=== PATIENT | female | born 1970 | race Two or more races ===

== ENCOUNTER 2020-06-15 07:13 | Emergency (ER) | payer OTHER, SELFPAY ==
[2020-06-15 07:51] VITALS: BP 151/100; PULSE 118; RESP 20; TEMP 37.1; O2SAT 99; BMI 22.4
--- NOTE | 2020-06-15 08:14 | ED.NAVMDI ---
HPI - Nausea/Vomiting/Diarrhea General Chief complaint: Nausea/Vomiting/Diarrhea Stated complaint: VOMITING Time Seen by Provider: 06/15/20 08:09 Source: patient Mode of arrival: ambulatory Limitations: no limitations History of Present Illness HPI Narrative: patient comes to emergency room complaining of abdominal pain and vomiting. Patient states is her usual gastroparesis. Patient has been seen multiple times in the emergency room for the same reason. Patient is being seen by scrum product owner. Patient states this time, the pain has been present for 3-4 days. Patient denies diarrhea, no fever MD elicited complaint: nausea, vomiting and abdominal pain Related Data Previous Rx's Medication Instructions Recorded metoclopramide HCl [Reglan] 10 mg PO DAILY #30 tab 06/15/20 Allergies Allergy/AdvReac Type Severity Reaction Status Date / Time No Known Allergies Allergy Unverified 05/10/20 16:04 [No Known Allergies*] Review of Systems Review of Systems: Constitutional : No Weight loss, No Fever, No Chills, No Night Sweats, No Fatigue, No Malaise ENT/Mouth : No Hearing loss, No Ear Pain, No Nasal Congestion, No Sinus Pain, No Hoarseness, No sore throat, No Rhinorrhea, No Swallowing Difficulty Eyes: No Eye Pain, No Swelling, No Redness, No Foreign Body, No Discharge, No Vision Changes Cardiovascular : No Chest Pain, No SOB, No Dyspnea on Exertion, No Orthopnea, No Edema, No Palpitations Respiratory : No Cough, No Sputum, No Wheezing, No Smoke Exposure, No Dyspnea Gastrointestinal : complaining of nausea vomiting, No Diarrhea, No Constipation, mild to mother diffuse abdominal Pain, No Hematochezia, No Melena Genitourinary : no irregular bleeding, No Dysuria, No Urinary Frequency, No Hematuria, No Urinary Incontinence, No Urgency, No Flank Pain, No Urinary Flow Changes, No Hesitancy Musculoskeletal : No joint pain, No Myalgias, No Joint Swelling Skin : No Skin Lesions, No rash Neuro : No Weakness, No Numbness, No Paresthesias, No Loss of Consciousness, No Dizziness, No Headache Psych : No Anxiety/Panic, No Depression, No SI/HI/AH/VH, No Social Issues, Heme/Lymph: No Bruising, No Bleeding,No Lymphadenopathy Endocrine : No Polyuria, No Polydipsia, No Temperature Intolerance [facility] Past Medical History Medical History (Updated 06/15/20 @ 10:45 by Kaylee Grossman MD) Gastroparesis Social History Social History Smoking Status: Current every day smoker Use of substances other than those prescribed or required for medical reasons: No Advance Directives: No Advance Directives Information Provided: No Physical Exam Vital Signs: Vital Signs: Vital Signs Temp Pulse Resp BP Pulse Ox 06/15/20 07:51 98.7 F 118 H 20 151/100 H 99 Body Mass Index 22.4 Appearance: Alert. Oriented X3. mild distress, crying Eyes: Pupils equal, round and reactive to light. ENT: Pharynx normal. Neck: Normal inspection. Neck supple. No lymph nodes noted. No crepitus CVS: Normal heart rate and rhythm. Pulses normal. Normal S1 and S2 Respiratory: No respiratory distress. Breath sounds normal. No Wheezing. No rales Abdomen: Soft, mild to moderate tenderness. No rigidity. No distention. good BS x4 Skin: Skin warm and dry. Normal skin color. Normal skin turgor. Extremities: No lower extremity edema. No lower extremity edema. No Lacerations. No Rash Neuro: Oriented X 3. No motor deficit. No sensory deficit. Moving all extermities. No slurred speech. Course Course Course Narrative: Patient feeling better, no longer having abdominal pain, still having slight nausea but not vomiting. Patient states she does not have any Reglan at home anymore. MDM - Nausea/Vomiting/Diarrhea MDM Narrative Medical decision making narrative: Patient's symptoms likely secondary to gastroparesis. Patient states she has an appointment in early June with her scrum product owner. Lab Data Result diagrams: 06/15/20 08:49 06/15/20 09:54 Labs: Lab Results 06/15/20 06/15/20 06/15/20 Range/Units 08:49 08:50 09:54 WBC 9.6 (4.8-10.8) X10*3/uL RBC 4.62 (4.20-5.50) X10*6/uL Hgb 13.3 (12.0-16.0) g/dl Hct 40.1 (37-47) % MCV 86.8 (80-98) fL MCH 28.8 (27.0-33.0) pg MCHC 33.2 (31.0-35.0) g/dl RDW 13.2 (11.0-16.0) % Plt Count 271 (160-400) X10*3/uL MPV 9.2 L (9.4-12.3) fL Immature Gran % (Auto) 0.2 (0.0-0.4) % Neut % (Auto) 93.3 H (45-73) % Lymph % (Auto) 4.4 L (20-40) % [place] % (Auto) 1.9 L (2-11) % Eos % (Auto) 0.0 (0-4) % Baso % (Auto) 0.2 (0-2) % Lymph # (Auto) 0.4 L (1.2-4.9) X10*3/uL [place] # (Auto) 0.2 (0.1-1.2) X10*3/uL Eos # (Auto) 0.0 (0.0-0.4) X10*3/uL Baso # (Auto) 0.0 (0.0-0.2) X10*3/uL Abs Immat Gran (auto) 0.02 (0.00-0.03) X10*3/uL Absolute Neuts (auto) 8.9 H (2.0-8.3) X10*3/uL Absolute Nucleated RBC 0.000 (0.0-0.012) X10*3/uL Nucleated RBC % (auto) 0.0 (0.0-0.2) /100WBC Smear Tech's Comments VERIFIED Sodium Cancelled 139 Potassium Cancelled 4.4 Chloride Cancelled 104 Carbon Dioxide Cancelled 24 Anion Gap Cancelled 15 BUN Cancelled 16 Creatinine Cancelled 0.85 Estim Creat Clear Calc Cancelled 59.7 Estimated GFR Cancelled > 60 Random Glucose Cancelled 311 H Calcium Cancelled 8.6 Total Bilirubin Cancelled 0.5 Direct Bilirubin Cancelled 0.2 AST Cancelled 19 ALT Cancelled 19 Alkaline Phosphatase Cancelled 58 Total Protein Cancelled 7.0 Albumin Cancelled 4.3 Lipase Cancelled 37 Discharge Plan Discharge Clinical Impression: Gastroparesis Patient Disposition: Home, Self-Care Instructions: Gastroparesis (ED) Additional Instructions: please follow-up with your scrum product owner. Please follow-up with your primary care physician tomorrow. If you have any worsening or new symptoms, please return to the emergency room or call 911 Prescriptions: New metoclopramide HCl [Reglan] 5 mg tablet 10 mg PO DAILY Qty: 30 RF: 0
[2020-06-15] MEDS: 0.9 % Sodium Chloride 1,000 ML 999 ML IVCONT (08:50)
[2020-06-15] MEDS: Metoclopramide HCl 10 MG/2 ML VIAL IVPUSH (08:51)
[2020-06-15 09:03] LABS: Basophils Percent Auto 0.2 % (0-2); MANUAL DIFF FLAG SCAN; Mean Platelet Volume 9.2 fL (9.4-12.3); Neutrophils Percent Auto 93.3 % (45-73); PLT CLUMP 1; Red Cell Distribution Width 13.2 % (11.0-16.0); SCAN SMEAR FLAG 1
[2020-06-15 09:04] LABS: Hematocrit 40.1 % (37-47); Hemoglobin 13.3 g/dl (12.0-16.0); Imm Gran Abs Auto 0.02 X10*3/uL (0.00-0.03); Imm Gran Pct Auto 0.2 % (0.0-0.4); Lymphocytes Absolute Auto 0.4 X10*3/uL (1.2-4.9); Lymphocytes Percent Auto 4.4 % (20-40); Mean Corpuscular HGB Conc 33.2 g/dl (31.0-35.0); Mean Corpuscular Hemoglobin 28.8 pg (27.0-33.0); Mean Corpuscular Volume 86.8 fL (80-98); Monocytes Absolute Auto 0.2 X10*3/uL (0.1-1.2); Monocytes Percent Auto 1.9 % (2-11); Neutrophils Absolute Auto 8.9 X10*3/uL (2.0-8.3); Platelet Count 271 X10*3/uL (160-400); Red Blood Count 4.62 X10*6/uL (4.20-5.50); White Blood Count 9.6 X10*3/uL (4.8-10.8)
[2020-06-15 09:27] LABS: SLIDE REVIEW VERIFIED
[2020-06-15 10:26] LABS: Alanine Aminotransferase 19 U/L (0-31); Albumin Level 4.3 g/dL (3.5-5.0); Alkaline Phosphatase 58 U/L (39-117); Anion Gap 15 (12-20); Aspartate Amino Transferase 19 U/L (5-31); Bilirubin Direct 0.2 mg/dL (0.0-0.5); Bilirubin Total 0.5 mg/dL (0.0-1.0); Blood Urea Nitrogen 16 mg/dL (9-16); Calcium 8.6 mg/dL (8.4-10.2); Carbon Dioxide 24 mmol/L (22-29); Chloride 104 mmol/L (96-108); Creatinine Clr Calc Pharmacy 59.7; Estimated Glomerular Filt Rate > 60; Glucose Random 311 mg/dL (60-115); Lipase 37 U/L (8-78); Potassium 4.4 mmol/l (3.3-5.1); Sodium 139 mmol/L (135-145)
== END 2020-06-15 11:04 | disposition home or self-care (01) ==
PROVIDERS: Emergency Provider Emergency Medicine
DX: K31.84 Gastroparesis (principal); F17.200 Nicotine dependence, unspecified, uncomplicated
CPT/HCPCS: 36415; 80048; 80076; 83690; 85025; 96361; 96374; 99284; J2765

== ENCOUNTER 2020-10-02 11:13 | Emergency (ER) | payer OTHER, SELFPAY ==
[2020-10-02 11:26] VITALS: BP 118/80; PULSE 99; RESP 18; TEMP 36.6; O2SAT 98; BMI 42.9
--- NOTE | 2020-10-02 12:35 | ED.ABDPAIN ---
HPI - Abdominal Pain General Chief Complaint: Abdominal Pain Stated Complaint: abd pain Time Seen by Provider: 10/02/20 12:24 Source: patient Mode of arrival: ambulatory History of Present Illness HPI narrative: 50-year-old female with past medical history of diabetes, gastroparesis, cholecystectomy, presenting to the ED complaining of upper abdominal pain, nausea, and vomiting since this morning. Admit symptoms are similar to prior gastroparesis, unchanged. States did not checked fingersticks this morning or take insulin. Denies fever, chills, diarrhea/constipation, dysuria/hematuria MD elicited complaint: abdominal pain Related Data Previous Rx's Medication Instructions Recorded metoclopramide HCl [Reglan] 10 mg PO DAILY #30 tab 06/15/20 ondansetron HCl [Zofran] 4 mg PO Q8H PRN #10 tab 10/02/20 Allergies Allergy/AdvReac Type Severity Reaction Status Date / Time No Known Allergies Allergy Verified 10/02/20 11:30 [No Known Allergies*] Review of Systems Review of Systems Constitutional: No Weight loss, No Fever, No Chills Cardiovascular: No Chest Pain, No SOB Respiratory: No Cough, No Sputum Gastrointestinal: + Nausea, + Vomiting, No Diarrhea, No Constipation, + Abdominal pain Genitourinary: No Dysuria, No Urinary Frequency, No Hematuria, No Flank Pain, No Hesitancy Musculoskeletal: No joint pain, No Myalgias, No Joint Swelling Skin: No Skin Lesions, No rash Yes all other systems are reviewed and are negative Physical Exam Vital Signs: Vital Signs: Last Vital Signs Temp 98.3 F 10/02/20 12:58 Pulse 87 10/02/20 14:00 Resp 18 10/02/20 14:00 BP 134/74 10/02/20 14:00 Pulse Ox 100 10/02/20 14:00 Body Mass Index 42.9 Const: General: cooperative and healthy appearing Orientation/consciousness: patient oriented x3 Limitations: no limitations HENMT: Head: Yes normal to inspection Ears: hearing grossly normal bilaterally General nose exam: Normal external nose present Face and sinus: Yes normal facial exam Eyes: General: appearance normal, both eyes and all related structures EOM: EOMs intact bilaterally Neck: Neck: Yes normal visual inspection and Yes no meningeal signs Resp: Effort & Inspection: normal respiratory effort Cardio: Rate: regular rate GI: Inspection: Yes normal to inspection Palpation (GI): Soft to palpation, Tenderness to palpation present (GI) in the epigastrum, no guarding and not rigid : General: Yes no CVA tenderness Back/Spine/Pelvis: Back: no CVA tenderness Skin: Rashes: no rashes Wounds: no wounds Neuro: General: patient oriented x3 and no meningeal signs Gait exam (Neuro): Normal gait present Extrem: General: Yes normal to inspection Course Course Course Narrative: -no leukocytosis, glucose 251, no AG, UA neg > on re-evaluation reports continued abdominal pain. IV Reglan & Ativan ordered -1452--on re-evaluation patient reports symptomatic improvement. Feels safe for discharge. MDM - Abdominal Pain MDM Narrative Medical decision making narrative: 50-year-old female with past medical history of diabetes, gastroparesis, cholecystectomy, presenting to the ED complaining of upper abdominal pain, nausea, and vomiting since this morning. On exam VSS, NAD/well appearing, abdomen soft with epigastric tenderness to palpation, no rebound or guarding. Concern for gastroparesis vs pancreatitis. Lower concern for appendicitis /diverticulitis or renal stone without lower abdominal tenderness. Plan: labs, UA, sx tx, Reassess Differential Diagnosis Differential diagnosis: Likely abdominal pain, gastritis and pancreatitis; Unlikely aortic dissection, acute appendicitis, bowel perforation, calculus of kidney, constipation, diverticulitis, endometriosis, ovarian cyst, renal colic and small bowel obstruction Medical Records Attestation: I reviewed the patient's medical records. Lab Data Attestation: I reviewed the patient's lab results. Result diagrams: 10/02/20 13:05 10/02/20 13:05 Labs: Lab Results 10/02/20 10/02/20 10/02/20 Range/Units 13:04 13:05 13:05 WBC 8.1 (4.8-10.8) X10*3/uL RBC 4.38 (4.20-5.50) X10*6/uL Hgb 13.2 (12.0-16.0) g/dl Hct 39.3 (37-47) % MCV 89.7 (80-98) fL MCH 30.1 (27.0-33.0) pg MCHC 33.6 (31.0-35.0) g/dl RDW 13.2 (11.0-16.0) % Plt Count 303 (160-400) X10*3/uL MPV 8.9 L (9.4-12.3) fL Immature Gran % (Auto) 0.4 (0.0-0.4) % Neut % (Auto) 79.9 H (45-73) % Lymph % (Auto) 14.7 L (20-40) % [place] % (Auto) 4.2 (2-11) % Eos % (Auto) 0.4 (0-4) % Baso % (Auto) 0.4 (0-2) % Lymph # (Auto) 1.2 (1.2-4.9) X10*3/uL [place] # (Auto) 0.3 (0.1-1.2) X10*3/uL Eos # (Auto) 0.0 (0.0-0.4) X10*3/uL Baso # (Auto) 0.0 (0.0-0.2) X10*3/uL Abs Immat Gran (auto) 0.03 (0.00-0.03) X10*3/uL Absolute Neuts (auto) 6.5 (2.0-8.3) X10*3/uL Absolute Nucleated RBC 0.000 (0.0-0.012) X10*3/uL Nucleated RBC % (auto) 0.0 (0.0-0.2) /100WBC Hold Blue Top SEE NOTE Sodium (135-145) mmol/L Potassium (3.3-5.1) mmol/L Chloride (96-108) mmol/L Carbon Dioxide (22-29) mmol/L Anion Gap (12-20) BUN (9-16) mg/dL Creatinine (0.5-1.4) mg/dL Estim Creat Clear Calc Estimated GFR POC Glucose 214 H (60-115) mg/dL Random Glucose (60-115) mg/dL Calcium (8.4-10.2) mg/dL Magnesium (1.6-2.6) mg/dL Total Bilirubin (0.0-1.0) mg/dL Direct Bilirubin (0.0-0.5) mg/dL AST (5-31) U/L ALT (0-31) U/L Alkaline Phosphatase (39-117) U/L Total Protein (6.5-8.0) g/dL Albumin (3.5-5.0) g/dL Lipase (8-78) U/L Urine Color Urine Appearance Urine pH (5.0-8.0) Ur Specific [place] (1.005-1.025) Urine Protein (NEG-TRACE) MG/DL Urine Glucose (UA) (NEG) MG/DL Urine Ketones (NEG) MG/DL Urine Blood (NEG) Urine Nitrite (NEG) Ur Leukocyte Esterase (NEG) 10/02/20 10/02/20 Range/Units 13:05 13:05 WBC (4.8-10.8) X10*3/uL RBC (4.20-5.50) X10*6/uL Hgb (12.0-16.0) g/dl Hct (37-47) % MCV (80-98) fL MCH (27.0-33.0) pg MCHC (31.0-35.0) g/dl RDW (11.0-16.0) % Plt Count (160-400) X10*3/uL MPV (9.4-12.3) fL Immature Gran % (Auto) (0.0-0.4) % Neut % (Auto) (45-73) % Lymph % (Auto) (20-40) % [place] % (Auto) (2-11) % Eos % (Auto) (0-4) % Baso % (Auto) (0-2) % Lymph # (Auto) (1.2-4.9) X10*3/uL [place] # (Auto) (0.1-1.2) X10*3/uL Eos # (Auto) (0.0-0.4) X10*3/uL Baso # (Auto) (0.0-0.2) X10*3/uL Abs Immat Gran (auto) (0.00-0.03) X10*3/uL Absolute Neuts (auto) (2.0-8.3) X10*3/uL Absolute Nucleated RBC (0.0-0.012) X10*3/uL Nucleated RBC % (auto) (0.0-0.2) /100WBC Hold Blue Top Sodium 137 (135-145) mmol/L Potassium 4.4 (3.3-5.1) mmol/L Chloride 100 (96-108) mmol/L Carbon Dioxide 28 (22-29) mmol/L Anion Gap 13 (12-20) BUN 14 (9-16) mg/dL Creatinine 0.82 (0.5-1.4) mg/dL Estim Creat Clear Calc 90.5 Estimated GFR > 60 POC Glucose (60-115) mg/dL Random Glucose 251 H (60-115) mg/dL Calcium 8.9 (8.4-10.2) mg/dL Magnesium 1.8 (1.6-2.6) mg/dL Total Bilirubin 0.4 (0.0-1.0) mg/dL Direct Bilirubin 0.2 (0.0-0.5) mg/dL AST 18 (5-31) U/L ALT 16 (0-31) U/L Alkaline Phosphatase 62 (39-117) U/L Total Protein 7.6 (6.5-8.0) g/dL Albumin 4.6 (3.5-5.0) g/dL Lipase 32 (8-78) U/L Urine Color YELLOW Urine Appearance CLEAR Urine pH 6.0 (5.0-8.0) Ur Specific [place] 1.025 (1.005-1.025) Urine Protein NEG (NEG-TRACE) MG/DL Urine Glucose (UA) 100 H (NEG) MG/DL Urine Ketones NEG (NEG) MG/DL Urine Blood NEG (NEG) Urine Nitrite NEG (NEG) Ur Leukocyte Esterase NEG (NEG) Discharge Plan Discharge Clinical Impression: Gastroparesis Patient Disposition: Home, Self-Care Instructions: Diabetic Gastroparesis (DC) Additional Instructions: Your blood work and urine were reassuring today in the ED. Make sure your staying hydrated at home. Follow-up with your primary care doctor as well as her GI doctor. Zofran and antinausea medication, take as needed. If her symptoms persist or worsen, become unbearable, you are unable to eat or drink return to the ED Prescriptions: New ondansetron HCl [Zofran] 4 mg tablet 4 mg PO Q8H PRN (Reason: nausea and vomiting) Qty: 10 RF: 0 No Action metoclopramide HCl [Reglan] 5 mg tablet 10 mg PO DAILY Qty: 30 RF: 0 Referrals: Tali Rausch NP [Primary Care Provider] - 2 days Madeleine Epperson MD [Physician] - 1 week [facility] [place] Past Medical History Attestation statement: The following information was validated with the patient. Medical History (Updated 10/02/20 @ 13:42 by DHAVAL Sinclair) Gastroparesis Social History Social History Alcohol intake: never Smoking Status: Never smoker Use of substances other than those prescribed or required for medical reasons: No Advance Directives: Yes Advance Directives Information Provided: Yes Advance Directives on File: No
[2020-10-02 12:58] VITALS: BP 112/89; PULSE 92; RESP 18; TEMP 36.8; O2SAT 99
--- NOTE | 2020-10-02 12:58 | PC.NURSE ---
CRYING WITH TEARS, HAS UPPER ABD PAIN/EPIGASTRIC AREA. 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 WAS STEADY ON FEET TO BATHROOM. MOIST MM. HAS GI AT [facility] BUT MISSED APPOINTMENT
[2020-10-02 13:07] LABS: Glucose, Whole Blood 214 mg/dL (60-115)
[2020-10-02 13:09] LABS: MANUAL DIFF FLAG NO
[2020-10-02 13:12] LABS: Basophils Percent Auto 0.4 % (0-2); Eosinophils Percent Auto 0.4 % (0-4); Hematocrit 39.3 % (37-47); Hemoglobin 13.2 g/dl (12.0-16.0); Imm Gran Abs Auto 0.03 X10*3/uL (0.00-0.03); Imm Gran Pct Auto 0.4 % (0.0-0.4); Lymphocytes Absolute Auto 1.2 X10*3/uL (1.2-4.9); Lymphocytes Percent Auto 14.7 % (20-40); Mean Corpuscular HGB Conc 33.6 g/dl (31.0-35.0); Mean Corpuscular Hemoglobin 30.1 pg (27.0-33.0); Mean Corpuscular Volume 89.7 fL (80-98); Mean Platelet Volume 8.9 fL (9.4-12.3); Monocytes Absolute Auto 0.3 X10*3/uL (0.1-1.2); Monocytes Percent Auto 4.2 % (2-11); Neutrophils Absolute Auto 6.5 X10*3/uL (2.0-8.3); Neutrophils Percent Auto 79.9 % (45-73); Platelet Count 303 X10*3/uL (160-400); Red Blood Count 4.38 X10*6/uL (4.20-5.50); Red Cell Distribution Width 13.2 % (11.0-16.0); White Blood Count 8.1 X10*3/uL (4.8-10.8)
[2020-10-02] MEDS: Magnesium Hydrox/Alum Hydrox 30 ML ORAL.SUSP PO (13:12)
[2020-10-02] MEDS: Lidocaine HCl Viscous 2 % 15 ML SOLUTION MUCOUS MEM (13:12)
[2020-10-02] MEDS: Famotidine/PF 20 MG/2 ML VIAL IVPUSH (13:13)
[2020-10-02] MEDS: ondansetron HCL 4 MG/2 ML VIAL IVPUSH (13:13)
[2020-10-02] MEDS: Ketorolac Tromethamine 15 MG/ML VIAL IVPUSH (13:13)
[2020-10-02] MEDS: 0.9 % Sodium Chloride 1,000 ML 999 ML IVCONT (13:15)
[2020-10-02 13:18] LABS: Glucose Urine UA 100 MG/DL (NEG); Leukocyte Esterase Urine NEG (NEG); Nitrite Urine NEG (NEG); Specific Gravity - Urine 1.025 (1.005-1.025); Urine Blood NEG (NEG); Urine Ketones NEG (NEG); Urine Protein NEG (NEG-TRACE)
[2020-10-02 13:21] LABS: Appearance Urine CLEAR; Color Urine YELLOW
[2020-10-02 13:34] LABS: Alanine Aminotransferase 16 U/L (0-31); Albumin Level 4.6 g/dL (3.5-5.0); Alkaline Phosphatase 62 U/L (39-117); Anion Gap 13 (12-20); Aspartate Amino Transferase 18 U/L (5-31); Bilirubin Direct 0.2 mg/dL (0.0-0.5); Bilirubin Total 0.4 mg/dL (0.0-1.0); Blood Urea Nitrogen 14 mg/dL (9-16); Calcium 8.9 mg/dL (8.4-10.2); Carbon Dioxide 28 mmol/L (22-29); Chloride 100 mmol/L (96-108); Creatinine Clr Calc Pharmacy 90.5; Estimated Glomerular Filt Rate > 60; Glucose Random 251 mg/dL (60-115); Lipase 32 U/L (8-78); Magnesium 1.8 mg/dL (1.6-2.6); Potassium 4.4 mmol/L (3.3-5.1); Sodium 137 mmol/L (135-145); Total Protein 7.6 g/dL (6.5-8.0)
[2020-10-02 14:00] VITALS: BP 134/74; PULSE 87; RESP 18; O2SAT 100
[2020-10-02] MEDS: Metoclopramide HCl 10 MG/2 ML VIAL IVPUSH (14:06)
[2020-10-02] MEDS: LORazepam 2 MG/ML VIAL 1 MG IVPUSH (14:06)
--- NOTE | 2020-10-02 14:07 | PC.NURSE ---
feeling better. no longer crying. additional meds given.
== END 2020-10-02 15:12 | disposition home or self-care (01) ==
PROVIDERS: Physician Assistant; Emergency Provider Emergency Medicine Emergency Medical Services; PCP Nurse Practitioner Family
DX: K31.84 Gastroparesis (principal); R10.10 Upper abdominal pain, unspecified; Z79.899 Other long term (current) drug therapy
CPT/HCPCS: 36415; 80048; 80076; 81003; 82947; 83690; 83735; 85025; 96361; 96374; 96375; 99284; J1885; J2060; J2405; J2765

== ENCOUNTER 2020-12-04 18:33 | Emergency (ER) | payer OTHER, SELFPAY ==
--- NOTE | ~2020-12-04 | XR_ITS ---
EXAMINATION: XR CHEST CLINICAL INFORMATION: Question of free intraperitoneal air COMPARISON: None TECHNIQUE: Frontal view of the chest was obtained. FINDINGS: No significant abnormality is noted involving the heart, lungs, mediastinum, bony thorax or soft tissues. No free air is seen beneath the hemidiaphragm. XR/XR chest 1V IMPRESSION: Unremarkable examination.
[2020-12-04 19:16] VITALS: PULSE 127; RESP 18; TEMP 37; O2SAT 98; BMI 21.2
[2020-12-04 20:50] LABS: MANUAL DIFF FLAG NO
[2020-12-04 20:51] LABS: Basophils Percent Auto 0.1 % (0-2); Eosinophils Percent Auto 0.1 % (0-4); Hematocrit 45.3 % (37-47); Hemoglobin 14.8 g/dl (12.0-16.0); Imm Gran Abs Auto 0.04 X10*3/uL (0.00-0.03); Imm Gran Pct Auto 0.3 % (0.0-0.4); Lymphocytes Absolute Auto 0.9 X10*3/uL (1.2-4.9); Lymphocytes Percent Auto 7.5 % (20-40); Mean Corpuscular HGB Conc 32.7 g/dl (31.0-35.0); Mean Corpuscular Volume 91.7 fL (80-98); Mean Platelet Volume 9.1 fL (9.4-12.3); Monocytes Absolute Auto 0.7 X10*3/uL (0.1-1.2); Monocytes Percent Auto 5.3 % (2-11); Neutrophils Absolute Auto 10.9 X10*3/uL (2.0-8.3); Neutrophils Percent Auto 86.7 % (45-73); Platelet Count 371 X10*3/uL (160-400); Red Blood Count 4.94 X10*6/uL (4.20-5.50); Red Cell Distribution Width 13.2 % (11.0-16.0); White Blood Count 12.5 X10*3/uL (4.8-10.8)
[2020-12-04 21:38] LABS: Alanine Aminotransferase 32 U/L (0-31); Albumin Level 5.1 g/dL (3.5-5.0); Alkaline Phosphatase 65 U/L (39-117); Anion Gap 23 (12-20); Aspartate Amino Transferase 23 U/L (5-31); Bilirubin Direct 0.2 mg/dL (0.0-0.5); Bilirubin Total 0.7 mg/dL (0.0-1.0); Blood Urea Nitrogen 14 mg/dL (9-16); Calcium 9.9 mg/dL (8.4-10.2); Carbon Dioxide 21 mmol/L (22-29); Chloride 99 mmol/L (96-108); Creatinine Clr Calc Pharmacy 40.6; Estimated Glomerular Filt Rate 41; Glucose Random 499 mg/dL (60-115); Lipase 18 U/L (8-78); Potassium 4.3 mmol/L (3.3-5.1); Sodium 139 mmol/L (135-145); Total Protein 8.7 g/dL (6.5-8.0)
--- NOTE | 2020-12-04 22:35 | PC.NURSE ---
PATIENT HAVING NO DIFFICULTY AMBULATING IN WAITING ROOM, CONFIRMING PATIENTS NAME AND WITH PATIENT. PATIENT THEN ONCE GETTING CLOSER TO NURSE ATTEMPTED TO COLLAPSE INTO THIS RN, ASKING PATIENT TO STAND UP STRAIGHT WHICH PATIENT WAS ABLE TO DO AND AMBULATE FURTHER. PATIENT THEN AGAIN ATTEMPTING TO LEAN INTO THIS NURSE TO HAVE THEM FALL OVER. PATIENT ASKED AGAIN TO STAND UP STRAIGHT. PATIENT IS ALERT AND ORIENTED, RESPONDING MY SUGAR IS HIGH I CAN'T GO ANY FURTHER, I HAVE BEEN HERE FOR 8 HOURS, CONFIRMING WITH PATIENT THAT SHE CHECKED IN 4 HOURS AGO TO THIS ER. PATIENT GIVEN A WHEELCHAIR BY ANOTHER STAFF MEMBER, HAD NO ISSUES TRANSFERRING AND WALKING TO THE BED. NO ISSUES CHANGING INTO HOSPITAL ATTIRE AND WRAPPING HERSELF IN A BLANKET.
--- NOTE | 2020-12-04 22:48 | ED_ITS ---
HPI - Abdominal Pain General Chief Complaint: Abdominal Pain Stated Complaint: ABD PAIN Time Seen by Provider: 12/04/20 22:34 Source: patient Mode of arrival: ambulatory Limitations: no limitations History of Present Illness HPI narrative: Patient comes emergency room complaining of diffuse abdominal pain. Patient states she has been vomiting for 3 days. Patient went yesterday to [facility], states that she was not giving any medication, patient upset and crying. Patient states that after she was discharged from the hospital, she continued having the same symptoms. Patient states a few months ago she was daniel d that she has a gastric ulcer that was diagnosed by an upper endoscopy. patient denies diarrhea, no fever. Patient is known to have significant gastroparesis. Related Data Previous Rx's Medication Instructions Recorded metoclopramide HCl [Reglan] 10 mg PO DAILY #30 tab 06/15/20 ondansetron HCl [Zofran] 4 mg PO Q8H PRN #10 tab 10/02/20 hydrochlorothiazide 25 mg PO DAILY #20 tab 12/05/20 metoclopramide HCl [Reglan] 10 mg PO Q6H PRN #20 tab 12/05/20 Allergies Allergy/AdvReac Type Severity Reaction Status Date / Time No Known Allergies Allergy Verified 12/04/20 19:03 [No Known Allergies*] Review of Systems Review of Systems Constitutional : No Weight loss, No Fever, No Chills, No Night Sweats, No Fatigue, No Malaise ENT/Mouth : No Hearing loss, No Ear Pain, No Nasal Congestion, No Sinus Pain, No Hoarseness, No sore throat, No Rhinorrhea, No Swallowing Difficulty Eyes: No Eye Pain, No Swelling, No Redness, No Foreign Body, No Discharge, No Vision Changes Cardiovascular : No Chest Pain, No SOB, No Dyspnea on Exertion, No Orthopnea, No Edema, No Palpitations Respiratory : No Cough, No Sputum, No Wheezing, No Smoke Exposure, No Dyspnea Gastrointestinal : Complaining of nausea and vomiting, No Diarrhea, No Constipation, diffuse abdominal cramping, No Hematochezia, No Melena Genitourinary : no irregular bleeding, No Dysuria, No Urinary Frequency, No Hematuria, No Urinary Incontinence, No Urgency, No Flank Pain, No Urinary Flow Changes, No Hesitancy Musculoskeletal : No joint pain, No Myalgias, No Joint Swelling Skin : No Skin Lesions, No rash Neuro : No Weakness, No Numbness, No Paresthesias, No Loss of Consciousness, No Dizziness, No Headache Psych : No Anxiety/Panic, No Depression, No SI/HI/AH/VH, No Social Issues, Heme/Lymph: No Bruising, No Bleeding,No Lymphadenopathy Endocrine : No Polyuria, No Polydipsia, No Temperature Intolerance Physical Exam Vital Signs: Vital Signs: Last Vital Signs Temp 98.6 F 12/04/20 19:16 Pulse 109 H 12/05/20 02:38 Resp 20 12/05/20 02:38 BP 119/66 12/05/20 02:38 Pulse Ox 99 12/05/20 02:38 Body Mass Index 21.2 Appearance: Alert. Oriented X3. No acute distress. Eyes: Pupils equal, round and reactive to light. ENT: Pharynx normal. Neck: Normal inspection. Neck supple. No lymph nodes noted. No crepitus CVS: Normal heart rate and rhythm. Pulses normal. Normal S1 and S2 Respiratory: No respiratory distress. Breath sounds normal. No Wheezing. No rales Abdomen: Soft , mild diffuse tenderness, No rigidity. No distention Skin: Skin warm and dry. Normal skin color. Normal skin turgor. Extremities: No lower extremity edema. No lower extremity edema. No Lacerations. No Rash Neuro: Oriented X 3. No motor deficit. No sensory deficit. Moving all extermities. No slurred speech. Course Course Course Narrative: Patient was given pain medication, states that she feels better, abdominal pain 5/10. It was noted the patient's blood pressure is to await systolic. Patient states that she has no history hypertension. Blood pressure was checked after patient had significant pain relief. Patient received 1 dose of 100 mg p.o. labetalol. Patient's blood pressure is 126 2:26 am: BP is 126 systolic on EKG, patient has prolonged QT, pt has history of chronic prolonged QT/QTc On initial chemistry, patient's anion gap is 23, repeat BMP is pending. Sign- out given to Dr. Sanabria [facility] - Abdominal Pain Lab Data Result diagrams: 12/04/20 20:45 12/04/20 20:45 Labs: Lab Results 12/04/20 12/04/20 12/04/20 Range/Units 20:45 20:45 23:44 WBC 12.5 H (4.8-10.8) X10*3/uL RBC 4.94 (4.20-5.50) X10*6/uL Hgb 14.8 (12.0-16.0) g/dl Hct 45.3 (37-47) % MCV 91.7 (80-98) fL MCH 30.0 (27.0-33.0) pg MCHC 32.7 (31.0-35.0) g/dl RDW 13.2 (11.0-16.0) % Plt Count 371 (160-400) X10*3/uL MPV 9.1 L (9.4-12.3) fL Immature Gran % (Auto) 0.3 (0.0-0.4) % Neut % (Auto) 86.7 H (45-73) % Lymph % (Auto) 7.5 L (20-40) % [place] % (Auto) 5.3 (2-11) % Eos % (Auto) 0.1 (0-4) % Baso % (Auto) 0.1 (0-2) % Lymph # (Auto) 0.9 L (1.2-4.9) X10*3/uL [place] # (Auto) 0.7 (0.1-1.2) X10*3/uL Eos # (Auto) 0.0 (0.0-0.4) X10*3/uL Baso # (Auto) 0.0 (0.0-0.2) X10*3/uL Abs Immat Gran (auto) 0.04 H (0.00-0.03) X10*3/uL Absolute Neuts (auto) 10.9 H (2.0-8.3) X10*3/uL Absolute Nucleated RBC 0.000 (0.0-0.012) X10*3/uL Nucleated RBC % (auto) 0.0 (0.0-0.2) /100WBC VBG pH (7.32-7.43) VBG pCO2 mmHg VBG pO2 mmHg VBG HCO3 (22-26) mmol/L VBG O2 Saturation % VBG Base Excess mmol/L Sodium 139 (135-145) mmol/L Potassium 4.3 (3.3-5.1) mmol/L Chloride 99 (96-108) mmol/L Carbon Dioxide 21 L (22-29) mmol/L Anion Gap 23 H (12-20) BUN 14 (9-16) mg/dL Creatinine 1.37 (0.5-1.4) mg/dL Estim Creat Clear Calc 40.6 Estimated GFR 41 POC Glucose (60-115) mg/dL Random Glucose 499 H* (60-115) mg/dL Calcium 9.9 D (8.4-10.2) mg/dL Total Bilirubin 0.7 (0.0-1.0) mg/dL Direct Bilirubin 0.2 (0.0-0.5) mg/dL AST 23 (5-31) U/L ALT 32 H (0-31) U/L Alkaline Phosphatase 65 (39-117) U/L Total Protein 8.7 H (6.5-8.0) g/dL Albumin 5.1 H (3.5-5.0) g/dL Lipase 18 (8-78) U/L Urine Color Urine Appearance Urine pH (5.0-8.0) Ur Specific [place] (1.005-1.025) Urine Protein (NEG-TRACE) MG/DL Urine Glucose (UA) (NEG) MG/DL Urine Ketones (NEG) MG/DL Urine Blood (NEG) Urine Nitrite (NEG) Ur Leukocyte Esterase (NEG) Urine RBC (0) /HPF Urine WBC (0-4) /HPF Ur Squamous Epith Cells /LPF Urine Bacteria /LPF Acetone, Qual Negative (Negative) 12/04/20 12/05/20 12/05/20 Range/Units 23:49 00:00 01:09 WBC (4.8-10.8) X10*3/uL RBC (4.20-5.50) X10*6/uL Hgb (12.0-16.0) g/dl Hct (37-47) % MCV (80-98) fL MCH (27.0-33.0) pg MCHC (31.0-35.0) g/dl RDW (11.0-16.0) % Plt Count (160-400) X10*3/uL MPV (9.4-12.3) fL Immature Gran % (Auto) (0.0-0.4) % Neut % (Auto) (45-73) % Lymph % (Auto) (20-40) % [place] % (Auto) (2-11) % Eos % (Auto) (0-4) % Baso % (Auto) (0-2) % Lymph # (Auto) (1.2-4.9) X10*3/uL [place] # (Auto) (0.1-1.2) X10*3/uL Eos # (Auto) (0.0-0.4) X10*3/uL Baso # (Auto) (0.0-0.2) X10*3/uL Abs Immat Gran (auto) (0.00-0.03) X10*3/uL Absolute Neuts (auto) (2.0-8.3) X10*3/uL Absolute Nucleated RBC (0.0-0.012) X10*3/uL Nucleated RBC % (auto) (0.0-0.2) /100WBC VBG pH 7.53 H (7.32-7.43) VBG pCO2 25 mmHg VBG pO2 164 mmHg VBG HCO3 20 L (22-26) mmol/L VBG O2 Saturation 99.0 % VBG Base Excess 0.1 mmol/L Sodium (135-145) mmol/L Potassium (3.3-5.1) mmol/L Chloride (96-108) mmol/L Carbon Dioxide (22-29) mmol/L Anion Gap (12-20) BUN (9-16) mg/dL Creatinine (0.5-1.4) mg/dL Estim Creat Clear Calc Estimated GFR POC Glucose 395 H* 327 H (60-115) mg/dL Random Glucose (60-115) mg/dL Calcium (8.4-10.2) mg/dL Total Bilirubin (0.0-1.0) mg/dL Direct Bilirubin (0.0-0.5) mg/dL AST (5-31) U/L ALT (0-31) U/L Alkaline Phosphatase (39-117) U/L Total Protein (6.5-8.0) g/dL Albumin (3.5-5.0) g/dL Lipase (8-78) U/L Urine Color Urine Appearance Urine pH (5.0-8.0) Ur Specific [place] (1.005-1.025) Urine Protein (NEG-TRACE) MG/DL Urine Glucose (UA) (NEG) MG/DL Urine Ketones (NEG) MG/DL Urine Blood (NEG) Urine Nitrite (NEG) Ur Leukocyte Esterase (NEG) Urine RBC (0) /HPF Urine WBC (0-4) /HPF Ur Squamous Epith Cells /LPF Urine Bacteria /LPF Acetone, Qual (Negative) 12/05/20 Range/Units 02:30 WBC (4.8-10.8) X10*3/uL RBC (4.20-5.50) X10*6/uL Hgb (12.0-16.0) g/dl Hct (37-47) % MCV (80-98) fL MCH (27.0-33.0) pg MCHC (31.0-35.0) g/dl RDW (11.0-16.0) % Plt Count (160-400) X10*3/uL MPV (9.4-12.3) fL Immature Gran % (Auto) (0.0-0.4) % Neut % (Auto) (45-73) % Lymph % (Auto) (20-40) % [place] % (Auto) (2-11) % Eos % (Auto) (0-4) % Baso % (Auto) (0-2) % Lymph # (Auto) (1.2-4.9) X10*3/uL [place] # (Auto) (0.1-1.2) X10*3/uL Eos # (Auto) (0.0-0.4) X10*3/uL Baso # (Auto) (0.0-0.2) X10*3/uL Abs Immat Gran (auto) (0.00-0.03) X10*3/uL Absolute Neuts (auto) (2.0-8.3) X10*3/uL Absolute Nucleated RBC (0.0-0.012) X10*3/uL Nucleated RBC % (auto) (0.0-0.2) /100WBC VBG pH (7.32-7.43) VBG pCO2 mmHg VBG pO2 mmHg VBG HCO3 (22-26) mmol/L VBG O2 Saturation % VBG Base Excess mmol/L Sodium (135-145) mmol/L Potassium (3.3-5.1) mmol/L Chloride (96-108) mmol/L Carbon Dioxide (22-29) mmol/L Anion Gap (12-20) BUN (9-16) mg/dL Creatinine (0.5-1.4) mg/dL Estim Creat Clear Calc Estimated GFR POC Glucose (60-115) mg/dL Random Glucose (60-115) mg/dL Calcium (8.4-10.2) mg/dL Total Bilirubin (0.0-1.0) mg/dL Direct Bilirubin (0.0-0.5) mg/dL AST (5-31) U/L ALT (0-31) U/L Alkaline Phosphatase (39-117) U/L Total Protein (6.5-8.0) g/dL Albumin (3.5-5.0) g/dL Lipase (8-78) U/L Urine Color YELLOW Urine Appearance CLEAR Urine pH 7.0 (5.0-8.0) Ur Specific [place] 1.015 (1.005-1.025) Urine Protein NEG (NEG-TRACE) MG/DL Urine Glucose (UA) >=1000 H (NEG) MG/DL Urine Ketones 15 (NEG) MG/DL Urine Blood NEG (NEG) Urine Nitrite NEG (NEG) Ur Leukocyte Esterase NEG (NEG) Urine RBC 0-2 (0) /HPF Urine WBC 0-2 (0-4) /HPF Ur Squamous Epith Cells 1+ /LPF Urine Bacteria 1+ /LPF Acetone, Qual (Negative) Imaging Data Chest x-ray: Radiologist's impression: No significant abnormality is noted involving the heart, lungs, mediastinum, bony thorax or soft tissues. No free air is seen beneath the hemidiaphragm. XR/XR chest 1V IMPRESSION: Unremarkable examination. ECG Data Attestation: I personally reviewed and interpreted this ECG as follows: (Sinus rhythm, heart rate 98, QTC 543, no ST depression or elevation) Critical Care Time Critical Care Time Total Critical Care Time: 50 Discharge Plan Discharge Clinical Impression: Abdominal pain, Gastroparesis, Hypertension, Hyperglycemia Patient Disposition: Home, Self-Care Instructions: Diabetic Gastroparesis (DC), Hypertension (ED) Additional Instructions: Please follow-up with your primary care physician tomorrow. If you have any wo rsening or new symptoms, please return to the emergency room or call 911 Prescriptions: New metoclopramide HCl [Reglan] 10 mg tablet 10 mg PO Q6H PRN (Reason: nausea and vomiting) Qty: 20 RF: 0 hydrochlorothiazide 25 mg tablet 25 mg PO DAILY Qty: 20 RF: 0 No Action metoclopramide HCl [Reglan] 5 mg tablet 10 mg PO DAILY Qty: 30 RF: 0 ondansetron HCl [Zofran] 4 mg tablet 4 mg PO Q8H PRN (Reason: nausea and vomiting) Qty: 10 RF: 0 PMFSH Past Medical History Medical History Gastroparesis Social History Social History Alcohol intake: never Smoking Status: Never smoker Advance Directives: No Advance Directives Information Provided: Yes
[2020-12-04] MEDS: Metoclopramide HCl 10 MG/2 ML VIAL IVPUSH (23:51)
[2020-12-04] MEDS: 0.9 % Sodium Chloride 1,000 ML 999 ML IVCONT (23:51)
[2020-12-04] MEDS: Morphine Sulfate 2 MG/ML CARTRIDGE IVPUSH (23:51)
[2020-12-04] MEDS: Insulin Regular, Human 100 UNIT/ML 3 ML VIAL 10 UNIT IVPUSH (23:52)
[2020-12-04 23:53] LABS: Venous Blood Gas Refer to POC result
[2020-12-04 23:56] LABS: VBG Base Excess 0.1 mmol/L; VBG HCO3 20 mmol/L (22-26); VBG pCO2 25 mmHg; VBG pH 7.53 (7.32-7.43); VBG pO2 164 mmHg
[2020-12-05 00:10] VITALS: BP 197/123; PULSE 130; RESP 25; O2SAT 98
[2020-12-05 00:18] LABS: Acetone, serum QL Negative (Negative)
--- NOTE | 2020-12-05 00:35 | PC.NURSE ---
Dr Grossman is aware of the HR and BP
[2020-12-05 00:49] LABS: Glucose, Whole Blood 395 mg/dL (60-115)
[2020-12-05 01:15] LABS: Glucose, Whole Blood 327 mg/dL (60-115)
[2020-12-05] MEDS: 0.9 % Sodium Chloride 1,000 ML 999 ML IVCONT (01:25)
[2020-12-05 02:02] VITALS: BP 181/122; PULSE 129
[2020-12-05] MEDS: Metoprolol Tartrate 100 MG TABLET PO (02:02)
[2020-12-05] MEDS: Morphine Sulfate 2 MG/ML CARTRIDGE IVPUSH (02:02)
[2020-12-05 02:03] VITALS: BP 181/122; PULSE 122; RESP 23; O2SAT 99
--- NOTE | 2020-12-05 02:26 | ECG_ITS ---
Test Reason : HTN Blood Pressure : / mmHG Vent. Rate : 098 BPM Atrial Rate : 098 BPM P-R Int : 140 ms QRS Dur : 072 ms QT Int : 426 ms P-R-T Axes : 068 060 050 degrees QTc Int : 543 ms Normal sinus rhythm Prolonged QT Abnormal ECG When compared with ECG of 31-MAR-2020 22:18, T wave amplitude has decreased in Inferior leads Referred By: Kaylee Grossman Electronically Signed By:NIKIA HOFFMANN
[2020-12-05 02:38] VITALS: BP 119/66; PULSE 109; RESP 20; O2SAT 99
[2020-12-05 02:50] LABS: Glucose Urine UA >=1000 MG/DL (NEG); Leukocyte Esterase Urine NEG (NEG); Nitrite Urine NEG (NEG); Specific Gravity - Urine 1.015 (1.005-1.025); Urine Blood NEG (NEG); Urine Ketones 15 MG/DL (NEG); Urine Protein NEG (NEG-TRACE)
[2020-12-05 02:52] LABS: Appearance Urine CLEAR; Color Urine YELLOW
[2020-12-05 02:55] LABS: Bacteria Urine 1+ /LPF; RBC Urine 0-2 /HPF (0); Squamous Epithelial Cell Urine 1+ /LPF; WBC Urine 0-2 /HPF (0-4)
[2020-12-05] MEDS: Insulin Regular, Human 100 UNIT/ML 3 ML VIAL IVPUSH (03:01)
[2020-12-05 03:17] LABS: Glucose, Whole Blood 318 mg/dL (60-115)
[2020-12-05 03:25] LABS: Anion Gap 11 (12-20); Blood Urea Nitrogen 11 mg/dL (9-16); Calcium 7.3 mg/dL (8.4-10.2); Carbon Dioxide 18 mmol/L (22-29); Chloride 112 mmol/L (96-108); Creatinine Clr Calc Pharmacy 73.2; Estimated Glomerular Filt Rate > 60; Glucose Random 325 mg/dL (60-115); Potassium 3.4 mmol/L (3.3-5.1); Sodium 138 mmol/L (135-145)
[2020-12-05 03:34] LABS: Amphetamine Screen Urine Not Detected (Not Detect); Barbiturates, Urine Not Detected (Not Detect); Benzodiazepines Screen Urine Not Detected (Not Detect); Cannabinoid Screen Urine POSITIVE (Not Detect); Cocaine Screen Urine Not Detected (Not Detect); Opiate Screen Urine POSITIVE (Not Detect); Phencyclidine Screen Urine Not Detected (Not Detect)
[2020-12-05 04:09] LABS: Glucose, Whole Blood 168 mg/dL (60-115)
[2020-12-05 05:50] LABS: Anion Gap 10 (12-20); Blood Urea Nitrogen 12 mg/dL (9-16); Calcium 8.2 mg/dL (8.4-10.2); Carbon Dioxide 22 mmol/L (22-29); Chloride 111 mmol/L (96-108); Creatinine Clr Calc Pharmacy 73.2; Estimated Glomerular Filt Rate > 60; Glucose Random 194 mg/dL (60-115); Potassium 3.8 mmol/L (3.3-5.1); Sodium 139 mmol/L (135-145)
[2020-12-05 07:13] VITALS: BP 120/75; PULSE 80; RESP 15; O2SAT 99
== END 2020-12-05 07:16 | disposition home or self-care (01) ==
PROVIDERS: Emergency Medicine; Student in an Organized Health Care Education/Training Program; Emergency Provider Emergency Medicine; PCP Nurse Practitioner Family
DX: E11.43 Type 2 diabetes mellitus with diabetic autonomic (poly)neuropathy (principal); K31.84 Gastroparesis; E11.65 Type 2 diabetes mellitus with hyperglycemia; I10 Essential (primary) hypertension; F11.90 Opioid use, unspecified, uncomplicated; F12.90 Cannabis use, unspecified, uncomplicated
CPT/HCPCS: 36415; 71045; 80048; 80076; 80307; 81001; 82009; 82947; 83690; 85025; 93005; 96361; 96374; 96375; 96376; 99284; 99291; J2270; J2765

== ENCOUNTER 2021-06-05 09:11 | Outpatient (REF) | payer OTHER, SELFPAY ==
[2021-06-05 09:43] LABS: COVID-19 Test Negative (Negative)
== END 2021-06-05 09:12 | disposition home or self-care (01) ==
LOC: HO.LAB 09:11
PROVIDERS: PCP Nurse Practitioner Family; Visit Provider Internal Medicine
DX: Z20.822 Contact with and (suspected) exposure to COVID-19 (principal)
CPT/HCPCS: 36415; 87635; C9803

== ENCOUNTER 2021-06-21 10:25 | Emergency (ER) | payer OTHER, SELFPAY ==
[2021-06-21 11:01] VITALS: BP 132/100; PULSE 115; RESP 18; TEMP 36.6; O2SAT 100; BMI 24.5
--- NOTE | 2021-06-21 11:05 | ED.ABDPAIN ---
HPI - Abdominal Pain General Chief Complaint: Abdominal Pain Stated Complaint: abd pain, hbs Time Seen by Provider: 06/21/21 11:05 Source: patient Mode of arrival: ambulatory Limitations: no limitations History of Present Illness HPI narrative: known history of gastroparesis, sugar 400, vomiting and diarrhea MD elicited complaint: abdominal pain Onset (ago): day(s) Pain Consistency: constant Location: diffuse Severity: moderate Quality: cramping Exacerbating factors: eating Relieving factors: nothing Associated symptoms: nausea, vomiting and diarrhea Related Data Previous Rx's Medication Instructions Recorded metoclopramide HCl 5 mg tablet 10 mg PO DAILY #30 tab 06/15/20 (Reglan) ondansetron HCl 4 mg tablet 4 mg PO Q8H PRN #10 tab 10/02/20 (Zofran) hydrochlorothiazide 25 mg tablet 25 mg PO DAILY #20 tab 12/05/20 metoclopramide HCl 10 mg tablet 10 mg PO Q6H PRN #20 tab 12/05/20 (Reglan) ondansetron HCl 4 mg tablet 4 mg PO Q8H PRN #10 tab 06/21/21 (Zofran) Allergies Allergy/AdvReac Type Severity Reaction Status Date / Time No Known Allergies Allergy Verified 06/21/21 10:51 [No Known Allergies*] Review of Systems Constitutional: Reports no additional constitutional complaints Eyes: Reports no additional eye complaints Denies dizziness Cardiovascular: Reports no additional cardiovascular complaints Respiratory: Reports as per HPI Gastrointestinal: Reports no additional gastrointestinal complaints Genitourinary: Reports no additional female genitourinary complaints Musculoskeletal: Reports no additional musculoskeletal complaints Skin/Breast: Denies rash Reports system reviewed and no additional complaints, except as documented, Denies dizziness and Denies Sensory deficit (Neuro) Psychiatric: Denies anxiety Physical Exam Vital Signs: Vital Signs: Last Vital Signs Temp 97.9 F 06/21/21 11:01 Pulse 115 H 06/21/21 11:01 Resp 18 06/21/21 11:01 BP 132/100 H 06/21/21 11:01 Pulse Ox 100 06/21/21 11:01 Body Mass Index 24.5 Const: Other: tearful crying Nutritional Appearance: average body habitus Orientation/consciousness: oriented to person and patient oriented x3 Limitations: no limitations HENMT: Head: Yes normal to inspection Ears: external ears normal General nose exam: Normal external nose present Mouth: Normal oral and palatal mucosa present and oropharynx normal Throat: Yes posterior oropharynx normal Eyes: General: appearance normal, both eyes and all related structures Neck: Other: supple Neck: Yes normal visual inspection Chest: Chest palpation & inspection: normal inspection of the chest Resp: Auscultation: clear to auscultation bilaterally Cardio: Jugular venous distension: no JVD Rate: regular rate Rhythm: regular rhythm Heart sounds: S1 normal heart sound present and S2 normal heart sound present GI: Other: diffusely tender, no guarding or rebound Inspection: Yes normal to inspection Palpation (GI): Soft to palpation Auscultation: normal bowel sounds : General: Yes no CVA tenderness Back/Spine/Pelvis: Back: no CVA tenderness Skin: General skin exam: no rashes or lesions noted Neuro: General: oriented to person and patient oriented x3 Cranial nerves: Yes CN's II-XII intact bilaterally Motor exam (neuro): 5/5 motor strength present throughout Sensory Exam: No Sensory deficit (Neuro) Extrem: General: Yes normal to inspection Psych: Appearance: grossly normal Course Reevaluation(s) Reevaluation #1: Patient is sleeping, abdomen non tender no vomiting, glucose down to 250 will dc home Time: 13:51 MDM - Abdominal Pain Lab Data Result diagrams: 06/21/21 11:33 06/21/21 11:33 Labs: Lab Results 06/21/21 06/21/21 06/21/21 Range/Units 11:07 11:33 11:33 WBC 9.0 (4.8-10.8) X10*3/uL RBC 4.81 (4.20-5.50) X10*6/uL Hgb 14.9 (12.0-16.0) g/dl Hct 43.1 (37-47) % MCV 89.6 (80-98) fL MCH 31.0 (27.0-33.0) pg MCHC 34.6 (31.0-35.0) g/dl RDW 11.9 (11.0-16.0) % Plt Count 290 (160-400) X10*3/uL MPV 9.3 L (9.4-12.3) fL Immature Gran % (Auto) 0.6 H (0.0-0.4) % Neut % (Auto) 77.9 H (45-73) % Lymph % (Auto) 14.3 L (20-40) % [place] % (Auto) 5.7 (2-11) % Eos % (Auto) 1.1 (0-4) % Baso % (Auto) 0.4 (0-2) % Lymph # (Auto) 1.3 (1.2-4.9) X10*3/uL [place] # (Auto) 0.5 (0.1-1.2) X10*3/uL Eos # (Auto) 0.1 (0.0-0.4) X10*3/uL Baso # (Auto) 0.0 (0.0-0.2) X10*3/uL Abs Immat Gran (auto) 0.05 H (0.00-0.03) X10*3/uL Absolute Neuts (auto) 7.0 (2.0-8.3) X10*3/uL Absolute Nucleated RBC 0.000 (0.0-0.012) X10*3/uL Nucleated RBC % (auto) 0.0 (0.0-0.2) /100WBC Sodium 134 L (135-145) mmol/L Potassium 5.2 H D (3.3-5.1) mmol/L Chloride 99 (96-108) mmol/L Carbon Dioxide 21 L (22-29) mmol/L Anion Gap 19 (12-20) BUN 12 (9-16) mg/dL Creatinine 1.08 (0.5-1.4) mg/dL Estim Creat Clear Calc 50.8 Estimated GFR 53 POC Glucose 504 H* (60-115) mg/dL Random Glucose 513 H* D (60-115) mg/dL Calcium 9.6 D (8.4-10.2) mg/dL Total Bilirubin 0.4 (0.0-1.0) mg/dL Direct Bilirubin < 0.2 (0.0-0.5) mg/dL AST 49 H D (5-31) U/L ALT 36 H (0-31) U/L Alkaline Phosphatase 74 (39-117) U/L Total Protein 7.9 (6.5-8.0) g/dL Albumin 4.5 (3.5-5.0) g/dL Lipase 21 (8-78) U/L 10/29/21 Range/Units 13:33 WBC (4.8-10.8) X10*3/uL RBC (4.20-5.50) X10*6/uL Hgb (12.0-16.0) g/dl Hct (37-47) % MCV (80-98) fL MCH (27.0-33.0) pg MCHC (31.0-35.0) g/dl RDW (11.0-16.0) % Plt Count (160-400) X10*3/uL MPV (9.4-12.3) fL Immature Gran % (Auto) (0.0-0.4) % Neut % (Auto) (45-73) % Lymph % (Auto) (20-40) % [place] % (Auto) (2-11) % Eos % (Auto) (0-4) % Baso % (Auto) (0-2) % Lymph # (Auto) (1.2-4.9) X10*3/uL [place] # (Auto) (0.1-1.2) X10*3/uL Eos # (Auto) (0.0-0.4) X10*3/uL Baso # (Auto) (0.0-0.2) X10*3/uL Abs Immat Gran (auto) (0.00-0.03) X10*3/uL Absolute Neuts (auto) (2.0-8.3) X10*3/uL Absolute Nucleated RBC (0.0-0.012) X10*3/uL Nucleated RBC % (auto) (0.0-0.2) /100WBC Sodium (135-145) mmol/L Potassium (3.3-5.1) mmol/L Chloride (96-108) mmol/L Carbon Dioxide (22-29) mmol/L Anion Gap (12-20) BUN (9-16) mg/dL Creatinine (0.5-1.4) mg/dL Estim Creat Clear Calc Estimated GFR POC Glucose 250 H (60-115) mg/dL Random Glucose (60-115) mg/dL Calcium (8.4-10.2) mg/dL Total Bilirubin (0.0-1.0) mg/dL Direct Bilirubin (0.0-0.5) mg/dL AST (5-31) U/L ALT (0-31) U/L Alkaline Phosphatase (39-117) U/L Total Protein (6.5-8.0) g/dL Albumin (3.5-5.0) g/dL Lipase (8-78) U/L Discharge Plan Discharge Clinical Impression: Gastroparesis, Acute hyperglycemia Patient Disposition: Home, Self-Care Instructions: Diabetic Gastroparesis (DC), Diabetic Hyperglycemia (ED) Prescriptions: New ondansetron HCl [Zofran] 4 mg tablet 4 mg PO Q8H PRN (Reason: nausea and vomiting) Qty: 10 RF: 0 No Action metoclopramide HCl [Reglan] 5 mg tablet 10 mg PO DAILY Qty: 30 RF: 0 ondansetron HCl [Zofran] 4 mg tablet 4 mg PO Q8H PRN (Reason: nausea and vomiting) Qty: 10 RF: 0 metoclopramide HCl [Reglan] 10 mg tablet 10 mg PO Q6H PRN (Reason: nausea and vomiting) Qty: 20 RF: 0 hydrochlorothiazide 25 mg tablet 25 mg PO DAILY Qty: 20 RF: 0 Referrals: Tali Rausch [employer] [Primary Care Provider] - 5 days [facility] Past Medical History Medical History (Updated 06/21/21 @ 13:52 by Werner Arenas MD) Diabetes Gastroparesis Social History Social History (System 01/31/21 @ 16:44 by Nayla Jones) Alcohol intake: never Patient Tobacco Use Status: Current everyday Tobacco user Use of substances other than those prescribed or required for medical reasons: No Advance Directives: No
[2021-06-21 11:12] LABS: Glucose, Whole Blood 504 mg/dL (60-115)
[2021-06-21 11:38] LABS: MANUAL DIFF FLAG NO
[2021-06-21 11:39] LABS: Basophils Percent Auto 0.4 % (0-2); Eosinophils Absolute Auto 0.1 X10*3/uL (0.0-0.4); Eosinophils Percent Auto 1.1 % (0-4); Hematocrit 43.1 % (37-47); Hemoglobin 14.9 g/dl (12.0-16.0); Imm Gran Abs Auto 0.05 X10*3/uL (0.00-0.03); Imm Gran Pct Auto 0.6 % (0.0-0.4); Lymphocytes Absolute Auto 1.3 X10*3/uL (1.2-4.9); Lymphocytes Percent Auto 14.3 % (20-40); Mean Corpuscular HGB Conc 34.6 g/dl (31.0-35.0); Mean Corpuscular Volume 89.6 fL (80-98); Mean Platelet Volume 9.3 fL (9.4-12.3); Monocytes Absolute Auto 0.5 X10*3/uL (0.1-1.2); Monocytes Percent Auto 5.7 % (2-11); Neutrophils Percent Auto 77.9 % (45-73); Platelet Count 290 X10*3/uL (160-400); Red Blood Count 4.81 X10*6/uL (4.20-5.50); Red Cell Distribution Width 11.9 % (11.0-16.0)
[2021-06-21] MEDS: Insulin Lispro 100 UNIT/ML 3 ML VIAL 10 UNIT SUBCUT (11:43)
[2021-06-21] MEDS: Pantoprazole Sodium 40 MG/10 ML VIAL IVPUSH (11:43)
[2021-06-21] MEDS: diphenhydrAMINE HCL 50 MG/ML VIAL 25 MG IVPUSH (11:43)
[2021-06-21] MEDS: 0.9 % Sodium Chloride 1,769.01 ML 1769.01 ML IV (11:44)
--- NOTE | 2021-06-21 11:50 | PC.NURSE ---
pt a&ox3, c/o 06/02 pain, iv inserted, labs drawn, pt medicated per order, pt aware we need urine, vss, will continue to monitor
[2021-06-21 12:12] LABS: Alanine Aminotransferase 36 U/L (0-31); Albumin Level 4.5 g/dL (3.5-5.0); Alkaline Phosphatase 74 U/L (39-117); Anion Gap 19 (12-20); Aspartate Amino Transferase 49 U/L (5-31); Bilirubin Direct < 0.2 mg/dL (0.0-0.5); Bilirubin Total 0.4 mg/dL (0.0-1.0); Blood Urea Nitrogen 12 mg/dL (9-16); Calcium 9.6 mg/dL (8.4-10.2); Carbon Dioxide 21 mmol/L (22-29); Chloride 99 mmol/L (96-108); Creatinine Clr Calc Pharmacy 50.8; Estimated Glomerular Filt Rate 53; Glucose Random 513 mg/dL (60-115); Lipase 21 U/L (8-78); Potassium 5.2 mmol/L (3.3-5.1); Sodium 134 mmol/L (135-145); Total Protein 7.9 g/dL (6.5-8.0)
[2021-06-21 13:37] LABS: Glucose, Whole Blood 250 mg/dL (60-115)
[2021-06-21 14:00] VITALS: BP 112/62; PULSE 89; RESP 20; TEMP 37.6; O2SAT 95
--- NOTE | 2021-06-21 14:06 | PC.NURSE ---
patient a&ox3, dog sitter nsr 80s, vss, ivf continue to run per order-running slowly, pt to discharge after fluids per provider, will continue to monitor.
[2021-06-21 14:38] LABS: Appearance Urine CLEAR; Color Urine YELLOW; Glucose Urine UA >=1000 MG/DL (NEG); Leukocyte Esterase Urine NEG (NEG); Nitrite Urine NEG (NEG); Specific Gravity - Urine 1.015 (1.005-1.025); Urine Blood NEG (NEG); Urine Ketones 5 MG/DL (NEG); Urine Protein NEG (NEG-TRACE)
[2021-06-21 14:54] LABS: RBC Urine 0 /HPF (0); Squamous Epithelial Cell Urine 1+ /LPF; WBC Urine 0 /HPF (0-4)
== END 2021-06-21 15:24 | disposition home or self-care (01) ==
PROVIDERS: Emergency Provider Emergency Medicine; PCP Nurse Practitioner Family
DX: E11.43 Type 2 diabetes mellitus with diabetic autonomic (poly)neuropathy (principal); K31.84 Gastroparesis; E11.65 Type 2 diabetes mellitus with hyperglycemia
CPT/HCPCS: 36415; 80048; 80076; 81001; 82947; 83690; 85025; 96361; 96374; 96375; 99284; J1200; J2550

== ENCOUNTER 2021-08-09 13:33 | Emergency (ER) | payer OTHER, SELFPAY ==
[2021-08-09 13:46] VITALS: BP 114/82; PULSE 116; RESP 18; TEMP 36.7; O2SAT 98; BMI 24.5
[2021-08-09 13:57] LABS: Glucose, Whole Blood 383 mg/dL (60-115)
--- NOTE | 2021-08-09 14:21 | ECG_ITS ---
Test Reason : ABDOMINAL PAIN Blood Pressure : / mmHG Vent. Rate : 109 BPM Atrial Rate : 109 BPM P-R Int : 152 ms QRS Dur : 066 ms QT Int : 328 ms P-R-T Axes : 046 019 017 degrees QTc Int : 441 ms Sinus tachycardia Otherwise normal ECG When compared with ECG of 05-DEC-2020 02:46, QT has shortened Referred By: Leanne Bellamy Electronically Signed By:ANALI DONIS MD
--- NOTE | 2021-08-09 14:24 | ED_ITS ---
HPI - Abdominal Pain General Chief Complaint: Abdominal Pain <Leanne Bellamy NP - Last Filed: 08/09/21 18:02> Stated Complaint: Abd pain <Leanne Bellamy NP - Last Filed: 08/09/21 18:02> Time Seen by Provider: 08/09/21 14:06 <Leanne Bellamy NP - Last Filed: 08/09/21 18:02> Source: patient <Leanne Bellamy NP - Last Filed: 08/09/21 18:02> Mode of arrival: ambulatory <Leanne Bellamy NP - Last Filed: 08/09/21 18:02> Limitations: no limitations <Leanne Bellamy NP - Last Filed: 08/09/21 18:02> History of Present Illness HPI narrative: 51-year-old female with a history of insulin-dependent diabetes, gastric paresis here with reports of epigastric pain with vomiting and diarrhea since last evening. Patient denies any fevers, chills, urinary symptoms. Her emesis is nonbloody and nonbilious. She was able to take her insulin this morning. <Leanne Bellamy NP - Last Filed: 08/09/21 18:02> Related Data Home Medications: Previous Rx's Medication Instructions Recorded metoclopramide HCl 5 mg tablet 10 mg PO DAILY #30 tab 06/15/20 (Reglan) ondansetron HCl 4 mg tablet 4 mg PO Q8H PRN #10 tab 10/02/20 (Zofran) hydrochlorothiazide 25 mg tablet 25 mg PO DAILY #20 tab 12/05/20 metoclopramide HCl 10 mg tablet 10 mg PO Q6H PRN #20 tab 12/05/20 (Reglan) ondansetron HCl 4 mg tablet 4 mg PO Q8H PRN #10 tab 06/21/21 (Zofran) <KIM Naranjo Last Filed: 08/09/21 18:02> Allergies/Adverse Reactions: Allergies Allergy/AdvReac Type Severity Reaction Status Date / Time No Known Allergies Allergy Verified 08/09/21 13:45 [No Known Allergies*] <KIM Naranjo Last Filed: 08/09/21 18:02> Review of Systems Review of Systems Yes all other systems are reviewed and are negative <Leanne Bellamy NP - Last Filed: 08/09/21 18:02> Constitutional: Reports no additional constitutional complaints, Denies body ache(s), Denies chills, Denies fever(s), Denies headache(s) and Denies weakness <Leanne Bellamy NP - Last Filed: 08/09/21 18:02> Eyes: Reports no additional eye complaints and Denies change in vision <Leanne Bellamy NP - Last Filed: 08/09/21 18:02> Reports system reviewed and no additional complaints, except as documented, Denies dizziness, Denies headache(s), Denies nasal congestion, De nies nasal discharge and Denies neck pain <Leanne Bellamy NP - Last Filed: 08/09/21 18:02> Cardiovascular: Reports no additional cardiovascular complaints, Denies chest pain, Denies leg edema and Denies dyspnea <Leanne Bellamy NP - Last Filed: 08/09/21 18:02> Respiratory: Reports no additional respiratory complaints, Denies cough and Denies dyspnea <Leanne Bellamy NP - Last Filed: 08/09/21 18:02> Gastrointestinal: Reports no additional gastrointestinal complaints, Reports abdominal pain, Reports diarrhea, Reports nausea and Reports vomiting <Leanne Bellamy NP - Last Filed: 08/09/21 18:02> Genitourinary: Reports no additional female genitourinary complaints and Denies urinary incontinence <Leanne Bellamy NP - Last Filed: 08/09/21 18:02> Musculoskeletal: Reports no additional musculoskeletal complaints, Denies back pain, Denies arthralgias, Denies joint swelling, Denies neck pain, Denies numbness and Denies tingling <Leanne Bellamy NP - Last Filed: 08/09/21 18:02> Skin/Breast: Reports system reviewed and no additional complaints, except as docu and Denies rash <Leanne Bellamy NP - Last Filed: 08/09/21 18:02> Reports system reviewed and no additional complaints, except as documented, Denies Abnormal speech present, Denies dizziness, Denies headache(s), Denies numbness, Denies tingling and Denies weakness <Leanne Bellamy NP - Last Filed: 08/09/21 18:02> Physical Exam Vital Signs: Vital Signs: Last Vital Signs Temp 98.0 F 08/09/21 13:46 Pulse 116 H 08/09/21 13:46 Resp 16 08/09/21 15:47 BP 114/82 08/09/21 13:46 Pulse Ox 98 08/09/21 13:46 BMI result Body Mass Index 24.5 <Leanne Bellamy NP - Last Filed: 08/09/21 18:02> Vital Signs: Last Vital Signs Temp 98.0 F 08/09/21 13:46 Pulse 116 H 08/09/21 13:46 Resp 16 08/09/21 15:47 BP 114/82 08/09/21 13:46 Pulse Ox 98 08/09/21 13:46 BMI result Body Mass Index 24.5 <DHAVAL Berkowitz - Last Filed: 08/09/21 18:27> Const: General: cooperative, healthy appearing, comfortable and no acute distress <Leanne Bellamy NP - Last Filed: 08/09/21 18:02> Orientation/consciousness: patient oriented x3 <Leanne Bellamy NP - Last Filed: 08/09/21 18:02> Limitations: no limitations <Leanne Bellamy NP - Last Filed: 08/09/21 18:02> HENMT: Head: Yes normal to inspection <Leanne Bellamy NP - Last Filed: 08/09/21 18:02> Ears: hearing grossly normal bilaterally <Leanne Bellamy NP - Last Filed: 08/09/21 18:02> General nose exam: Normal external nose present <Leanne Bellamy NP - Last Filed: 08/09/21 18:02> Face and sinus: Yes normal facial exam <Leanne Bellamy NP - Last Filed: 08/09/21 18:02> Mouth: Normal oral and palatal mucosa present <Leanne Bellamy NP - Last Filed: 08/09/21 18:02> Throat: Yes posterior oropharynx normal <Leanne Bellamy STATE PILOT - Last Filed: 08/09/21 18:02> Eyes: General: appearance normal, both eyes and all related structures <Leanne Bellamy NP - Last Filed: 08/09/21 18:02> Pupils: Equal, round and reactive pupils present <Leanne Bellamy NP - Last Filed: 08/09/21 18:02> Neck: Neck: Yes normal visual inspection <Leanne Bellamy STATE PILOT - Last Filed: 08/09/21 18:02> Chest: Chest palpation & inspection: normal inspection of the chest <Leanne Bellamy NP - Last Filed: 08/09/21 18:02> Resp: Effort & Inspection: normal respiratory effort <Leanne Bellamy NP - Last Filed: 08/09/21 18:02> Auscultation: clear to auscultation bilaterally <Leanne Bellamy STATE PILOT - Last Filed: 08/09/21 18:02> Cardio: Rate: regular rate <Leanne Bellamy NP - Last Filed: 08/09/21 18:02> Rhythm: regular rhythm <Leanne Bellamy NP - Last Filed: 08/09/21 18:02> Peripheral pulses: Peripheral pulses 2+ throughout <Leanne Bellamy NP - Last Filed: 08/09/21 18:02> GI: Inspection: Yes normal to inspection <Leanne Bellamy NP - Last Filed: 08/09/21 18:02> Palpation (GI): Soft to palpation and Tenderness to palpation present (GI) (Diffusely tender) <Leanne Bellamy STATE PILOT - Last Filed: 08/09/21 18:02> Auscultation: normal bowel sounds <Leanne Bellamy NP - Last Filed: 08/09/21 18:02> Back/Spine/Pelvis: Thoracic/Lumbar Spine: thoracic and lumbar spine normal to inspection <Leanne Bellamy NP - Last Filed: 08/09/21 18:02> Skin: General skin exam: no rashes or lesions noted <Leanne Bellamy NP - Last Filed: 08/09/21 18:02> Neuro: General: patient oriented x3, no focal motor deficits and normal sensation to monofilament <Leanne Bellamy NP - Last Filed: 08/09/21 18:02> Cranial nerves: Yes Equal, round and reactive pupils present <Leanne Bellamy NP - Last Filed: 08/09/21 18:02> Cognition (Neuro): normal cognition <Leanne Bellamy NP - Last Filed: 08/09/21 18:02> Speech: No Abnormal speech present <Leanne Bellamy NP - Last Filed: 08/09/21 18:02> Gait exam (Neuro): Normal gait present <Leanne Bellamy NP - Last Filed: 08/09/21 18:02> Motor exam (neuro): 5/5 motor strength present throughout <Leanne Bellamy NP - Last Filed: 08/09/21 18:02> Extrem: General: Yes normal to inspection <Leanne Bellamy NP - Last Filed: 08/09/21 18:02> Course Course Course Narrative: 51-year-old female here with reports of generalized abdominal pain with vomiting and diarrhea since last evening with history of gastroporesis. On exam has diffuse tenderness with no rebound or guarding. Will need labs, EK G, UA. Will give IV fluids, antiemetic and analgesia. 1700-reviewed labs which show mild hyperglycemia with no evidence of DKA. EKG and troponin are unremarkable. Patient is feeling improved. She is tolerating merly isis. She is receiving insulin and the rest for fluids and the plan is to recheck her blood sugar and if improved she can be discharged home 1800-patient has fluids at term infusing. Plan for repeat point of care and of this is improving patient can be discharged home. She is feeling much better. No abdominal pain. She is tolerating p.o.. Sign-out to Sarah PUENTES pending above <Leanne Bellamy NP - Last Filed: 08/09/21 18:02> Reevaluation(s) Reevaluation #1: Repeat blood sugar is 227. Patient was initially seen for hyperglycemia, was found to not be in DKA, got insulin and fluids, abdominal pain is gone, patient can tolerate p.o.. Patient will be discharged and follow up with her primary care provider <DHAVAL Berkowitz - Last Filed: 08/09/21 18:27> MDM - Abdominal Pain Medical Records Attestation: I reviewed the patient's medical records. <Leanne Bellamy NP - Last Filed: 08/09/21 18:02> Lab Data Attestation: I reviewed the patient's lab results. <Leanne Bellamy NP - Last Filed: 08/09/21 18:02> Result diagrams: : 08/09/21 15:44 08/09/21 15:44 <Leanne Bellamy NP - Last Filed: 08/09/21 18:02> Labs: Lab Results 08/09/21 08/09/21 08/09/21 Range/Units 13:53 15:44 15:44 WBC 3.8 L (4.8-10.8) X10*3/uL RBC 5.14 (4.20-5.50) X10*6/uL Hgb 15.5 (12.0-16.0) g/dl Hct 46.2 (37.0-47.0) % MCV 89.9 (80.0-98.0) fL MCH 30.2 (27.0-33.0) pg MCHC 33.5 (31.0-35.0) g/dl RDW 11.8 (11.0-16.0) % Plt Count 229 (160-400) X10*3/uL MPV 9.6 (9.4-12.3) fL Immature Gran % (Auto) 0.8 H (0.0-0.4) % Neut % (Auto) 61.8 (45-73) % Lymph % (Auto) 22.9 (20-40) % [place] % (Auto) 13.5 H (2-11) % Eos % (Auto) 0.5 (0-4) % Baso % (Auto) 0.5 (0-2) % Lymph # (Auto) 0.9 L (1.2-4.9) X10*3/uL [place] # (Auto) 0.5 (0.1-1.2) X10*3/uL Eos # (Auto) 0.0 (0.0-0.4) X10*3/uL Baso # (Auto) 0.0 (0.0-0.2) X10*3/uL Abs Immat Gran (auto) 0.03 (0.00-0.03) X10*3/uL Absolute Neuts (auto) 2.4 (2.0-8.3) x10*3/uL Absolute Nucleated RBC 0.000 (0.0-0.012) X10*3/uL Nucleated RBC % (auto) 0.0 (0.0-0.2) /100WBC VBG pH (7.32-7.43) VBG pCO2 mmHg VBG pO2 mmHg VBG HCO3 (22-26) mmol/L VBG O2 Saturation % VBG Base Excess mmol/L Sodium 138 (135-145) mmol/L Potassium 4.5 (3.3-5.1) mmol/L Chloride 99 (96-108) mmol/L Carbon Dioxide 26 (22-29) mmol/L Anion Gap 18 (12-20) BUN 11 (9-16) mg/dL Creatinine 1.22 (0.5-1.4) mg/dL Estim Creat Clear Calc 45.0 Estimated GFR 46 POC Glucose 383 H* (60-115) mg/dL Random Glucose 411 H* (60-115) mg/dL Lactic Acid (0.5-2.0) mmol/L Calcium 10.1 (8.4-10.2) mg/dL Magnesium 2.0 (1.6-2.6) mg/dL Total Bilirubin 0.4 (0.0-1.0) mg/dL Direct Bilirubin 0.2 (0.0-0.5) mg/dL AST 24 D (5-31) U/L ALT 25 (0-31) U/L Alkaline Phosphatase 80 (39-117) U/L Troponin I High Sens (<3.5-17.0) ng/L Total Protein 7.8 (6.5-8.0) g/dL Albumin 4.6 (3.5-5.0) g/dL Urine Color Urine Appearance Urine pH (5.0-8.0) Ur Specific [place] (1.005-1.025) Urine Protein (NEG-TRACE) MG/DL Urine Glucose (UA) (NEG) MG/DL Urine Ketones (NEG) MG/DL Urine Blood (NEG) Urine Nitrite (NEG) Ur Leukocyte Esterase (NEG) Urine RBC (0) /HPF Urine WBC (0-4) /HPF Ur Squamous Epith Cells /LPF Urine Bacteria /LPF Urine Yeast /HPF Acetone, Qual Negative (Negative) 08/09/21 08/09/21 08/09/21 Range/Units 15:44 15:44 15:46 WBC (4.8-10.8) X10*3/uL RBC (4.20-5.50) X10*6/uL Hgb (12.0-16.0) g/dl Hct (37.0-47.0) % MCV (80.0-98.0) fL MCH (27.0-33.0) pg MCHC (31.0-35.0) g/dl RDW (11.0-16.0) % Plt Count (160-400) X10*3/uL MPV (9.4-12.3) fL Immature Gran % (Auto) (0.0-0.4) % Neut % (Auto) (45-73) % Lymph % (Auto) (20-40) % [place] % (Auto) (2-11) % Eos % (Auto) (0-4) % Baso % (Auto) (0-2) % Lymph # (Auto) (1.2-4.9) X10*3/uL [place] # (Auto) (0.1-1.2) X10*3/uL Eos # (Auto) (0.0-0.4) X10*3/uL Baso # (Auto) (0.0-0.2) X10*3/uL Abs Immat Gran (auto) (0.00-0.03) X10*3/uL Absolute Neuts (auto) (2.0-8.3) x10*3/uL Absolute Nucleated RBC (0.0-0.012) X10*3/uL Nucleated RBC % (auto) (0.0-0.2) /100WBC VBG pH 7.34 (7.32-7.43) VBG pCO2 55 mmHg VBG pO2 34 mmHg VBG HCO3 30 H (22-26) mmol/L VBG O2 Saturation 52.0 % VBG Base Excess 2.8 mmol/L Sodium (135-145) mmol/L Potassium (3.3-5.1) mmol/L Chloride (96-108) mmol/L Carbon Dioxide (22-29) mmol/L Anion Gap (12-20) BUN (9-16) mg/dL Creatinine (0.5-1.4) mg/dL Estim Creat Clear Calc Estimated GFR POC Glucose (60-115) mg/dL Random Glucose (60-115) mg/dL Lactic Acid 1.2 (0.5-2.0) mmol/L Calcium (8.4-10.2) mg/dL Magnesium (1.6-2.6) mg/dL Total Bilirubin (0.0-1.0) mg/dL Direct Bilirubin (0.0-0.5) mg/dL AST (5-31) U/L ALT (0-31) U/L Alkaline Phosphatase (39-117) U/L Troponin I High Sens < 3.5 (<3.5-17.0) ng/L Total Protein (6.5-8.0) g/dL Albumin (3.5-5.0) g/dL Urine Color Urine Appearance Urine pH (5.0-8.0) Ur Specific [place] (1.005-1.025) Urine Protein (NEG-TRACE) MG/DL Urine Glucose (UA) (NEG) MG/DL Urine Ketones (NEG) MG/DL Urine Blood (NEG) Urine Nitrite (NEG) Ur Leukocyte Esterase (NEG) Urine RBC (0) /HPF Urine WBC (0-4) /HPF Ur Squamous Epith Cells /LPF Urine Bacteria /LPF Urine Yeast /HPF Acetone, Qual (Negative) 08/09/21 08/09/21 Range/Units 15:47 18:06 WBC (4.8-10.8) X10*3/uL RBC (4.20-5.50) X10*6/uL Hgb (12.0-16.0) g/dl Hct (37.0-47.0) % MCV (80.0-98.0) fL MCH (27.0-33.0) pg MCHC (31.0-35.0) g/dl RDW (11.0-16.0) % Plt Count (160-400) X10*3/uL MPV (9.4-12.3) fL Immature Gran % (Auto) (0.0-0.4) % Neut % (Auto) (45-73) % Lymph % (Auto) (20-40) % [place] % (Auto) (2-11) % Eos % (Auto) (0-4) % Baso % (Auto) (0-2) % Lymph # (Auto) (1.2-4.9) X10*3/uL [place] # (Auto) (0.1-1.2) X10*3/uL Eos # (Auto) (0.0-0.4) X10*3/uL Baso # (Auto) (0.0-0.2) X10*3/uL Abs Immat Gran (auto) (0.00-0.03) X10*3/uL Absolute Neuts (auto) (2.0-8.3) x10*3/uL Absolute Nucleated RBC (0.0-0.012) X10*3/uL Nucleated RBC % (auto) (0.0-0.2) /100WBC VBG pH (7.32-7.43) VBG pCO2 mmHg VBG pO2 mmHg VBG HCO3 (22-26) mmol/L VBG O2 Saturation % VBG Base Excess mmol/L Sodium (135-145) mmol/L Potassium (3.3-5.1) mmol/L Chloride (96-108) mmol/L Carbon Dioxide (22-29) mmol/L Anion Gap (12-20) BUN (9-16) mg/dL Creatinine (0.5-1.4) mg/dL Estim Creat Clear Calc Estimated GFR POC Glucose 227 H (60-115) mg/dL Random Glucose (60-115) mg/dL Lactic Acid (0.5-2.0) mmol/L Calcium (8.4-10.2) mg/dL Magnesium (1.6-2.6) mg/dL Total Bilirubin (0.0-1.0) mg/dL Direct Bilirubin (0.0-0.5) mg/dL AST (5-31) U/L ALT (0-31) U/L Alkaline Phosphatase (39-117) U/L Troponin I High Sens (<3.5-17.0) ng/L Total Protein (6.5-8.0) g/dL Albumin (3.5-5.0) g/dL Urine Color YELLOW Urine Appearance CLEAR Urine pH 6.0 (5.0-8.0) Ur Specific [place] 1.020 (1.005-1.025) Urine Protein NEG (NEG-TRACE) MG/DL Urine Glucose (UA) >=1000 H (NEG) MG/DL Urine Ketones 15 (NEG) MG/DL Urine Blood NEG (NEG) Urine Nitrite NEG (NEG) Ur Leukocyte Esterase NEG (NEG) Urine RBC 0 (0) /HPF Urine WBC 0 (0-4) /HPF Ur Squamous Epith Cells 1+ /LPF Urine Bacteria TRACE /LPF Urine Yeast 1+ /HPF Acetone, Qual (Negative) <Leanne Bellamy NP - Last Filed: 08/09/21 18:02> Lab Results 08/09/21 08/09/21 08/09/21 Range/Units 13:53 15:44 15:44 WBC 3.8 L (4.8-10.8) X10*3/uL RBC 5.14 (4.20-5.50) X10*6/uL Hgb 15.5 (12.0-16.0) g/dl Hct 46.2 (37.0-47.0) % MCV 89.9 (80.0-98.0) fL MCH 30.2 (27.0-33.0) pg MCHC 33.5 (31.0-35.0) g/dl RDW 11.8 (11.0-16.0) % Plt Count 229 (160-400) X10*3/uL MPV 9.6 (9.4-12.3) fL Immature Gran % (Auto) 0.8 H (0.0-0.4) % Neut % (Auto) 61.8 (45-73) % Lymph % (Auto) 22.9 (20-40) % [place] % (Auto) 13.5 H (2-11) % Eos % (Auto) 0.5 (0-4) % Baso % (Auto) 0.5 (0-2) % Lymph # (Auto) 0.9 L (1.2-4.9) X10*3/uL [place] # (Auto) 0.5 (0.1-1.2) X10*3/uL Eos # (Auto) 0.0 (0.0-0.4) X10*3/uL Baso # (Auto) 0.0 (0.0-0.2) X10*3/uL Abs Immat Gran (auto) 0.03 (0.00-0.03) X10*3/uL Absolute Neuts (auto) 2.4 (2.0-8.3) x10*3/uL Absolute Nucleated RBC 0.000 (0.0-0.012) X10*3/uL Nucleated RBC % (auto) 0.0 (0.0-0.2) /100WBC VBG pH (7.32-7.43) VBG pCO2 mmHg VBG pO2 mmHg VBG HCO3 (22-26) mmol/L VBG O2 Saturation % VBG Base Excess mmol/L Sodium 138 (135-145) mmol/L Potassium 4.5 (3.3-5.1) mmol/L Chloride 99 (96-108) mmol/L Carbon Dioxide 26 (22-29) mmol/L Anion Gap 18 (12-20) BUN 11 (9-16) mg/dL Creatinine 1.22 (0.5-1.4) mg/dL Estim Creat Clear Calc 45.0 Estimated GFR 46 POC Glucose 383 H* (60-115) mg/dL Random Glucose 411 H* (60-115) mg/dL Lactic Acid (0.5-2.0) mmol/L Calcium 10.1 (8.4-10.2) mg/dL Magnesium 2.0 (1.6-2.6) mg/dL Total Bilirubin 0.4 (0.0-1.0) mg/dL Direct Bilirubin 0.2 (0.0-0.5) mg/dL AST 24 D (5-31) U/L ALT 25 (0-31) U/L Alkaline Phosphatase 80 (39-117) U/L Troponin I High Sens (<3.5-17.0) ng/L Total Protein 7.8 (6.5-8.0) g/dL Albumin 4.6 (3.5-5.0) g/dL Urine Color Urine Appearance Urine pH (5.0-8.0) Ur Specific [place] (1.005-1.025) Urine Protein (NEG-TRACE) MG/DL Urine Glucose (UA) (NEG) MG/DL Urine Ketones (NEG) MG/DL Urine Blood (NEG) Urine Nitrite (NEG) Ur Leukocyte Esterase (NEG) Urine RBC (0) /HPF Urine WBC (0-4) /HPF Ur Squamous Epith Cells /LPF Urine Bacteria /LPF Urine Yeast /HPF Acetone, Qual Negative (Negative) 08/09/21 08/09/21 08/09/21 Range/Units 15:44 15:44 15:46 WBC (4.8-10.8) X10*3/uL RBC (4.20-5.50) X10*6/uL Hgb (12.0-16.0) g/dl Hct (37.0-47.0) % MCV (80.0-98.0) fL MCH (27.0-33.0) pg MCHC (31.0-35.0) g/dl RDW (11.0-16.0) % Plt Count (160-400) X10*3/uL MPV (9.4-12.3) fL Immature Gran % (Auto) (0.0-0.4) % Neut % (Auto) (45-73) % Lymph % (Auto) (20-40) % [place] % (Auto) (2-11) % Eos % (Auto) (0-4) % Baso % (Auto) (0-2) % Lymph # (Auto) (1.2-4.9) X10*3/uL [place] # (Auto) (0.1-1.2) X10*3/uL Eos # (Auto) (0.0-0.4) X10*3/uL Baso # (Auto) (0.0-0.2) X10*3/uL Abs Immat Gran (auto) (0.00-0.03) X10*3/uL Absolute Neuts (auto) (2.0-8.3) x10*3/uL Absolute Nucleated RBC (0.0-0.012) X10*3/uL Nucleated RBC % (auto) (0.0-0.2) /100WBC VBG pH 7.34 (7.32-7.43) VBG pCO2 55 mmHg VBG pO2 34 mmHg VBG HCO3 30 H (22-26) mmol/L VBG O2 Saturation 52.0 % VBG Base Excess 2.8 mmol/L Sodium (135-145) mmol/L Potassium (3.3-5.1) mmol/L Chloride (96-108) mmol/L Carbon Dioxide (22-29) mmol/L Anion Gap (12-20) BUN (9-16) mg/dL Creatinine (0.5-1.4) mg/dL Estim Creat Clear Calc Estimated GFR POC Glucose (60-115) mg/dL Random Glucose (60-115) mg/dL Lactic Acid 1.2 (0.5-2.0) mmol/L Calcium (8.4-10.2) mg/dL Magnesium (1.6-2.6) mg/dL Total Bilirubin (0.0-1.0) mg/dL Direct Bilirubin (0.0-0.5) mg/dL AST (5-31) U/L ALT (0-31) U/L Alkaline Phosphatase (39-117) U/L Troponin I High Sens < 3.5 (<3.5-17.0) ng/L Total Protein (6.5-8.0) g/dL Albumin (3.5-5.0) g/dL Urine Color Urine Appearance Urine pH (5.0-8.0) Ur Specific [place] (1.005-1.025) Urine Protein (NEG-TRACE) MG/DL Urine Glucose (UA) (NEG) MG/DL Urine Ketones (NEG) MG/DL Urine Blood (NEG) Urine Nitrite (NEG) Ur Leukocyte Esterase (NEG) Urine RBC (0) /HPF Urine WBC (0-4) /HPF Ur Squamous Epith Cells /LPF Urine Bacteria /LPF Urine Yeast /HPF Acetone, Qual (Negative) 08/09/21 08/09/21 Range/Units 15:47 18:06 WBC (4.8-10.8) X10*3/uL RBC (4.20-5.50) X10*6/uL Hgb (12.0-16.0) g/dl Hct (37.0-47.0) % MCV (80.0-98.0) fL MCH (27.0-33.0) pg MCHC (31.0-35.0) g/dl RDW (11.0-16.0) % Plt Count (160-400) X10*3/uL MPV (9.4-12.3) fL Immature Gran % (Auto) (0.0-0.4) % Neut % (Auto) (45-73) % Lymph % (Auto) (20-40) % [place] % (Auto) (2-11) % Eos % (Auto) (0-4) % Baso % (Auto) (0-2) % Lymph # (Auto) (1.2-4.9) X10*3/uL [place] # (Auto) (0.1-1.2) X10*3/uL Eos # (Auto) (0.0-0.4) X10*3/uL Baso # (Auto) (0.0-0.2) X10*3/uL Abs Immat Gran (auto) (0.00-0.03) X10*3/uL Absolute Neuts (auto) (2.0-8.3) x10*3/uL Absolute Nucleated RBC (0.0-0.012) X10*3/uL Nucleated RBC % (auto) (0.0-0.2) /100WBC VBG pH (7.32-7.43) VBG pCO2 mmHg VBG pO2 mmHg VBG HCO3 (22-26) mmol/L VBG O2 Saturation % VBG Base Excess mmol/L Sodium (135-145) mmol/L Potassium (3.3-5.1) mmol/L Chloride (96-108) mmol/L Carbon Dioxide (22-29) mmol/L Anion Gap (12-20) BUN (9-16) mg/dL Creatinine (0.5-1.4) mg/dL Estim Creat Clear Calc Estimated GFR POC Glucose 227 H (60-115) mg/dL Random Glucose (60-115) mg/dL Lactic Acid (0.5-2.0) mmol/L Calcium (8.4-10.2) mg/dL Magnesium (1.6-2.6) mg/dL Total Bilirubin (0.0-1.0) mg/dL Direct Bilirubin (0.0-0.5) mg/dL AST (5-31) U/L ALT (0-31) U/L Alkaline Phosphatase (39-117) U/L Troponin I High Sens (<3.5-17.0) ng/L Total Protein (6.5-8.0) g/dL Albumin (3.5-5.0) g/dL Urine Color YELLOW Urine Appearance CLEAR Urine pH 6.0 (5.0-8.0) Ur Specific [place] 1.020 (1.005-1.025) Urine Protein NEG (NEG-TRACE) MG/DL Urine Glucose (UA) >=1000 H (NEG) MG/DL Urine Ketones 15 (NEG) MG/DL Urine Blood NEG (NEG) Urine Nitrite NEG (NEG) Ur Leukocyte Esterase NEG (NEG) Urine RBC 0 (0) /HPF Urine WBC 0 (0-4) /HPF Ur Squamous Epith Cells 1+ /LPF Urine Bacteria TRACE /LPF Urine Yeast 1+ /HPF Acetone, Qual (Negative) <DHAVAL Berkowitz - Last Filed: 08/09/21 18:27> ECG Data Attestation: I personally reviewed and interpreted this ECG as follows: <Leanne Bellamy NP - Last Filed: 08/09/21 18:02> ECG interpretation date: 08/09/21 <Leanne Bellamy NP - Last Filed: 08/09/21 18:02> ECG interpretation time: 14:49 <Leanne Bellamy NP - Last Filed: 08/09/21 18:02> Interpretation: Sinus tachycardia with a rate of 109, normal [place], normal QRS normal QT <Leanne Bellamy NP - Last Filed: 08/09/21 18:02> Discharge Plan Discharge Clinical Impression: Gastroparesis <Leanne Bellamy NP - Last Filed: 08/09/21 18:02> Patient Disposition: Home, Self-Care <Leanne Bellamy NP - Last Filed: 08/09/21 18:02> Instructions: Diabetic Gastroparesis (DC) <Leanne Bellamy NP - Last Filed: 08/09/21 18:02> Additional Instructions: follow up with your PCP <Leanne Bellamy NP - Last Filed: 08/09/21 18:02> Prescriptions: No Action metoclopramide HCl [Reglan] 5 mg tablet 10 mg PO DAILY Qty: 30 RF: 0 ondansetron HCl [Zofran] 4 mg tablet 4 mg PO Q8H PRN (Reason: nausea and vomiting) Qty: 10 RF: 0 metoclopramide HCl [Reglan] 10 mg tablet 10 mg PO Q6H PRN (Reason: nausea and vomiting) Qty: 20 RF: 0 hydrochlorothiazide 25 mg tablet 25 mg PO DAILY Qty: 20 RF: 0 ondansetron HCl [Zofran] 4 mg tablet 4 mg PO Q8H PRN (Reason: nausea and vomiting) Qty: 10 RF: 0 <Leanne Bellamy NP - Last Filed: 08/09/21 18:02> Referrals: Tali Rausch, [facility] [Primary Care Provider] - 2 days <Leanne Bellamy NP - Last Filed: 08/09/21 18:02> Print Language: Algerian <Leanne Bellamy NP - Last Filed: 08/09/21 18:02> [facility] Past Medical History Attestation statement: The following information was validated with the patient. <Leanne Bellamy NP - Last Filed: 08/09/21 18:02> Source: old records reviewed and nursing notes reviewed <Leanne Bellamy NP - Last Filed: 08/09/21 18:02> Medical History: Medical History Diabetes Gastroparesis <Leanne Bellamy NP - Last Filed: 08/09/21 18:02> Social History Social History: Social History Alcohol intake: never Patient Tobacco Use Status: Current everyday Tobacco user Advance Directives: No Advance Directives Information Provided: Yes <Leanne Bellamy NP - Last Filed: 08/09/21 18:02>
[2021-08-09 15:47] VITALS: RESP 16
[2021-08-09] MEDS: Morphine Sulfate 4 MG/ML CARTRIDGE IVPUSH (15:47)
[2021-08-09] MEDS: diphenhydrAMINE HCL 50 MG/ML VIAL 25 MG IVPUSH (15:47)
[2021-08-09] MEDS: Metoclopramide HCl 10 MG/2 ML VIAL IVPUSH (15:48)
[2021-08-09] MEDS: 0.9 % Sodium Chloride 1,000 ML 999 ML IV (15:53)
[2021-08-09 15:54] LABS: VBG Base Excess 2.8 mmol/L; VBG HCO3 30 mmol/L (22-26); VBG pCO2 55 mmHg; VBG pH 7.34 (7.32-7.43); VBG pO2 34 mmHg
[2021-08-09 15:57] LABS: Venous Blood Gas Refer to POC result
[2021-08-09 15:59] LABS: MANUAL DIFF FLAG NO
[2021-08-09 16:01] LABS: Appearance Urine CLEAR; Color Urine YELLOW; Glucose Urine UA >=1000 MG/DL (NEG); Leukocyte Esterase Urine NEG (NEG); Nitrite Urine NEG (NEG); Urine Blood NEG (NEG); Urine Ketones 15 MG/DL (NEG); Urine Protein NEG (NEG-TRACE)
[2021-08-09 16:01] LABS: Basophils Percent Auto 0.5 % (0-2); Eosinophils Percent Auto 0.5 % (0-4); Hematocrit 46.2 % (37.0-47.0); Hemoglobin 15.5 g/dl (12.0-16.0); Imm Gran Abs Auto 0.03 X10*3/uL (0.00-0.03); Imm Gran Pct Auto 0.8 % (0.0-0.4); Lymphocytes Absolute Auto 0.9 X10*3/uL (1.2-4.9); Lymphocytes Percent Auto 22.9 % (20-40); Mean Corpuscular HGB Conc 33.5 g/dl (31.0-35.0); Mean Corpuscular Hemoglobin 30.2 pg (27.0-33.0); Mean Corpuscular Volume 89.9 fL (80.0-98.0); Mean Platelet Volume 9.6 fL (9.4-12.3); Monocytes Absolute Auto 0.5 X10*3/uL (0.1-1.2); Monocytes Percent Auto 13.5 % (2-11); Neutrophils Absolute Auto 2.4 x10*3/uL (2.0-8.3); Neutrophils Percent Auto 61.8 % (45-73); Platelet Count 229 X10*3/uL (160-400); Red Blood Count 5.14 X10*6/uL (4.20-5.50); Red Cell Distribution Width 11.8 % (11.0-16.0); White Blood Count 3.8 X10*3/uL (4.8-10.8)
--- NOTE | 2021-08-09 16:03 | PC.NURSE ---
Pt comes in with complaints of diffuse abd pain and diarrhea x 3 days. Pt states her sister is COVID positive at this time, but no other known sick contact. Pt is A&Ox3, LCA, abd soft TTP in all 4 quadrants, BS + x 4. IV established, medicated as per MAR orders. Fluids running, urine and labs sent, awaiting results at this time. Call mejia within reach, will continue to monitor.
[2021-08-09 16:14] LABS: Lactic Acid 1.2 mmol/L (0.5-2.0)
[2021-08-09 16:16] LABS: Bacteria Urine TRACE /LPF; RBC Urine 0 /HPF (0); Squamous Epithelial Cell Urine 1+ /LPF; WBC Urine 0 /HPF (0-4)
[2021-08-09 16:22] LABS: Troponin-I High Sensitivity < 3.5 ng/L (<3.5-17.0)
[2021-08-09 16:25] LABS: Alanine Aminotransferase 25 U/L (0-31); Albumin Level 4.6 g/dL (3.5-5.0); Alkaline Phosphatase 80 U/L (39-117); Anion Gap 18 (12-20); Aspartate Amino Transferase 24 U/L (5-31); Bilirubin Direct 0.2 mg/dL (0.0-0.5); Bilirubin Total 0.4 mg/dL (0.0-1.0); Blood Urea Nitrogen 11 mg/dL (9-16); Calcium 10.1 mg/dL (8.4-10.2); Carbon Dioxide 26 mmol/L (22-29); Chloride 99 mmol/L (96-108); Estimated Glomerular Filt Rate 46; Glucose Random 411 mg/dL (60-115); Potassium 4.5 mmol/L (3.3-5.1); Sodium 138 mmol/L (135-145); Total Protein 7.8 g/dL (6.5-8.0)
[2021-08-09 16:50] LABS: Acetone, serum QL Negative (Negative)
[2021-08-09] MEDS: Insulin Regular, Human 100 UNIT/ML 3 ML VIAL 6 UNIT IVPUSH (16:57)
--- NOTE | 2021-08-09 17:06 | PC.NURSE ---
Pt pain now 10/03, states she feels significantly better at this time. 6 units insulin IV given, plan for repeat BG once fluids are finished and if improved pt to be DC. Pt aware and agreeable to this POC. Call mejia within reach, will continue to monitor.
[2021-08-09 18:19] LABS: Glucose, Whole Blood 227 mg/dL (60-115)
--- NOTE | 2021-08-09 18:37 | PC.NURSE ---
Pt A&Ox3, DC paperwork reviewed, ambulatroy to the [facility] independantly.
== END 2021-08-09 18:36 | disposition home or self-care (01) ==
PROVIDERS: Nurse Practitioner Family; Emergency Provider Emergency Medicine; PCP Nurse Practitioner Family
DX: K31.84 Gastroparesis (principal); Z79.899 Other long term (current) drug therapy
CPT/HCPCS: 36415; 80048; 80076; 81001; 81003; 82009; 82803; 82947; 83605; 83735; 84484; 85025; 93005; 96361; 96374; 96375; 99284; J1200; J2270; J2765

== ENCOUNTER 2021-08-11 06:47 | Emergency (ER) | payer OTHER, SELFPAY ==
--- NOTE | 2021-08-11 | ECG_ITS ---
Test Reason : CP Blood Pressure : / mmHG Vent. Rate : 121 BPM Atrial Rate : 121 BPM P-R Int : 144 ms QRS Dur : 072 ms QT Int : 330 ms P-R-T Axes : 067 042 039 degrees QTc Int : 468 ms Sinus tachycardia Nonspecific ST abnormality Abnormal ECG When compared with ECG of 09-AUG-2021 14:49, No significant change was found Referred By: Generic ED Physician Electronically Signed By:ANALI DONIS MD
[2021-08-11 07:24] VITALS: BP 118/83; PULSE 122; RESP 20; TEMP 36.7; O2SAT 97; BMI 24.5
[2021-08-11 10:13] LABS: Glucose, Whole Blood 385 mg/dL (60-115)
== END 2021-08-11 13:03 | disposition left against medical advice (07) ==
PROVIDERS: Emergency Provider Emergency Medicine; PCP Nurse Practitioner Family
DX: R10.9 Unspecified abdominal pain (principal); E11.65 Type 2 diabetes mellitus with hyperglycemia
CPT/HCPCS: 82947; 93005; 99283

== ENCOUNTER 2021-08-11 18:55 | Emergency (ER) | payer OTHER, SELFPAY ==
[2021-08-11 22:36] VITALS: BP 135/84; PULSE 133; RESP 20; TEMP 36.2; O2SAT 97; BMI 24.5
--- NOTE | 2021-08-11 22:40 | ECG_ITS ---
Test Reason : HYPERGLYCEMIA Blood Pressure : / mmHG Vent. Rate : 129 BPM Atrial Rate : 129 BPM P-R Int : 136 ms QRS Dur : 070 ms QT Int : 312 ms P-R-T Axes : 074 060 045 degrees QTc Int : 457 ms Sinus tachycardia Nonspecific ST abnormality Abnormal ECG When compared with ECG of 11-AUG-2021 07:30, No significant change was found Referred By: Generic ED Physician Electronically Signed By:NIKIA HOFFMANN
[2021-08-11 23:21] LABS: MANUAL DIFF FLAG NO
[2021-08-11 23:30] LABS: Basophils Percent Auto 0.3 % (0-2); Eosinophils Percent Auto 0.3 % (0-4); Hemoglobin 15.2 g/dl (12.0-16.0); Imm Gran Abs Auto 0.01 X10*3/uL (0.00-0.03); Imm Gran Pct Auto 0.3 % (0.0-0.4); Lymphocytes Absolute Auto 0.6 X10*3/uL (1.2-4.9); Lymphocytes Percent Auto 18.1 % (20-40); Mean Corpuscular HGB Conc 33.8 g/dl (31.0-35.0); Mean Corpuscular Hemoglobin 30.3 pg (27.0-33.0); Mean Corpuscular Volume 89.8 fL (80.0-98.0); Mean Platelet Volume 9.8 fL (9.4-12.3); Monocytes Absolute Auto 0.3 X10*3/uL (0.1-1.2); Monocytes Percent Auto 9.8 % (2-11); Neutrophils Absolute Auto 2.5 x10*3/uL (2.0-8.3); Neutrophils Percent Auto 71.2 % (45-73); Platelet Count 234 X10*3/uL (160-400); Red Blood Count 5.01 X10*6/uL (4.20-5.50); Red Cell Distribution Width 11.9 % (11.0-16.0); White Blood Count 3.5 X10*3/uL (4.8-10.8)
[2021-08-11 23:50] LABS: Alanine Aminotransferase 28 U/L (0-31); Albumin Level 4.6 g/dL (3.5-5.0); Alkaline Phosphatase 73 U/L (39-117); Anion Gap 22 (12-20); Aspartate Amino Transferase 20 U/L (5-31); Bilirubin Total 0.5 mg/dL (0.0-1.0); Blood Urea Nitrogen 14 mg/dL (9-16); Calcium 9.9 mg/dL (8.4-10.2); Carbon Dioxide 23 mmol/L (22-29); Chloride 98 mmol/L (96-108); Creatinine Clr Calc Pharmacy 46.5; Estimated Glomerular Filt Rate 48; Glucose Random 466 mg/dL (60-115); Potassium 4.7 mmol/L (3.3-5.1); Sodium 138 mmol/L (135-145); Total Protein 7.8 g/dL (6.5-8.0)
[2021-08-11 23:53] LABS: Troponin-I High Sensitivity < 3.5 ng/L (<3.5-17.0)
--- NOTE | 2021-08-12 00:39 | ED_ITS ---
HPI - General Adult General Chief complaint: General Medical Stated complaint: High BS Time Seen by Provider: 08/12/21 00:27 Source: patient Mode of arrival: ambulatory Limitations: no limitations History of Present Illness HPI narrative: patient comes emergency room complaining of nausea and vomiting for the last 24 hours. Patient is known to have severe gastroparesis. Patient states that she has been compliant using her insulin. Patient complaining of epigastric burning sensation. Patient states that she also feels very weak. Patient's whole family recently tested positive for COVID-19. Related Data Previous Rx's Medication Instructions Recorded metoclopramide HCl 5 mg tablet 10 mg PO DAILY #30 tab 06/15/20 (Reglan) ondansetron HCl 4 mg tablet 4 mg PO Q8H PRN #10 tab 10/02/20 (Zofran) hydrochlorothiazide 25 mg tablet 25 mg PO DAILY #20 tab 12/05/20 metoclopramide HCl 10 mg tablet 10 mg PO Q6H PRN #20 tab 12/05/20 (Reglan) ondansetron HCl 4 mg tablet 4 mg PO Q8H PRN #10 tab 06/21/21 (Zofran) Allergies Allergy/AdvReac Type Severity Reaction Status Date / Time No Known Allergies Allergy Verified 08/09/21 13:45 [No Known Allergies*] [facility] Past Medical History Medical History Diabetes Gastroparesis Social History Social History Alcohol intake: never Patient Tobacco Use Status: Current everyday Tobacco user Physical Exam Vital Signs: Vital Signs: Last Vital Signs Temp 97.1 F 08/11/21 22:36 Pulse 119 H 08/12/21 01:40 Resp 14 08/12/21 01:40 BP 121/77 08/12/21 01:40 Pulse Ox 97 08/11/21 22:36 BMI result Body Mass Index 24.5 Const: Other: Appearance: Alert. Oriented X3. Seems uncomfortable Eyes: Pupils equal, round and reactive to light. ENT: Pharynx normal. Neck: Normal inspection. Neck supple. No lymph nodes noted. No crepitus CVS: tachycardic, Pulses normal. Normal S1 and S2 Respiratory: No respiratory distress. Breath sounds normal. No Wheezing. No rales Abdomen: Soft and nontender. No rigidity. No distention. Skin: Skin warm and dry. Normal skin color. Normal skin turgor. Extremities: No lower extremity edema. No Lacerations. No Rash Neuro: Oriented X 3. No motor deficit. No sensory deficit. Moving all extermities. No slurred speech. Course Course Course Narrative: Patient has received 2 L of fluid, 10 units of insulin. Blood glucose is 335. Patient is receiving an additional fluid and 2 more units of insulin. Blood gases pending, urinalysis pending. COVID test pending. Acetone level is negative. Anticipating to discharge the patient home. Patient states that she takes 12 units of Lantus at bedtime, I discussed with the patient to increase it to 15, patient is to have close follow-up with her primary care physician . Sign-out given to Dr. Rome. Medical Decision Making Lab Data Result diagrams: 08/11/21 23:04 08/11/21 23:04 Labs: Lab Results 08/11/21 08/11/21 08/11/21 Range/Units 23:04 23:04 23:04 WBC 3.5 L (4.8-10.8) X10*3/uL RBC 5.01 (4.20-5.50) X10*6/uL Hgb 15.2 (12.0-16.0) g/dl Hct 45.0 (37.0-47.0) % MCV 89.8 (80.0-98.0) fL MCH 30.3 (27.0-33.0) pg MCHC 33.8 (31.0-35.0) g/dl RDW 11.9 (11.0-16.0) % Plt Count 234 (160-400) X10*3/uL MPV 9.8 (9.4-12.3) fL Immature Gran % (Auto) 0.3 (0.0-0.4) % Neut % (Auto) 71.2 (45-73) % Lymph % (Auto) 18.1 L (20-40) % Logan % (Auto) 9.8 (2-11) % Eos % (Auto) 0.3 (0-4) % Baso % (Auto) 0.3 (0-2) % Lymph # (Auto) 0.6 L (1.2-4.9) X10*3/uL Logan # (Auto) 0.3 (0.1-1.2) X10*3/uL Eos # (Auto) 0.0 (0.0-0.4) X10*3/uL Baso # (Auto) 0.0 (0.0-0.2) X10*3/uL Abs Immat Gran (auto) 0.01 (0.00-0.03) X10*3/uL Absolute Neuts (auto) 2.5 (2.0-8.3) x10*3/uL Absolute Nucleated RBC 0.000 (0.0-0.012) X10*3/uL Nucleated RBC % (auto) 0.0 (0.0-0.2) /100WBC Sodium 138 (135-145) mmol/L Potassium 4.7 (3.3-5.1) mmol/L Chloride 98 (96-108) mmol/L Carbon Dioxide 23 (22-29) mmol/L Anion Gap 22 H (12-20) BUN 14 (9-16) mg/dL Creatinine 1.18 (0.5-1.4) mg/dL Estim Creat Clear Calc 46.5 Estimated GFR 48 Random Glucose 466 H* (60-115) mg/dL Calcium 9.9 (8.4-10.2) mg/dL Total Bilirubin 0.5 (0.0-1.0) mg/dL AST 20 (5-31) U/L ALT 28 (0-31) U/L Alkaline Phosphatase 73 (39-117) U/L Troponin I High Sens < 3.5 (<3.5-17.0) ng/L Total Protein 7.8 (6.5-8.0) g/dL Albumin 4.6 (3.5-5.0) g/dL Acetone, Qual Negative (Negative) Discharge Plan Discharge Clinical Impression: Acute hyperglycemia Patient Disposition: Home, Self-Care Instructions: Diabetic Hyperglycemia (ED) Additional Instructions: please increase your Lantus dose at bedtime to 15 units. Please follow-up with your primary care physician tomorrow. If you have any worsening or new symptoms, please return to the emergency room or call 911 Prescriptions: No Action metoclopramide HCl [Reglan] 5 mg tablet 10 mg PO DAILY Qty: 30 RF: 0 ondansetron HCl [Zofran] 4 mg tablet 4 mg PO Q8H PRN (Reason: nausea and vomiting) Qty: 10 RF: 0 metoclopramide HCl [Reglan] 10 mg tablet 10 mg PO Q6H PRN (Reason: nausea and vomiting) Qty: 20 RF: 0 hydrochlorothiazide 25 mg tablet 25 mg PO DAILY Qty: 20 RF: 0 ondansetron HCl [Zofran] 4 mg tablet 4 mg PO Q8H PRN (Reason: nausea and vomiting) Qty: 10 RF: 0
[2021-08-12 00:53] LABS: Acetone, serum QL Negative (Negative)
[2021-08-12] MEDS: 0.9 % Sodium Chloride 1,000 ML 999 ML IVCONT ×3 (00:59→03:04)
[2021-08-12] MEDS: Insulin Regular, Human 100 UNIT/ML 3 ML VIAL 10 UNIT IVPUSH ×2 (01:00→01:52)
[2021-08-12] MEDS: Famotidine/PF 20 MG/2 ML VIAL IVPUSH (01:00)
[2021-08-12 01:40] VITALS: BP 121/77; PULSE 119; RESP 14
[2021-08-12] MEDS: diphenhydrAMINE HCl 12.5 MG/5 ML LIQUID 25 MG PO (01:52)
[2021-08-12 01:57] LABS: Venous Blood Gas Refer to POC result
[2021-08-12 02:02] LABS: IDNOW Serial# 9DD0AD1C
[2021-08-12 02:04] LABS: COVID-19 Test Positive (Negative)
[2021-08-12 02:05] LABS: VBG Base Excess -4.8 mmol/L; VBG HCO3 19 mmol/L (22-26); VBG pCO2 32 mmHg; VBG pH 7.37 (7.32-7.43); VBG pO2 74 mmHg
[2021-08-12 04:47] LABS: Appearance Urine CLEAR; Color Urine YELLOW; Glucose Urine UA >=1000 MG/DL (NEG); Leukocyte Esterase Urine NEG (NEG); Nitrite Urine NEG (NEG); Specific Gravity - Urine 1.025 (1.005-1.025); Urine Blood NEG (NEG); Urine Ketones >=80 MG/DL (NEG); Urine Protein TRACE MG/DL (NEG-TRACE)
[2021-08-12 04:53] LABS: Bacteria Urine 1+ /LPF; Squamous Epithelial Cell Urine 1+ /LPF
[2021-08-12 05:01] LABS: Amphetamine Screen Urine Not Detected (Not Detect); Barbiturates, Urine Not Detected (Not Detect); Benzodiazepines Screen Urine Not Detected (Not Detect); Cannabinoid Screen Urine POSITIVE (Not Detect); Cocaine Screen Urine Not Detected (Not Detect); Fentanyl, urine Not Detected (Not Detect); Opiate Screen Urine Not Detected (Not Detect); Phencyclidine Screen Urine Not Detected (Not Detect)
== END 2021-08-12 05:10 | disposition home or self-care (01) ==
PROVIDERS: Emergency Provider Emergency Medicine; PCP Nurse Practitioner Family
DX: U07.1 COVID-19 (principal); E11.65 Type 2 diabetes mellitus with hyperglycemia; R11.2 Nausea with vomiting, unspecified; Z79.4 Long term (current) use of insulin
CPT/HCPCS: 36415; 80053; 80307; 81001; 82009; 82803; 82947; 84484; 85025; 87635; 93005; 96361; 96374; 96375; 96376; 99284

== ENCOUNTER 2022-03-01 11:59 | Emergency (ER) | payer OTHER, MEDICAID, SELFPAY ==
--- NOTE | ~2022-03-01 | CT_ITS ---
EXAMINATION: CT ABDOMEN AND PELVIS WITHOUT CONTRAST CLINICAL INFORMATION: Severe upper abdominal pain COMPARISON: CT abdomen pelvis 10/24/2019 TECHNIQUE: Multidetector volumetric imaging was performed from the superior aspect of the liver through the pubic symphysis. Sagittal and coronal reformatted images were obtained on the technologist's workstation. This CT examination was performed using dose optimization techniques as appropriate, variously including the following: *Automated exposure control *Adjustment of mA and/or kV according to patient size (this includes techniques or standardized protocols for targeted exams where dose is matched to indication/reason for exam; i.e. extremities or head) *Use of iterative reconstruction technique DLP: 569 mGy-cm FINDINGS: LUNG BASES: Unremarkable. ABDOMINAL AND PELVIC WALL: Small fat-containing umbilical hernia. LIVER AND BILIARY TREE: Hypoattenuating hepatic parenchyma suggesting hepatic steatosis. GALLBLADDER: Status post cholecystectomy. PANCREAS: Unremarkable. SPLEEN: Unremarkable. ADRENAL GLANDS: 1.4 cm intrinsically low attenuation, 5 Hounsfield units, left adrenal nodule present since 2019 compatible with an adrenal adenoma. No follow-up imaging recommended. KIDNEYS AND URETERS: Unremarkable. GASTROINTESTINAL TRACT: Colonic diverticulosis without evidence of diverticulitis. Normal appendix. VASCULAR: Unremarkable. LYMPH NODES/PERITONEUM: No lymphadenopathy. FREE FLUID: None. BLADDER: Urinary bladder is significantly distended. PELVIC VISCERA: Unremarkable. OSSEOUS STRUCTURES: Unremarkable. CT/CT abdomen pelvis wo IV con IMPRESSION: Urinary bladder is significantly distended. Consider correlation with any symptoms of urinary retention. Otherwise no acute finding to explain symptoms of abdominal pain. Hepatic steatosis
[2022-03-01 12:05] VITALS: BP 134/78; PULSE 123; RESP 18; TEMP 36.9; O2SAT 98; BMI 24.9
[2022-03-01 15:13] LABS: Hematocrit 41.9 % (37.0-47.0); Hemoglobin 14.1 g/dl (12.0-16.0); Mean Corpuscular HGB Conc 33.7 g/dl (31.0-35.0); Mean Corpuscular Hemoglobin 30.2 pg (27.0-33.0); Mean Corpuscular Volume 89.7 fL (80.0-98.0); Mean Platelet Volume 9.7 fL (9.4-12.3); Platelet Count 297 X10*3/uL (160-400); Red Blood Count 4.67 X10*6/uL (4.20-5.50); Red Cell Distribution Width 11.9 % (11.0-16.0); White Blood Count 6.9 X10*3/uL (4.8-10.8)
[2022-03-01 15:55] LABS: Anion Gap 17 (12-20); Blood Urea Nitrogen 15 mg/dL (9-16); Calcium 9.8 mg/dL (8.4-10.2); Carbon Dioxide 21 mmol/L (22-29); Chloride 96 mmol/L (96-108); Estimated Glomerular Filt Rate 35; Lipase 26 U/L (8-78); Potassium 4.7 mmol/L (3.3-5.1); Sodium 129 mmol/L (135-145)
[2022-03-01 16:15] LABS: Glucose Random 813 mg/dL (60-115)
[2022-03-01 16:17] VITALS: BP 137/83; PULSE 108; RESP 17; TEMP 36.6; O2SAT 97
[2022-03-01 16:43] LABS: Venous Blood Gas Refer to POC result
[2022-03-01 16:44] LABS: VBG Base Excess -6.9 mmol/L; VBG HCO3 14 mmol/L (22-26); VBG pCO2 20 mmHg; VBG pH 7.44 (7.32-7.43); VBG pO2 92 mmHg
[2022-03-01 16:48] LABS: COVID-19 Test Negative (Negative); IDNOW Serial# 55D5AD1C
[2022-03-01 16:58] VITALS: RESP 16
[2022-03-01 16:58] LABS: Appearance Urine CLEAR; Color Urine YELLOW; Glucose Urine UA >=1000 MG/DL (NEG); Leukocyte Esterase Urine NEG (NEG); Nitrite Urine NEG (NEG); PH 5.5 (5.0-8.0); Urine Blood NEG (NEG); Urine Ketones NEG (NEG); Urine Protein NEG (NEG-TRACE)
[2022-03-01] MEDS: ondansetron HCL 4 MG/2 ML VIAL IVPUSH (16:58)
[2022-03-01] MEDS: Morphine Sulfate 4 MG/ML CARTRIDGE IVPUSH ×2 (16:58→19:13)
[2022-03-01] MEDS: 0.9 % Sodium Chloride 1,000 ML 999 ML IV ×2 (16:59→19:13)
[2022-03-01 17:00] LABS: Lipase 29 U/L (8-78)
[2022-03-01] MEDS: Insulin Regular, Human 100 UNIT/ML 3 ML VIAL 10 UNIT IVPUSH (17:07)
[2022-03-01 17:08] VITALS: BP 147/84; PULSE 107; RESP 16; TEMP 36.6; O2SAT 97
--- NOTE | 2022-03-01 17:08 | ED_ITS ---
HPI - Abdominal Pain General Chief Complaint: Abdominal Pain Stated Complaint: stomach pains Time Seen by Provider: 03/01/22 15:49 Source: patient Mode of arrival: EMS Limitations: no limitations History of Present Illness HPI narrative: 52-year-old insulin-dependent diabetic who has no PCP presents for severe upper abdominal pain that started this morning. Patient is very thirsty, and has had polyuria. Patient has not had fevers, no nausea or vomiting, has had normal bowel movements with no dark, tarry, or bloody stool. Patient has a past medical history of gastroparesis, states this feels like gastroparesis. No chest pain, no shortness of breath, no dysuria, no hematuria, no blurry vision, no headache, no dizziness, no lightheadedness, no focal weakness Related Data Allergies Allergy/AdvReac Type Severity Reaction Status Date / Time No Known Allergies Allergy Verified 03/01/22 15:54 Review of Systems Constitutional: Denies body ache(s), Denies chills, Reports fatigue, Denies fever(s), Denies headache(s), Reports malaise and Denies weakness Eyes: Denies blurry vision, Denies change in vision and Denies diplopia Denies vertigo, Denies dizziness, Denies otalgia, Denies headache(s), Denies mouth pain, Denies post nasal drip and Denies sore throat Cardiovascular: Denies chest pain, Denies syncope, Denies leg edema, Denies lightheadedness, Denies Loss of Consciousness, Denies palpitations and Denies dyspnea Respiratory: Denies chest congestion, Denies cough and Denies dyspnea Gastrointestinal: Reports abdominal pain, Denies melena, Denies hematochezia, Denies coffee ground emesis, Denies constipation, Denies diarrhea, Denies vomiting and Denies hematemesis Genitourinary: Denies dysuria, Denies pelvic pain, Denies flank pain, Denies vaginal discharge, Denies vaginal odor and Denies vaginal pruritus Musculoskeletal: Reports no additional musculoskeletal complaints Skin/Breast: Denies rash Denies confusion, Denies vertigo, Denies dizziness, Denies syncope, Denies headache(s) and Denies weakness Psychiatric: Denies anxiety, Denies confusion and Denies depression Endocrine: Reports fatigue, Reports polydipsia, Reports polyuria and Denies palp itations [facility] Past Medical History [facility] Narrative: IDDM Social History Social History Advance Directives: No Advance Directives Information Provided: No Patient : No Physical Exam ED Vital Signs: Vital Signs - 24 hr 03/01/22 12:05 03/01/22 16:17 03/01/22 16:58 Temperature 98.4 F 97.9 F Pulse Rate 123 H 108 H Respiratory Rate 18 17 16 Blood Pressure 134/78 137/83 Pulse Oximetry 98 97 Oxygen Delivery Method Room Air Room Air 03/01/22 17:08 Temperature 97.9 F Pulse Rate 107 H Respiratory Rate 16 Blood Pressure 147/84 H Pulse Oximetry 97 Oxygen Delivery Method Room Air BMI result Body Mass Index 24.9 Const General: alert, awake and acute distress (d/t pain) moderate; No confusion Nutritional Appearance: obese Orientation/consciousness: No confusion Limitations: no limitations HENMT Head: Yes normal to inspection and Yes No palpable skull fracture present Ears: hearing grossly normal bilaterally General nose exam: Normal external nose present Face and sinus: Yes normal facial exam Mouth: mucous membranes dry Throat: Yes posterior oropharynx normal Eyes Conjunctivae: conjunctivae normal Pupils: Equal, round and reactive pupils present EOM: EOMs intact bilaterally Neck Neck: Yes full ROM, Yes no lymphadenopathy and Yes supple Resp Effort & Inspection: normal respiratory effort and able to speak in complete sentences Auscultation: clear to auscultation bilaterally, no crackles, no rales, no rhonchi and no wheezes Cardio Rate: regular rate Rhythm: regular rhythm Heart sounds: S1 normal heart sound present and S2 normal heart sound present GI Inspection: Yes normal to inspection Palpation (GI): Soft to palpation, Tenderness to palpation present (GI) in the epigastrum, in the LLQ, in the RLQ, in the LUQ and in the RUQ, Guarding due to palpation present (GI) in the LUQ and in the RUQ and not rigid Percussion: Yes normal to percussion Auscultation: Hypoactive bowel sounds present Skin General skin exam: no rashes or lesions noted Neuro General: No confusion Cranial nerves: Yes Equal, round and reactive pupils present Extrem General: Yes normal to inspection and Yes full ROM Psych Appearance: grossly normal Attitude: cooperative Thought process: Normal thought process present Course Course Course Narrative: 52-year-old female past medical history of insulin-dependent diabetes and gastroparesis presents for severe abdominal pain that started this morning. Patient has been thirsty, with polyuria On exam, patient is in distress due to pain, is crying and writhing on the stretcher. Patient is tender in all quadr ants of her abdomen, and is tender and guarding in her right upper, left upper, and epigastrium. Patient's heart rate was initially 123, now it is in the 100s. Patient has no leukocytosis, sodium is 129, potassium 4.7, patient's blood glucose is elevated at 813. Anion gap is normal at 17, creatinine 1.56, bicarb 21. Urine shows no ketones, but does show glucosuria. Acetone is negative, patient is COVID negative. Lipase within normal limits VBG shows pH of 7.44 with a bicarb of 14 A[address] U preg to CT scan patient's belly. Patient is hyperglycemic but is not in DKA. After morphine, patient is more comfortable. Patient given 2 L of fluid, 10 units of insulin. Although patient tells me she has insulin at home, she also says she has no primary care provider. I did place referral to the [facility] in her discharge paperwork Signed patient out to Thao Hutchinson NP, pending CT scan. MDM - Abdominal Pain Lab Data Result diagrams: 03/01/22 14:52 03/01/22 14:51 Labs: Lab Results 03/01/22 03/01/22 03/01/22 Range/Units 14:51 14:52 16:24 WBC 6.9 (4.8-10.8) X10*3/uL RBC 4.67 (4.20-5.50) X10*6/uL Hgb 14.1 (12.0-16.0) g/dl Hct 41.9 (37.0-47.0) % MCV 89.7 (80.0-98.0) fL MCH 30.2 (27.0-33.0) pg MCHC 33.7 (31.0-35.0) g/dl RDW 11.9 (11.0-16.0) % Plt Count 297 (160-400) X10*3/uL MPV 9.7 (9.4-12.3) fL Absolute Nucleated RBC 0.000 (0.0-0.012) X10*3/uL Nucleated RBC % (auto) 0.0 (0.0-0.2) /100WBC VBG pH (7.32-7.43) VBG pCO2 mmHg VBG pO2 mmHg VBG HCO3 (22-26) mmol/L VBG O2 Saturation % VBG Base Excess mmol/L Sodium 129 L (135-145) mmol/L Potassium 4.7 (3.3-5.1) mmol/L Chloride 96 (96-108) mmol/L Carbon Dioxide 21 L (22-29) mmol/L Anion Gap 17 (12-20) BUN 15 (9-16) mg/dL Creatinine 1.56 H (0.5-1.4) mg/dL Estim Creat Clear Calc 35.0 Estimated GFR 35 Random Glucose 813 H* (60-115) mg/dL Calcium 9.8 (8.4-10.2) mg/dL Lipase 26 (8-78) U/L Urine Color Urine Appearance Urine pH (5.0-8.0) Ur Specific [place] (1.005-1.025) Urine Protein (NEG-TRACE) MG/DL Urine Glucose (UA) (NEG) MG/DL Urine Ketones (NEG) MG/DL Urine Blood (NEG) Urine Nitrite (NEG) Ur Leukocyte Esterase (NEG) Urine RBC (0) /HPF Urine WBC (0-4) /HPF Ur Squamous Epith Cells /LPF Urine Bacteria /LPF Urine Test (NEGATIVE) Acetone, Qual (Negative) COVID-19 (LITZY) Negative (Negative) COVID-19 Clin Com See Note 03/01/22 03/01/22 03/01/22 Range/Units 16:34 16:39 16:44 WBC (4.8-10.8) X10*3/uL RBC (4.20-5.50) X10*6/uL Hgb (12.0-16.0) g/dl Hct (37.0-47.0) % MCV (80.0-98.0) fL MCH (27.0-33.0) pg MCHC (31.0-35.0) g/dl RDW (11.0-16.0) % Plt Count (160-400) X10*3/uL MPV (9.4-12.3) fL Absolute Nucleated RBC (0.0-0.012) X10*3/uL Nucleated RBC % (auto) (0.0-0.2) /100WBC VBG pH 7.44 H (7.32-7.43) VBG pCO2 20 mmHg VBG pO2 92 mmHg VBG HCO3 14 L (22-26) mmol/L VBG O2 Saturation 98.0 % VBG Base Excess -6.9 mmol/L Sodium (135-145) mmol/L Potassium (3.3-5.1) mmol/L Chloride (96-108) mmol/L Carbon Dioxide (22-29) mmol/L Anion Gap (12-20) BUN (9-16) mg/dL Creatinine (0.5-1.4) mg/dL Estim Creat Clear Calc Estimated GFR Random Glucose (60-115) mg/dL Calcium (8.4-10.2) mg/dL Lipase 29 (8-78) U/L Urine Color YELLOW Urine Appearance CLEAR Urine pH 5.5 (5.0-8.0) Ur Specific [place] 1.010 (1.005-1.025) Urine Protein NEG (NEG-TRACE) MG/DL Urine Glucose (UA) >=1000 H (NEG) MG/DL Urine Ketones NEG (NEG) MG/DL Urine Blood NEG (NEG) Urine Nitrite NEG (NEG) Ur Leukocyte Esterase NEG (NEG) Urine RBC 0-2 (0) /HPF Urine WBC 0 (0-4) /HPF Ur Squamous Epith Cells TRACE /LPF Urine Bacteria NONE /LPF Urine Test (NEGATIVE) Acetone, Qual Negative (Negative) COVID-19 (LITZY) (Negative) COVID-19 Clin Com 03/01/22 Range/Units 16:44 WBC (4.8-10.8) X10*3/uL RBC (4.20-5.50) X10*6/uL Hgb (12.0-16.0) g/dl Hct (37.0-47.0) % MCV (80.0-98.0) fL MCH (27.0-33.0) pg MCHC (31.0-35.0) g/dl RDW (11.0-16.0) % Plt Count (160-400) X10*3/uL MPV (9.4-12.3) fL Absolute Nucleated RBC (0.0-0.012) X10*3/uL Nucleated RBC % (auto) (0.0-0.2) /100WBC VBG pH (7.32-7.43) VBG pCO2 mmHg VBG pO2 mmHg VBG HCO3 (22-26) mmol/L VBG O2 Saturation % VBG Base Excess mmol/L Sodium (135-145) mmol/L Potassium (3.3-5.1) mmol/L Chloride (96-108) mmol/L Carbon Dioxide (22-29) mmol/L Anion Gap (12-20) BUN (9-16) mg/dL Creatinine (0.5-1.4) mg/dL Estim Creat Clear Calc Estimated GFR Random Glucose (60-115) mg/dL Calcium (8.4-10.2) mg/dL Lipase (8-78) U/L Urine Color Urine Appearance Urine pH (5.0-8.0) Ur Specific [place] (1.005-1.025) Urine Protein (NEG-TRACE) MG/DL Urine Glucose (UA) (NEG) MG/DL Urine Ketones (NEG) MG/DL Urine Blood (NEG) Urine Nitrite (NEG) Ur Leukocyte Esterase (NEG) Urine RBC (0) /HPF Urine WBC (0-4) /HPF Ur Squamous Epith Cells /LPF Urine Bacteria /LPF Urine Test NEGATIVE (NEGATIVE) Acetone, Qual (Negative) COVID-19 (LITZY) (Negative) COVID-19 Clin Com Discharge Plan Discharge Clinical Impression: Acute hyperglycemia, Abdominal pain Patient Disposition: Still a Patient Instructions: Abdominal Pain (ED), Diabetic Hyperglycemia (ED) Additional Instructions: I have referred you to [facility] so you can get established with a primary care provider who can prescribe you insulin Referrals: [facility] [Physician] -
[2022-03-01 17:09] LABS: Acetone, serum QL Negative (Negative)
--- NOTE | 2022-03-01 17:15 | PC.NURSE ---
PATIENT A/O X4 / PEARRLA . LUNGS CLEAR . LIPS / MOUTH DRY . SKIN PINK WARM AND DRY . LUNGS CLEAR . ABDOMEN SOFT , DISTENDED . TENDER TO PALPITATIONS . POSITIVE BOWEL SOUNDS IN ALL FOUR QUADRANTS . IV PLACED IN RIGHT FOREARM . IV FLUIDS RUNNING ORDERED . PATIENT REPORTS PAIN 10/10 , MEDICATED ORDERED WILL REASSESS . PATIENT AWARE OF PLAN OF CARE .
[2022-03-01 17:19] LABS: UPreg QC Valid YES; Urine Pregnancy NEGATIVE (NEGATIVE)
[2022-03-01 17:23] LABS: RBC Urine 0-2 /HPF (0); Squamous Epithelial Cell Urine TRACE /LPF; WBC Urine 0 /HPF (0-4)
[2022-03-01 18:30] LABS: Glucose, Whole Blood 157 mg/dL (60-115)
[2022-03-01 18:58] LABS: Anion Gap 14 (12-20); Blood Urea Nitrogen 14 mg/dL (9-16); Calcium 9.6 mg/dL (8.4-10.2); Carbon Dioxide 24 mmol/L (22-29); Chloride 108 mmol/L (96-108); Creatinine Clr Calc Pharmacy 57.5; Estimated Glomerular Filt Rate > 60; Glucose Random 171 mg/dL (60-115); Potassium 3.9 mmol/L (3.3-5.1); Sodium 142 mmol/L (135-145)
== END 2022-03-01 20:15 | disposition home or self-care (01) ==
PROVIDERS: Emergency Medicine; Physician Assistant; Emergency Provider Emergency Medicine
DX: E11.65 Type 2 diabetes mellitus with hyperglycemia (principal); R10.9 Unspecified abdominal pain; Z79.4 Long term (current) use of insulin; Z20.822 Contact with and (suspected) exposure to COVID-19
CPT/HCPCS: 36415; 74176; 80048; 81001; 81025; 82009; 82803; 82947; 83690; 85027; 87635; 96361; 96374; 96375; 96376; 99284; J2270; J2405

== ENCOUNTER 2022-04-06 07:07 | Emergency (ER) | payer OTHER, SELFPAY ==
--- NOTE | ~2022-04-06 | CT_ITS ---
EXAMINATION: CT ABDOMEN AND PELVIS WITH CONTRAST CLINICAL INFORMATION: Abdominal pain COMPARISON: CT abdomen pelvis 10/24/2019 TECHNIQUE: Multidetector volumetric images were obtained from the superior aspect of the liver through the pubic symphysis following administration 85 mL of Omnipaque 350 intravenous contrast. Sagittal and coronal reformatted images were obtained on the technologist's workstation. Oral contrast: No This CT examination was performed using dose optimization techniques as appropriate, variously including the following: *Automated exposure control *Adjustment of mA and/or kV according to patient size (this includes techniques or standardized protocols for targeted exams where dose is matched to indication/reason for exam; i.e. extremities or head) *Use of iterative reconstruction technique DLP: 607 mGy-cm FINDINGS: LUNG BASES: Unremarkable. ABDOMINAL AND PELVIC WALL: Unremarkable. LIVER AND BILIARY TREE: Hypoattenuating hepatic parenchyma suggesting hepatic steatosis with focal fat along the falciform ligament. GALLBLADDER: Status post cholecystectomy. PANCREAS: Unremarkable. SPLEEN: Unremarkable. ADRENAL GLANDS: 1.2 cm left adrenal nodule stable from 2019 therefore likely benign in etiology such as an adenoma. KIDNEYS AND URETERS: Unremarkable. GASTROINTESTINAL TRACT: Diverticulosis without evidence of diverticulitis. Small hiatal hernia. Normal appendix. VASCULAR: Unremarkable. LYMPH NODES/PERITONEUM: No lymphadenopathy. FREE FLUID: None. BLADDER: Urinary bladder is significantly distended. PELVIC VISCERA: Unremarkable. OSSEOUS STRUCTURES: Unremarkable. CT/CT abdomen pelvis w con IMPRESSION: Hepatic steatosis. Urinary bladder is significantly distended, consider correlation with symptoms of urinary retention. A 1.2 cm left adrenal nodule stable from 2019 therefore likely benign in etiology such as an adenoma. No routine follow up imaging recommended.
[2022-04-06 07:10] VITALS: BP 120/79; PULSE 130; RESP 16; TEMP 35.6; O2SAT 100; BMI 24.9
--- NOTE | 2022-04-06 07:12 | ECG_ITS ---
Test Reason : TACHY, HEART PALP Blood Pressure : / mmHG Vent. Rate : 126 BPM Atrial Rate : 126 BPM P-R Int : 112 ms QRS Dur : 064 ms QT Int : 402 ms P-R-T Axes : 000 072 071 degrees QTc Int : 582 ms Sinus tachycardia Otherwise normal ECG When compared with ECG of 11-AUG-2021 22:49, No significant change was found Referred By: Generic ED Physician Electronically Signed By:NIKIA HOFFMANN
[2022-04-06 09:11] LABS: MANUAL DIFF FLAG NO
[2022-04-06 09:12] LABS: Basophils Absolute Auto 0.1 X10*3/uL (0.0-0.2); Basophils Percent Auto 0.7 % (0-2); Eosinophils Percent Auto 0.5 % (0-4); Hematocrit 45.8 % (37.0-47.0); Hemoglobin 15.4 g/dl (12.0-16.0); Imm Gran Abs Auto 0.04 X10*3/uL (0.00-0.03); Imm Gran Pct Auto 0.5 % (0.0-0.4); Lymphocytes Absolute Auto 1.2 X10*3/uL (1.2-4.9); Lymphocytes Percent Auto 16.8 % (20-40); Mean Corpuscular HGB Conc 33.6 g/dl (31.0-35.0); Mean Corpuscular Hemoglobin 30.1 pg (27.0-33.0); Mean Corpuscular Volume 89.6 fL (80.0-98.0); Mean Platelet Volume 9.3 fL (9.4-12.3); Monocytes Absolute Auto 0.3 X10*3/uL (0.1-1.2); Monocytes Percent Auto 4.6 % (2-11); Neutrophils Absolute Auto 5.6 x10*3/uL (2.0-8.3); Neutrophils Percent Auto 76.9 % (45-73); Platelet Count 268 X10*3/uL (160-400); Red Blood Count 5.11 X10*6/uL (4.20-5.50); Red Cell Distribution Width 11.9 % (11.0-16.0); White Blood Count 7.3 X10*3/uL (4.8-10.8)
--- NOTE | 2022-04-06 09:12 | ED_ITS ---
HPI - Abdominal Pain General Chief Complaint: Abdominal Pain Stated Complaint: Chest pain/abd pain Time Seen by Provider: 04/06/22 07:47 Source: patient Mode of arrival: ambulatory History of Present Illness HPI narrative: 52-year-old female who is a diabetic and everyday smoker who presents with complaints of epigastric pain and multiple episodes of nausea and vomiting since Thursday. She denies any fever or chills and feels generalized weakness but denies any diarrhea or urinary pain or burning. She does describe polyuria consistent with her suspected elevated glucose levels. Related Data Previous Rx's Medication Instructions Recorded metoclopramide HCl 5 mg tablet 10 mg PO DAILY #30 tabs 06/15/20 (Reglan) ondansetron HCl 4 mg tablet 4 mg PO Q8H PRN nausea and 10/02/20 (Zofran) vomiting #10 tabs hydrochlorothiazide 25 mg tablet 25 mg PO DAILY #20 tabs 12/05/20 metoclopramide HCl 10 mg tablet 10 mg PO Q6H PRN nausea and 12/05/20 (Reglan) vomiting #20 tabs ondansetron HCl 4 mg tablet 4 mg PO Q8H PRN nausea and 06/21/21 (Zofran) vomiting #10 tabs metoclopramide HCl 10 mg tablet 10 mg PO TIDAC 2 days #6 tabs 04/06/22 (Reglan) sucralfate 100 mg/mL oral 10 ml PO BID #414 mL 04/06/22 suspension (Carafate) Allergies Allergy/AdvReac Type Severity Reaction Status Date / Time No Known Allergies Allergy Verified 08/09/21 13:45 [No Known Allergies*] Review of Systems Review of Systems Pertinent positives and negatives as stated in HPI 10 point review of systems otherwise negative. [facility] Past Medical History Source: nursing notes reviewed Medical History Diabetes Gastroparesis Social History Social History Alcohol intake: never Patient Tobacco Use Status: Current everyday Tobacco user Smoked in Last 30 Days: No Use of substances other than those prescribed or required for medical reasons: No Advance Directives: No Advance Directives Information Provided: Yes Physical Exam ED Vital Signs: Vital Signs - 24 hr 04/06/22 07:10 04/06/22 10:02 04/06/22 13:24 Temperature 96.0 F L 98.1 F 98.3 F Pulse Rate 130 H 112 H 109 H Respiratory Rate 16 16 20 Blood Pressure 120/79 104/71 107/74 Pulse Oximetry 100 99 Oxygen Delivery Method Room Air Room Air Oxygen Flow Rate 96 BMI result Body Mass Index 24.9 VITAL SIGNS: Reviewed. GENERAL: Well developed, well nourished, in no acute distress. HEAD: Normocephalic/atraumatic EYES: PERRLA, EOMI EARS: Ext canals without abnormality OROPHARYNX: no oral lesions noted, posterior pharynx clear , dry mucosa NECK: Supple, no adenopathy LUNGS: Normal breath sounds. No adventitious sounds or accessory muscle use. SpO2<100> CARDIOVASCULAR: Regular rate and rhythm without noted murmurs ABDOMEN: Soft, non-tender, non-distended with bowel sounds. MUSCULOSKELETAL: No tenderness, deformities, or effusions noted on gross inspection. EXTREMITIES: No cyanosis, clubbing or edema. SKIN: Inspection of the skin reveals no rashes NEUROLOGIC: Alert and oriented x 4. Strength and sensation to light touch were grossly intact x 4. Course Course Course Narrative: 52-year-old female with history and clinical presentation with suspected gastro paresis as well as hyperglycemia. Review of all investigations significant for hyperglycemia with small amount of acetone and on repeat labs no evidence of gap, patient received 3 L of IV fluids as well as 5 units of subcu lispro, infectious workup is otherwise absent for acute findings and suspect that this was an incident of gastroparesis with subsequent gastritis and dehydration. Awaiting urinalysis to ensure no infection. patient has been provided with Carafate solution for the gastritis and will receive a prescription for that as well as Reglan and instructions follow-up with primary care provider. MDM - Abdominal Pain Lab Data Result diagrams: 04/06/22 09:07 04/06/22 14:50 Labs: Lab Results 04/06/22 04/06/22 04/06/22 Range/Units 09:07 09:07 09:20 WBC 7.3 (4.8-10.8) X10*3/uL RBC 5.11 (4.20-5.50) X10*6/uL Hgb 15.4 (12.0-16.0) g/dl Hct 45.8 (37.0-47.0) % MCV 89.6 (80.0-98.0) fL MCH 30.1 (27.0-33.0) pg MCHC 33.6 (31.0-35.0) g/dl RDW 11.9 (11.0-16.0) % Plt Count 268 (160-400) X10*3/uL MPV 9.3 L (9.4-12.3) fL Immature Gran % (Auto) 0.5 H (0.0-0.4) % Neut % (Auto) 76.9 H (45-73) % Lymph % (Auto) 16.8 L (20-40) % [place] % (Auto) 4.6 (2-11) % Eos % (Auto) 0.5 (0-4) % Baso % (Auto) 0.7 (0-2) % Lymph # (Auto) 1.2 (1.2-4.9) X10*3/uL [place] # (Auto) 0.3 (0.1-1.2) X10*3/uL Eos # (Auto) 0.0 (0.0-0.4) X10*3/uL Baso # (Auto) 0.1 (0.0-0.2) X10*3/uL Abs Immat Gran (auto) 0.04 H (0.00-0.03) X10*3/uL Absolute Neuts (auto) 5.6 (2.0-8.3) x10*3/uL Absolute Nucleated RBC 0.000 (0.0-0.012) X10*3/uL Nucleated RBC % (auto) 0.0 (0.0-0.2) /100WBC Sodium 134 L (135-145) mmol/L Potassium 4.7 (3.3-5.1) mmol/L Chloride 98 (96-108) mmol/L Carbon Dioxide 21 L (22-29) mmol/L Anion Gap 20 (12-20) BUN 17 H (9-16) mg/dL Creatinine 1.14 (0.5-1.4) mg/dL Estim Creat Clear Calc 47.9 Estimated GFR 50 POC Glucose (60-115) mg/dL Random Glucose 498 H* (60-115) mg/dL Calcium 9.0 D (8.4-10.2) mg/dL Total Bilirubin 0.7 (0.0-1.0) mg/dL AST 22 (5-31) U/L ALT 19 (0-31) U/L Alkaline Phosphatase 73 (39-117) U/L Total Protein 7.1 (6.5-8.0) g/dL Albumin 4.3 (3.5-5.0) g/dL Lipase 11 (8-78) U/L Acetone, Qual Small H (Negative) COVID-19 (LITZY) Negative (Negative) COVID-19 Clin Com See Note 04/06/22 04/06/22 04/06/22 Range/Units 10:07 13:34 13:55 WBC (4.8-10.8) X10*3/uL RBC (4.20-5.50) X10*6/uL Hgb (12.0-16.0) g/dl Hct (37.0-47.0) % MCV (80.0-98.0) fL MCH (27.0-33.0) pg MCHC (31.0-35.0) g/dl RDW (11.0-16.0) % Plt Count (160-400) X10*3/uL MPV (9.4-12.3) fL Immature Gran % (Auto) (0.0-0.4) % Neut % (Auto) (45-73) % Lymph % (Auto) (20-40) % [place] % (Auto) (2-11) % Eos % (Auto) (0-4) % Baso % (Auto) (0-2) % Lymph # (Auto) (1.2-4.9) X10*3/uL [place] # (Auto) (0.1-1.2) X10*3/uL Eos # (Auto) (0.0-0.4) X10*3/uL Baso # (Auto) (0.0-0.2) X10*3/uL Abs Immat Gran (auto) (0.00-0.03) X10*3/uL Absolute Neuts (auto) (2.0-8.3) x10*3/uL Absolute Nucleated RBC (0.0-0.012) X10*3/uL Nucleated RBC % (auto) (0.0-0.2) /100WBC Sodium TNP (135-145) mmol/L Potassium TNP (3.3-5.1) mmol/L Chloride TNP (96-108) mmol/L Carbon Dioxide TNP (22-29) mmol/L Anion Gap TNP (12-20) BUN TNP (9-16) mg/dL Creatinine TNP (0.5-1.4) mg/dL Estim Creat Clear Calc TNP Estimated GFR TNP POC Glucose 406 H* 274 H (60-115) mg/dL Random Glucose TNP (60-115) mg/dL Calcium TNP (8.4-10.2) mg/dL Total Bilirubin (0.0-1.0) mg/dL AST (5-31) U/L ALT (0-31) U/L Alkaline Phosphatase (39-117) U/L Total Protein (6.5-8.0) g/dL Albumin (3.5-5.0) g/dL Lipase (8-78) U/L Acetone, Qual TNP (Negative) COVID-19 (LITZY) (Negative) COVID-19 Clin Com 04/06/22 04/06/22 Range/Units 14:50 17:56 WBC (4.8-10.8) X10*3/uL RBC (4.20-5.50) X10*6/uL Hgb (12.0-16.0) g/dl Hct (37.0-47.0) % MCV (80.0-98.0) fL MCH (27.0-33.0) pg MCHC (31.0-35.0) g/dl RDW (11.0-16.0) % Plt Count (160-400) X10*3/uL MPV (9.4-12.3) fL Immature Gran % (Auto) (0.0-0.4) % Neut % (Auto) (45-73) % Lymph % (Auto) (20-40) % [place] % (Auto) (2-11) % Eos % (Auto) (0-4) % Baso % (Auto) (0-2) % Lymph # (Auto) (1.2-4.9) X10*3/uL [place] # (Auto) (0.1-1.2) X10*3/uL Eos # (Auto) (0.0-0.4) X10*3/uL Baso # (Auto) (0.0-0.2) X10*3/uL Abs Immat Gran (auto) (0.00-0.03) X10*3/uL Absolute Neuts (auto) (2.0-8.3) x10*3/uL Absolute Nucleated RBC (0.0-0.012) X10*3/uL Nucleated RBC % (auto) (0.0-0.2) /100WBC Sodium 139 (135-145) mmol/L Potassium 4.4 (3.3-5.1) mmol/L Chloride 107 (96-108) mmol/L Carbon Dioxide 19 L (22-29) mmol/L Anion Gap 17 (12-20) BUN 13 (9-16) mg/dL Creatinine 0.83 (0.5-1.4) mg/dL Estim Creat Clear Calc 65.9 Estimated GFR > 60 POC Glucose 233 H (60-115) mg/dL Random Glucose 307 H (60-115) mg/dL Calcium 7.7 L D (8.4-10.2) mg/dL Total Bilirubin (0.0-1.0) mg/dL AST (5-31) U/L ALT (0-31) U/L Alkaline Phosphatase (39-117) U/L Total Protein (6.5-8.0) g/dL Albumin (3.5-5.0) g/dL Lipase (8-78) U/L Acetone, Qual Small H (Negative) COVID-19 (LITZY) (Negative) COVID-19 Clin Com Discharge Plan Discharge Clinical Impression: Gastroparesis, Diabetes, Hyperglycemia Patient Disposition: Still a Patient Instructions: Diabetic Hyperglycemia (ED), Gastroparesis (ED), Diabetes and Nutrition (ED) Additional Instructions: 1. Resume all home medications. 2. [place] diet for the next 1-2 days. 3. Call the office of your primary care provider Thursday morning to set up an appointment for re-evaluation. Return to the ER for worsening symptoms. Prescriptions: New metoclopramide HCl [Reglan] 10 mg tablet 10 mg PO TIDAC 2 Days Qty: 6 0RF Rx Instructions: Take 1 tablet 30 minutes prior to each meal of the day (3). sucralfate [Carafate] 100 mg/mL suspension 10 ml PO BID Qty: 414 0RF No Action metoclopramide HCl [Reglan] 5 mg tablet 10 mg PO DAILY Qty: 30 0RF ondansetron HCl [Zofran] 4 mg tablet 4 mg PO Q8H PRN (Reason: nausea and vomiting) Qty: 10 0RF metoclopramide HCl [Reglan] 10 mg tablet 10 mg PO Q6H PRN (Reason: nausea and vomiting) Qty: 20 0RF hydrochlorothiazide 25 mg tablet 25 mg PO DAILY Qty: 20 0RF ondansetron HCl [Zofran] 4 mg tablet 4 mg PO Q8H PRN (Reason: nausea and vomiting) Qty: 10 0RF Referrals: [facility] [Primary Care Provider] -
[2022-04-06 09:46] LABS: Alanine Aminotransferase 19 U/L (0-31); Albumin Level 4.3 g/dL (3.5-5.0); Alkaline Phosphatase 73 U/L (39-117); Anion Gap 20 (12-20); Aspartate Amino Transferase 22 U/L (5-31); Bilirubin Total 0.7 mg/dL (0.0-1.0); Blood Urea Nitrogen 17 mg/dL (9-16); Carbon Dioxide 21 mmol/L (22-29); Chloride 98 mmol/L (96-108); Creatinine Clr Calc Pharmacy 47.9; Estimated Glomerular Filt Rate 50; Glucose Random 498 mg/dL (60-115); Lipase 11 U/L (8-78); Potassium 4.7 mmol/L (3.3-5.1); Sodium 134 mmol/L (135-145); Total Protein 7.1 g/dL (6.5-8.0)
[2022-04-06 09:48] LABS: COVID-19 Test Negative (Negative); IDNOW Serial# 55D5AD1C
[2022-04-06 10:02] VITALS: BP 104/71; PULSE 112; RESP 16; TEMP 36.7; O2SAT 99
[2022-04-06] MEDS: 0.9 % Sodium Chloride 2,000 ML 999 ML IV (10:12)
[2022-04-06 10:13] LABS: Glucose, Whole Blood 406 mg/dL (60-115)
[2022-04-06] MEDS: diphenhydrAMINE HCL 50 MG/ML VIAL 25 MG IVPUSH (10:13)
[2022-04-06] MEDS: 0.9 % Sodium Chloride 1,000 ML 999 ML IVCONT (10:13)
[2022-04-06] MEDS: Metoclopramide HCl 10 MG/2 ML VIAL IVPUSH (10:13)
[2022-04-06 10:21] LABS: Acetone, serum QL Small (Negative)
[2022-04-06 13:24] VITALS: BP 107/74; PULSE 109; RESP 20; TEMP 36.8
[2022-04-06] MEDS: Lidocaine HCl Viscous 2 % 15 ML SOLUTION 10 ML MUCOUS MEM (13:31)
[2022-04-06] MEDS: Magnesium Hydrox/Alum Hydrox 30 ML ORAL.SUSP PO (13:33)
[2022-04-06 13:38] LABS: Glucose, Whole Blood 274 mg/dL (60-115)
[2022-04-06] MEDS: Prochlorperazine Edisylate 10 MG/2 ML VIAL IVPUSH (14:30)
[2022-04-06] MEDS: Insulin Lispro 100 UNIT/ML 3 ML VIAL SUBCUT (14:30)
[2022-04-06 15:11] LABS: Acetone, serum QL Small (Negative)
[2022-04-06 15:17] LABS: Anion Gap 17 (12-20); Blood Urea Nitrogen 13 mg/dL (9-16); Calcium 7.7 mg/dL (8.4-10.2); Carbon Dioxide 19 mmol/L (22-29); Chloride 107 mmol/L (96-108); Creatinine Clr Calc Pharmacy 65.9; Estimated Glomerular Filt Rate > 60; Glucose Random 307 mg/dL (60-115); Potassium 4.4 mmol/L (3.3-5.1); Sodium 139 mmol/L (135-145)
[2022-04-06] MEDS: iohexoL 350 MG/ML 100 ML INFUS..BTL IV (17:03)
[2022-04-06 18:00] LABS: Glucose, Whole Blood 233 mg/dL (60-115)
[2022-04-06] MEDS: Sucralfate Oral Suspension 1 GM/10 ML ORAL.SUSP PO (19:06)
--- NOTE | 2022-04-06 19:09 | PC.NURSE ---
patient refused straight cath. dr meredith made aware.
[2022-04-06 19:28] LABS: Appearance Urine CLEAR; Color Urine YELLOW; Glucose Urine UA >=1000 MG/DL (NEG); Leukocyte Esterase Urine NEG (NEG); Nitrite Urine NEG (NEG); UACC Culture Trigger NO; Urine Blood 3+ (NEG); Urine Ketones 40 MG/DL (NEG); Urine Protein TRACE MG/DL (NEG-TRACE)
[2022-04-06 19:46] LABS: RBC Urine 50-75 /HPF (0); Squamous Epithelial Cell Urine 1+ /LPF; WBC Urine 0-2 /HPF (0-4)
[2022-04-06 20:49] VITALS: BP 155/100; PULSE 74; RESP 16; TEMP 36.8; O2SAT 99
[2022-04-06 22:00] VITALS: BP 156/74; PULSE 88; RESP 16; TEMP 36.6; O2SAT 97
[2022-04-06] MEDS: Morphine Sulfate 4 MG/ML CARTRIDGE IVPUSH (23:02)
[2022-04-06] MEDS: ondansetron HCL 4 MG/2 ML VIAL IVPUSH (23:02)
== END 2022-04-07 01:12 | disposition home or self-care (01) ==
PROVIDERS: Student in an Organized Health Care Education/Training Program; Emergency Provider Emergency Medicine Emergency Medical Services
DX: K31.84 Gastroparesis (principal); E11.65 Type 2 diabetes mellitus with hyperglycemia; Z20.822 Contact with and (suspected) exposure to COVID-19; R10.13 Epigastric pain; R53.1 Weakness; F17.200 Nicotine dependence, unspecified, uncomplicated
CPT/HCPCS: 36415; 51701; 74177; 80048; 80053; 81001; 82009; 82947; 83690; 85025; 87635; 93005; 96361; 96374; 96375; 99284; 99285; J1200; J2270; J2405; J2765; Q9967

== ENCOUNTER 2022-08-18 07:22 | Emergency (ER) | payer OTHER, SELFPAY ==
[2022-08-18 07:25] VITALS: BP 152/91; PULSE 124; RESP 20; TEMP 36.7; O2SAT 97; BMI 24.9
--- NOTE | 2022-08-18 07:47 | ECG_ITS ---
Test Reason : CP Blood Pressure : / mmHG Vent. Rate : 114 BPM Atrial Rate : 114 BPM P-R Int : 146 ms QRS Dur : 068 ms QT Int : 328 ms P-R-T Axes : 070 039 049 degrees QTc Int : 452 ms Sinus tachycardia Low voltage QRS Borderline ECG When compared with ECG of 06-APR-2022 07:05, No significant change was found Referred By: Rahul Maria Electronically Signed By:Abdoulaye Medrano
--- NOTE | 2022-08-18 07:49 | ED.ABDPAIN ---
HPI - Abdominal Pain General Chief Complaint: Abdominal Pain Stated Complaint: Abd pain Time Seen by Provider: 08/18/22 07:42 Source: patient Mode of arrival: ambulatory Limitations: no limitations History of Present Illness HPI narrative: 52-year-old female came in for evaluation of abdominal pain started at 02:00 a.m. Patient with a history of diabetic gastroparesis has not had episode of gastroparesis and abdominal pain for few years woke up this morning at 02:00 with severe abdominal pain, declined any nausea, or vomiting. Last bowel movement was 3 days ago was normal with no blood. Not sure if she is passing flatus rectally. Past abdominal surgical history is cholecystectomy. Related Data Previous Rx's Medication Instructions Recorded metoclopramide HCl 5 mg tablet 10 mg PO DAILY #30 tabs 06/15/20 (Reglan) ondansetron HCl 4 mg tablet 4 mg PO Q8H PRN nausea and 10/02/20 (Zofran) vomiting #10 tabs hydrochlorothiazide 25 mg tablet 25 mg PO DAILY #20 tabs 12/05/20 metoclopramide HCl 10 mg tablet 10 mg PO Q6H PRN nausea and 12/05/20 (Reglan) vomiting #20 tabs ondansetron HCl 4 mg tablet 4 mg PO Q8H PRN nausea and 06/21/21 (Zofran) vomiting #10 tabs metoclopramide HCl 10 mg tablet 10 mg PO TIDAC 2 days #6 tabs 04/06/22 (Reglan) sucralfate 100 mg/mL oral 10 ml PO BID #414 mL 04/06/22 suspension (Carafate) Allergies Allergy/AdvReac Type Severity Reaction Status Date / Time No Known Allergies Allergy Verified 08/09/21 13:45 [No Known Allergies*] Review of Systems Review of Systems All other systems are reviewed and are negative Constitutional: Reports as per HPI and Reports no additional constitutional complaints Eyes: Reports as per HPI and Reports no additional eye complaints Reports system reviewed and no additional complaints, except as documented Cardiovascular: Reports as per HPI and Reports no additional cardiovascular complaints Respiratory: Reports as per HPI and Reports no additional respiratory complaints Gastrointestinal: Reports as per HPI and Reports no additional gastrointestinal complaints Genitourinary: Reports no additional female genitourinary complaints Musculoskeletal: Reports no additional musculoskeletal complaints Skin/Breast: Reports system reviewed and no additional complaints, except as docu Psychiatric: Reports no additional psychiatric complaints Endocrine: Reports no additional endocrine complaints Hematologic/Lymphatic: Reports no additional hematologic/lymphatic complaints Allergic/Immunologic: Reports no additional allergic/immunologic complaints Reports system reviewed and no additional complaints, except as documented and Reports Abnormal speech present [facility] Past Medical History Medical History Diabetes Gastroparesis Social History Social History Alcohol intake: never Patient Tobacco Use Status: Current everyday Tobacco user Smoked in Last 30 Days: No Use of substances other than those prescribed or required for medical reasons: No Advance Directives: No Advance Directives Information Provided: Yes Physical Exam ED Vital Signs: Vital Signs - 24 hr 08/18/22 07:25 08/18/22 09:48 08/18/22 10:40 Temperature 98.1 F 99.1 F 98.8 F Pulse Rate 124 H 115 H 109 H Respiratory Rate 20 18 16 Blood Pressure 152/91 H 151/98 H 134/78 Pulse Oximetry 97 95 97 Oxygen Delivery Method Room Air Room Air Room Air BMI result Body Mass Index 24.9 Vital signs have been reviewed as appeared to be correct. Blood pressure elevated. Tachycardia. Respiration rate normal. Temperature normal. Oxygen saturation normal. Appearance: Alert. Oriented X3. No acute distress. Head: Normal external exam. Normocephalic. Atraumatic. No Velasquez signs noted. No raccoon eyes noted Eyes: PERRLA. EOMI. Conjunctiva and sclera normal. Eyelids normal. ENT: TM's Normal. Pharynx normal. Uvula midline. Moist mucous membranes. No trismus noted. No drooling noted. No muffled voice noted. Neck: Normal inspection. Neck supple. FROM. No adenopathy. Thyroid Normal. No meningeal signs. No neck mass noted. CVS: Normal heart rate and rhythm. Heart sound normal. No murmurs noted. Pulses normal throughout. Respiratory: No respiratory distress. Painless inspiration. Breath sounds normal. No wheezes/rales/rhonchi noted. Chest nontender. No accessory muscle usage noted or decreased air movement noted. Abdomen: Soft and nontender. Bowel sounds normal in all 4 quadrants. No distention noted. No organomegaly noted. No visible injury noted. Back: No CVA tenderness. Full range of motion noted. Skin: Skin warm and dry. Normal skin color. Normal skin turgor. No rashes/lesions/lacerations noted. Extremities: No lower extremity edema. Extremities exhibit normal range of motion. Extremities nontender. Neuro: Oriented X 3. Cranial nerve exam: II-XII are grossly intact No motor deficit. No sensory deficit. Reflexes normal. Course Course Course Narrative: 52-year-old female longstanding history of uncontrolled diabetes with known history of diabetic gastroparesis, patient has unremarkable labs except for hyperglycemia that was controlled with IV hydration and insulin IV, CT abdomen pelvis is showing no acute pathology, patient felt better after IV hydration and able to tolerate p.o. intake with no vomiting or abdominal pain. Medical Decision Making Differential Diagnosis Differential Diagnoses: The differential diagnosis associated with the presentation includes (SBO, diabetic gastroparesis, colitis, appendicitis, pancreatitis, hyperglycemia, DKA.) Lab Data MDM Lab Attestation statement: I reviewed the patient's lab results. Result Diagrams: 08/18/22 08:19 08/18/22 08:19 Labs: Lab Results 08/18/22 08/18/22 08/18/22 Range/Units 07:29 08:19 08:19 WBC 3.3 L (4.8-10.8) X10*3/uL RBC 4.55 (4.20-5.50) X10*6/uL Hgb 13.9 (12.0-16.0) g/dl Hct 41.6 (37.0-47.0) % MCV 91.4 (80.0-98.0) fL MCH 30.5 (27.0-33.0) pg MCHC 33.4 (31.0-35.0) g/dl RDW 12.0 (11.0-16.0) % Plt Count 180 D (160-400) X10*3/uL MPV 10.0 (9.4-12.3) fL Immature Gran % (Auto) 0.3 (0.0-0.4) % Neut % (Auto) 72.8 (45-73) % Lymph % (Auto) 12.7 L (20-40) % Sch[place] % (Auto) 13.0 H (2-11) % Eos % (Auto) 0.9 (0-4) % Baso % (Auto) 0.3 (0-2) % Lymph # (Auto) 0.4 L (1.2-4.9) X10*3/uL [place] # (Auto) 0.4 (0.1-1.2) X10*3/uL Eos # (Auto) 0.0 (0.0-0.4) X10*3/uL Baso # (Auto) 0.0 (0.0-0.2) X10*3/uL Abs Immat Gran (auto) 0.01 (0.00-0.03) X10*3/uL Absolute Neuts (auto) 2.4 (2.0-8.3) x10*3/uL Absolute Nucleated RBC 0.000 (0.0-0.012) X10*3/uL Nucleated RBC % (auto) 0.0 (0.0-0.2) /100WBC Smear Tech's Comments VERIFIED Sodium 134 L (135-145) mmol/L Potassium 4.5 (3.3-5.1) mmol/L Chloride 99 (96-108) mmol/L Carbon Dioxide 28 (22-29) mmol/L Anion Gap 12 (12-20) BUN 13 (9-16) mg/dL Creatinine 1.02 (0.5-1.4) mg/dL Estim Creat Clear Calc 53.6 Estimated GFR 57 POC Glucose 393 H* (60-115) mg/dL Random Glucose 392 H* (60-115) mg/dL Calcium 9.0 D (8.4-10.2) mg/dL Total Bilirubin 0.3 (0.0-1.0) mg/dL Direct Bilirubin < 0.2 (0.0-0.5) mg/dL AST 23 (5-31) U/L ALT 22 (0-31) U/L Alkaline Phosphatase 95 (39-117) U/L Troponin I High Sens (<3.5-17.0) ng/L Total Protein 6.8 (6.5-8.0) g/dL Albumin 4.1 (3.5-5.0) g/dL Lipase 15 (8-78) U/L Urine Color Urine Appearance Urine pH (5.0-9.0) Ur Specific [place] (1.005-1.025) Urine Protein (Neg-Trace) mg/dL Urine Glucose (UA) (Negative) mg/dL Urine Ketones (Negative) mg/dL Urine Blood (Negative) Urine Nitrite (Negative) Ur Leukocyte Esterase (Negative) Urine RBC (0-2) /HPF Urine WBC (0-5) /HPF Ur Squamous Epith Cells (0-2) /HPF Urine Bacteria (None Seen) Hyaline Casts (0-2) /LPF 08/18/22 08/18/22 08/18/22 Range/Units 08:19 11:00 11:08 WBC (4.8-10.8) X10*3/uL RBC (4.20-5.50) X10*6/uL Hgb (12.0-16.0) g/dl Hct (37.0-47.0) % MCV (80.0-98.0) fL MCH (27.0-33.0) pg MCHC (31.0-35.0) g/dl RDW (11.0-16.0) % Plt Count (160-400) X10*3/uL MPV (9.4-12.3) fL Immature Gran % (Auto) (0.0-0.4) % Neut % (Auto) (45-73) % Lymph % (Auto) (20-40) % [place] % (Auto) (2-11) % Eos % (Auto) (0-4) % Baso % (Auto) (0-2) % Lymph # (Auto) (1.2-4.9) X10*3/uL [place] # (Auto) (0.1-1.2) X10*3/uL Eos # (Auto) (0.0-0.4) X10*3/uL Baso # (Auto) (0.0-0.2) X10*3/uL Abs Immat Gran (auto) (0.00-0.03) X10*3/uL Absolute Neuts (auto) (2.0-8.3) x10*3/uL Absolute Nucleated RBC (0.0-0.012) X10*3/uL Nucleated RBC % (auto) (0.0-0.2) /100WBC Smear Tech's Comments Sodium (135-145) mmol/L Potassium (3.3-5.1) mmol/L Chloride (96-108) mmol/L Carbon Dioxide (22-29) mmol/L Anion Gap (12-20) BUN (9-16) mg/dL Creatinine (0.5-1.4) mg/dL Estim Creat Clear Calc Estimated GFR POC Glucose 258 H (60-115) mg/dL Random Glucose (60-115) mg/dL Calcium (8.4-10.2) mg/dL Total Bilirubin (0.0-1.0) mg/dL Direct Bilirubin (0.0-0.5) mg/dL AST (5-31) U/L ALT (0-31) U/L Alkaline Phosphatase (39-117) U/L Troponin I High Sens < 3.5 (<3.5-17.0) ng/L Total Protein (6.5-8.0) g/dL Albumin (3.5-5.0) g/dL Lipase (8-78) U/L Urine Color Yellow Urine Appearance Clear Urine pH 7.0 (5.0-9.0) Ur Specific [place] >= 1.030 H (1.005-1.025) Urine Protein Negative (Neg-Trace) mg/dL Urine Glucose (UA) >=1000 H (Negative) mg/dL Urine Ketones Trace (Negative) mg/dL Urine Blood Negative (Negative) Urine Nitrite Negative (Negative) Ur Leukocyte Esterase Negative (Negative) Urine RBC 0-2 (0-2) /HPF Urine WBC 0-5 (0-5) /HPF Ur Squamous Epith Cells 0-2 (0-2) /HPF Urine Bacteria None Seen (None Seen) Hyaline Casts 0-2 (0-2) /LPF Independent Interpretation I performed an independent interpretation of an: CT Scan (Abdomen and pelvis: No acute findings.) Radiology Impression Discussion of test interpretation with radiology: I have reviewed the radiologist's reading. Medications Administered Discontinued Medications Generic Name Dose Route Start Last Admin Trade Name Freq PRN Reason Stop Dose Admin Sodium Chloride 1,000 mls @ 999 mls/hr 08/18/22 07:46 08/18/22 09:49 Ns IV 08/18/22 08:46 999 mls/hr .Q1H1M ONE Administration Insulin Human Regular 5 unit 08/18/22 10:02 08/18/22 10:38 Insulin Regular, Human 100 Unit/Ml 3 Ml Vial IVPUSH 08/18/22 10:03 5 unit ONCE ONE Administration Ketorolac Tromethamine 30 mg 08/18/22 07:46 08/18/22 09:50 Ketorolac Tromethamine 30 Mg/Ml Vial IVPUSH 08/18/22 07:47 30 mg ONCE ONE Administration Morphine Sulfate 1 mg 08/18/22 07:46 08/18/22 09:50 Morphine Sulfate 2 Mg/Ml Cartridge IVPUSH 08/18/22 07:47 1 mg ONCE ONE Administration Protocol Discharge Plan Discharge Clinical Impression: Gastroparesis, Hyperglycemia Patient Disposition: Home, Self-Care Instructions: Gastroparesis (ED) Additional Instructions: Discussed with your doctor to see an 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 Prescriptions: No Action metoclopramide HCl [Reglan] 5 mg tablet 10 mg PO DAILY Qty: 30 0RF ondansetron HCl [Zofran] 4 mg tablet 4 mg PO Q8H PRN (Reason: nausea and vomiting) Qty: 10 0RF metoclopramide HCl [Reglan] 10 mg tablet 10 mg PO Q6H PRN (Reason: nausea and vomiting) Qty: 20 0RF hydrochlorothiazide 25 mg tablet 25 mg PO DAILY Qty: 20 0RF ondansetron HCl [Zofran] 4 mg tablet 4 mg PO Q8H PRN (Reason: nausea and vomiting) Qty: 10 0RF metoclopramide HCl [Reglan] 10 mg tablet 10 mg PO TIDAC 2 Days Qty: 6 0RF Rx Instructions: Take 1 tablet 30 minutes prior to each meal of the day (3). sucralfate [Carafate] 100 mg/mL suspension 10 ml PO BID Qty: 414 0RF Referrals: Physician,None [Primary Care Provider] -
--- OUTSIDE RECORDS SUMMARY | 2022-08-18 07:55 | XMS_ITS | Continuity of Care Document ---
:1970 Demographics Address [address] [place] [address]
[2022-08-18 08:33] LABS: Basophils Percent Auto 0.3 % (0-2); Eosinophils Percent Auto 0.9 % (0-4); Hematocrit 41.6 % (37.0-47.0); Hemoglobin 13.9 g/dl (12.0-16.0); Imm Gran Abs Auto 0.01 X10*3/uL (0.00-0.03); Imm Gran Pct Auto 0.3 % (0.0-0.4); Lymphocytes Absolute Auto 0.4 X10*3/uL (1.2-4.9); Lymphocytes Percent Auto 12.7 % (20-40); MANUAL DIFF FLAG SCAN; Mean Corpuscular HGB Conc 33.4 g/dl (31.0-35.0); Mean Corpuscular Hemoglobin 30.5 pg (27.0-33.0); Mean Corpuscular Volume 91.4 fL (80.0-98.0); Monocytes Absolute Auto 0.4 X10*3/uL (0.1-1.2); Neutrophils Absolute Auto 2.4 x10*3/uL (2.0-8.3); Neutrophils Percent Auto 72.8 % (45-73); PLT CLUMP 1; Red Blood Count 4.55 X10*6/uL (4.20-5.50); SCAN SMEAR FLAG 1; White Blood Count 3.3 X10*3/uL (4.8-10.8)
[2022-08-18 08:34] LABS: Platelet Count 180 X10*3/uL (160-400)
[2022-08-18 08:50] LABS: SLIDE REVIEW VERIFIED
[2022-08-18 09:02] LABS: Troponin-I High Sensitivity < 3.5 ng/L (<3.5-17.0)
[2022-08-18 09:04] LABS: Alanine Aminotransferase 22 U/L (0-31); Albumin Level 4.1 g/dL (3.5-5.0); Alkaline Phosphatase 95 U/L (39-117); Anion Gap 12 (12-20); Aspartate Amino Transferase 23 U/L (5-31); Bilirubin Direct < 0.2 mg/dL (0.0-0.5); Bilirubin Total 0.3 mg/dL (0.0-1.0); Blood Urea Nitrogen 13 mg/dL (9-16); Carbon Dioxide 28 mmol/L (22-29); Chloride 99 mmol/L (96-108); Creatinine Clr Calc Pharmacy 53.6; Estimated Glomerular Filt Rate 57; Glucose Random 392 mg/dL (60-115); Lipase 15 U/L (8-78); Potassium 4.5 mmol/L (3.3-5.1); Sodium 134 mmol/L (135-145); Total Protein 6.8 g/dL (6.5-8.0)
[2022-08-18 09:48] VITALS: BP 151/98; PULSE 115; RESP 18; TEMP 37.3; O2SAT 95
[2022-08-18] MEDS: Morphine Sulfate 2 MG/ML CARTRIDGE 1 MG IVPUSH (09:50)
[2022-08-18] MEDS: Ketorolac Tromethamine 30 MG/ML VIAL IVPUSH (09:50)
[2022-08-18 10:40] VITALS: BP 134/78; PULSE 109; RESP 16; TEMP 37.1; O2SAT 97
[2022-08-18 11:15] LABS: Appearance Urine Clear; Color Urine Yellow; Glucose Urine UA >=1000 mg/dL (Negative); Leukocyte Esterase Urine Negative (Negative); Nitrite Urine Negative (Negative); Specific Gravity - Urine >= 1.030 (1.005-1.025); UMIC TRIGGER UACC YES; Urine Blood Negative (Negative); Urine Ketones Trace mg/dL (Negative); Urine Protein Negative (Neg-Trace)
[2022-08-18 11:20] LABS: Bacteria Urine None Seen (None Seen); Hyaline Casts Urine 0-2 /LPF (0-2); RBC Urine 0-2 /HPF (0-2); Squamous Epithelial Cell Urine 0-2 /HPF (0-2); WBC Urine 0-5 /HPF (0-5)
== END 2022-08-18 12:00 | disposition home or self-care (01) ==
PROVIDERS: Emergency Provider Emergency Medicine
DX: E11.65 Type 2 diabetes mellitus with hyperglycemia (principal); E11.43 Type 2 diabetes mellitus with diabetic autonomic (poly)neuropathy; K31.84 Gastroparesis; F17.200 Nicotine dependence, unspecified, uncomplicated
CPT/HCPCS: 36415; 74176; 80048; 80076; 81001; 82947; 83690; 84484; 85025; 93005; 96361; 96374; 96375; 99284; 99285; J1885; J2270

== ENCOUNTER 2022-09-05 16:24 | Emergency (ER) | payer OTHER, SELFPAY ==
--- NOTE | ~2022-09-05 | CT_ITS ---
EXAMINATION: CT ABDOMEN AND PELVIS WITHOUT CONTRAST CLINICAL INFORMATION: Left-sided flank pain. COMPARISON: CT scan abdomen pelvis 08/18/2022. TECHNIQUE: Multidetector volumetric imaging was performed from the superior aspect of the liver through the pubic symphysis. Sagittal and coronal reformatted images were obtained on the technologist's workstation. This CT examination was performed using dose optimization techniques as appropriate, variously including the following: *Automated exposure control *Adjustment of mA and/or kV according to patient size (this includes techniques or standardized protocols for targeted exams where dose is matched to indication/reason for exam; i.e. extremities or head) *Use of iterative reconstruction technique DLP: 506 mGy-cm FINDINGS: LUNG BASES: The visualized lung bases are unremarkable. LIVER, GALLBLADDER, AND BILIARY TREE: The liver is normal in size, shape, and attenuation. No focal hepatic lesion or biliary ductal dilatation is present. Status post cholecystectomy. PANCREAS: Unremarkable. SPLEEN: Unremarkable. ADRENAL GLANDS: Stable 1 cm hypodense nodule in the left adrenal gland. Density measurement 5 Hounsfield units consistent with adrenal adenoma. No further follow-up imaging recommended. Right adrenal gland is normal. KIDNEYS AND URETERS: The kidneys are normal in size, shape, and attenuation. No hydronephrosis, hydroureter, or calculi seen. No perinephric stranding. BLADDER: Unremarkable. GASTROINTESTINAL TRACT: The small and large bowel are unremarkable. The appendix is unremarkable. ABDOMINAL WALL: No significant hernia is appreciated. LYMPH NODES: Normal. VASCULAR: Unremarkable. PELVIC VISCERA: Unremarkable. OSSEOUS STRUCTURES: Unremarkable. CT/CT abdomen pelvis wo IV con IMPRESSION: No acute abnormality CT scan abdomen pelvis. Fleischner guidelines were followed.
[2022-09-05 17:18] VITALS: BP 116/75; PULSE 112; RESP 18; TEMP 36.4; O2SAT 98; BMI 23.0
--- NOTE | 2022-09-05 17:22 | ED_ITS ---
HPI - Back Pain/Injury General Chief Complaint: General Medical <Leanne Bellamy NP - Last Filed: 09/05/22 17:23> Stated Complaint: kidney stones? 2days <Leanne Bellamy NP - Last Filed: 09/05/22 17:23> Time Seen by Provider: 09/05/22 17:35 <Leanne Bellamy NP - Last Filed: 09/05/22 17:23> Related Data Home Medications: Previous Rx's Medication Instructions Recorded metoclopramide HCl 5 mg tablet 10 mg PO DAILY #30 tabs 06/15/20 (Reglan) ondansetron HCl 4 mg tablet 4 mg PO Q8H PRN nausea and 10/02/20 (Zofran) vomiting #10 tabs hydrochlorothiazide 25 mg tablet 25 mg PO DAILY #20 tabs 12/05/20 metoclopramide HCl 10 mg tablet 10 mg PO Q6H PRN nausea and 12/05/20 (Reglan) vomiting #20 tabs ondansetron HCl 4 mg tablet 4 mg PO Q8H PRN nausea and 06/21/21 (Zofran) vomiting #10 tabs insulin glargine 100 unit/mL 12 unit (0.12 mL) subcut QPM #10 mL 03/01/22 subcutaneous solution (Lantus U-100 Insulin) insulin lispro 100 unit/mL 1 sliding scale dose subcut 03/01/22 subcutaneous solution (Humalog USEASDIRECTD #10 mL U-100 Insulin) metoclopramide HCl 10 mg tablet 10 mg PO TIDAC 2 days #6 tabs 04/06/22 (Reglan) sucralfate 100 mg/mL oral 10 ml PO BID #414 mL 04/06/22 suspension (Carafate) ketorolac 10 mg tablet 10 mg PO BID PRN pain 5 days #7 09/05/22 tabs <Leanne Bellamy NP - Last Filed: 09/05/22 17:23> Allergies/Adverse Reactions: Allergies Allergy/AdvReac Type Severity Reaction Status Date / Time No Known Allergies Allergy Verified 08/19/22 07:20 [No Known Allergies*] <Leanne Bellamy NP - Last Filed: 09/05/22 17:23> PMFSH Past Medical History Medical History: Medical History Diabetes Gastroparesis <Leanne Bellamy NP - Last Filed: 09/05/22 17:23> Social History Social History: Social History (System 08/19/22 @ 07:20 by Maegan Gonzales) Alcohol intake: never Patient Tobacco Use Status: Current everyday Tobacco user Advance Directives: No Advance Directives Information Provided: Yes <Leanne Bellamy NP - Last Filed: 09/05/22 17:23> Physical Exam Vital Signs: Vital Signs: Last Vital Signs Temp 97.9 F 09/05/22 22:23 Pulse 108 H 09/05/22 22:23 Resp 16 09/05/22 22:23 BP 144/88 H 09/05/22 22:23 Pulse Ox 98 09/05/22 22:23 O2 Del Method 09/05/22 22:23 BMI result Body Mass Index 23.0 <Leanne Bellamy NP - Last Filed: 09/05/22 17:23> Vital Signs: Last Vital Signs Temp 97.9 F 09/05/22 22:23 Pulse 108 H 09/05/22 22:23 Resp 16 09/05/22 22:23 BP 144/88 H 09/05/22 22:23 Pulse Ox 98 09/05/22 22:23 O2 Del Method 09/05/22 22:23 BMI result Body Mass Index 23.0 <Kaylee Grossman MD - Last Filed: 09/05/22 22:48> Course Course Course Narrative: This is a rapid medical exam. Defer additional HPI, ROS, PE to primary provider. 52-year-old female with history of diabetes here with 2 days of lower back pain with radiation to both of her legs. No numbness, tingling, incontine nce of urine or stool. No fevers or chills. No injury or trauma. Patient is having pain and burning with urination as well as urgency. Will check UA. VSS <Leanne Bellamy NP - Last Filed: 09/05/22 17:23> This is a rapid medical exam. Defer additional HPI, ROS, PE to primary provider. 52-year-old female with history of diabetes here with 2 days of lower back pain with radiation to both of her legs. No numbness, tingling, i ncontinence of urine or stool. No fevers or chills. No injury or trauma. Patient is having pain and burning with urination as well as urgency. Will check UA. VSS Blood glucose on discharge 135 <Kaylee Grossman MD - Last Filed: 09/05/22 22:48> Medications Administered Discontinued Medications Generic Name Dose Route Start Last Admin Trade Name Freq PRN Reason Stop Dose Admin Sodium Chloride 1,000 mls @ 999 mls/hr 09/05/22 19:31 09/05/22 22:20 Ns IVCONT 09/05/22 20:31 Infused .Q1H1M ONE Infusion Insulin Human Regular 10 unit 09/05/22 19:31 09/05/22 20:27 Insulin Regular, Human 100 Unit/Ml 3 Ml Vial IVPUSH 09/05/22 19:32 10 unit ONCE ONE Administration Ketorolac Tromethamine 30 mg 09/05/22 18:35 09/05/22 19:00 Ketorolac Tromethamine 30 Mg/Ml Vial IVPUSH 09/05/22 18:36 30 mg ONCE ONE Administration Morphine Sulfate 2 mg 09/05/22 21:47 09/05/22 22:16 Morphine Sulfate 2 Mg/Ml Cartridge IM 09/05/22 21:48 2 mg ONCE ONE Administration Protocol Ondansetron HCl 4 mg 09/05/22 18:35 09/05/22 19:00 Ondansetron Hcl 4 Mg/2 Ml Vial IVPUSH 09/05/22 18:36 4 mg ONCE ONE Administration <Leanne Bellamy NP - Last Filed: 09/05/22 17:23> Medications Administered Discontinued Medications Generic Name Dose Route Start Last Admin Trade Name Freq PRN Reason Stop Dose Admin Sodium Chloride 1,000 mls @ 999 mls/hr 09/05/22 19:31 09/05/22 22:20 Ns IVCONT 09/05/22 20:31 Infused .Q1H1M ONE Infusion Insulin Human Regular 10 unit 09/05/22 19:31 09/05/22 20:27 Insulin Regular, Human 100 Unit/Ml 3 Ml Vial IVPUSH 09/05/22 19:32 10 unit ONCE ONE Administration Ketorolac Tromethamine 30 mg 09/05/22 18:35 09/05/22 19:00 Ketorolac Tromethamine 30 Mg/Ml Vial IVPUSH 09/05/22 18:36 30 mg ONCE ONE Administration Morphine Sulfate 2 mg 09/05/22 21:47 09/05/22 22:16 Morphine Sulfate 2 Mg/Ml Cartridge IM 09/05/22 21:48 2 mg ONCE ONE Administration Protocol Ondansetron HCl 4 mg 09/05/22 18:35 09/05/22 19:00 Ondansetron Hcl 4 Mg/2 Ml Vial IVPUSH 09/05/22 18:36 4 mg ONCE ONE Administration <Kaylee Grossman MD - Last Filed: 09/05/22 22:48> Medical Decision Making Medical Decision Making [facility] Narrative: After IV treatment, patient feels better. I was informed by the patient's nurse that the patient took her own IV out and states that she is ready to go CT scan negative for kidney stones <Kaylee Grossman MD - Last Filed: 09/05/22 22:48> Differential Diagnosis Differential Diagnoses: The differential diagnosis associated with the presentation includes (Kidney stones, renal colic, gastroparesis) <Kaylee Grossman MD - Last Filed: 09/05/22 22:48> Lab Data [facility] Lab Attestation statement: I reviewed the patient's lab results. <Kaylee Grossman MD - Last Filed: 09/05/22 22:48> Result Diagrams: 09/05/22 18:58 09/05/22 18:58 <Leanne Bellamy NP - Last Filed: 09/05/22 17:23> Labs: Lab Results 09/05/22 09/05/22 09/05/22 Range/Units 18:58 18:58 18:58 WBC 5.4 (4.8-10.8) X10*3/uL RBC 4.30 (4.20-5.50) X10*6/uL Hgb 13.0 (12.0-16.0) g/dl Hct 37.9 (37.0-47.0) % MCV 88.1 (80.0-98.0) fL MCH 30.2 (27.0-33.0) pg MCHC 34.3 (31.0-35.0) g/dl RDW 11.9 (11.0-16.0) % Plt Count 284 D (160-400) X10*3/uL MPV 9.6 (9.4-12.3) fL Immature Gran % (Auto) 0.4 (0.0-0.4) % Neut % (Auto) 64.2 (45-73) % Lymph % (Auto) 26.7 (20-40) % [place] % (Auto) 6.9 (2-11) % Eos % (Auto) 1.1 (0-4) % Baso % (Auto) 0.7 (0-2) % Lymph # (Auto) 1.4 (1.2-4.9) X10*3/uL [place] # (Auto) 0.4 (0.1-1.2) X10*3/uL Eos # (Auto) 0.1 (0.0-0.4) X10*3/uL Baso # (Auto) 0.0 (0.0-0.2) X10*3/uL Abs Immat Gran (auto) 0.02 (0.00-0.03) X10*3/uL Absolute Neuts (auto) 3.4 (2.0-8.3) x10*3/uL Absolute Nucleated RBC 0.000 (0.0-0.012) X10*3/uL Nucleated RBC % (auto) 0.0 (0.0-0.2) /100WBC Sodium 137 (135-145) mmol/L Potassium 4.7 (3.3-5.1) mmol/L Chloride 98 (96-108) mmol/L Carbon Dioxide 25 (22-29) mmol/L Anion Gap 19 (12-20) BUN 18 H (9-16) mg/dL Creatinine 1.19 (0.5-1.4) mg/dL Estim Creat Clear Calc 41.7 Estimated GFR 48 POC Glucose (60-115) mg/dL Random Glucose 555 H* (60-115) mg/dL Calcium 9.7 D (8.4-10.2) mg/dL Total Bilirubin 0.3 (0.0-1.0) mg/dL Direct Bilirubin < 0.2 (0.0-0.5) mg/dL AST 16 (5-31) U/L ALT 11 (0-31) U/L Alkaline Phosphatase 100 (39-117) U/L Total Protein 7.1 (6.5-8.0) g/dL Albumin 4.0 (3.5-5.0) g/dL Urine Color Yellow Urine Appearance Clear Urine pH 5.5 (5.0-9.0) Ur Specific [place] >= 1.030 H (1.005-1.025) Urine Protein Negative (Neg-Trace) mg/dL Urine Glucose (UA) >=1000 H (Negative) mg/dL Urine Ketones Negative (Negative) mg/dL Urine Blood Negative (Negative) Urine Nitrite Negative (Negative) Ur Leukocyte Esterase Negative (Negative) Urine RBC 0-2 (0-2) /HPF Urine WBC 0-5 (0-5) /HPF Ur Squamous Epith Cells 0-2 (0-2) /HPF Urine Bacteria None Seen (None Seen) Hyaline Casts 0-2 (0-2) /LPF 09/05/22 Range/Units 22:26 WBC (4.8-10.8) X10*3/uL RBC (4.20-5.50) X10*6/uL Hgb (12.0-16.0) g/dl Hct (37.0-47.0) % MCV (80.0-98.0) fL MCH (27.0-33.0) pg MCHC (31.0-35.0) g/dl RDW (11.0-16.0) % Plt Count (160-400) X10*3/uL MPV (9.4-12.3) fL Immature Gran % (Auto) (0.0-0.4) % Neut % (Auto) (45-73) % Lymph % (Auto) (20-40) % [place] % (Auto) (2-11) % Eos % (Auto) (0-4) % Baso % (Auto) (0-2) % Lymph # (Auto) (1.2-4.9) X10*3/uL [place] # (Auto) (0.1-1.2) X10*3/uL Eos # (Auto) (0.0-0.4) X10*3/uL Baso # (Auto) (0.0-0.2) X10*3/uL Abs Immat Gran (auto) (0.00-0.03) X10*3/uL Absolute Neuts (auto) (2.0-8.3) x10*3/uL Absolute Nucleated RBC (0.0-0.012) X10*3/uL Nucleated RBC % (auto) (0.0-0.2) /100WBC Sodium (135-145) mmol/L Potassium (3.3-5.1) mmol/L Chloride (96-108) mmol/L Carbon Dioxide (22-29) mmol/L Anion Gap (12-20) BUN (9-16) mg/dL Creatinine (0.5-1.4) mg/dL Estim Creat Clear Calc Estimated GFR POC Glucose 135 H (60-115) mg/dL Random Glucose (60-115) mg/dL Calcium (8.4-10.2) mg/dL Total Bilirubin (0.0-1.0) mg/dL Direct Bilirubin (0.0-0.5) mg/dL AST (5-31) U/L ALT (0-31) U/L Alkaline Phosphatase (39-117) U/L Total Protein (6.5-8.0) g/dL Albumin (3.5-5.0) g/dL Urine Color Urine Appearance Urine pH (5.0-9.0) Ur Specific [place] (1.005-1.025) Urine Protein (Neg-Trace) mg/dL Urine Glucose (UA) (Negative) mg/dL Urine Ketones (Negative) mg/dL Urine Blood (Negative) Urine Nitrite (Negative) Ur Leukocyte Esterase (Negative) Urine RBC (0-2) /HPF Urine WBC (0-5) /HPF Ur Squamous Epith Cells (0-2) /HPF Urine Bacteria (None Seen) Hyaline Casts (0-2) /LPF <Leanne Bellamy, [employer]TENANCE SUPERVISOR - Last Filed: 09/05/22 17:23> Lab Results 09/05/22 09/05/22 09/05/22 Range/Units 18:58 18:58 18:58 WBC 5.4 (4.8-10.8) X10*3/uL RBC 4.30 (4.20-5.50) X10*6/uL Hgb 13.0 (12.0-16.0) g/dl Hct 37.9 (37.0-47.0) % MCV 88.1 (80.0-98.0) fL MCH 30.2 (27.0-33.0) pg MCHC 34.3 (31.0-35.0) g/dl RDW 11.9 (11.0-16.0) % Plt Count 284 D (160-400) X10*3/uL MPV 9.6 (9.4-12.3) fL Immature Gran % (Auto) 0.4 (0.0-0.4) % Neut % (Auto) 64.2 (45-73) % Lymph % (Auto) 26.7 (20-40) % [place] % (Auto) 6.9 (2-11) % Eos % (Auto) 1.1 (0-4) % Baso % (Auto) 0.7 (0-2) % Lymph # (Auto) 1.4 (1.2-4.9) X10*3/uL [place] # (Auto) 0.4 (0.1-1.2) X10*3/uL Eos # (Auto) 0.1 (0.0-0.4) X10*3/uL Baso # (Auto) 0.0 (0.0-0.2) X10*3/uL Abs Immat Gran (auto) 0.02 (0.00-0.03) X10*3/uL Absolute Neuts (auto) 3.4 (2.0-8.3) x10*3/uL Absolute Nucleated RBC 0.000 (0.0-0.012) X10*3/uL Nucleated RBC % (auto) 0.0 (0.0-0.2) /100WBC Sodium 137 (135-145) mmol/L Potassium 4.7 (3.3-5.1) mmol/L Chloride 98 (96-108) mmol/L Carbon Dioxide 25 (22-29) mmol/L Anion Gap 19 (12-20) BUN 18 H (9-16) mg/dL Creatinine 1.19 (0.5-1.4) mg/dL Estim Creat Clear Calc 41.7 Estimated GFR 48 POC Glucose (60-115) mg/dL Random Glucose 555 H* (60-115) mg/dL Calcium 9.7 D (8.4-10.2) mg/dL Total Bilirubin 0.3 (0.0-1.0) mg/dL Direct Bilirubin < 0.2 (0.0-0.5) mg/dL AST 16 (5-31) U/L ALT 11 (0-31) U/L Alkaline Phosphatase 100 (39-117) U/L Total Protein 7.1 (6.5-8.0) g/dL Albumin 4.0 (3.5-5.0) g/dL Urine Color Yellow Urine Appearance Clear Urine pH 5.5 (5.0-9.0) Ur Specific [place] >= 1.030 H (1.005-1.025) Urine Protein Negative (Neg-Trace) mg/dL Urine Glucose (UA) >=1000 H (Negative) mg/dL Urine Ketones Negative (Negative) mg/dL Urine Blood Negative (Negative) Urine Nitrite Negative (Negative) Ur Leukocyte Esterase Negative (Negative) Urine RBC 0-2 (0-2) /HPF Urine WBC 0-5 (0-5) /HPF Ur Squamous Epith Cells 0-2 (0-2) /HPF Urine Bacteria None Seen (None Seen) Hyaline Casts 0-2 (0-2) /LPF 09/05/22 Range/Units 22:26 WBC (4.8-10.8) X10*3/uL RBC (4.20-5.50) X10*6/uL Hgb (12.0-16.0) g/dl Hct (37.0-47.0) % MCV (80.0-98.0) fL MCH (27.0-33.0) pg MCHC (31.0-35.0) g/dl RDW (11.0-16.0) % Plt Count (160-400) X10*3/uL MPV (9.4-12.3) fL Immature Gran % (Auto) (0.0-0.4) % Neut % (Auto) (45-73) % Lymph % (Auto) (20-40) % [place] % (Auto) (2-11) % Eos % (Auto) (0-4) % Baso % (Auto) (0-2) % Lymph # (Auto) (1.2-4.9) X10*3/uL [place] # (Auto) (0.1-1.2) X10*3/uL Eos # (Auto) (0.0-0.4) X10*3/uL Baso # (Auto) (0.0-0.2) X10*3/uL Abs Immat Gran (auto) (0.00-0.03) X10*3/uL Absolute Neuts (auto) (2.0-8.3) x10*3/uL Absolute Nucleated RBC (0.0-0.012) X10*3/uL Nucleated RBC % (auto) (0.0-0.2) /100WBC Sodium (135-145) mmol/L Potassium (3.3-5.1) mmol/L Chloride (96-108) mmol/L Carbon Dioxide (22-29) mmol/L Anion Gap (12-20) BUN (9-16) mg/dL Creatinine (0.5-1.4) mg/dL Estim Creat Clear Calc Estimated GFR POC Glucose 135 H (60-115) mg/dL Random Glucose (60-115) mg/dL Calcium (8.4-10.2) mg/dL Total Bilirubin (0.0-1.0) mg/dL Direct Bilirubin (0.0-0.5) mg/dL AST (5-31) U/L ALT (0-31) U/L Alkaline Phosphatase (39-117) U/L Total Protein (6.5-8.0) g/dL Albumin (3.5-5.0) g/dL Urine Color Urine Appearance Urine pH (5.0-9.0) Ur Specific [place] (1.005-1.025) Urine Protein (Neg-Trace) mg/dL Urine Glucose (UA) (Negative) mg/dL Urine Ketones (Negative) mg/dL Urine Blood (Negative) Urine Nitrite (Negative) Ur Leukocyte Esterase (Negative) Urine RBC (0-2) /HPF Urine WBC (0-5) /HPF Ur Squamous Epith Cells (0-2) /HPF Urine Bacteria (None Seen) Hyaline Casts (0-2) /LPF <Kaylee Grossman MD - Last Filed: 09/05/22 22:48> Independent Interpretation I performed an independent interpretation of an: CT Scan (Large amount of gastric content, likely gastroparesis, no other acute findings) <Kaylee Grossman MD - Last Filed: 09/05/22 22:48> Radiology Impression Discussion of test interpretation with radiology: I have reviewed the radiologist's reading. <Kaylee Grossman MD - Last Filed: 09/05/22 22:48> Radiologist Impression: FINDINGS: No intra or extra-axial fluid collection, hemorrhage, or mass. No ventriculomegaly. No midline shift or herniation. Basal cisterns are patent. Esquivel-white matter differentiation is maintained. No territorial encephalomalacia. No significant volume loss. There is no abnormal attenuation within the brain parenchyma. No calvarial fracture or soft tissue abnormality. A few tiny mucous retention cysts in the maxillary antra and right sphenoid sinus noted incidentally. Mastoid air cells normally aerated. CT/CT head/brain wo IV con IMPRESSION: No acute intracranial pathology. <Kaylee Grossman MD - Last Filed: 09/05/22 22:48> Discharge Plan Discharge Clinical Impression: Gastroparesis, Acute hyperglycemia, Acute flank pain <Leanne Bellamy NP - Last Filed: 09/05/22 17:23> Patient Disposition: Home, Self-Care <Leanne Bellamy NP - Last Filed: 09/05/22 17:23> Instructions: Flank Pain (ED), Diabetic Hyperglycemia (ED) <Leanne Bellamy NP - Last Filed: 09/05/22 17:23> Additional Instructions: Please follow-up with your primary care physician tomorrow. If you have any worsening or new symptoms, please return to the emergency room or call 911 <Leanne Bellamy NP - Last Filed: 09/05/22 17:23> Prescriptions: New ketorolac 10 mg tablet 10 mg PO BID PRN (Reason: pain) 5 Days Qty: 7 0RF Rx Instructions: Do not take NSAIDs with this medication, only Tylenol if needed No Action metoclopramide HCl [Reglan] 5 mg tablet 10 mg PO DAILY Qty: 30 0RF ondansetron HCl [Zofran] 4 mg tablet 4 mg PO Q8H PRN (Reason: nausea and vomiting) Qty: 10 0RF metoclopramide HCl [Reglan] 10 mg tablet 10 mg PO Q6H PRN (Reason: nausea and vomiting) Qty: 20 0RF hydrochlorothiazide 25 mg tablet 25 mg PO DAILY Qty: 20 0RF ondansetron HCl [Zofran] 4 mg tablet 4 mg PO Q8H PRN (Reason: nausea and vomiting) Qty: 10 0RF insulin lispro [Humalog U-100 Insulin] 100 unit/mL solution 1 sliding scale dose subcut USEASDIRECTD Qty: 10 0RF insulin glargine [Lantus U-100 Insulin] 100 unit/mL solution 12 unit subcut QPM Qty: 10 0RF metoclopramide HCl [Reglan] 10 mg tablet 10 mg PO TIDAC 2 Days Qty: 6 0RF Rx Instructions: Take 1 tablet 30 minutes prior to each meal of the day (3). sucralfate [Carafate] 100 mg/mL suspension 10 ml PO BID Qty: 414 0RF <Leanne Bellamy [employer]INTENANCE SUPERVISOR - Last Filed: 09/05/22 17:23>
--- NOTE | 2022-09-05 18:23 | ED.GENADULT ---
HPI - General Adult General Chief complaint: General Medical Stated complaint: kidney stones? 2days Time Seen by Provider: 09/05/22 17:35 Related Data Previous Rx's Medication Instructions Recorded metoclopramide HCl 5 mg tablet 10 mg PO DAILY #30 tabs 06/15/20 (Reglan) ondansetron HCl 4 mg tablet 4 mg PO Q8H PRN nausea and 10/02/20 (Zofran) vomiting #10 tabs hydrochlorothiazide 25 mg tablet 25 mg PO DAILY #20 tabs 12/05/20 metoclopramide HCl 10 mg tablet 10 mg PO Q6H PRN nausea and 12/05/20 (Reglan) vomiting #20 tabs ondansetron HCl 4 mg tablet 4 mg PO Q8H PRN nausea and 06/21/21 (Zofran) vomiting #10 tabs insulin glargine 100 unit/mL 12 unit (0.12 mL) subcut QPM #10 mL 03/01/22 subcutaneous solution (Lantus U-100 Insulin) insulin lispro 100 unit/mL 1 sliding scale dose subcut 03/01/22 subcutaneous solution (Humalog USEASDIRECTD #10 mL U-100 Insulin) metoclopramide HCl 10 mg tablet 10 mg PO TIDAC 2 days #6 tabs 04/06/22 (Reglan) sucralfate 100 mg/mL oral 10 ml PO BID #414 mL 04/06/22 suspension (Carafate) Allergies Allergy/AdvReac Type Severity Reaction Status Date / Time No Known Allergies Allergy Verified 08/19/22 07:20 [No Known Allergies*] [facility] Past Medical History Medical History Diabetes Gastroparesis Social History Social History (System 08/19/22 @ 07:20 by Maegan Gonzales) Alcohol intake: never Patient Tobacco Use Status: Current everyday Tobacco user Advance Directives: No Advance Directives Information Provided: Yes Physical Exam ED Vital Signs: Vital Signs - 24 hr 09/05/22 17:18 09/05/22 18:45 Temperature 97.5 F 98.0 F Pulse Rate 112 H 101 H Respiratory Rate 18 20 Blood Pressure 116/75 119/83 Pulse Oximetry 98 97 Oxygen Delivery Method Room Air Room Air BMI result Body Mass Index 23.0 Medications Administered Discontinued Medications Generic Name Dose Route Start Last Admin Trade Name Brandon PRN Reason Stop Dose Admin Sodium Chloride 1,000 mls @ 999 mls/hr 09/05/22 19:31 09/05/22 20:26 Ns IVCONT 09/05/22 20:31 999 mls/hr .Q1H1M ONE Administration Insulin Human Regular 10 unit 09/05/22 19:31 09/05/22 20:27 Insulin Regular, Human 100 Unit/Ml 3 Ml Vial IVPUSH 09/05/22 19:32 10 unit ONCE ONE Administration Ketorolac Tromethamine 30 mg 09/05/22 18:35 09/05/22 19:00 Ketorolac Tromethamine 30 Mg/Ml Vial IVPUSH 09/05/22 18:36 30 mg ONCE ONE Administration Ondansetron HCl 4 mg 09/05/22 18:35 09/05/22 19:00 Ondansetron Hcl 4 Mg/2 Ml Vial IVPUSH 09/05/22 18:36 4 mg ONCE ONE Administration Medical Decision Making Differential Diagnosis Differential Diagnoses: The differential diagnosis associated with the presentation includes (Renal colic, gastroparesis, kidney stone) Lab Data MDM Lab Attestation statement: I reviewed the patient's lab results. 09/05/22 18:58 09/05/22 18:58 Labs: Lab Results 09/05/22 09/05/22 09/05/22 Range/Units 18:58 18:58 18:58 WBC 5.4 (4.8-10.8) X10*3/uL RBC 4.30 (4.20-5.50) X10*6/uL Hgb 13.0 (12.0-16.0) g/dl Hct 37.9 (37.0-47.0) % MCV 88.1 (80.0-98.0) fL MCH 30.2 (27.0-33.0) pg MCHC 34.3 (31.0-35.0) g/dl RDW 11.9 (11.0-16.0) % Plt Count 284 D (160-400) X10*3/uL MPV 9.6 (9.4-12.3) fL Immature Gran % (Auto) 0.4 (0.0-0.4) % Neut % (Auto) 64.2 (45-73) % Lymph % (Auto) 26.7 (20-40) % [place] % (Auto) 6.9 (2-11) % Eos % (Auto) 1.1 (0-4) % Baso % (Auto) 0.7 (0-2) % Lymph # (Auto) 1.4 (1.2-4.9) X10*3/uL [place] # (Auto) 0.4 (0.1-1.2) X10*3/uL Eos # (Auto) 0.1 (0.0-0.4) X10*3/uL Baso # (Auto) 0.0 (0.0-0.2) X10*3/uL Abs Immat Gran (auto) 0.02 (0.00-0.03) X10*3/uL Absolute Neuts (auto) 3.4 (2.0-8.3) x10*3/uL Absolute Nucleated RBC 0.000 (0.0-0.012) X10*3/uL Nucleated RBC % (auto) 0.0 (0.0-0.2) /100WBC Sodium 137 (135-145) mmol/L Potassium 4.7 (3.3-5.1) mmol/L Chloride 98 (96-108) mmol/L Carbon Dioxide 25 (22-29) mmol/L Anion Gap 19 (12-20) BUN 18 H (9-16) mg/dL Creatinine 1.19 (0.5-1.4) mg/dL Estim Creat Clear Calc 41.7 Estimated GFR 48 Random Glucose 555 H* (60-115) mg/dL Calcium 9.7 D (8.4-10.2) mg/dL Total Bilirubin 0.3 (0.0-1.0) mg/dL Direct Bilirubin < 0.2 (0.0-0.5) mg/dL AST 16 (5-31) U/L ALT 11 (0-31) U/L Alkaline Phosphatase 100 (39-117) U/L Total Protein 7.1 (6.5-8.0) g/dL Albumin 4.0 (3.5-5.0) g/dL Urine Color Yellow Urine Appearance Clear Urine pH 5.5 (5.0-9.0) Ur Specific [place] >= 1.030 H (1.005-1.025) Urine Protein Negative (Neg-Trace) mg/dL Urine Glucose (UA) >=1000 H (Negative) mg/dL Urine Ketones Negative (Negative) mg/dL Urine Blood Negative (Negative) Urine Nitrite Negative (Negative) Ur Leukocyte Esterase Negative (Negative) Urine RBC 0-2 (0-2) /HPF Urine WBC 0-5 (0-5) /HPF Ur Squamous Epith Cells 0-2 (0-2) /HPF Urine Bacteria None Seen (None Seen) Hyaline Casts 0-2 (0-2) /LPF Independent Interpretation I performed an independent interpretation of an: CT Scan (My interpretation of CT scan of the abdomen: No acute findings) Radiology Impression Discussion of test interpretation with radiology: I have reviewed the radiologist's reading. Radiologist Impression: DLP: 506 mGy-cm FINDINGS: LUNG BASES: The visualized lung bases are unremarkable.? LIVER, GALLBLADDER, AND BILIARY TREE: The liver is normal in size, shape, and attenuation. No focal hepatic lesion or biliary ductal dilatation is present. Status post cholecystectomy.? PANCREAS: Unremarkable.? SPLEEN: Unremarkable.? ADRENAL GLANDS: Stable 1 cm hypodense nodule in the left adrenal gland. Density measurement 5 Hounsfield units consistent with adrenal adenoma. No further follow-up imaging recommended. Right adrenal gland is normal. KIDNEYS AND URETERS: The kidneys are normal in size, shape, and attenuation. No hydronephrosis, hydroureter, or calculi seen. No perinephric stranding. ? BLADDER: Unremarkable.? GASTROINTESTINAL TRACT: The small and large bowel are unremarkable. The appendix is unremarkable.? ABDOMINAL WALL: No significant hernia is appreciated.? LYMPH NODES: Normal. VASCULAR: Unremarkable. PELVIC VISCERA: Unremarkable.? OSSEOUS STRUCTURES: Unremarkable.? CT/CT abdomen pelvis wo IV con IMPRESSION: No acute abnormality CT scan abdomen pelvis. ? Fleischner guidelines were followed. Discharge Plan Discharge Prescriptions: No Action metoclopramide HCl [Reglan] 5 mg tablet 10 mg PO DAILY Qty: 30 0RF ondansetron HCl [Zofran] 4 mg tablet 4 mg PO Q8H PRN (Reason: nausea and vomiting) Qty: 10 0RF metoclopramide HCl [Reglan] 10 mg tablet 10 mg PO Q6H PRN (Reason: nausea and vomiting) Qty: 20 0RF hydrochlorothiazide 25 mg tablet 25 mg PO DAILY Qty: 20 0RF ondansetron HCl [Zofran] 4 mg tablet 4 mg PO Q8H PRN (Reason: nausea and vomiting) Qty: 10 0RF insulin lispro [Humalog U-100 Insulin] 100 unit/mL solution 1 sliding scale dose subcut USEASDIRECTD Qty: 10 0RF insulin glargine [Lantus U-100 Insulin] 100 unit/mL solution 12 unit subcut QPM Qty: 10 0RF metoclopramide HCl [Reglan] 10 mg tablet 10 mg PO TIDAC 2 Days Qty: 6 0RF Rx Instructions: Take 1 tablet 30 minutes prior to each meal of the day (3). sucralfate [Carafate] 100 mg/mL suspension 10 ml PO BID Qty: 414 0RF
[2022-09-05 18:45] VITALS: BP 119/83; PULSE 101; RESP 20; TEMP 36.7; O2SAT 97
[2022-09-05] MEDS: ondansetron HCL 4 MG/2 ML VIAL IVPUSH (19:00)
[2022-09-05] MEDS: Ketorolac Tromethamine 30 MG/ML VIAL IVPUSH (19:00)
[2022-09-05 19:04] LABS: MANUAL DIFF FLAG NO
[2022-09-05 19:06] LABS: Basophils Percent Auto 0.7 % (0-2); Eosinophils Absolute Auto 0.1 X10*3/uL (0.0-0.4); Eosinophils Percent Auto 1.1 % (0-4); Hematocrit 37.9 % (37.0-47.0); Imm Gran Abs Auto 0.02 X10*3/uL (0.00-0.03); Imm Gran Pct Auto 0.4 % (0.0-0.4); Lymphocytes Absolute Auto 1.4 X10*3/uL (1.2-4.9); Lymphocytes Percent Auto 26.7 % (20-40); Mean Corpuscular HGB Conc 34.3 g/dl (31.0-35.0); Mean Corpuscular Hemoglobin 30.2 pg (27.0-33.0); Mean Corpuscular Volume 88.1 fL (80.0-98.0); Mean Platelet Volume 9.6 fL (9.4-12.3); Monocytes Absolute Auto 0.4 X10*3/uL (0.1-1.2); Monocytes Percent Auto 6.9 % (2-11); Neutrophils Absolute Auto 3.4 x10*3/uL (2.0-8.3); Neutrophils Percent Auto 64.2 % (45-73); Platelet Count 284 X10*3/uL (160-400); Red Cell Distribution Width 11.9 % (11.0-16.0); White Blood Count 5.4 X10*3/uL (4.8-10.8)
[2022-09-05 19:07] LABS: Appearance Urine Clear; Color Urine Yellow; Glucose Urine UA >=1000 mg/dL (Negative); Leukocyte Esterase Urine Negative (Negative); Nitrite Urine Negative (Negative); PH 5.5 (5.0-9.0); Specific Gravity - Urine >= 1.030 (1.005-1.025); UMIC TRIGGER UACC YES; Urine Blood Negative (Negative); Urine Ketones Negative (Negative); Urine Protein Negative (Neg-Trace)
[2022-09-05 19:32] LABS: Alanine Aminotransferase 11 U/L (0-31); Alkaline Phosphatase 100 U/L (39-117); Anion Gap 19 (12-20); Aspartate Amino Transferase 16 U/L (5-31); Bilirubin Direct < 0.2 mg/dL (0.0-0.5); Bilirubin Total 0.3 mg/dL (0.0-1.0); Blood Urea Nitrogen 18 mg/dL (9-16); Calcium 9.7 mg/dL (8.4-10.2); Carbon Dioxide 25 mmol/L (22-29); Chloride 98 mmol/L (96-108); Creatinine Clr Calc Pharmacy 41.7; Estimated Glomerular Filt Rate 48; Glucose Random 555 mg/dL (60-115); Potassium 4.7 mmol/L (3.3-5.1); Sodium 137 mmol/L (135-145); Total Protein 7.1 g/dL (6.5-8.0)
[2022-09-05 19:46] LABS: Bacteria Urine None Seen (None Seen); Hyaline Casts Urine 0-2 /LPF (0-2); RBC Urine 0-2 /HPF (0-2); Squamous Epithelial Cell Urine 0-2 /HPF (0-2); WBC Urine 0-5 /HPF (0-5)
[2022-09-05] MEDS: 0.9 % Sodium Chloride 1,000 ML 999 ML IVCONT (20:26)
[2022-09-05] MEDS: Insulin Regular, Human 100 UNIT/ML 3 ML VIAL 10 UNIT IVPUSH (20:27)
[2022-09-05] MEDS: Morphine Sulfate 2 MG/ML CARTRIDGE IM (22:16)
[2022-09-05 22:23] VITALS: BP 144/88; PULSE 108; RESP 16; TEMP 36.6; O2SAT 98
--- NOTE | 2022-09-05 22:27 | PC.NURSE ---
Pt. standing in room. Pt. had remove IV. CHecked POC and it was 135. MEdicated with morpine per MAR for pain.
[2022-09-05 22:32] LABS: Glucose, Whole Blood 135 mg/dL (60-115)
--- NOTE | 2022-09-05 22:42 | PC.NURSE ---
Pt. reports decrease in pain after morphine, down to 5/10. Pt. sitting in room, pending d/c.
== END 2022-09-05 22:59 | disposition home or self-care (01) ==
PROVIDERS: Nurse Practitioner Family; Emergency Provider Emergency Medicine
DX: K31.84 Gastroparesis (principal); E78.1 Pure hyperglyceridemia; R10.9 Unspecified abdominal pain; Z20.822 Contact with and (suspected) exposure to COVID-19; Z20.828 Contact with and (suspected) exposure to other viral communicable diseases; Z79.899 Other long term (current) drug therapy
CPT/HCPCS: 36415; 74176; 80048; 80076; 81001; 82947; 85025; 96361; 96372; 96374; 96375; 99284; J1885; J2270; J2405

== ENCOUNTER 2022-11-24 08:07 | Emergency (ER) | payer OTHER, SELFPAY ==
--- NOTE | ~2022-11-24 | CT_ITS ---
EXAMINATION: CT ABDOMEN AND PELVIS WITH CONTRAST CLINICAL INFORMATION: Acute severe abdominal pain COMPARISON: None available. TECHNIQUE: Multidetector volumetric images were obtained from the superior aspect of the liver through the pubic symphysis following administration 85 mL of Omnipaque 350 intravenous contrast. Sagittal and coronal reformatted images were obtained on the technologist's workstation. Oral contrast: No This CT examination was performed using dose optimization techniques as appropriate, variously including the following: *Automated exposure control *Adjustment of mA and/or kV according to patient size (this includes techniques or standardized protocols for targeted exams where dose is matched to indication/reason for exam; i.e. extremities or head) *Use of iterative reconstruction technique DLP: 1141 mGy-cm FINDINGS: LUNG BASES: There is bibasilar dependent atelectasis. The heart size is normal. LIVER, GALLBLADDER, AND BILIARY TREE: The liver is normal in size, shape, and attenuation. No focal hepatic lesion or biliary ductal dilatation is present. The gallbladder has been surgically removed. PANCREAS: Unremarkable. SPLEEN: Unremarkable. ADRENAL GLANDS: There is a 1.2 cm left adrenal lesion measuring 60 Hounsfield units. The right gland is normal. KIDNEYS AND URETERS: The kidneys are normal in size, shape, and attenuation. No hydronephrosis, hydroureter, or calculi seen. No perinephric stranding. BLADDER: The bladder is distended without bladder wall thickening or radiopaque calculi.. GASTROINTESTINAL TRACT: There is scattered stool and gas seen throughout the colon without significant distention. The small bowel loops are normal caliber. Appendix is normal caliber. No fat stranding, free air or free fluid seen. ABDOMINAL WALL: No significant hernia is appreciated. LYMPH NODES: Normal. VASCULAR: Unremarkable. PELVIC VISCERA: The uterus is anteverted and deviated to the left of left from midline due to enlarged bladder. OSSEOUS STRUCTURES: No aggressive lytic or sclerotic process seen. There is mild ventral spondylosis L5-S1, T11-T12 disc levels. CT/CT abdomen pelvis w IV con IMPRESSION: 1. No acute intra-abdominal process seen. 2. Mild constipation. Normal appendix. 3. There is a 1.2 cm left adrenal lesion measuring 60 Hounsfield units. Fleischner guidelines were followed.
--- NOTE | ~2022-11-24 | CT_ITS ---
EXAMINATION: CT HEAD WITHOUT CONTRAST CLINICAL INFORMATION: Acute severe headache. COMPARISON: None available. TECHNIQUE: Contiguous axial imaging was performed from the skull base to vertex without intravenous administration of contrast. Coronal and sagittal reformatted images were obtained. This CT examination was performed using dose optimization techniques as appropriate, variously including the following: *Automated exposure control *Adjustment of mA and/or kV according to patient size (this includes techniques or standardized protocols for targeted exams where dose is matched to indication/reason for exam; i.e. extremities or head) *Use of iterative reconstruction technique DLP: 593 mGy-cm FINDINGS: The cortical sulci are normal. The lateral ventricles are symmetrical. The third and fourth ventricles are in their normal midline position. The basilar and prepontine cisterns are unremarkable. There is no acute intra or extracerebral abnormality. There is no mass effect or midline shift. Sections through the bony calvarium are unremarkable. The paranasal sinuses are clear. The bony orbits and orbital contents are unremarkable. CT/CT head/brain wo IV con IMPRESSION: No acute intracranial pathology.
[2022-11-24 08:09] VITALS: BP 143/83; PULSE 110; RESP 19; TEMP 36.6; O2SAT 99; BMI 24.0
[2022-11-24 08:32] VITALS: BP 128/88; PULSE 100; RESP 16; TEMP 36.5; O2SAT 97
--- NOTE | 2022-11-24 08:46 | ECG_ITS ---
Test Reason : ABD PAIN Blood Pressure : / mmHG Vent. Rate : 097 BPM Atrial Rate : 097 BPM P-R Int : 168 ms QRS Dur : 068 ms QT Int : 380 ms P-R-T Axes : 053 037 042 degrees QTc Int : 482 ms Normal sinus rhythm Prolonged QT Abnormal ECG When compared with ECG of 18-AUG-2022 08:20, No significant change was found Referred By: Danial Ram Electronically Signed By:Abdoulaye Medrano
[2022-11-24 08:47] LABS: Glucose, Whole Blood 478 mg/dL (60-115)
--- NOTE | 2022-11-24 08:49 | ED.ABDPAIN ---
HPI - Abdominal Pain General Chief Complaint: Abdominal Pain Stated Complaint: abd pain Time Seen by Provider: 11/24/22 08:25 Source: patient Mode of arrival: ambulatory Limitations: no limitations History of Present Illness MD elicited complaint: abdominal pain Onset (ago): day(s) (5) Pain Consistency: constant Location: epigastric Severity: severe Quality: cramping Radiation: none Migration to: no migration Exacerbating factors: nothing Relieving factors: nothing Associated symptoms: nausea Related Data Previous Rx's Medication Instructions Recorded metoclopramide HCl 5 mg tablet 10 mg PO DAILY #30 tabs 06/15/20 (Reglan) ondansetron HCl 4 mg tablet 4 mg PO Q8H PRN nausea and 10/02/20 (Zofran) vomiting #10 tabs hydrochlorothiazide 25 mg tablet 25 mg PO DAILY #20 tabs 12/05/20 metoclopramide HCl 10 mg tablet 10 mg PO Q6H PRN nausea and 12/05/20 (Reglan) vomiting #20 tabs ondansetron HCl 4 mg tablet 4 mg PO Q8H PRN nausea and 06/21/21 (Zofran) vomiting #10 tabs insulin glargine 100 unit/mL 12 unit (0.12 mL) subcut QPM #10 mL 03/01/22 subcutaneous solution (Lantus U-100 Insulin) insulin lispro 100 unit/mL 1 sliding scale dose subcut 03/01/22 subcutaneous solution (Humalog USEASDIRECTD #10 mL U-100 Insulin) metoclopramide HCl 10 mg tablet 10 mg PO TIDAC 2 days #6 tabs 04/06/22 (Reglan) sucralfate 100 mg/mL oral 10 ml PO BID #414 mL 04/06/22 suspension (Carafate) ketorolac 10 mg tablet 10 mg PO BID PRN pain 5 days #7 09/05/22 tabs dicyclomine 20 mg tablet 20 mg PO QID PRN abdominal 11/24/22 discomfort #14 tabs famotidine 20 mg tablet 20 mg PO BID #20 tabs 11/24/22 ondansetron 4 mg disintegrating 4 mg PO Q8H PRN nausea and 11/24/22 tablet vomiting #10 tabs Allergies Allergy/AdvReac Type Severity Reaction Status Date / Time No Known Allergies Allergy Verified 11/24/22 08:09 [No Known Allergies*] [facility] Past Medical History Medical History Diabetes Gastroparesis Social History Social History Alcohol intake: never Patient Tobacco Use Status: Current everyday Tobacco user Smoked in Last 30 Days: No Use of substances other than those prescribed or required for medical reasons: No Advance Directives: No Advance Directives Information Provided: Yes Physical Exam ED Vital Signs: Vital Signs - 24 hr 11/24/22 08:09 11/24/22 08:32 11/24/22 09:52 Temperature 98 F 97.7 F Pulse Rate 110 H 100 Respiratory Rate 19 16 16 Blood Pressure 143/83 H 128/88 Pulse Oximetry 99 97 Oxygen Delivery Method Room Air Room Air 11/24/22 10:00 11/24/22 13:16 Temperature 97.9 F Pulse Rate 91 103 H Respiratory Rate 14 16 Blood Pressure 126/77 131/92 H Pulse Oximetry 98 100 Oxygen Delivery Method Room Air Room Air BMI result Body Mass Index 24.0 GEN: Well developed, + acute distress, alert, oriented HEENT: Normocephalic, atraumatic, normal external ears, nose appears normal, no oropharyngeal edema or exudates Eyes: Normal to appearance Neck: Supple, no lymphadenopathy Respiratory: Talks in complete sentences, no respiratory distress, clear to auscultation bilaterally Cardiovascular: Regular rate and rhythm, no murmurs rubs or gallops Abdomen: Soft, upper tenderness, nondistended, no guarding, no rebound Back: No CVA tenderness Extremities: No clubbing cyanosis or edema Neurologic: No focal neurologic deficits, cranial nerves 2-12 intact, strength is 5/5 bilaterally, gait normal Skin: No rash Course Course Course Narrative: 52-year-old female presents with severe abdominal pain. Will order imaging studies laboratory analysis, analgesics antiemetics, IV fluids. Reevaluation(s) Reevaluation #1: patietn still with persistent severe pain, will give additional analgesia. Discussed results. Reevaluate following re treatment. Time: 12:26 Reevaluation #2: patient is feeling much better at this time and would like to be discharged. Time: 14:36 Medical Decision Making Medical Decision Making [facility] Narrative: Differential diagnosis includes: Gastritis, peptic ulcer disease, colitis, diverticulitis, biliary symptoms, IBS, IBD, mesenteric adenitis. Abdominal exam without peritoneal signs. No evidence of acute abdomen at this time. Well appearing. Low suspicion for acute hepatobiliary disease (includng acute cholecystitis), acute pancreatitis, PUD (including perforation), acute infectious processes (pneumonia, hepatitis, pyelonephritis), acute appendicitis, vascular catastrophe, bowel obstruction or viscus perforation. Presentation not consistent with other acute, emergent causes of abdominal pain at this time. Plan: labs, UA, CT, pain control, serial reassessment Differential Diagnosis Differential Diagnoses: The differential diagnosis associated with the presentation includes (Gastritis, peptic ulcer, pancreatitis, IBS, IBD, colitis, diverticulitis, biliary) Admission/Observation Consideration of admission/observation: Escalation of care including admission/observation considered Lab Data MDM Lab Attestation statement: I reviewed the patient's lab results. 11/24/22 09:15 11/24/22 09:15 Labs: Lab Results 11/24/22 11/24/22 11/24/22 Range/Units 08:43 09:14 09:15 WBC 5.1 (4.8-10.8) X10*3/uL RBC 4.38 (4.20-5.50) X10*6/uL Hgb 13.5 (12.0-16.0) g/dl Hct 39.4 (37.0-47.0) % MCV 90.0 (80.0-98.0) fL MCH 30.8 (27.0-33.0) pg MCHC 34.3 (31.0-35.0) g/dl RDW 12.2 (11.0-16.0) % Plt Count 257 (160-400) X10*3/uL MPV 9.3 L (9.4-12.3) fL Immature Gran % (Auto) 0.4 (0.0-0.4) % Neut % (Auto) 72.7 (45-73) % Lymph % (Auto) 19.0 L (20-40) % [place] % (Auto) 5.9 (2-11) % Eos % (Auto) 1.4 (0-4) % Baso % (Auto) 0.6 (0-2) % Lymph # (Auto) 1.0 L (1.2-4.9) X10*3/uL [place] # (Auto) 0.3 (0.1-1.2) X10*3/uL Eos # (Auto) 0.1 (0.0-0.4) X10*3/uL Baso # (Auto) 0.0 (0.0-0.2) X10*3/uL Abs Immat Gran (auto) 0.02 (0.00-0.03) X10*3/uL Absolute Neuts (auto) 3.7 (2.0-8.3) x10*3/uL Absolute Nucleated RBC 0.000 (0.0-0.012) X10*3/uL Nucleated RBC % (auto) 0.0 (0.0-0.2) /100WBC Sodium (135-145) mmol/L Potassium (3.3-5.1) mmol/L Chloride (96-108) mmol/L Carbon Dioxide (22-29) mmol/L Anion Gap (12-20) BUN (9-16) mg/dL Creatinine (0.5-1.4) mg/dL Estim Creat Clear Calc Estimated GFR POC Glucose 478 H* (60-115) mg/dL Random Glucose (60-115) mg/dL Calcium (8.4-10.2) mg/dL Total Bilirubin (0.0-1.0) mg/dL Direct Bilirubin (0.0-0.5) mg/dL AST (5-31) U/L ALT (0-31) U/L Alkaline Phosphatase (39-117) U/L Troponin I High Sens (<3.5-17.0) ng/L Total Protein (6.5-8.0) g/dL Albumin (3.5-5.0) g/dL Lipase (8-78) U/L Urine Color Urine Appearance Urine pH (5.0-9.0) Ur Specific [place] (1.005-1.025) Urine Protein (Neg-Trace) mg/dL Urine Glucose (UA) (Negative) mg/dL Urine Ketones (Negative) mg/dL Urine Blood (Negative) Urine Nitrite (Negative) Ur Leukocyte Esterase (Negative) Urine RBC (0-2) /HPF Urine WBC (0-5) /HPF Ur Squamous Epith Cells (0-2) /HPF Urine Bacteria (None Seen) Hyaline Casts (0-2) /LPF Urine Test (NEGATIVE) Acetone, Qual Negative (Negative) COVID-19 (LITZY) (Negative) COVID-19 Clin Com 11/24/22 11/24/22 11/24/22 Range/Units 09:15 09:15 09:15 WBC (4.8-10.8) X10*3/uL RBC (4.20-5.50) X10*6/uL Hgb (12.0-16.0) g/dl Hct (37.0-47.0) % MCV (80.0-98.0) fL MCH (27.0-33.0) pg MCHC (31.0-35.0) g/dl RDW (11.0-16.0) % Plt Count (160-400) X10*3/uL MPV (9.4-12.3) fL Immature Gran % (Auto) (0.0-0.4) % Neut % (Auto) (45-73) % Lymph % (Auto) (20-40) % [place] % (Auto) (2-11) % Eos % (Auto) (0-4) % Baso % (Auto) (0-2) % Lymph # (Auto) (1.2-4.9) X10*3/uL [place] # (Auto) (0.1-1.2) X10*3/uL Eos # (Auto) (0.0-0.4) X10*3/uL Baso # (Auto) (0.0-0.2) X10*3/uL Abs Immat Gran (auto) (0.00-0.03) X10*3/uL Absolute Neuts (auto) (2.0-8.3) x10*3/uL Absolute Nucleated RBC (0.0-0.012) X10*3/uL Nucleated RBC % (auto) (0.0-0.2) /100WBC Sodium 134 L (135-145) mmol/L Potassium 4.4 (3.3-5.1) mmol/L Chloride 99 (96-108) mmol/L Carbon Dioxide 25 (22-29) mmol/L Anion Gap 14 (12-20) BUN 19 H (9-16) mg/dL Creatinine 1.06 (0.5-1.4) mg/dL Estim Creat Clear Calc 50.7 Estimated GFR 54 POC Glucose (60-115) mg/dL Random Glucose 523 H* (60-115) mg/dL Calcium 9.2 (8.4-10.2) mg/dL Total Bilirubin 0.5 (0.0-1.0) mg/dL Direct Bilirubin < 0.2 (0.0-0.5) mg/dL AST 13 (5-31) U/L ALT 16 (0-31) U/L Alkaline Phosphatase 90 (39-117) U/L Troponin I High Sens < 3.5 (<3.5-17.0) ng/L Total Protein 6.5 (6.5-8.0) g/dL Albumin 4.0 (3.5-5.0) g/dL Lipase 19 (8-78) U/L Urine Color Urine Appearance Urine pH (5.0-9.0) Ur Specific [place] (1.005-1.025) Urine Protein (Neg-Trace) mg/dL Urine Glucose (UA) (Negative) mg/dL Urine Ketones (Negative) mg/dL Urine Blood (Negative) Urine Nitrite (Negative) Ur Leukocyte Esterase (Negative) Urine RBC (0-2) /HPF Urine WBC (0-5) /HPF Ur Squamous Epith Cells (0-2) /HPF Urine Bacteria (None Seen) Hyaline Casts (0-2) /LPF Urine Test (NEGATIVE) Acetone, Qual (Negative) COVID-19 (LITZY) Negative (Negative) COVID-19 Clin Com See Note 11/24/22 11/24/22 Range/Units 11:01 11:01 WBC (4.8-10.8) X10*3/uL RBC (4.20-5.50) X10*6/uL Hgb (12.0-16.0) g/dl Hct (37.0-47.0) % MCV (80.0-98.0) fL MCH (27.0-33.0) pg MCHC (31.0-35.0) g/dl RDW (11.0-16.0) % Plt Count (160-400) X10*3/uL MPV (9.4-12.3) fL Immature Gran % (Auto) (0.0-0.4) % Neut % (Auto) (45-73) % Lymph % (Auto) (20-40) % [place] % (Auto) (2-11) % Eos % (Auto) (0-4) % Baso % (Auto) (0-2) % Lymph # (Auto) (1.2-4.9) X10*3/uL [place] # (Auto) (0.1-1.2) X10*3/uL Eos # (Auto) (0.0-0.4) X10*3/uL Baso # (Auto) (0.0-0.2) X10*3/uL Abs Immat Gran (auto) (0.00-0.03) X10*3/uL Absolute Neuts (auto) (2.0-8.3) x10*3/uL Absolute Nucleated RBC (0.0-0.012) X10*3/uL Nucleated RBC % (auto) (0.0-0.2) /100WBC Sodium (135-145) mmol/L Potassium (3.3-5.1) mmol/L Chloride (96-108) mmol/L Carbon Dioxide (22-29) mmol/L Anion Gap (12-20) BUN (9-16) mg/dL Creatinine (0.5-1.4) mg/dL Estim Creat Clear Calc Estimated GFR POC Glucose (60-115) mg/dL Random Glucose (60-115) mg/dL Calcium (8.4-10.2) mg/dL Total Bilirubin (0.0-1.0) mg/dL Direct Bilirubin (0.0-0.5) mg/dL AST (5-31) U/L ALT (0-31) U/L Alkaline Phosphatase (39-117) U/L Troponin I High Sens (<3.5-17.0) ng/L Total Protein (6.5-8.0) g/dL Albumin (3.5-5.0) g/dL Lipase (8-78) U/L Urine Color Yellow Urine Appearance Clear Urine pH 7.0 (5.0-9.0) Ur Specific [place] >= 1.030 H (1.005-1.025) Urine Protein Negative (Neg-Trace) mg/dL Urine Glucose (UA) >=1000 H (Negative) mg/dL Urine Ketones Negative (Negative) mg/dL Urine Blood Negative (Negative) Urine Nitrite Negative (Negative) Ur Leukocyte Esterase Negative (Negative) Urine RBC 0-2 (0-2) /HPF Urine WBC 0-5 (0-5) /HPF Ur Squamous Epith Cells 11-20 (0-2) /HPF Urine Bacteria 1+ (None Seen) Hyaline Casts 0-2 (0-2) /LPF Urine Test NEGATIVE (NEGATIVE) Acetone, Qual (Negative) COVID-19 (L[facility]ZY) (Negative) COVID-19 Clin Com Independent Interpretation I performed an independent interpretation of an: EKG (Normal sinus rhythm heart rate 97, prolonged QT, nonspecific T-wave changes, low voltage, no acute ST elevations depressions) and CT Scan (ct head NAD, CT abdomen no acute abdominal process) Radiology Impression Discussion of test interpretation with radiology: I have reviewed the radiologist's reading. ( CT/CT head/brain wo IV con IMPRESSION: No acute intracranial pathology. Dictated By:Francisco Smith MDSigned By:<Electronically signed by Francisco Smith MD in [place]>11/24/22 1130 DD/ [id number]/TT: [employer] Engineer: LUCAS) Radiologist Impression: CT/CT abdomen pelvis w IV con IMPRESSION: 1.? No acute intra-abdominal process seen. 2.? Mild constipation. Normal appendix. 3.? There is a 1.2 cm left adrenal lesion measuring 60 Hounsfield units. ? Fleischner guidelines were followed. Dictated By: Lui Pena MD Signed By: <Electronically signed by Lui Pena MD in [place]> 11/24/22 1151 Prescription Management I considered prescription management with: Pain Medication Chronic Conditions Patient?s care impacted by: Diabetes Medications Administered Discontinued Medications Generic Name Dose Route Start Last Admin Trade Name Freq PRN Reason Stop Dose Admin Dicyclomine HCl 10 mg 11/24/22 12:26 11/24/22 13:17 Dicyclomine Hcl 10 Mg Capsule PO 11/24/22 12:27 10 mg ONCE ONE Administration Sodium Chloride 1,000 mls @ 999 mls/hr 11/24/22 08:45 11/24/22 11:57 Ns IV 11/24/22 09:45 Infused .Q1H1M BASHIR Infusion Insulin Human Lispro 10 unit 11/24/22 08:53 11/24/22 09:51 Insulin Lispro 100 Unit/Ml 3 Ml Vial SUBCUT 11/24/22 08:54 10 unit ONCE ONE Administration Iohexol 100 ml 11/24/22 10:32 11/24/22 10:33 Iohexol 350 Mg/Ml 100 Ml Infus..Btl IV 11/24/22 10:33 85 ml ONCE ONE Administration Ketorolac Tromethamine 15 mg 11/24/22 12:26 11/24/22 13:17 Ketorolac Tromethamine 15 Mg/Ml Vial IVPUSH 11/24/22 12:27 15 mg ONCE ONE Administration Morphine Sulfate 4 mg 11/24/22 08:45 11/24/22 09:52 Morphine Sulfate 4 Mg/Ml Cartridge IVPUSH 11/24/22 08:46 4 mg ONCE ONE Administration Protocol Morphine Sulfate 4 mg 11/24/22 12:26 11/24/22 13:19 Morphine Sulfate 4 Mg/Ml Cartridge IVPUSH 11/24/22 12:27 4 mg ONCE ONE Administration Protocol Ondansetron HCl 4 mg 11/24/22 08:45 11/24/22 09:51 Ondansetron Hcl 4 Mg/2 Ml Vial IVPUSH 11/24/22 08:46 4 mg ONCE ONE Administration Discharge Plan Discharge Clinical Impression: Acute upper abdominal pain, Lesion of adrenal gland Patient Disposition: Home, Self-Care Instructions: Abdominal Pain (ED) Additional Instructions: You were seen today for abdominal pain. He had imaging of the abdomen and pelvis. It did identify an adrenal lesion which appears to be benign but there is recommendation for follow-up with an MRI. When you find a primary care provider they will be able to this issue with ordering that follow-up. In the meantime, for your abdominal pain, I am recommending the following regimen Famotidine 20 mg twice daily Dicyclomine 20 mg up to 4 times a day. This can be taken 30 minutes before eating and before bedtime. Tylenol 1000 mg every 6 hours as needed Ondansetron 4 mg ODT sublingual every 8 hours as needed for nausea vomiting Prescriptions: New ondansetron 4 mg tablet,disintegrating 4 mg PO Q8H PRN (Reason: nausea and vomiting) Qty: 10 0RF famotidine 20 mg tablet 20 mg PO BID Qty: 20 0RF dicyclomine 20 mg tablet 20 mg PO QID PRN (Reason: abdominal discomfort) Qty: 14 0RF No Action metoclopramide HCl [Reglan] 5 mg tablet 10 mg PO DAILY Qty: 30 0RF ondansetron HCl [Zofran] 4 mg tablet 4 mg PO Q8H PRN (Reason: nausea and vomiting) Qty: 10 0RF metoclopramide HCl [Reglan] 10 mg tablet 10 mg PO Q6H PRN (Reason: nausea and vomiting) Qty: 20 0RF hydrochlorothiazide 25 mg tablet 25 mg PO DAILY Qty: 20 0RF ondansetron HCl [Zofran] 4 mg tablet 4 mg PO Q8H PRN (Reason: nausea and vomiting) Qty: 10 0RF insulin lispro [Humalog U-100 Insulin] 100 unit/mL solution 1 sliding scale dose subcut USEASDIRECTD Qty: 10 0RF insulin glargine [Lantus U-100 Insulin] 100 unit/mL solution 12 unit subcut QPM Qty: 10 0RF metoclopramide HCl [Reglan] 10 mg tablet 10 mg PO TIDAC 2 Days Qty: 6 0RF Rx Instructions: Take 1 tablet 30 minutes prior to each meal of the day (3). sucralfate [Carafate] 100 mg/mL suspension 10 ml PO BID Qty: 414 0RF ketorolac 10 mg tablet 10 mg PO BID PRN (Reason: pain) 5 Days Qty: 7 0RF Rx Instructions: Do not take NSAIDs with this medication, only Tylenol if needed Referrals: [facility] [Provider Group]
[2022-11-24 09:23] LABS: MANUAL DIFF FLAG NO
[2022-11-24 09:31] LABS: Basophils Percent Auto 0.6 % (0-2); Eosinophils Absolute Auto 0.1 X10*3/uL (0.0-0.4); Eosinophils Percent Auto 1.4 % (0-4); Hematocrit 39.4 % (37.0-47.0); Hemoglobin 13.5 g/dl (12.0-16.0); Imm Gran Abs Auto 0.02 X10*3/uL (0.00-0.03); Imm Gran Pct Auto 0.4 % (0.0-0.4); Mean Corpuscular HGB Conc 34.3 g/dl (31.0-35.0); Mean Corpuscular Hemoglobin 30.8 pg (27.0-33.0); Mean Platelet Volume 9.3 fL (9.4-12.3); Monocytes Absolute Auto 0.3 X10*3/uL (0.1-1.2); Monocytes Percent Auto 5.9 % (2-11); Neutrophils Absolute Auto 3.7 x10*3/uL (2.0-8.3); Neutrophils Percent Auto 72.7 % (45-73); Platelet Count 257 X10*3/uL (160-400); Red Blood Count 4.38 X10*6/uL (4.20-5.50); Red Cell Distribution Width 12.2 % (11.0-16.0); White Blood Count 5.1 X10*3/uL (4.8-10.8)
[2022-11-24 09:44] LABS: Acetone, serum QL Negative (Negative)
[2022-11-24] MEDS: 0.9 % Sodium Chloride 1,000 ML 999 ML IV (09:45)
[2022-11-24 09:50] LABS: Alanine Aminotransferase 16 U/L (0-31); Alkaline Phosphatase 90 U/L (39-117); Anion Gap 14 (12-20); Aspartate Amino Transferase 13 U/L (5-31); Bilirubin Direct < 0.2 mg/dL (0.0-0.5); Bilirubin Total 0.5 mg/dL (0.0-1.0); Blood Urea Nitrogen 19 mg/dL (9-16); Calcium 9.2 mg/dL (8.4-10.2); Carbon Dioxide 25 mmol/L (22-29); Chloride 99 mmol/L (96-108); Creatinine Clr Calc Pharmacy 50.7; Estimated Glomerular Filt Rate 54; Glucose Random 523 mg/dL (60-115); Lipase 19 U/L (8-78); Potassium 4.4 mmol/L (3.3-5.1); Sodium 134 mmol/L (135-145); Total Protein 6.5 g/dL (6.5-8.0)
[2022-11-24] MEDS: Insulin Lispro 100 UNIT/ML 3 ML VIAL 10 UNIT SUBCUT (09:51)
[2022-11-24] MEDS: ondansetron HCL 4 MG/2 ML VIAL IVPUSH (09:51)
[2022-11-24 09:52] VITALS: RESP 16
[2022-11-24] MEDS: Morphine Sulfate 4 MG/ML CARTRIDGE IVPUSH ×2 (09:52→13:19)
[2022-11-24 09:53] LABS: COVID-19 Test Negative (Negative); IDNOW Serial# BCCEAD1C
[2022-11-24 09:56] LABS: Troponin-I High Sensitivity < 3.5 ng/L (<3.5-17.0)
[2022-11-24 10:00] VITALS: BP 126/77; PULSE 91; RESP 14; TEMP 36.6; O2SAT 98
[2022-11-24] MEDS: iohexoL 350 MG/ML 100 ML INFUS..BTL IV (10:33)
[2022-11-24 11:12] LABS: Appearance Urine Clear; Color Urine Yellow; Glucose Urine UA >=1000 mg/dL (Negative); Leukocyte Esterase Urine Negative (Negative); Nitrite Urine Negative (Negative); Specific Gravity - Urine >= 1.030 (1.005-1.025); UMIC TRIGGER UACC YES; Urine Blood Negative (Negative); Urine Ketones Negative (Negative); Urine Protein Negative (Neg-Trace)
[2022-11-24 11:17] LABS: Bacteria Urine 1+ (None Seen); Hyaline Casts Urine 0-2 /LPF (0-2); RBC Urine 0-2 /HPF (0-2); UPreg QC Valid YES; Urine Pregnancy NEGATIVE (NEGATIVE); WBC Urine 0-5 /HPF (0-5)
[2022-11-24 13:16] VITALS: BP 131/92; PULSE 103; RESP 16; O2SAT 100
[2022-11-24] MEDS: Ketorolac Tromethamine 15 MG/ML VIAL IVPUSH (13:17)
[2022-11-24] MEDS: Dicyclomine HCl 10 MG CAPSULE PO (13:17)
== END 2022-11-24 16:09 | disposition home or self-care (01) ==
PROVIDERS: Emergency Provider Emergency Medicine
DX: R10.10 Upper abdominal pain, unspecified (principal); R51.9 Headache, unspecified; R94.31 Abnormal electrocardiogram [ECG] [EKG]; F17.210 Nicotine dependence, cigarettes, uncomplicated; Z20.822 Contact with and (suspected) exposure to COVID-19; Z20.828 Contact with and (suspected) exposure to other viral communicable diseases; Z79.899 Other long term (current) drug therapy; Z71.6 Tobacco abuse counseling
CPT/HCPCS: 36415; 70450; 74177; 80048; 80076; 81001; 81025; 82009; 82947; 83690; 84484; 85025; 87635; 93005; 96361; 96374; 96375; 96376; 99284; 99285; J1885; J2270; J2405; Q9967

== ENCOUNTER 2022-12-20 20:48 | Emergency (ER) | payer OTHER, SELFPAY ==
--- NOTE | ~2022-12-20 | CT_ITS ---
EXAMINATION: CT ABDOMEN AND PELVIS WITH CONTRAST CLINICAL INFORMATION: Abdominal pain. COMPARISON: CT abdomen/pelvis 11/24/2022. TECHNIQUE: Multidetector volumetric images were obtained from the superior aspect of the liver through the pubic symphysis following administration 85 mL of Omnipaque 350 intravenous contrast. Sagittal and coronal reformatted images were obtained on the technologist's workstation. Oral contrast: No This CT examination was performed using dose optimization techniques as appropriate, variously including the following: *Automated exposure control *Adjustment of mA and/or kV according to patient size (this includes techniques or standardized protocols for targeted exams where dose is matched to indication/reason for exam; i.e. extremities or head) *Use of iterative reconstruction technique DLP: 530 mGy-cm FINDINGS: LUNG BASES: Mild bibasilar subsegmental atelectases. No focal consolidation or pleural effusion. LIVER, GALLBLADDER, AND BILIARY TREE: Decreased attenuation of the liver parenchyma suggesting hepatic steatosis. Otherwise, the liver is normal in size and shape. No focal liver lesion. No biliary ductal dilatation. Cholecystectomy. PANCREAS: Unremarkable. SPLEEN: Unremarkable. ADRENAL GLANDS: A 0.8 cm left adrenal nodule (3:22) is unchanged over the course of several years, for instance compared to CT from 10/24/2019, which is reassuring for a benign etiology such as adenoma and for which no imaging follow-up is recommended. Normal right adrenal gland. KIDNEYS AND URETERS: The kidneys are normal in size, shape, and attenuation. No hydronephrosis, hydroureter, or calculi seen. No perinephric stranding. BLADDER: Unremarkable. GASTROINTESTINAL TRACT: Nonspecific gastric distention. The small bowel is nondilated. Normal appendix. Colonic diverticulosis. No pericolonic inflammatory changes. No evidence of bowel obstruction. ABDOMINAL WALL: No significant hernia is appreciated. LYMPH NODES: No lymphadenopathy. VASCULAR: Abdominal aorta is normal in caliber. PELVIC VISCERA: Unremarkable. OSSEOUS STRUCTURES: No acute or aggressive appearing osseous abnormalities. Degenerative change of the spine. CT/CT abdomen pelvis w IV con IMPRESSION: 1. Nonspecific gastric distention, likely associated with postprandial state, correlate clinically. Gastroparesis and gastric outlet obstruction are other less likely differential considerations in the appropriate clinical context. 2. Hepatic steatosis. 3. Colonic diverticulosis but no evidence of acute diverticulitis.
[2022-12-20 21:29] VITALS: BP 129/84; PULSE 112; RESP 18; TEMP 36.7; O2SAT 95; BMI 23.6
[2022-12-20 21:56] LABS: MANUAL DIFF FLAG NO
--- NOTE | 2022-12-20 21:57 | ED.GENADULT ---
HPI - General Adult General Chief complaint: Abdominal Pain Stated complaint: pain in appendix, sharp pain r side Time Seen by Provider: 12/20/22 21:50 Source: patient, RN notes reviewed and old records reviewed History of Present Illness HPI narrative: 52-year-old female with past medical history of diabetes, gastroparesis is here today for severe abdominal discomfort. Patient reports epigastric pain, unable eat anything all day today due to severe abdominal discomfort. Patient states that she is afraid to eat anything, trying to avoid pain. Patient reports that she is moving her bowels, however she is unable to move her bowels completely. Patient has not seen a PCP for sometimes her PCP retired and she is going to see her new PCP in March. Patient reports that she never has followed up with anybody from Gastroenterology Department. Patient denies any nausea or vomiting. Last time patient was seen in the ER was in the beginning of November CT scan showed mild constipation. Patient was sent home with dicyclomine. Patient reports that that was not very helpful with pain. Patient denies melena, hematochezia, unintentional weight loss or ribbon like stools. Patient reports to have colonoscopy couple years ago at [facility]. Denies any dyspepsia, dysphagia or odynophagia Related Data Home Medications ?Medication ?Instructions ?Recorded ?Confirmed atorvastatin 20 mg tablet 20 mg PO BEDTIME 11/12/23 12/24/23 clonazepam 2 mg tablet 2 mg PO BID anxiety 11/12/23 12/24/23 dulaglutide 0.75 mg/0.5 mL 0.75 mg subcut MO 11/12/23 12/24/23 subcutaneous pen injector (Trulicity) empagliflozin 25 mg tablet 25 mg PO QAM 11/12/23 12/24/23 (Jardiance) insulin glargine 100 unit/mL 10 unit subcut QPM 11/12/23 12/24/23 subcutaneous solution (Lantus U-100 Insulin) ondansetron 4 mg disintegrating 4 mg PO Q6H PRN Nausea 11/12/23 12/24/23 tablet quetiapine 300 mg tablet 600 mg PO BEDTIME 11/12/23 12/24/23 Previous Rx's ?Medication ?Instructions ?Recorded insulin lispro 100 unit/mL 1 sliding scale dose subcut 03/01/22 subcutaneous solution (Humalog USEASDIRECTD #10 mL U-100 Insulin) aspirin 81 mg tablet,delayed 81 mg PO DAILY #30 tabs 11/17/23 release heparin (porcine) 25,000 unit/250 25,000 unit (250 mL) continuous IV 11/17/23 mL in 0.45 % sodium chloride IV infusion .Q0M #6,000 mL soln cyclobenzaprine 5 mg tablet 5 mg PO TID PRN muscle spasm 7 11/23/23 days #21 tabs metoprolol succinate 50 mg 50 mg PO DAILY #90 tabs 12/24/23 tablet,extended release 24 hr metoclopramide HCl 10 mg tablet 10 mg PO Q6H PRN nausea and 03/01/24 (Reglan) vomiting #10 tabs metoclopramide HCl 10 mg tablet 10 mg PO Q6H PRN nausea and 03/24/24 (Reglan) vomiting #7 tabs Allergies Allergy/AdvReac Type Severity Reaction Status Date / Time No Known Allergies Allergy Verified 03/23/24 22:10 [No Known Allergies*] Review of Systems Review of Systems: Constitutional : No Weight loss, No Fever, No Chills, No Night Sweats, No Fatigue, No Malaise ENT/Mouth : No Hearing loss, No Ear Pain, No Nasal Congestion, No Sinus Pain, No Hoarseness, No sore throat, No Rhinorrhea, No Swallowing Difficulty Eyes: No Eye Pain, No Swelling, No Redness, No Foreign Body, No Discharge, No Vision Changes Cardiovascular : No Chest Pain, No SOB, No Dyspnea on Exertion, No Orthopnea, No Edema, No Palpitations Respiratory : No Cough, No Sputum, No Wheezing, No Smoke Exposure, No Dyspnea Gastrointestinal : No Nausea, No Vomiting, No Diarrhea, Constipation, abdominal Pain, No Hematochezia, No Melena Genitourinary : no irregular bleeding, No Dysuria, No Urinary Frequency, No Hematuria, No Urinary Incontinence, No Urgency, No Flank Pain, No Urinary Flow Changes, No Hesitancy Musculoskeletal : No joint pain, No Myalgias, No Joint Swelling Skin : No Skin Lesions, No rash Endocrine : No Polyuria, No Polydipsia, No Temperature Intolerance Yes all other systems are reviewed and are negative [facility] Past Medical History Medical History Diabetes Gastroparesis Family History Family History Father No problems noted. Social History Social History Household Members: None Housing: Apartment Do you presently have visiting nurse or other home services: No Alcohol intake: never Patient Tobacco Use Status: Never used Tobacco service: No Physical Exam ED Vital Signs: Vital Signs - 24 hr 12/20/22 21:29 12/20/22 22:15 Temperature 98.1 F 98.1 F Pulse Rate 112 H 100 Respiratory Rate 18 18 Blood Pressure 129/84 133/79 Pulse Oximetry 95 98 Oxygen Delivery Method Room Air Room Air BMI result Body Mass Index 23.6 GEN: Well developed, + acute distress, alert, oriented HEENT: Normocephalic, atraumatic, normal external ears, nose appears normal, no oropharyngeal edema or exudates Eyes: Normal to appearance Neck: Supple, no lymphadenopathy Respiratory: Talks in complete sentences, no respiratory distress, clear to auscultation bilaterally Cardiovascular: Regular rate and rhythm, no murmurs rubs or gallops Abdomen: Soft, upper tenderness, nondistended, no guarding, no rebound Back: No CVA tenderness Extremities: No clubbing cyanosis or edema Neurologic: No focal neurologic deficits, cranial nerves 2-12 intact, strength is 5/5 bilaterally, gait normal Skin: No rash Course Course Course Narrative: 52-year-old female with past medical history of diabetes, gastroparesis is here today for severe abdominal discomfort. Patient reports epigastric pain, unable eat anything all day today due to severe abdominal discomfort. Patient states that she is afraid to eat anything, trying to avoid pain. Patient reports that she is moving her bowels, however she is unable to move her bowels completely. Patient has not seen a PCP for sometimes her PCP retired and she is going to see her new PCP in March. Patient reports that she never has followed up with anybody from Gastroenterology Department. Patient denies any nausea or vomiting. Last time patient was seen in the ER was in the beginning of November CT scan showed mild constipation. Patient was sent home with dicyclomine. Patient reports that that was not very helpful with pain. Patient denies melena, hematochezia, unintentional weight loss or ribbon like stools. Patient reports to have colonoscopy couple years ago at [facility]. Denies any dyspepsia, dysphagia or odynophagia. Will order CBC, lipase. Will repeat CT scan any acute processes, obstruction, diverticulitis. Diverticulosis on previous CT scan. Reevaluation(s) Reevaluation #1: Blood sugar 453. Fluids ordered will repeat blood sugar. Patient went to CT scan awaiting results. Reevaluation #2: CT scan back, no acute findings explain patient's abdominal discomfort. However patient does have gastric distension, possibility of postprandial abdominal bloating. Patient reports she has not eaten anything today. Patient continues with abdominal discomfort. Will give the patient morphine for her epigastric discomfort and bloating. Will order morphine for patient. Will re-evaluate after treatment. Reevaluation #3: Patient reports improvement in her abdominal pain. Patient does not have any nausea or vomiting. We will recheck patient's blood sugar before discharge. Additional Reevaluation(s): Patient's blood sugar continues to be elevated. Patient states that she did not take her Lantus tonight or any other insulin. Blood sugar for 36. Will medicate patient with 10 units of regular insulin and give her more fluids. Will recheck blood sugar in 1 hour. Medications Administered Discontinued Medications Generic Name Dose Route Start Last Admin Trade Name Freq PRN Reason Stop Dose Admin Sodium Chloride 1,000 mls @ 999 mls/hr 12/20/22 22:18 12/20/22 23:42 Ns IV 12/20/22 23:18 Infused .Q1H1M STA Infusion Sodium Chloride 1,000 mls @ 999 mls/hr 12/21/22 00:50 12/21/22 02:00 Ns IV 12/21/22 01:50 Infused .Q1H1M STA Infusion Insulin Human Regular 10 unit 12/21/22 00:50 12/21/22 00:55 Insulin Regular, Human 100 Unit/Ml 3 Ml Vial IVPUSH 12/21/22 00:51 10 unit ONCE ONE Administration Iohexol 100 ml 12/20/22 22:47 12/20/22 22:47 Iohexol 350 Mg/Ml 100 Ml Infus..Btl IV 12/20/22 22:48 85 ml ONCE ONE Administration Ketorolac Tromethamine 15 mg 12/20/22 22:15 12/20/22 22:19 Ketorolac Tromethamine 15 Mg/Ml Vial IVPUSH 12/20/22 22:16 15 mg ONCE ONE Administration Morphine Sulfate 2 mg 12/20/22 23:33 12/20/22 23:40 Morphine Sulfate 2 Mg/Ml Cartridge IVPUSH 12/20/22 23:34 2 mg ONCE ONE Administration Protocol Medical Decision Making Lab Data 12/20/22 21:52 12/20/22 21:52 Labs: Lab Results 12/20/22 12/20/22 12/21/22 Range/Units 21:52 22:55 00:47 WBC 7.0 (4.8-10.8) X10*3/uL RBC 4.55 (4.20-5.50) X10*6/uL Hgb 14.1 (12.0-16.0) g/dl Hct 41.2 (37.0-47.0) % MCV 90.5 (80.0-98.0) fL MCH 31.0 (27.0-33.0) pg MCHC 34.2 (31.0-35.0) g/dl RDW 12.0 (11.0-16.0) % Plt Count 295 (160-400) X10*3/uL MPV 9.3 L (9.4-12.3) fL Immature Gran % (Auto) 0.4 (0.0-0.4) % Neut % (Auto) 61.1 (45-73) % Lymph % (Auto) 28.9 (20-40) % Redwood % (Auto) 7.3 (2-11) % Eos % (Auto) 1.7 (0-4) % Baso % (Auto) 0.6 (0-2) % Lymph # (Auto) 2.0 (1.2-4.9) X10*3/uL Redwood # (Auto) 0.5 (0.1-1.2) X10*3/uL Eos # (Auto) 0.1 (0.0-0.4) X10*3/uL Baso # (Auto) 0.0 (0.0-0.2) X10*3/uL Abs Immat Gran (auto) 0.03 (0.00-0.03) X10*3/uL Absolute Neuts (auto) 4.3 (2.0-8.3) x10*3/uL Absolute Nucleated RBC 0.000 (0.0-0.012) X10*3/uL Nucleated RBC % (auto) 0.0 (0.0-0.2) /100WBC Sodium 135 (135-145) mmol/L Potassium 4.1 (3.3-5.1) mmol/L Chloride 98 (96-108) mmol/L Carbon Dioxide 25 (22-29) mmol/L Anion Gap 16 (12-20) BUN 18 H (9-16) mg/dL Creatinine 1.07 (0.5-1.4) mg/dL Estim Creat Clear Calc 46.4 Estimated GFR 54 POC Glucose 404 H* 436 H* (60-115) mg/dL Random Glucose 453 H* (60-115) mg/dL Calcium 10.0 D (8.4-10.2) mg/dL Total Bilirubin 0.3 (0.0-1.0) mg/dL AST 12 (5-31) U/L ALT 16 (0-31) U/L Alkaline Phosphatase 121 H (39-117) U/L Total Protein 7.3 (6.5-8.0) g/dL Albumin 4.5 (3.5-5.0) g/dL 12/21/22 Range/Units 01:45 WBC (4.8-10.8) X10*3/uL RBC (4.20-5.50) X10*6/uL Hgb (12.0-16.0) g/dl Hct (37.0-47.0) % MCV (80.0-98.0) fL MCH (27.0-33.0) pg MCHC (31.0-35.0) g/dl RDW (11.0-16.0) % Plt Count (160-400) X10*3/uL MPV (9.4-12.3) fL Immature Gran % (Auto) (0.0-0.4) % Neut % (Auto) (45-73) % Lymph % (Auto) (20-40) % Redwood % (Auto) (2-11) % Eos % (Auto) (0-4) % Baso % (Auto) (0-2) % Lymph # (Auto) (1.2-4.9) X10*3/uL Redwood # (Auto) (0.1-1.2) X10*3/uL Eos # (Auto) (0.0-0.4) X10*3/uL Baso # (Auto) (0.0-0.2) X10*3/uL Abs Immat Gran (auto) (0.00-0.03) X10*3/uL Absolute Neuts (auto) (2.0-8.3) x10*3/uL Absolute Nucleated RBC (0.0-0.012) X10*3/uL Nucleated RBC % (auto) (0.0-0.2) /100WBC Sodium (135-145) mmol/L Potassium (3.3-5.1) mmol/L Chloride (96-108) mmol/L Carbon Dioxide (22-29) mmol/L Anion Gap (12-20) BUN (9-16) mg/dL Creatinine (0.5-1.4) mg/dL Estim Creat Clear Calc Estimated GFR POC Glucose 201 H (60-115) mg/dL Random Glucose (60-115) mg/dL Calcium (8.4-10.2) mg/dL Total Bilirubin (0.0-1.0) mg/dL AST (5-31) U/L ALT (0-31) U/L Alkaline Phosphatase (39-117) U/L Total Protein (6.5-8.0) g/dL Albumin (3.5-5.0) g/dL Discharge Plan Discharge Clinical Impression: Constipation Abdominal pain Qualifiers: Abdominal location: epigastric Qualified Code(s): R10.13 - Epigastric pain Patient Disposition: Home, Self-Care Instructions: Constipation (ED), Abdominal Pain (ED) Additional Instructions: You were seen here today for abdominal discomfort. Your blood work was all negative for any acute findings. You did however had high blood sugar please make sure that you follow-up with your primary care provider any use insulin as ordered. CT scan of abdomen dish not show any acute findings. You will be given script for MiraLax to take daily to help you bowels better. I will be send to see Dr. Pineda who is a extracorporeal technician and office [phone] Prescriptions: No Action insulin lispro [Humalog U-100 Insulin] 100 unit/mL solution 1 sliding scale dose subcut USEASDIRECTD Qty: 10 0RF cyclobenzaprine 5 mg tablet 5 mg PO TID PRN (Reason: muscle spasm) 7 Days Qty: 21 0RF metoclopramide HCl [Reglan] 10 mg tablet 10 mg PO Q6H PRN (Reason: nausea and vomiting) Qty: 7 0RF atorvastatin 20 mg tablet 20 mg PO BEDTIME quetiapine 300 mg tablet 600 mg PO BEDTIME clonazepam 2 mg tablet 2 mg PO BID Jardiance 25 mg tablet 25 mg PO QAM Trulicity 0.75 mg/0.5 mL pen injector 0.75 mg subcut MO insulin glargine [Lantus U-100 Insulin] 100 unit/mL solution 10 unit subcut QPM ondansetron 4 mg Tablet,Disintegrating 4 mg PO Q6H PRN (Reason: Nausea) aspirin 81 mg Tablet,Delayed Release (Dr/Ec) 81 mg PO DAILY Qty: 30 0RF heparin(porcine) in 0.45% NaCl 25,000 unit/250 mL Parenteral Solution 25,000 unit continuous IV infusion .Q0M Qty: 6000 0RF metoclopramide HCl [Reglan] 10 mg tablet 10 mg PO Q6H PRN (Reason: nausea and vomiting) Qty: 10 0RF metoprolol succinate 50 mg tablet extended release 24 hr 50 mg PO DAILY Qty: 90 3RF Referrals: Selwyn Pineda MD [Physician] - (Gastroparesis, IBS, constipation) Interventions: ED Discharge Assessment Last Done: 12/21/22 02:11 Discharge Date/Time: 12/21/22 02:11 Print Language: Prydeinig
[2022-12-20 22:07] LABS: Basophils Percent Auto 0.6 % (0-2); Eosinophils Absolute Auto 0.1 X10*3/uL (0.0-0.4); Eosinophils Percent Auto 1.7 % (0-4); Hematocrit 41.2 % (37.0-47.0); Hemoglobin 14.1 g/dl (12.0-16.0); Imm Gran Abs Auto 0.03 X10*3/uL (0.00-0.03); Imm Gran Pct Auto 0.4 % (0.0-0.4); Lymphocytes Percent Auto 28.9 % (20-40); Mean Corpuscular HGB Conc 34.2 g/dl (31.0-35.0); Mean Corpuscular Volume 90.5 fL (80.0-98.0); Mean Platelet Volume 9.3 fL (9.4-12.3); Monocytes Absolute Auto 0.5 X10*3/uL (0.1-1.2); Monocytes Percent Auto 7.3 % (2-11); Neutrophils Absolute Auto 4.3 x10*3/uL (2.0-8.3); Neutrophils Percent Auto 61.1 % (45-73); Platelet Count 295 X10*3/uL (160-400); Red Blood Count 4.55 X10*6/uL (4.20-5.50)
[2022-12-20 22:15] VITALS: BP 133/79; PULSE 100; RESP 18; TEMP 36.7; O2SAT 98
[2022-12-20 22:18] LABS: Alanine Aminotransferase 16 U/L (0-31); Albumin Level 4.5 g/dL (3.5-5.0); Alkaline Phosphatase 121 U/L (39-117); Anion Gap 16 (12-20); Aspartate Amino Transferase 12 U/L (5-31); Bilirubin Total 0.3 mg/dL (0.0-1.0); Blood Urea Nitrogen 18 mg/dL (9-16); Carbon Dioxide 25 mmol/L (22-29); Chloride 98 mmol/L (96-108); Creatinine Clr Calc Pharmacy 46.4; Estimated Glomerular Filt Rate 54; Glucose Random 453 mg/dL (60-115); Potassium 4.1 mmol/L (3.3-5.1); Sodium 135 mmol/L (135-145); Total Protein 7.3 g/dL (6.5-8.0)
[2022-12-20] MEDS: Ketorolac Tromethamine 15 MG/ML VIAL IVPUSH (22:19)
[2022-12-20] MEDS: 0.9 % Sodium Chloride 1,000 ML 999 ML IV (22:20)
[2022-12-20] MEDS: iohexoL 350 MG/ML 100 ML INFUS..BTL IV (22:47)
[2022-12-20 22:59] LABS: Glucose, Whole Blood 404 mg/dL (60-115)
[2022-12-20] MEDS: Morphine Sulfate 2 MG/ML CARTRIDGE IVPUSH (23:40)
[2022-12-21 00:51] LABS: Glucose, Whole Blood 436 mg/dL (60-115)
[2022-12-21] MEDS: Insulin Regular, Human 100 UNIT/ML 3 ML VIAL 10 UNIT IVPUSH (00:55)
[2022-12-21] MEDS: 0.9 % Sodium Chloride 1,000 ML 999 ML IV (00:58)
[2022-12-21 01:01] VITALS: BP 139/90; PULSE 106; RESP 16; O2SAT 97
[2022-12-21 01:48] LABS: Glucose, Whole Blood 201 mg/dL (60-115)
== END 2022-12-21 02:11 | disposition home or self-care (01) ==
PROVIDERS: Emergency Provider Internal Medicine
DX: R10.13 Epigastric pain (principal); K59.01 Slow transit constipation; E11.9 Type 2 diabetes mellitus without complications; F17.200 Nicotine dependence, unspecified, uncomplicated; Z79.4 Long term (current) use of insulin; Z79.899 Other long term (current) drug therapy
CPT/HCPCS: 36415; 74177; 80053; 82947; 85025; 96361; 96374; 96375; 99284; 99285; J1885; J2270; Q9967

== ENCOUNTER 2023-01-20 10:14 | Emergency (ER) | payer OTHER, SELFPAY ==
[2023-01-20 10:18] VITALS: BP 140/84; PULSE 114; RESP 16; TEMP 36.3; O2SAT 97; BMI 24.0
[2023-01-20 10:32] LABS: MANUAL DIFF FLAG NO
[2023-01-20 10:34] LABS: Basophils Percent Auto 0.7 % (0-2); Eosinophils Percent Auto 0.3 % (0-4); Hematocrit 42.9 % (37.0-47.0); Hemoglobin 14.4 g/dl (12.0-16.0); Imm Gran Abs Auto 0.03 X10*3/uL (0.00-0.03); Imm Gran Pct Auto 0.5 % (0.0-0.4); Lymphocytes Absolute Auto 1.3 X10*3/uL (1.2-4.9); Lymphocytes Percent Auto 22.4 % (20-40); Mean Corpuscular HGB Conc 33.6 g/dl (31.0-35.0); Mean Corpuscular Hemoglobin 30.5 pg (27.0-33.0); Mean Corpuscular Volume 90.9 fL (80.0-98.0); Mean Platelet Volume 9.1 fL (9.4-12.3); Monocytes Absolute Auto 0.3 X10*3/uL (0.1-1.2); Monocytes Percent Auto 5.4 % (2-11); Neutrophils Absolute Auto 4.2 x10*3/uL (2.0-8.3); Neutrophils Percent Auto 70.7 % (45-73); Platelet Count 267 X10*3/uL (160-400); Red Blood Count 4.72 X10*6/uL (4.20-5.50); Red Cell Distribution Width 11.6 % (11.0-16.0); White Blood Count 5.9 X10*3/uL (4.8-10.8)
[2023-01-20 11:01] LABS: Alanine Aminotransferase 18 U/L (0-31); Albumin Level 4.4 g/dL (3.5-5.0); Alkaline Phosphatase 91 U/L (39-117); Anion Gap 17 (12-20); Aspartate Amino Transferase 16 U/L (5-31); Bilirubin Direct 0.1 mg/dL (0.0-0.5); Bilirubin Total 0.5 mg/dL (0.0-1.0); Blood Urea Nitrogen 19 mg/dL (9-16); Calcium 10.2 mg/dL (8.4-10.2); Carbon Dioxide 24 mmol/L (22-29); Chloride 96 mmol/L (96-108); Creatinine Clr Calc Pharmacy 41.5; Estimated Glomerular Filt Rate 44; Glucose Random 613 mg/dL (60-115); Sodium 132 mmol/L (135-145); Total Protein 7.3 g/dL (6.5-8.0)
== END 2023-01-20 14:44 | disposition left against medical advice (07) ==
PROVIDERS: Emergency Provider Emergency Medicine; PCP Nurse Practitioner Family
DX: R10.10 Upper abdominal pain, unspecified (principal)
CPT/HCPCS: 36415; 80048; 80076; 85025; 99281; 99283

== ENCOUNTER 2023-02-02 08:28 | Emergency (ER) | payer OTHER, SELFPAY ==
[2023-02-02 08:30] VITALS: BP 159/104; PULSE 110; RESP 19; TEMP 35.8; O2SAT 98; BMI 29.2
--- NOTE | 2023-02-02 08:56 | MHC.EDTECH ---
Labs collected and sent to lab
[2023-02-02 08:59] LABS: MANUAL DIFF FLAG NO
[2023-02-02 09:01] LABS: Basophils Percent Auto 0.9 % (0-2); Eosinophils Absolute Auto 0.1 X10*3/uL (0.0-0.4); Eosinophils Percent Auto 1.8 % (0-4); Hematocrit 40.9 % (37.0-47.0); Hemoglobin 13.8 g/dl (12.0-16.0); Imm Gran Abs Auto 0.02 X10*3/uL (0.00-0.03); Imm Gran Pct Auto 0.4 % (0.0-0.4); Lymphocytes Absolute Auto 1.3 X10*3/uL (1.2-4.9); Lymphocytes Percent Auto 29.7 % (20-40); Mean Corpuscular HGB Conc 33.7 g/dl (31.0-35.0); Mean Corpuscular Hemoglobin 31.1 pg (27.0-33.0); Mean Corpuscular Volume 92.1 fL (80.0-98.0); Monocytes Absolute Auto 0.3 X10*3/uL (0.1-1.2); Monocytes Percent Auto 6.2 % (2-11); Neutrophils Absolute Auto 2.8 x10*3/uL (2.0-8.3); Platelet Count 226 X10*3/uL (160-400); Red Blood Count 4.44 X10*6/uL (4.20-5.50); Red Cell Distribution Width 11.9 % (11.0-16.0); White Blood Count 4.5 X10*3/uL (4.8-10.8)
[2023-02-02 09:15] LABS: Lipase 18 U/L (8-78)
[2023-02-02 09:23] LABS: Alanine Aminotransferase 16 U/L (0-31); Alkaline Phosphatase 87 U/L (39-117); Anion Gap 15 (12-20); Aspartate Amino Transferase 16 U/L (5-31); Bilirubin Direct 0.1 mg/dL (0.0-0.5); Bilirubin Total 0.4 mg/dL (0.0-1.0); Blood Urea Nitrogen 11 mg/dL (9-16); Calcium 9.2 mg/dL (8.4-10.2); Carbon Dioxide 23 mmol/L (22-29); Chloride 104 mmol/L (96-108); Creatinine Clr Calc Pharmacy 59.3; Estimated Glomerular Filt Rate 59; Potassium 4.5 mmol/L (3.3-5.1); Sodium 137 mmol/L (135-145); Total Protein 6.6 g/dL (6.5-8.0)
[2023-02-02 09:24] LABS: Glucose Random 437 mg/dL (60-115)
[2023-02-02 09:38] VITALS: BP 152/99; PULSE 106; RESP 18; TEMP 36.7; O2SAT 98
--- NOTE | 2023-02-02 09:40 | ED_ITS ---
HPI - General Adult General Chief complaint: Abdominal Pain Stated complaint: Abd pain Time Seen by Provider: 02/02/23 09:40 Source: patient Mode of arrival: ambulatory Limitations: no limitations History of Present Illness HPI narrative: Patient is a 53 year old female with a significant past medical history of ga stropresis, DM, and HTN presenting today with a chief complaint of abdominal pain that has been ongoing for 2-3 days. However, she woke up this morning with severe intense pain which she describes as sharp and stabbing. She admits to some mild headache but denies fever, chills, nausea, vomiting, diarrhea or SOB. She reports no other acute concerns at this time. Patient states that when this has happened in the past, she has been given morphine and feels much better. Onset (ago): day(s) (2-3 days) Location: abdomen Radiation: non-radiation Severity: mild Severity scale (1-10): 2 Quality: sharp and constant Pain Consistency: constant Relieving factors: none Exacerbating factors: none Associated symptoms: denies other symptoms Treatments prior to arrival: none Related Data Previous Rx's Medication Instructions Recorded metoclopramide HCl 5 mg tablet 10 mg PO DAILY #30 tabs 06/15/20 (Reglan) ondansetron HCl 4 mg tablet 4 mg PO Q8H PRN nausea and 10/02/20 (Zofran) vomiting #10 tabs hydrochlorothiazide 25 mg tablet 25 mg PO DAILY #20 tabs 12/05/20 metoclopramide HCl 10 mg tablet 10 mg PO Q6H PRN nausea and 12/05/20 (Reglan) vomiting #20 tabs ondansetron HCl 4 mg tablet 4 mg PO Q8H PRN nausea and 06/21/21 (Zofran) vomiting #10 tabs insulin glargine 100 unit/mL 12 unit (0.12 mL) subcut QPM #10 mL 03/01/22 subcutaneous solution (Lantus U-100 Insulin) insulin lispro 100 unit/mL 1 sliding scale dose subcut 03/01/22 subcutaneous solution (Humalog USEASDIRECTD #10 mL U-100 Insulin) metoclopramide HCl 10 mg tablet 10 mg PO TIDAC 2 days #6 tabs 04/06/22 (Reglan) sucralfate 100 mg/mL oral 10 ml PO BID #414 mL 04/06/22 suspension (Carafate) ketorolac 10 mg tablet 10 mg PO BID PRN pain 5 days #7 09/05/22 tabs dicyclomine 20 mg tablet 20 mg PO QID PRN abdominal 11/24/22 discomfort #14 tabs famotidine 20 mg tablet 20 mg PO BID #20 tabs 11/24/22 ondansetron 4 mg disintegrating 4 mg PO Q8H PRN nausea and 11/24/22 tablet vomiting #10 tabs Allergies Allergy/AdvReac Type Severity Reaction Status Date / Time No Known Allergies Allergy Verified 02/02/23 08:30 [No Known Allergies*] Review of Systems Constitutional: Constitutional: Reports no additional constitutional complaints, Denies chills, Denies fever(s) and Denies night sweats Eyes: Eyes: Reports no additional eye complaints ENT: Denies dizziness Cardiovascular: Cardiovascular: Reports no additional cardiovascular complaints, Denies chest pain, Denies lightheadedness and Denies dyspnea Respiratory: Respiratory: Reports no additional respiratory complaints and Denies dyspnea Gastrointestinal: Gastrointestinal: Reports no additional gastrointestinal complaints, Reports abdominal pain, Denies melena and Denies hematochezia Genitourinary: Genitourinary: Denies hematuria, Denies urinary frequency, Denies dysuria, Denies urinary incontinence, Denies urinary hesitancy and Denies urinary urgency Musculoskeletal: Musculoskeletal: Reports no additional musculoskeletal complaints, Denies numbness and Denies tingling Neurologic: Denies dizziness, Denies numbness and Denies tingling Psychiatric: Psychiatric: Reports no additional psychiatric complaints Endocrine: Endocrine: Reports no additional endocrine complaints Hematologic/Lymphatic: Hematologic/Lymphatic: Reports no additional hematologic/lymphatic complaints Allergic/Immunologic: Allergic/Immunologic: Reports no additional allergic/imm unologic complaints [facility] Past Medical History Attestation statement: The following information was validated with the patient. Source: old records reviewed and nursing notes reviewed Medical History Diabetes Gastroparesis Social History Social History Alcohol intake: never Patient Tobacco Use Status: Current everyday Tobacco user Advance Directives: No Advance Directives Information Provided: Yes Physical Exam ED Vital Signs: Vital Signs - 24 hr 02/02/23 08:30 02/02/23 09:38 02/02/23 11:15 Temperature 96.5 F L 98.0 F 97.9 F Pulse Rate 110 H 106 H 110 H Respiratory Rate 19 18 15 Blood Pressure 159/104 H 152/99 H 164/94 H Pulse Oximetry 98 98 97 Oxygen Delivery Method Room Air Room Air Room Air BMI result Body Mass Index 29.2 Const General: cooperative, no acute distress, alert and awake Nutritional Appearance: well nourished Orientation/consciousness: patient oriented x3 Limitations: no limitations HENMT Head: Yes normal to inspection and Yes atraumatic Ears: hearing grossly normal bilaterally and external ears normal General nose exam: Normal external nose present Face and sinus: Yes normal facial exam Mouth: Normal oral and palatal mucosa present Eyes General: appearance normal, both eyes and all related structures Periorbital: periorbital findings normal Eyelids: Yes eyelids normal Conjunctivae: conjunctivae normal Pupils: Equal, round and reactive pupils present EOM: EOMs intact bilaterally Neck Neck: Yes normal visual inspection, Yes full ROM and Yes no lymphadenopathy Chest Chest palpation & inspection: normal inspection of the chest Resp Effort & Inspection: normal respiratory effort and able to speak in complete sentences Auscultation: clear to auscultation bilaterally Cardio Rate: regular rate Rhythm: regular rhythm Heart sounds: S1 normal heart sound present and S2 normal heart sound present GI Inspection: Yes normal to inspection Palpation (GI): Soft to palpation, not firm, nontender and no guarding Auscultation: normal bowel sounds Neuro General: patient oriented x3 and moves all extremities Cranial nerves: Yes Equal, round and reactive pupils present Cognition (Neuro): normal cognition Motor exam (neuro): 5/5 motor strength present throughout Sensory Exam: Normal double simultaneous stimulation for sensation Coordination: [id number] test normal Extrem General: Yes normal to inspection, Yes full ROM and Yes capillary refill normal Psych Appearance: grossly normal Mental Status: mental status grossly normal Affect: normal affect Attitude: cooperative Thought process: Normal thought process present Thought content: Normal thought content present Insight: Good insight present (Psych) Medications Administered Discontinued Medications Generic Name Dose Route Start Last Admin Trade Name Freq PRN Reason Stop Dose Admin Al Hydroxide/Mg Hydroxide 15 ml 02/02/23 09:52 02/02/23 10:08 Magnesium Hydrox/Alum Hydrox 30 Ml Oral.Susp PO 02/02/23 09:53 15 ml ONCE ONE Administration Sodium Chloride 1,000 mls @ 999 mls/hr 02/02/23 09:45 02/02/23 11:54 Ns IV 02/02/23 10:45 Infused .Q1H1M BASHIR Infusion Lidocaine HCl 15 ml 02/02/23 09:52 02/02/23 10:09 Lidocaine Hcl Viscous 2 % 15 Ml Solution MUCOUS MEM 02/02/23 09:53 15 ml ONCE ONE Administration Morphine Sulfate 4 mg 02/02/23 10:25 02/02/23 10:32 Morphine Sulfate 4 Mg/Ml Cartridge IVPUSH 02/02/23 10:26 4 mg ONCE ONE Administration Protocol Ondansetron HCl 4 mg 02/02/23 09:42 02/02/23 10:09 Ondansetron Hcl 4 Mg/2 Ml Vial IVPUSH 02/02/23 09:43 4 mg ONCE ONE Administration Pantoprazole Sodium 40 mg 02/02/23 09:51 02/02/23 10:09 Pantoprazole Sodium 40 Mg/10 Ml Vial IVPUSH 02/02/23 09:52 40 mg ONCE ONE Administration Medical Decision Making Medical Decision Making [facility] Narrative: Patient is a 53 year old assigned female at with a history of DM and gastroporesis presenting to the emergency department today with epigastirc pain. Patient's physical exam was unremarkable. Patient's blood work was grossly unremarkable with the exception of an elevated blood sugar however, that is chronic for the patient. I explained my physical exam findings as well as all test results to the patient. I answered all questions asked by the patient. Patient received pain medication and fluids which she stated helped her symptoms significantly. I stressed the importance of the patient taking her medication as prescribed. I stressed the importance of the patient following up with her primary care provider and a GI specialist. I stressed the importance of the patient returning to the emergency department immediately if her symptoms were to worsen or if she were to develop any dizziness, shortness of breath, difficulty breathing, chest pain, blurry vision, loss of vision, nausea, vomiting, abdominal pain, fever, chills, back pain, or any other complaints. Patient verbalized agreement and understanding with this treatment plan and discharge. Differential Diagnosis Differential Diagnoses: The differential diagnosis associated with the pres entation includes gastroparesis Admission/Observation Consideration of admission/observation: Escalation of care including admi ssion/observation considered Patient would have been admitted to the hospital had her work up had any findings where hospital admission was appropriate or if she were unable to tolerate PO while in the department. Lab Data [facility] Lab Attestation statement: I reviewed the patient's lab results. My interpretation of these results are listed in the [facility] portion of this chart. 02/02/23 08:55 02/02/23 08:55 Labs: Lab Results 02/02/23 02/02/23 02/02/23 Range/Units 08:55 08:55 08:55 WBC 4.5 L (4.8-10.8) X10*3/uL RBC 4.44 (4.20-5.50) X10*6/uL Hgb 13.8 (12.0-16.0) g/dl Hct 40.9 (37.0-47.0) % MCV 92.1 (80.0-98.0) fL MCH 31.1 (27.0-33.0) pg MCHC 33.7 (31.0-35.0) g/dl RDW 11.9 (11.0-16.0) % Plt Count 226 (160-400) X10*3/uL MPV 9.0 L (9.4-12.3) fL Immature Gran % (Auto) 0.4 (0.0-0.4) % Neut % (Auto) 61.0 (45-73) % Lymph % (Auto) 29.7 (20-40) % [place] % (Auto) 6.2 (2-11) % Eos % (Auto) 1.8 (0-4) % Baso % (Auto) 0.9 (0-2) % Lymph # (Auto) 1.3 (1.2-4.9) X10*3/uL [place] # (Auto) 0.3 (0.1-1.2) X10*3/uL Eos # (Auto) 0.1 (0.0-0.4) X10*3/uL Baso # (Auto) 0.0 (0.0-0.2) X10*3/uL Abs Immat Gran (auto) 0.02 (0.00-0.03) X10*3/uL Absolute Neuts (auto) 2.8 (2.0-8.3) x10*3/uL Absolute Nucleated RBC 0.000 (0.0-0.012) X10*3/uL Nucleated RBC % (auto) 0.0 (0.0-0.2) /100WBC Sodium 137 (135-145) mmol/L Potassium 4.5 (3.3-5.1) mmol/L Chloride 104 (96-108) mmol/L Carbon Dioxide 23 (22-29) mmol/L Anion Gap 15 (12-20) BUN 11 (9-16) mg/dL Creatinine 0.98 (0.5-1.4) mg/dL Estim Creat Clear Calc 59.3 Estimated GFR 59 POC Glucose (60-115) mg/dL Random Glucose 437 H* (60-115) mg/dL Calcium 9.2 D (8.4-10.2) mg/dL Magnesium 1.9 (1.6-2.6) mg/dL Total Bilirubin 0.4 (0.0-1.0) mg/dL Direct Bilirubin 0.1 (0.0-0.5) mg/dL AST 16 (5-31) U/L ALT 16 (0-31) U/L Alkaline Phosphatase 87 (39-117) U/L Total Protein 6.6 (6.5-8.0) g/dL Albumin 4.0 (3.5-5.0) g/dL Lipase 18 (8-78) U/L 02/02/23 02/02/23 Range/Units 09:38 11:13 WBC (4.8-10.8) X10*3/uL RBC (4.20-5.50) X10*6/uL Hgb (12.0-16.0) g/dl Hct (37.0-47.0) % MCV (80.0-98.0) fL MCH (27.0-33.0) pg MCHC (31.0-35.0) g/dl RDW (11.0-16.0) % Plt Count (160-400) X10*3/uL MPV (9.4-12.3) fL Immature Gran % (Auto) (0.0-0.4) % Neut % (Auto) (45-73) % Lymph % (Auto) (20-40) % [place] % (Auto) (2-11) % Eos % (Auto) (0-4) % Baso % (Auto) (0-2) % Lymph # (Auto) (1.2-4.9) X10*3/uL [place] # (Auto) (0.1-1.2) X10*3/uL Eos # (Auto) (0.0-0.4) X10*3/uL Baso # (Auto) (0.0-0.2) X10*3/uL Abs Immat Gran (auto) (0.00-0.03) X10*3/uL Absolute Neuts (auto) (2.0-8.3) x10*3/uL Absolute Nucleated RBC (0.0-0.012) X10*3/uL Nucleated RBC % (auto) (0.0-0.2) /100WBC Sodium (135-145) mmol/L Potassium (3.3-5.1) mmol/L Chloride (96-108) mmol/L Carbon Dioxide (22-29) mmol/L Anion Gap (12-20) BUN (9-16) mg/dL Creatinine (0.5-1.4) mg/dL Estim Creat Clear Calc Estimated GFR POC Glucose 417 H* 323 H (60-115) mg/dL Random Glucose (60-115) mg/dL Calcium (8.4-10.2) mg/dL Magnesium (1.6-2.6) mg/dL Total Bilirubin (0.0-1.0) mg/dL Direct Bilirubin (0.0-0.5) mg/dL AST (5-31) U/L ALT (0-31) U/L Alkaline Phosphatase (39-117) U/L Total Protein (6.5-8.0) g/dL Albumin (3.5-5.0) g/dL Lipase (8-78) U/L Chronic Conditions Patient?s care impacted by: Diabetes Discharge Plan Discharge Clinical Impression: Gastroparesis Patient Disposition: Home, Self-Care Instructions: Gastroparesis (ED) Additional Instructions: Follow up with your primary care provider and a GI specialist. Return to the emergency department immediately if your symptoms worsen or if you develop any dizziness, shortness of breath, difficulty breathing, chest pain, blurry vision, loss of vision, nausea, vomiting, abdominal pain, fever, chills, back pain, or any other complaints. Prescriptions: No Action metoclopramide HCl [Reglan] 5 mg tablet 10 mg PO DAILY Qty: 30 0RF ondansetron HCl [Zofran] 4 mg tablet 4 mg PO Q8H PRN (Reason: nausea and vomiting) Qty: 10 0RF metoclopramide HCl [Reglan] 10 mg tablet 10 mg PO Q6H PRN (Reason: nausea and vomiting) Qty: 20 0RF hydrochlorothiazide 25 mg tablet 25 mg PO DAILY Qty: 20 0RF ondansetron HCl [Zofran] 4 mg tablet 4 mg PO Q8H PRN (Reason: nausea and vomiting) Qty: 10 0RF insulin lispro [Humalog U-100 Insulin] 100 unit/mL solution 1 sliding scale dose subcut USEASDIRECTD Qty: 10 0RF insulin glargine [Lantus U-100 Insulin] 100 unit/mL solution 12 unit subcut QPM Qty: 10 0RF metoclopramide HCl [Reglan] 10 mg tablet 10 mg PO TIDAC 2 Days Qty: 6 0RF Rx Instructions: Take 1 tablet 30 minutes prior to each meal of the day (3). sucralfate [Carafate] 100 mg/mL suspension 10 ml PO BID Qty: 414 0RF ketorolac 10 mg tablet 10 mg PO BID PRN (Reason: pain) 5 Days Qty: 7 0RF Rx Instructions: Do not take NSAIDs with this medication, only Tylenol if needed ondansetron 4 mg tablet,disintegrating 4 mg PO Q8H PRN (Reason: nausea and vomiting) Qty: 10 0RF famotidine 20 mg tablet 20 mg PO BID Qty: 20 0RF dicyclomine 20 mg tablet 20 mg PO QID PRN (Reason: abdominal discomfort) Qty: 14 0RF Referrals: [facility] [place] [facility] [Provider Group] (Call to establish and follow up with a GI specialist. ) Tasha Naranjo FNP [Primary Care Provider] - Stand Alone Forms: Work/School Release Interventions: ED Discharge Assessment Last Done: 02/02/23 12:08 Discharge Date/Time: 02/02/23 12:09 Print Language: Kinyarwanda
[2023-02-02 09:41] LABS: Glucose, Whole Blood 417 mg/dL (60-115)
--- NOTE | 2023-02-02 09:54 | PC.NURSE ---
seen by DHAVAL Carmen. PIV 22 guage started the right hand with 500 mL NS running. Will medicate per order and continue to monitor.
[2023-02-02 10:03] LABS: Magnesium 1.9 mg/dL (1.6-2.6)
[2023-02-02] MEDS: 0.9 % Sodium Chloride 1,000 ML 999 ML IV (10:07)
[2023-02-02] MEDS: Magnesium Hydrox/Alum Hydrox 30 ML ORAL.SUSP 15 ML PO (10:08)
[2023-02-02] MEDS: ondansetron HCL 4 MG/2 ML VIAL IVPUSH (10:09)
[2023-02-02] MEDS: Pantoprazole Sodium 40 MG/10 ML VIAL IVPUSH (10:09)
[2023-02-02] MEDS: Lidocaine HCl Viscous 2 % 15 ML SOLUTION MUCOUS MEM (10:09)
[2023-02-02] MEDS: Morphine Sulfate 4 MG/ML CARTRIDGE IVPUSH (10:32)
[2023-02-02 11:15] VITALS: BP 164/94; PULSE 110; RESP 15; TEMP 36.6; O2SAT 97
[2023-02-02 11:26] LABS: Glucose, Whole Blood 323 mg/dL (60-115)
== END 2023-02-02 12:09 | disposition home or self-care (01) ==
PROVIDERS: Physician Assistant Medical; Emergency Provider Emergency Medicine; PCP Nurse Practitioner Family
DX: K31.84 Gastroparesis (principal); R10.9 Unspecified abdominal pain; I10 Essential (primary) hypertension; E11.9 Type 2 diabetes mellitus without complications
CPT/HCPCS: 36415; 80048; 80076; 82947; 83690; 83735; 85025; 96361; 96374; 96375; 99284; J2270; J2405

== ENCOUNTER 2023-05-21 06:37 | Emergency (ER) | payer OTHER, SELFPAY ==
--- NOTE | ~2023-05-21 | XR_ITS ---
EXAMINATION: XR CHEST CLINICAL INFORMATION: Cough. COMPARISON: 12/04/2020 TECHNIQUE: 2 views of the chest were obtained. FINDINGS: The lungs are well expanded. No confluent opacity to suggest developing pneumonia. No pleural effusion. Cardiac silhouette is within normal limits. XR/XR chest 2V IMPRESSION: No acute abnormality.
[2023-05-21 07:14] VITALS: BP 104/68; PULSE 114; RESP 18; TEMP 36.7; O2SAT 95; BMI 28.5
[2023-05-21 07:46] LABS: IDNOW Serial# 08D9AD1C; Influenza A Negative (Negative); Influenza B2 Negative (Negative)
--- NOTE | 2023-05-21 07:50 | ED.GENADULT ---
HPI - General Adult General Chief complaint: General Medical Stated complaint: Cough/flu like symptoms Time Seen by Provider: 05/21/23 07:45 Source: patient Mode of arrival: ambulatory Limitations: no limitations History of Present Illness HPI narrative: 53 yo female with PMH of DM, gastroparesis and chronic abdominal pain here with c/o body aches, cough and not feeling well. Her mom has the same thing and her mom was told by urgent care she has the flu though the patient doesn't think her mom was given any medications. The patient has been sick for 5 days now. MD complaint: flu like symptoms Onset (ago): day(s) (5) Radiation: non-radiation Severity: moderate Quality: aching Pain Consistency: intermittent Relieving factors: rest Exacerbating factors: movement Associated symptoms: cough, fever/chills, loss of appetite and malaise Treatments prior to arrival: none Related Data Previous Rx's Medication Instructions Recorded metoclopramide HCl 5 mg tablet 10 mg (2 x 5 mg) PO DAILY #30 tabs 06/15/20 (Reglan) ondansetron HCl 4 mg tablet 4 mg PO Q8H PRN nausea and 10/02/20 (Zofran) vomiting #10 tabs hydrochlorothiazide 25 mg tablet 25 mg PO DAILY #20 tabs 12/05/20 metoclopramide HCl 10 mg tablet 10 mg PO Q6H PRN nausea and 12/05/20 (Reglan) vomiting #20 tabs ondansetron HCl 4 mg tablet 4 mg PO Q8H PRN nausea and 06/21/21 (Zofran) vomiting #10 tabs insulin glargine 100 unit/mL 12 unit (0.12 mL) subcut QPM #10 mL 03/01/22 subcutaneous solution (Lantus U-100 Insulin) insulin lispro 100 unit/mL 1 sliding scale dose subcut 03/01/22 subcutaneous solution (Humalog USEASDIRECTD #10 mL U-100 Insulin) metoclopramide HCl 10 mg tablet 10 mg PO TIDAC 2 days #6 tabs 04/06/22 (Reglan) sucralfate 100 mg/mL oral 10 ml PO BID #414 mL 04/06/22 suspension (Carafate) ketorolac 10 mg tablet 10 mg PO BID PRN pain 5 days #7 09/05/22 tabs dicyclomine 20 mg tablet 20 mg PO QID PRN abdominal 11/24/22 discomfort #14 tabs famotidine 20 mg tablet 20 mg PO BID #20 tabs 11/24/22 ondansetron 4 mg disintegrating 4 mg PO Q8H PRN nausea and 11/24/22 tablet vomiting #10 tabs ondansetron 4 mg disintegrating 4 mg PO Q8H PRN nausea and 05/21/23 tablet vomiting #20 tabs Allergies Allergy/AdvReac Type Severity Reaction Status Date / Time No Known Allergies Allergy Verified 02/02/23 08:30 [No Known Allergies*] Review of Systems Review of Systems: Constitutional : no Fever, positive Chills, positive fatigue, positive Malaise ENT/Mouth : positive sore throat, positive runny nose Eyes: No Discharge Cardiovascular : No Chest Pain, No SOB Respiratory : No Cough, No Sputum Gastrointestinal : No Nausea, No Vomiting, No Diarrhea Genitourinary : No Dysuria, No Urinary Frequency Musculoskeletal : positive Myalgia Skin : No rash Neuro : pos Headache All other systems reviewed and are negative [facility] Past Medical History Attestation statement: The following information was validated with the patient. Source: old records reviewed Medical History Diabetes Gastroparesis Social History Social History Alcohol intake: never Patient Tobacco Use Status: Current everyday Tobacco user Advance Directives: No Advance Directives Information Provided: Yes Physical Exam ED Vital Signs: Vital Signs - 24 hr 05/21/23 07:14 Temperature 98.1 F Pulse Rate 114 H Respiratory Rate 18 Blood Pressure 104/68 Pulse Oximetry 95 Oxygen Delivery Method Room Air BMI result Body Mass Index 28.5 Appearance: Alert. Oriented X3. No acute distress. Eyes: Pupils equal, round and reactive to light. ENT: Pharynx normal. MMM Neck: Normal inspection. Neck supple. CVS: Normal heart rate and rhythm. Pulses normal. Respiratory: No respiratory distress. Breath sounds diminished LL base Abdomen: Soft and non-tender. Skin: Skin warm and dry. Normal skin color. Normal skin turgor. Extremities: No lower extremity edema. Neuro: Oriented X 3. No motor deficit. No sensory deficit. Medical Decision Making Medical Decision Making MDM Narrative: 53 yo female with PMH of DM, gastroparesis here with viral like illness x 5 days and mom has the same illness at this time she is not toxic has stable VS other than mild elevated HR will obtain viral panel and CXR. She is able to tolerate PO. Possible viral vs pneumonia. Differential Diagnosis Differential Diagnoses: The differential diagnosis associated with the presentation includes flu, viral, covid, pneumonia Admission/Observation Consideration of admission/observation: Escalation of care including admission/observation considered negative workup not toxic, VS stable able to tolerate PO can be managed as outpatient Lab Data [facility] Lab Attestation statement: I reviewed the patient's lab results. Labs: Lab Results 05/21/23 05/21/23 Range/Units 07:23 07:54 COVID-19 ([facility]) Negative (Negative) COVID-19 Clin Com See Note Influenza Type A ([facility]) Negative (Negative) Influenza Type B ([facility]) Negative (Negative) Influenza A & B Note See Note Independent Interpretation I performed an independent interpretation of an: Plain X-Ray (no pneumonia) Radiology Impression Discussion of test interpretation with radiology: I have reviewed the radiologist's reading. External Record Review External record reviewed: Inpatient record Prescription Management I considered prescription management with: Other (zofran) Chronic Conditions Patient?s care impacted by: Diabetes Discharge Plan Discharge Clinical Impression: Viral infection Patient Disposition: Home, Self-Care Instructions: Viral Syndrome (ED) Additional Instructions: return for worsening symptoms, fevers, vomiting, inability to eat or drink, difficulty breathing or any other concerns. negative COVID , negative flu no pneumonia on chest xray take tylenol or motrin as needed for symptoms and pain Prescriptions: New ondansetron 4 mg tablet,disintegrating 4 mg PO Q8H PRN (Reason: nausea and vomiting) Qty: 20 0RF No Action metoclopramide HCl [Reglan] 5 mg tablet 10 mg PO DAILY Qty: 30 0RF ondansetron HCl [Zofran] 4 mg tablet 4 mg PO Q8H PRN (Reason: nausea and vomiting) Qty: 10 0RF metoclopramide HCl [Reglan] 10 mg tablet 10 mg PO Q6H PRN (Reason: nausea and vomiting) Qty: 20 0RF hydrochlorothiazide 25 mg tablet 25 mg PO DAILY Qty: 20 0RF ondansetron HCl [Zofran] 4 mg tablet 4 mg PO Q8H PRN (Reason: nausea and vomiting) Qty: 10 0RF insulin lispro [Humalog U-100 Insulin] 100 unit/mL solution 1 sliding scale dose subcut USEASDIRECTD Qty: 10 0RF insulin glargine [Lantus U-100 Insulin] 100 unit/mL solution 12 unit subcut QPM Qty: 10 0RF metoclopramide HCl [Reglan] 10 mg tablet 10 mg PO TIDAC 2 Days Qty: 6 0RF Rx Instructions: Take 1 tablet 30 minutes prior to each meal of the day (3). sucralfate [Carafate] 100 mg/mL suspension 10 ml PO BID Qty: 414 0RF ketorolac 10 mg tablet 10 mg PO BID PRN (Reason: pain) 5 Days Qty: 7 0RF Rx Instructions: Do not take NSAIDs with this medication, only Tylenol if needed ondansetron 4 mg tablet,disintegrating 4 mg PO Q8H PRN (Reason: nausea and vomiting) Qty: 10 0RF famotidine 20 mg tablet 20 mg PO BID Qty: 20 0RF dicyclomine 20 mg tablet 20 mg PO QID PRN (Reason: abdominal discomfort) Qty: 14 0RF
[2023-05-21 08:28] LABS: COVID-19 Test Negative (Negative); IDNOW Serial# 9DB6401D
== END 2023-05-21 09:10 | disposition home or self-care (01) ==
PROVIDERS: Emergency Provider Emergency Medicine
DX: B34.9 Viral infection, unspecified (principal); R05.9 Cough, unspecified; Z20.822 Contact with and (suspected) exposure to COVID-19
CPT/HCPCS: 71046; 87502; 87635; 99282; 99283

== ENCOUNTER 2023-11-04 09:36 | Emergency (ER) | payer OTHER, SELFPAY ==
[2023-11-04 09:36] VITALS: BP 111/74; PULSE 119; RESP 20; TEMP 36.6; O2SAT 99; BMI 27.6
== END 2023-11-04 14:17 | disposition left against medical advice (07) ==
PROVIDERS: Emergency Provider Emergency Medicine
DX: R10.30 Lower abdominal pain, unspecified (principal)
CPT/HCPCS: 99281

== ENCOUNTER 2023-11-05 21:06 | Emergency (ER) | payer OTHER, SELFPAY ==
[2023-11-05 21:38] VITALS: BP 168/105; PULSE 112; RESP 18; TEMP 36.4; O2SAT 97; BMI 28.7
[2023-11-05 22:11] LABS: MANUAL DIFF FLAG NO
[2023-11-05 22:12] LABS: Basophils Percent Auto 0.6 % (0-2); Eosinophils Absolute Auto 0.1 X10*3/uL (0.0-0.4); Eosinophils Percent Auto 0.9 % (0-4); Hematocrit 43.1 % (37.0-47.0); Hemoglobin 14.9 g/dl (12.0-16.0); Imm Gran Abs Auto 0.01 X10*3/uL (0.00-0.03); Imm Gran Pct Auto 0.1 % (0.0-0.4); Lymphocytes Absolute Auto 2.1 X10*3/uL (1.2-4.9); Lymphocytes Percent Auto 30.7 % (20-40); Mean Corpuscular HGB Conc 34.6 g/dl (31.0-35.0); Mean Corpuscular Hemoglobin 30.7 pg (27.0-33.0); Mean Corpuscular Volume 88.7 fL (80.0-98.0); Mean Platelet Volume 8.9 fL (9.4-12.3); Monocytes Absolute Auto 0.5 X10*3/uL (0.1-1.2); Monocytes Percent Auto 7.2 % (2-11); Neutrophils Absolute Auto 4.2 x10*3/uL (2.0-8.3); Neutrophils Percent Auto 60.5 % (45-73); Platelet Count 290 X10*3/uL (160-400); Red Blood Count 4.86 X10*6/uL (4.20-5.50); Red Cell Distribution Width 11.9 % (11.0-16.0)
--- NOTE | 2023-11-05 22:13 | MHC.EDTECH ---
Labs,and urine obtained and sent to lab.
[2023-11-05 22:14] LABS: Appearance Urine Clear; Color Urine Yellow; Glucose Urine UA >=1000 mg/dL (Negative); Leukocyte Esterase Urine Negative (Negative); Nitrite Urine Negative (Negative); PH 6.5 (5.0-9.0); Specific Gravity - Urine >= 1.030 (1.005-1.025); UMIC TRIGGER UACC YES; Urine Blood Negative (Negative); Urine Ketones Negative (Negative); Urine Protein Negative (Neg-Trace)
[2023-11-05 22:33] LABS: Alanine Aminotransferase 16 U/L (0-31); Albumin Level 4.5 g/dL (3.5-5.0); Alkaline Phosphatase 74 U/L (39-117); Anion Gap 13 (12-20); Aspartate Amino Transferase 14 U/L (5-31); Bilirubin Direct 0.2 mg/dL (0.0-0.5); Bilirubin Total 0.5 mg/dL (0.0-1.0); Blood Urea Nitrogen 10 mg/dL (9-16); Calcium 10.2 mg/dL (8.4-10.2); Carbon Dioxide 25 mmol/L (22-29); Chloride 107 mmol/L (96-108); Creatinine Clr Calc Pharmacy 46.5; Estimated Glomerular Filt Rate 45; Glucose Random 168 mg/dL (60-115); Potassium 3.9 mmol/L (3.3-5.1); Sodium 141 mmol/L (135-145); Total Protein 7.6 g/dL (6.5-8.0)
[2023-11-05 23:07] LABS: Bacteria Urine 1+ (None Seen); Hyaline Casts Urine 0-2 /LPF (0-2); RBC Urine 0-2 /HPF (0-2); UACC Culture Trigger YES
[2023-11-05 23:23] VITALS: BP 160/100; PULSE 116; RESP 18; TEMP 36.6; O2SAT 97
[2023-11-06 01:57] VITALS: BP 153/88; PULSE 119; RESP 22; O2SAT 95
[2023-11-06 02:04] LABS: Glucose, Whole Blood 260 mg/dL (60-115)
[2023-11-06 02:54] VITALS: BP 143/122; PULSE 129; RESP 14; TEMP 36.7; O2SAT 100
--- NOTE | 2023-11-06 03:13 | ED_ITS ---
HPI - Abdominal Pain General Chief Complaint: Abdominal Pain Stated Complaint: abd pain, kidney hurt, vomiting Time Seen by Provider: 11/06/23 02:56 Source: patient and old records reviewed Mode of arrival: ambulatory Limitations: no limitations History of Present Illness HPI narrative: 53 yo female with PMH of DM, gastroparesis here with 2 days of her gastroparesis flare up including n/v and epigastric pain she does not know a trigger. She feels dehydrated. Has hx of same in past. MD elicited complaint: abdominal pain Pertinent past history: other (gastroparesis) Onset (ago): day(s) (2) Pain Consistency: constant Location: epigastric Severity: similar to previous episodes Quality: aching and fullness Radiation: epigastric Migration to: no migration Exacerbating factors: eating Relieving factors: nothing Context: history of similar episodes Associated symptoms: nausea and vomiting Related Data Previous Rx's Medication Instructions Recorded metoclopramide HCl 5 mg tablet 10 mg (2 x 5 mg) PO DAILY #30 tabs 06/15/20 (Reglan) ondansetron HCl 4 mg tablet 4 mg PO Q8H PRN nausea and 10/02/20 (Zofran) vomiting #10 tabs hydrochlorothiazide 25 mg tablet 25 mg PO DAILY #20 tabs 12/05/20 metoclopramide HCl 10 mg tablet 10 mg PO Q6H PRN nausea and 12/05/20 (Reglan) vomiting #20 tabs ondansetron HCl 4 mg tablet 4 mg PO Q8H PRN nausea and 06/21/21 (Zofran) vomiting #10 tabs insulin glargine 100 unit/mL 12 unit (0.12 mL) subcut QPM #10 mL 03/01/22 subcutaneous solution (Lantus U-100 Insulin) insulin lispro 100 unit/mL 1 sliding scale dose subcut 03/01/22 subcutaneous solution (Humalog USEASDIRECTD #10 mL U-100 Insulin) metoclopramide HCl 10 mg tablet 10 mg PO TIDAC 2 days #6 tabs 04/06/22 (Reglan) sucralfate 100 mg/mL oral 10 ml PO BID #414 mL 04/06/22 suspension (Carafate) ketorolac 10 mg tablet 10 mg PO BID PRN pain 5 days #7 09/05/22 tabs dicyclomine 20 mg tablet 20 mg PO QID PRN abdominal 11/24/22 discomfort #14 tabs famotidine 20 mg tablet 20 mg PO BID #20 tabs 11/24/22 ondansetron 4 mg disintegrating 4 mg PO Q8H PRN nausea and 11/24/22 tablet vomiting #10 tabs ondansetron 4 mg disintegrating 4 mg PO Q8H PRN nausea and 05/21/23 tablet vomiting #20 tabs cefuroxime axetil 250 mg tablet 250 mg PO BID 7 days #14 tabs 11/06/23 metoclopramide HCl 10 mg tablet 10 mg PO Q6H PRN nausea and 11/06/23 (Reglan) vomiting #30 tabs Allergies Allergy/AdvReac Type Severity Reaction Status Date / Time No Known Allergies Allergy Verified 11/04/23 09:41 [No Known Allergies*] Review of Systems Review of Systems Constitutional : No Weight loss, No Fever, No Chills ENT/Mouth : No sore throat, No Rhinorrhea Eyes: No Swelling, No Redness Cardiovascular : No Chest Pain, No SOB, NoEdema Respiratory : No Cough, No Sputum, No Wheezing Gastrointestinal : Positive Nausea, Positive Vomiting, no Diarrhea, positive abdominal Pain, No Hematochezia, No Melena Genitourinary : No Dysuria, No Urinary Frequency, No Hematuria, No Urgency Musculoskeletal : No joint pain, No Myalgias, No Joint Swelling Skin : No Skin Lesions, No rash Neuro : No Weakness, No Numbness, No Dizziness, No Headache Psych : No Anxiety/Panic, No Depression All other systems reviewed and are negative. [facility] Past Medical History Attestation statement: The following information was validated with the patient. Source: old records reviewed Medical History Diabetes Gastroparesis Social History Social History Alcohol intake: never Patient Tobacco Use Status: Current everyday Tobacco user Smoked in Last 30 Days: No Advance Directives: No Advance Directives Information Provided: No Physical Exam ED Vital Signs: Vital Signs - 24 hr 11/05/23 21:38 11/05/23 23:23 11/06/23 01:57 Temperature 97.6 F 97.9 F Pulse Rate 112 H 116 H 119 H Respiratory Rate 18 18 22 H Blood Pressure 168/105 H 160/100 H 153/88 H Pulse Oximetry 97 97 95 Oxygen Delivery Method Room Air Room Air Room Air 11/06/23 02:54 11/06/23 05:04 Temperature 98.0 F 99.1 F Pulse Rate 129 H 135 H Respiratory Rate 14 18 Blood Pressure 143/122 H 147/86 H Pulse Oximetry 100 97 Oxygen Delivery Method Room Air Room Air BMI result Body Mass Index 28.7 Appearance: Alert. Oriented X3. No acute distress. Eyes: Pupils equal, round and reactive to light. ENT: Pharynx normal. Neck: Normal inspection. Neck supple. CVS: Normal heart rate and rhythm. Pulses normal. Respiratory: No respiratory distress. Breath sounds normal. Abdomen: Soft and mild epigastric ttp no rebound Skin: Skin warm and dry. Normal skin color. Normal skin turgor. Extremities: No lower extremity edema. No calf ttp Neuro: Oriented X 3. No motor deficit. No sensory deficit. Medical Decision Making Medical Decision Making [facility] Narrative: 53 yo female with PMH of DM, gastroparesis here with c/o n/v and upper abdominal pain typical of her gastroparesis attacks at this time basic labs and UA will treat with IVF and medications, empiric ceftriaxone for her UA pain is in epigastric area not flank I do not suspect renal colic. Differential Diagnosis Differential Diagnoses: The differential diagnosis associated with the presentation includes gastritis, gastroparesis Admission/Observation Consideration of admission/observation: Escalation of care including admission/observation considered she is able to tolerate PO she can be DC Lab Data [facility] Lab Attestation statement: I reviewed the patient's lab results. 11/05/23 22:06 11/05/23 22:06 Labs: Lab Results 11/05/23 11/06/23 Range/Units 22:06 01:56 WBC 7.0 (4.8-10.8) X10*3/uL RBC 4.86 (4.20-5.50) X10*6/uL Hgb 14.9 (12.0-16.0) g/dl Hct 43.1 (37.0-47.0) % MCV 88.7 (80.0-98.0) fL MCH 30.7 (27.0-33.0) pg MCHC 34.6 (31.0-35.0) g/dl RDW 11.9 (11.0-16.0) % Plt Count 290 D (160-400) X10*3/uL MPV 8.9 L (9.4-12.3) fL Immature Gran % (Auto) 0.1 (0.0-0.4) % Neut % (Auto) 60.5 (45-73) % Lymph % (Auto) 30.7 (20-40) % [place] % (Auto) 7.2 (2-11) % Eos % (Auto) 0.9 (0-4) % Baso % (Auto) 0.6 (0-2) % Lymph # (Auto) 2.1 (1.2-4.9) X10*3/uL [place] # (Auto) 0.5 (0.1-1.2) X10*3/uL Eos # (Auto) 0.1 (0.0-0.4) X10*3/uL Baso # (Auto) 0.0 (0.0-0.2) X10*3/uL Abs Immat Gran (auto) 0.01 (0.00-0.03) X10*3/uL Absolute Neuts (auto) 4.2 (2.0-8.3) x10*3/uL Absolute Nucleated RBC 0.000 (0.0-0.012) X10*3/uL Nucleated RBC % (auto) 0.0 (0.0-0.2) /100WBC Sodium 141 (135-145) mmol/L Potassium 3.9 (3.3-5.1) mmol/L Chloride 107 (96-108) mmol/L Carbon Dioxide 25 (22-29) mmol/L Anion Gap 13 (12-20) BUN 10 (9-16) mg/dL Creatinine 1.24 (0.5-1.4) mg/dL Estim Creat Clear Calc 46.5 Estimated GFR 45 POC Glucose 260 H (60-115) mg/dL Random Glucose 168 H (60-115) mg/dL Calcium 10.2 D (8.4-10.2) mg/dL Total Bilirubin 0.5 (0.0-1.0) mg/dL Direct Bilirubin 0.2 (0.0-0.5) mg/dL AST 14 (5-31) U/L ALT 16 (0-31) U/L Alkaline Phosphatase 74 (39-117) U/L Total Protein 7.6 (6.5-8.0) g/dL Albumin 4.5 (3.5-5.0) g/dL Urine Color Yellow Urine Appearance Clear Urine pH 6.5 (5.0-9.0) Ur Specific [place] >= 1.030 H (1.005-1.025) Urine Protein Negative (Neg-Trace) mg/dL Urine Glucose (UA) >=1000 H (Negative) mg/dL Urine Ketones Negative (Negative) mg/dL Urine Blood Negative (Negative) Urine Nitrite Negative (Negative) Ur Leukocyte Esterase Negative (Negative) Urine RBC 0-2 (0-2) /HPF Urine WBC 11-20 H (0-5) /HPF Ur Squamous Epith Cells 11-20 (0-2) /HPF Urine Bacteria 1+ (None Seen) Hyaline Casts 0-2 (0-2) /LPF External Record Review External record reviewed: Inpatient record Prescription Management I considered prescription management with: Antibiotic and Other Medications Administered Discontinued Medications Generic Name Dose Route Start Last Admin Trade Name Freq PRN Reason Stop Dose Admin Diphenhydramine HCl 25 mg 11/06/23 03:04 11/06/23 03:55 Diphenhydramine Hcl 50 Mg/Ml Vial IVPUSH 11/06/23 03:05 25 mg ONCE ONE Administration Droperidol 1.25 mg 11/06/23 03:04 11/06/23 03:55 Droperidol 5 Mg/2 Ml Vial IVPUSH 11/06/23 03:05 1.25 mg ONCE ONE Administration Sodium Chloride 1,000 mls @ 999 mls/hr 11/06/23 03:15 11/06/23 05:00 Ns IV 11/06/23 04:15 Infused .Q1H1M BASHIR Infusion Ceftriaxone Sodium 1 gm/ 50 mls @ 100 mls/hr 11/06/23 03:04 11/06/23 04:32 Sodium Chloride IV 11/06/23 03:33 Infused ONCE ONE Infusion Discharge Plan Discharge Clinical Impression: Gastroparesis, Acute UTI Patient Disposition: Home, Self-Care Instructions: Diabetic Gastroparesis (DC), Urinary Tract Infection in Women (ED) Additional Instructions: liquid diet today then advance slowly over 24 hours. take medications as prescribed return for fevers, pain worsening symptoms or any other concerns. Prescriptions: New metoclopramide HCl [Reglan] 10 mg tablet 10 mg PO Q6H PRN (Reason: nausea and vomiting) Qty: 30 0RF cefuroxime axetil 250 mg tablet 250 mg PO BID 7 Days Qty: 14 0RF No Action metoclopramide HCl [Reglan] 5 mg tablet 10 mg PO DAILY Qty: 30 0RF ondansetron HCl [Zofran] 4 mg tablet 4 mg PO Q8H PRN (Reason: nausea and vomiting) Qty: 10 0RF metoclopramide HCl [Reglan] 10 mg tablet 10 mg PO Q6H PRN (Reason: nausea and vomiting) Qty: 20 0RF hydrochlorothiazide 25 mg tablet 25 mg PO DAILY Qty: 20 0RF ondansetron HCl [Zofran] 4 mg tablet 4 mg PO Q8H PRN (Reason: nausea and vomiting) Qty: 10 0RF insulin lispro [Humalog U-100 Insulin] 100 unit/mL solution 1 sliding scale dose subcut USEASDIRECTD Qty: 10 0RF insulin glargine [Lantus U-100 Insulin] 100 unit/mL solution 12 unit subcut QPM Qty: 10 0RF metoclopramide HCl [Reglan] 10 mg tablet 10 mg PO TIDAC 2 Days Qty: 6 0RF Rx Instructions: Take 1 tablet 30 minutes prior to each meal of the day (3). sucralfate [Carafate] 100 mg/mL suspension 10 ml PO BID Qty: 414 0RF ketorolac 10 mg tablet 10 mg PO BID PRN (Reason: pain) 5 Days Qty: 7 0RF Rx Instructions: Do not take NSAIDs with this medication, only Tylenol if needed ondansetron 4 mg tablet,disintegrating 4 mg PO Q8H PRN (Reason: nausea and vomiting) Qty: 20 0RF ondansetron 4 mg tablet,disintegrating 4 mg PO Q8H PRN (Reason: nausea and vomiting) Qty: 10 0RF famotidine 20 mg tablet 20 mg PO BID Qty: 20 0RF dicyclomine 20 mg tablet 20 mg PO QID PRN (Reason: abdominal discomfort) Qty: 14 0RF
[2023-11-06] MEDS: cefTRIAXone sodium 1 GM in 0.9 % Sodium Chloride 50 ML IV (03:55)
[2023-11-06] MEDS: 0.9 % Sodium Chloride 1,000 ML 999 ML IV (03:55)
[2023-11-06] MEDS: diphenhydrAMINE HCL 50 MG/ML VIAL 25 MG IVPUSH (03:55)
[2023-11-06] MEDS: droPERidol 5 MG/2 ML VIAL 1.25 MG IVPUSH (03:55)
[2023-11-06 05:04] VITALS: BP 147/86; PULSE 135; RESP 18; TEMP 37.3; O2SAT 97
[2023-11-06 05:26] VITALS: PULSE 110
[2023-11-06 05:27] VITALS: BP 147/86; PULSE 110; RESP 17; TEMP 37.3; O2SAT 97
== END 2023-11-06 05:28 | disposition home or self-care (01) ==
PROVIDERS: Emergency Provider Emergency Medicine; PCP Nurse Practitioner Family
DX: E11.43 Type 2 diabetes mellitus with diabetic autonomic (poly)neuropathy (principal); K31.84 Gastroparesis; N39.0 Urinary tract infection, site not specified
CPT/HCPCS: 36415; 80048; 80076; 81001; 82947; 85025; 87086; 96361; 96374; 96375; 99284; 99285; J0696; J1200; J1790

== ENCOUNTER 2023-11-12 14:11 | Inpatient (IN) | payer OTHER, SELFPAY ==
--- NOTE | ~2023-11-12 | CT_ITS ---
EXAMINATION: CT ABDOMEN AND PELVIS WITHOUT CONTRAST CLINICAL INFORMATION: Abdominal pain, vomiting and shortness of breath with history of gastroparesis COMPARISON: CT abdomen pelvis 12/20/2022 along with [address] scans of the abdomen and pelvis since 2018 TECHNIQUE: Multidetector volumetric imaging was performed from the superior aspect of the liver through the pubic symphysis. Sagittal and coronal reformatted images were obtained on the technologist's workstation. This CT examination was performed using dose optimization techniques as appropriate, variously including the following: *Automated exposure control *Adjustment of mA and/or kV according to patient size (this includes techniques or standardized protocols for targeted exams where dose is matched to indication/reason for exam; i.e. extremities or head) *Use of iterative reconstruction technique DLP: 540 mGy-cm FINDINGS: LUNG BASES: The visualized lung bases are unremarkable. LIVER, GALLBLADDER, AND BILIARY TREE: The liver is normal in size, shape, and attenuation. Liver attenuation is greater than the spleen on this exam not suggesting hepatic steatosis. No focal hepatic lesion or biliary ductal dilatation is present. Status post cholecystectomy. PANCREAS: Unremarkable. SPLEEN: Unremarkable. ADRENAL GLANDS: Small 1.3 cm fat density left adrenal nodule measures -4 Hounsfield units consistent with a benign adenoma KIDNEYS AND URETERS: The kidneys are normal in size, shape, and attenuation. No hydronephrosis, hydroureter, or calculi seen. No perinephric stranding. BLADDER: Unremarkable. GASTROINTESTINAL TRACT: The stomach appears normal without evidence of dilatation/gastroparesis. The small and large bowel are unremarkable aside from some scattered colonic diverticula without diverticulitis. The appendix is unremarkable. ABDOMINAL WALL: No significant hernia is appreciated. LYMPH NODES: No retroperitoneal lymphadenopathy. VASCULAR: Calcific atherosclerotic changes are present in the aorta and iliofemoral vessels. There is no evidence of an abdominal aortic aneurysm. PELVIC VISCERA: The uterus and adnexa are unremarkable. OSSEOUS STRUCTURES: Unremarkable. CT/CT abdomen pelvis wo IV con IMPRESSION: 1. A cause for the patient's abdominal pain, vomiting and shortness of breath has not been found. 2. Incidental note made of cholecystectomy, benign left adrenal adenoma and colonic diverticulosis without diverticulitis. 3. Of note, the patient has had 18 CT scans of the abdomen and pelvis since August 2018 all of which have been essentially normal. Fleischner guidelines were followed.
[2023-11-12 14:51] VITALS: BP 141/91; PULSE 121; RESP 17; TEMP 36.7; O2SAT 97; BMI 27.8
--- NOTE | 2023-11-12 14:57 | PC.NURSE ---
cat breeder Darci made aware of pt's elevated HR and need for bed placement.
[2023-11-12 15:09] VITALS: BP 122/80; PULSE 111; RESP 22; O2SAT 97
--- NOTE | 2023-11-12 15:14 | ED_ITS ---
HPI - Abdominal Pain General Chief Complaint: Abdominal Pain Stated Complaint: abd pain Time Seen by Provider: 11/12/23 15:09 Source: patient and EMS Mode of arrival: EMS Limitations: no limitations History of Present Illness HPI narrative: 53-year-old female with history DM, gastroparesis presented with severe abdominal pain for the past week. Patient was seen and evaluated on 10/28 for vomiting that quickly improved using Zofran and patient was discharged home returned today for increased abdominal pain with nausea and vomiting today, patient had a normal bowel movement yesterday and passing flatus, patient is not eating by mouth worry about vomiting. Pain described as severe 06/02 mostly in the upper abdomen with no radiation, usually gets worse with food. Related Data Previous Rx's Medication Instructions Recorded metoclopramide HCl 5 mg tablet 10 mg (2 x 5 mg) PO DAILY #30 tabs 06/15/20 (Reglan) ondansetron HCl 4 mg tablet 4 mg PO Q8H PRN nausea and 10/02/20 (Zofran) vomiting #10 tabs hydrochlorothiazide 25 mg tablet 25 mg PO DAILY #20 tabs 12/05/20 metoclopramide HCl 10 mg tablet 10 mg PO Q6H PRN nausea and 12/05/20 (Reglan) vomiting #20 tabs ondansetron HCl 4 mg tablet 4 mg PO Q8H PRN nausea and 06/21/21 (Zofran) vomiting #10 tabs insulin glargine 100 unit/mL 12 unit (0.12 mL) subcut QPM #10 mL 03/01/22 subcutaneous solution (Lantus U-100 Insulin) insulin lispro 100 unit/mL 1 sliding scale dose subcut 03/01/22 subcutaneous solution (Humalog USEASDIRECTD #10 mL U-100 Insulin) metoclopramide HCl 10 mg tablet 10 mg PO TIDAC 2 days #6 tabs 04/06/22 (Reglan) sucralfate 100 mg/mL oral 10 ml PO BID #414 mL 04/06/22 suspension (Carafate) ketorolac 10 mg tablet 10 mg PO BID PRN pain 5 days #7 09/05/22 tabs dicyclomine 20 mg tablet 20 mg PO QID PRN abdominal 11/24/22 discomfort #14 tabs famotidine 20 mg tablet 20 mg PO BID #20 tabs 11/24/22 ondansetron 4 mg disintegrating 4 mg PO Q8H PRN nausea and 11/24/22 tablet vomiting #10 tabs ondansetron 4 mg disintegrating 4 mg PO Q8H PRN nausea and 05/21/23 tablet vomiting #20 tabs cefuroxime axetil 250 mg tablet 250 mg PO BID 7 days #14 tabs 11/06/23 metoclopramide HCl 10 mg tablet 10 mg PO Q6H PRN nausea and 11/06/23 (Reglan) vomiting #30 tabs Allergies Allergy/AdvReac Type Severity Reaction Status Date / Time No Known Allergies Allergy Verified 11/12/23 14:48 [No Known Allergies*] Review of Systems Review of Systems All other systems are reviewed and are negative Constitutional: Reports as per HPI and Reports no additional constitutional complaints Eyes: Reports as per HPI and Reports no additional eye complaints Reports system reviewed and no additional complaints, except as documented Cardiovascular: Reports as per HPI and Reports no additional cardiovascular complaints Respiratory: Reports as per HPI and Reports no additional respiratory complaints Gastrointestinal: Reports as per HPI and Reports no additional gastrointestinal complaints Genitourinary: Reports no additional female genitourinary complaints Musculoskeletal: Reports no additional musculoskeletal complaints Skin/Breast: Reports system reviewed and no additional complaints, except as docu Psychiatric: Reports no additional psychiatric complaints Endocrine: Reports no additional endocrine complaints Hematologic/Lymphatic: Reports no additional hematologic/lymphatic complaints Allergic/Immunologic: Reports no additional allergic/immunologic complaints Reports system reviewed and no additional complaints, except as documented and Reports Abnormal speech present [facility] Past Medical History Medical History Diabetes Gastroparesis Social History Social History Alcohol intake: never Patient Tobacco Use Status: Current everyday Tobacco user Smoked in Last 30 Days: No Use of substances other than those prescribed or required for medical reasons: No Advance Directives: No Advance Directives Information Provided: No Patient : No Physical Exam ED Vital Signs: Vital Signs - 24 hr 11/12/23 14:51 11/12/23 15:09 11/12/23 17:09 Temperature 98.0 F 97.8 F Pulse Rate 121 H 111 H 116 H Respiratory Rate 17 22 H 18 Blood Pressure 141/91 H 122/80 118/78 Pulse Oximetry 97 97 98 Oxygen Delivery Method Room Air Room Air Room Air BMI result Body Mass Index 27.8 Vital signs have been reviewed and appear to be correct. Blood pressure elevated. Heart rate elevated. Respiratory rate normal. Temperature normal. Oxygen saturation normal. Appearance: Alert. Oriented X3. acute distress due to abdominal pain Head: Normal external exam. Normocephalic. Atraumatic. No Velasquez signs noted. No raccoon eyes noted Eyes: PERRLA. EOMI. Conjunctiva and sclera normal. Eyelids normal. ENT: TM's Normal. Pharynx normal. Uvula midline. Moist mucous membranes. No trismus noted. No drooling noted. No muffled voice noted. Neck: Normal inspection. Neck supple. FROM. No adenopathy. Thyroid Normal. No meningeal signs. No neck mass noted. CVS: Normal heart rate and rhythm. Heart sound normal. No murmurs noted. Pulses normal throughout. Respiratory: No respiratory distress. Painless inspiration. Breath sounds normal. No wheezes/rales/rhonchi noted. Chest nontender. No accessory muscle usage noted or decreased air movement noted. Abdomen: Soft , mild epigastric tenderness, no guarding, no rebound tenderness. Bowel sounds normal in all 4 quadrants. No distention noted. No organomegaly noted. No visible injury noted. Back: No CVA tenderness. Full range of motion noted. Skin: Skin warm and dry. Normal skin color. Normal skin turgor. No rashes/lesions/lacerations noted. Extremities: No lower extremity edema. Extremities exhibit normal range of motion. Extremities nontender. Neuro: Oriented X 3. Cranial nerve exam: II-XII are grossly intact No motor deficit. No sensory deficit. Reflexes normal. Course Reevaluation(s) Reevaluation #1: Abdominal pain, nausea, and vomiting with negative CT abdomen and pelvis, hypokalemia will replete with IV potassium. This is a 2nd ED visit for the patient in 1 week with inability to keep p.o. intake, hypokalemia. Time: 19:53 Medical Decision Making Differential Diagnosis Differential Diagnoses: The differential diagnosis associated with the presentation includes (Diabetic gastroparesis, SBO, pancreatitis, colitis, diverticulitis, appendicitis, electrolyte derangement, severe anemia.) Admission/Observation Consideration of admission/observation: Escalation of care including admission/observation considered Lab Data MDM Lab Attestation statement: I reviewed the patient's lab results. 11/12/23 15:38 11/12/23 15:38 Labs: Lab Results 11/12/23 Range/Units 15:38 WBC 7.9 (4.8-10.8) X10*3/uL RBC 5.04 (4.20-5.50) X10*6/uL Hgb 15.2 (12.0-16.0) g/dl Hct 44.8 (37.0-47.0) % MCV 88.9 (80.0-98.0) fL MCH 30.2 (27.0-33.0) pg MCHC 33.9 (31.0-35.0) g/dl RDW 12.1 (11.0-16.0) % Plt Count 277 (160-400) X10*3/uL MPV 8.9 L (9.4-12.3) fL Immature Gran % (Auto) 0.3 (0.0-0.4) % Neut % (Auto) 62.9 (45-73) % Lymph % (Auto) 28.2 (20-40) % [place] % (Auto) 7.1 (2-11) % Eos % (Auto) 1.0 (0-4) % Baso % (Auto) 0.5 (0-2) % Lymph # (Auto) 2.2 (1.2-4.9) X10*3/uL [place] # (Auto) 0.6 (0.1-1.2) X10*3/uL Eos # (Auto) 0.1 (0.0-0.4) X10*3/uL Baso # (Auto) 0.0 (0.0-0.2) X10*3/uL Abs Immat Gran (auto) 0.02 (0.00-0.03) X10*3/uL Absolute Neuts (auto) 5.0 (2.0-8.3) x10*3/uL Absolute Nucleated RBC 0.000 (0.0-0.012) X10*3/uL Nucleated RBC % (auto) 0.0 (0.0-0.2) /100WBC Sodium 143 (135-145) mmol/L Potassium 3.2 L (3.3-5.1) mmol/L Chloride 108 (96-108) mmol/L Carbon Dioxide 25 (22-29) mmol/L Anion Gap 13 (12-20) BUN 8 L (9-16) mg/dL Creatinine 0.91 (0.5-1.4) mg/dL Estim Creat Clear Calc 62.5 Estimated GFR > 60 Random Glucose 104 (60-115) mg/dL Calcium 9.8 (8.4-10.2) mg/dL Total Bilirubin 0.4 (0.0-1.0) mg/dL Direct Bilirubin 0.1 (0.0-0.5) mg/dL AST 14 (5-31) U/L ALT 16 (0-31) U/L Alkaline Phosphatase 64 (39-117) U/L Troponin I High Sens < 2.7 (<3.5-17.0) ng/L Total Protein 7.3 (6.5-8.0) g/dL Albumin 4.3 (3.5-5.0) g/dL Lipase 13 (8-78) U/L Influenza Type A (PCR) NEGATIVE (Negative) Influenza Type B (PCR) NEGATIVE (Negative) RSV RNA Qual (PCR) NEGATIVE (Negative) SARS-CoV-2 RNA (RT-PCR) NEGATIVE (Negative) Independent Interpretation I performed an independent interpretation of an: CT Scan (Abdomen pelvis:1. A cause for the patient's abdominal pain, vomiting and shortness of breath has not been found. 2. Incidental note made of cholecystectomy, benign left adrenal adenoma and colonic diverticulosis without diverticulitis. 3. Of note, the patient has had 18 CT scans of the abdomen an) Radiology Impression Discussion of test interpretation with radiology: I have reviewed the radiologist's reading. Chronic Conditions Patient?s care impacted by: Diabetes (And diabetic gastroparesis) Medications Administered Discontinued Medications Generic Name Dose Route Start Last Admin Trade Name Freq PRN Reason Stop Dose Admin Al Hydroxide/Mg Hydroxide 30 ml 11/12/23 16:31 11/12/23 17:02 Magnesium Hydrox/Alum Hydrox 30 Ml Oral.Susp PO 11/12/23 16:32 30 ml ONCE ONE Administration Famotidine 20 mg 11/12/23 16:31 11/12/23 17:03 Famotidine/Pf 20 Mg/2 Ml Vial IVPUSH 11/12/23 16:32 20 mg ONCE ONE Administration Sodium Chloride 1,000 mls @ 999 mls/hr 11/12/23 15:15 11/12/23 18:11 Ns IV 11/12/23 16:15 Infused .Q1H1M ONE Infusion Morphine Sulfate 1 mg 11/12/23 16:31 11/12/23 17:02 Morphine Sulfate 2 Mg/Ml Cartridge IVPUSH 11/12/23 16:32 1 mg ONCE ONE Administration Protocol Morphine Sulfate 2 mg 11/12/23 19:45 11/12/23 19:51 Morphine Sulfate 2 Mg/Ml Cartridge IVPUSH 11/12/23 19:46 2 mg ONCE ONE Administration Protocol Ondansetron HCl 4 mg 11/12/23 17:05 11/12/23 17:48 Ondansetron Hcl 4 Mg/2 Ml Vial IVPUSH 11/12/23 17:06 4 mg ONCE ONE Administration Discharge Plan Discharge Clinical Impression: Gastroparesis Patient Disposition: Admitted As Inpatient Prescriptions: No Action metoclopramide HCl [Reglan] 5 mg tablet 10 mg PO DAILY Qty: 30 0RF ondansetron HCl [Zofran] 4 mg tablet 4 mg PO Q8H PRN (Reason: nausea and vomiting) Qty: 10 0RF metoclopramide HCl [Reglan] 10 mg tablet 10 mg PO Q6H PRN (Reason: nausea and vomiting) Qty: 20 0RF hydrochlorothiazide 25 mg tablet 25 mg PO DAILY Qty: 20 0RF ondansetron HCl [Zofran] 4 mg tablet 4 mg PO Q8H PRN (Reason: nausea and vomiting) Qty: 10 0RF insulin lispro [Humalog U-100 Insulin] 100 unit/mL solution 1 sliding scale dose subcut USEASDIRECTD Qty: 10 0RF insulin glargine [Lantus U-100 Insulin] 100 unit/mL solution 12 unit subcut QPM Qty: 10 0RF metoclopramide HCl [Reglan] 10 mg tablet 10 mg PO TIDAC 2 Days Qty: 6 0RF Rx Instructions: Take 1 tablet 30 minutes prior to each meal of the day (3). sucralfate [Carafate] 100 mg/mL suspension 10 ml PO BID Qty: 414 0RF ketorolac 10 mg tablet 10 mg PO BID PRN (Reason: pain) 5 Days Qty: 7 0RF Rx Instructions: Do not take NSAIDs with this medication, only Tylenol if needed ondansetron 4 mg tablet,disintegrating 4 mg PO Q8H PRN (Reason: nausea and vomiting) Qty: 20 0RF metoclopramide HCl [Reglan] 10 mg tablet 10 mg PO Q6H PRN (Reason: nausea and vomiting) Qty: 30 0RF cefuroxime axetil 250 mg tablet 250 mg PO BID 7 Days Qty: 14 0RF ondansetron 4 mg tablet,disintegrating 4 mg PO Q8H PRN (Reason: nausea and vomiting) Qty: 10 0RF famotidine 20 mg tablet 20 mg PO BID Qty: 20 0RF dicyclomine 20 mg tablet 20 mg PO QID PRN (Reason: abdominal discomfort) Qty: 14 0RF
[2023-11-12] MEDS: 0.9 % Sodium Chloride 1,000 ML 999 ML IV (15:40)
[2023-11-12 15:42] LABS: MANUAL DIFF FLAG NO
[2023-11-12 15:46] LABS: Basophils Percent Auto 0.5 % (0-2); Eosinophils Absolute Auto 0.1 X10*3/uL (0.0-0.4); Hematocrit 44.8 % (37.0-47.0); Hemoglobin 15.2 g/dl (12.0-16.0); Imm Gran Abs Auto 0.02 X10*3/uL (0.00-0.03); Imm Gran Pct Auto 0.3 % (0.0-0.4); Lymphocytes Absolute Auto 2.2 X10*3/uL (1.2-4.9); Lymphocytes Percent Auto 28.2 % (20-40); Mean Corpuscular HGB Conc 33.9 g/dl (31.0-35.0); Mean Corpuscular Hemoglobin 30.2 pg (27.0-33.0); Mean Corpuscular Volume 88.9 fL (80.0-98.0); Mean Platelet Volume 8.9 fL (9.4-12.3); Monocytes Absolute Auto 0.6 X10*3/uL (0.1-1.2); Monocytes Percent Auto 7.1 % (2-11); Neutrophils Percent Auto 62.9 % (45-73); Platelet Count 277 X10*3/uL (160-400); Red Blood Count 5.04 X10*6/uL (4.20-5.50); Red Cell Distribution Width 12.1 % (11.0-16.0); White Blood Count 7.9 X10*3/uL (4.8-10.8)
[2023-11-12 15:59] LABS: Alanine Aminotransferase 16 U/L (0-31); Albumin Level 4.3 g/dL (3.5-5.0); Alkaline Phosphatase 64 U/L (39-117); Anion Gap 13 (12-20); Aspartate Amino Transferase 14 U/L (5-31); Bilirubin Direct 0.1 mg/dL (0.0-0.5); Bilirubin Total 0.4 mg/dL (0.0-1.0); Blood Urea Nitrogen 8 mg/dL (9-16); Calcium 9.8 mg/dL (8.4-10.2); Carbon Dioxide 25 mmol/L (22-29); Chloride 108 mmol/L (96-108); Creatinine Clr Calc Pharmacy 62.5; Estimated Glomerular Filt Rate > 60; Glucose Random 104 mg/dL (60-115); Lipase 13 U/L (8-78); Potassium 3.2 mmol/L (3.3-5.1); Sodium 143 mmol/L (135-145); Total Protein 7.3 g/dL (6.5-8.0)
[2023-11-12 16:05] LABS: Troponin-I High Sensitivity < 2.7 ng/L (<3.5-17.0)
[2023-11-12 16:24] LABS: Influenza A PCR NEGATIVE (Negative); Influenza B PCR NEGATIVE (Negative); Resp Syncy Virus RNA Qual PCR NEGATIVE (Negative); SARS COV2 PCR INHOUSE NEGATIVE (Negative)
[2023-11-12] MEDS: Magnesium Hydrox/Alum Hydrox 30 ML ORAL.SUSP PO (17:02)
[2023-11-12] MEDS: Morphine Sulfate 2 MG/ML CARTRIDGE 1 MG IVPUSH (17:02)
[2023-11-12] MEDS: Famotidine/PF 20 MG/2 ML VIAL IVPUSH (17:03)
[2023-11-12 17:09] VITALS: BP 118/78; PULSE 116; RESP 18; TEMP 36.6; O2SAT 98
[2023-11-12] MEDS: ondansetron HCL 4 MG/2 ML VIAL IVPUSH (17:48)
[2023-11-12 18:00] VITALS: PULSE 122; RESP 26; O2SAT 97
[2023-11-12] MEDS: Morphine Sulfate 2 MG/ML CARTRIDGE IVPUSH (19:51)
--- NOTE | 2023-11-12 19:56 | PC.NURSE ---
Assumed care of the pt at 1900. Pt is resting in bed at this time, reporting 9/10 epigastric pain. Pt medicated with morphine. Patent 20g IV in the right AC. Fluids finished at this time. Pt presents A&Ox4, GCS 15.
[2023-11-12] MEDS: Potassium Chloride/H20 10 MEQ/100 ML PIGGYBACK 100 MEQ IV (20:18)
--- NOTE | 2023-11-12 20:39 | PHA.MEDREC ---
Pharmacy Consult ? Medication Reconciliation Pharmacy has completed the medication reconciliation. Confirmed medications with patient and through claim history. Patient reports she has been unbable to pick pack worker her antibiotic from pharmacy. Also reports that she has not taken her atorvastatin since Thursday , she says it does not agree with her.
--- NOTE | 2023-11-12 21:17 | P.HPHOSP_ITS ---
History of Present Illness Date of Service: 11/12/23 Attending physician on admission: Yves Pal Chief Complaint: Abdominal pain Zaina Sharma is a 53 years old woman with past medical history significant for gastroparesis and type 2 diabetes mellitus presents to the emergency complaining of upper abdominal pain that started yesterday associated with nausea. She denied episodes of vomiting or diarrhea. Denies fever or chills. She is afraid of eating due to severe abdominal pain. She denied any headaches, chest pain, shortness on breath or palpitations. Patient recently visited emergency department with same symptoms. She was found to have UTI and was discharged with a course of cefuroxime Reglan. Urine culture (11/05/2023) showed mixed bacterial edis characteristic of urogenital contamination. In the ED, she was found to have sinus tachycardia. Blood pressure is stable. Her blood workup showed no leukocytosis. Platelets and hemoglobin are normal. There is mild hypokalemia, 3.2. Renal function is adequate. LFTs and lipase are normal. Abdomen pelvis CT scan is remarkable. ED tx: NS 1 L bolus, Pepcid 20 mg IV, morphine 3 mg IV (total), KCl IV Review of Systems 2 Review of Systems: All 12 systems were reviewed and normal except as noted in HPI. [facility] Medical History Diabetes Gastroparesis Social History Alcohol intake: never Patient Tobacco Use Status: Current everyday Tobacco user Smoked in Last 30 Days: No Use of substances other than those prescribed or required for medical reasons: No Advance Directives: No Advance Directives Information Provided: No Patient : No Meds Allergies Allergy/AdvReac Type Severity Reaction Status Date / Time No Known Allergies Allergy Verified 11/12/23 14:48 [No Known Allergies*] Active Medications: Current Medications Dextrose (Dextrose 50 % 25 Gm/50 Ml Syringe) 25 gm IVPUSH Q15M PRN; Protocol PRN Reason: per Hypoglycemia Standing Ord. Glucose (Glucose Gel 15 Gm Gel..Gram.) 15 gm PO Q15M PRN; Protocol PRN Reason: per Hypoglycemia Standing Ord. Lactated Ringer's (Lr) 1,000 mls @ 125 mls/hr IVCONT .Q8H BASHIR Insulin Human Lispro (Insulin Lispro 100 Unit/Ml 3 Ml Vial) 0 unit SUBCUT QIDACHS [facility]; Protocol Metoclopramide HCl (Metoclopramide Hcl 10 Mg/2 Ml Vial) 10 mg IVPUSH Q6H [facility] Morphine Sulfate (Morphine Sulfate 4 Mg/Ml Cartridge) 3 mg IVPUSH Q4H PRN; Protocol PRN Reason: Pain, Severe (Pain Scale 7-10) Sodium Chloride (0.9 % Sodium Chloride Flush 3 Ml Syringe) 3 ml IVFLUSH QSHIFT [facility] Home Medications Medication Instructions Recorded Confirmed Last Taken Type atorvastatin 20 mg tablet 20 mg PO BEDTIME 11/12/23 11/12/23 11/07/23 History clonazepam 2 mg tablet 2 mg PO BID anxiety 11/12/23 11/12/23 Unknown History dulaglutide 0.75 mg/0.5 mL 0.75 mg subcut MO 11/12/23 11/12/23 11/09/23 History subcutaneous pen injector (Trulicity) empagliflozin 25 mg tablet 25 mg PO QAM 11/12/23 11/12/23 Unknown History (Jardiance) insulin glargine 100 unit/mL 10 unit subcut QPM 11/12/23 11/12/23 11/11/23 History subcutaneous solution (Lantus U-100 Insulin) ondansetron 4 mg disintegrating 4 mg PO Q6H PRN Nausea 11/12/23 11/12/23 Unknown History tablet quetiapine 300 mg tablet 600 mg PO BEDTIME 11/12/23 11/12/23 11/11/23 History Physical Exam 2 Vital Signs and Narrative: Vital Signs: Last Vital Signs Temp 97.8 F 11/12/23 17:09 Pulse 122 H 11/12/23 18:00 Resp 26 H 11/12/23 18:00 BP 118/78 11/12/23 17:09 Pulse Ox 97 11/12/23 18:00 O2 Del Method Room Air 11/12/23 18:00 BMI result Body Mass Index 27.8 Constitutional - Awake and Alert, is quite uncomfortable due to abdominal pain. Operative HEENT - Pupils equally round. Normal sclerae. Dry oral mucosa Heart - tachycardic. No murmur Lungs - Normal lung expansion, Normal respiratory effort, No respiratory distress, CTA bilaterally Abdomen - nondistended, epigastric tenderness; increased BS; No rebound or guarding Extremities - no calf tenderness bilaterally, no swelling Musculoskeletal - Normal inspection, normal ROM Skin - Warm/Dry Neurological - Alert & oriented x3. Normal weakness grossly noted. Normal speech Psychological - Appropriate affect Results Labs 11/12/23 15:38 11/12/23 15:38 Labs: Laboratory Results - last 24 hr 11/12/23 15:38 MCV 88.9 MCH 30.2 MCHC 33.9 RDW 12.1 Plt Count 277 MPV 8.9 L Immature Gran % (Auto) 0.3 Neut % (Auto) 62.9 Lymph % (Auto) 28.2 [place] % (Auto) 7.1 Eos % (Auto) 1.0 Baso % (Auto) 0.5 Lymph # (Auto) 2.2 [place] # (Auto) 0.6 Eos # (Auto) 0.1 Baso # (Auto) 0.0 Abs Immat Gran (auto) 0.02 Absolute Neuts (auto) 5.0 Absolute Nucleated RBC 0.000 Nucleated RBC % (auto) 0.0 Anion Gap 13 Estim Creat Clear Calc 62.5 Estimated GFR > 60 Random Glucose 104 Calcium 9.8 Total Bilirubin 0.4 Direct Bilirubin 0.1 AST 14 ALT 16 Alkaline Phosphatase 64 Troponin I High Sens < 2.7 Total Protein 7.3 Albumin 4.3 Lipase 13 Influenza Type A (PCR) NEGATIVE Influenza Type B (PCR) NEGATIVE RSV RNA Qual (PCR) NEGATIVE SARS-CoV-2 RNA (RT-PCR) NEGATIVE Imaging Radiologist's Impressions: Impressions Abdomen/Pelvis CT 11/12/23 18:26 IMPRESSION: 1. A cause for the patient's abdominal pain, vomiting and shortness of breath has not been found. 2. Incidental note made of cholecystectomy, benign left adrenal adenoma and colonic diverticulosis without diverticulitis. 3. Of note, the patient has had 18 CT scans of the abdomen and pelvis since August 2018 all of which have been essentially normal. Fleischner guidelines were followed. Assessment and Plan (1) Abdominal pain: Qualifiers: Abdominal location: epigastric Qualified Code(s): R10.13 - Epigastric pain Status: Acute (2) Gastroparesis: Status: Acute Plan Zaina Sharma is a 53 years old woman presents with: * Abdominal pain, intractable likely secondary to diabetic gastroparesis. Keeping observation. Keep NPO. Continue IV fluids. Reglan 10 mg IV every 6 hours. Morphine IV as needed. * Type 2 diabetes mellitus. Blood glucose monitoring every 6 hours while NPO. Insulin sliding scale. * Hypokalemia likely secondary to poor p.o. intake. Replete as needed. Continue to monitor potassium level. * Sinus tachycardia likely secondary to dehydration and pain. Telemetry Continue IV fluids. DVT prophylaxis: SCDs, ambulation Code status: Full. Quality Stroke Does the patient have a stroke diagnosis?: No VTE Prior VTE?: No VTE Risk Level:: Medical - low VTE Device Contraindication: N/A - Device Ordered VTE Drug Contraindication: Treatment Not Indicated
[2023-11-12] MEDS: Metoclopramide HCl 10 MG/2 ML VIAL IVPUSH (21:45)
[2023-11-12] MEDS: Lactated Ringers 1,000 ML 125 ML IVCONT (21:45)
[2023-11-12] MEDS: Insulin Lispro 100 UNIT/ML 3 ML VIAL SUBCUT (21:51)
[2023-11-12 21:56] LABS: Glucose, Whole Blood 168 mg/dL (60-115)
--- NOTE | 2023-11-12 21:56 | PC.NURSE ---
Pt ambulated independently to the bathroom. IV's running. POC obtained and belongings list completed.
[2023-11-12 21:57] LABS: Appearance Urine Cloudy; Color Urine Yellow; Glucose Urine UA >=1000 mg/dL (Negative); Leukocyte Esterase Urine Negative (Negative); Nitrite Urine Negative (Negative); PH 5.5 (5.0-9.0); Specific Gravity - Urine >= 1.030 (1.005-1.025); UMIC TRIGGER UACC YES; Urine Blood Negative (Negative); Urine Ketones Trace mg/dL (Negative); Urine Protein Trace mg/dL (Neg-Trace)
[2023-11-12 21:59] LABS: UPreg QC Valid YES; Urine Pregnancy NEGATIVE (NEGATIVE)
[2023-11-12 22:22] LABS: Bacteria Urine 3+ (None Seen); Hyaline Casts Urine 0-2 /LPF (0-2); RBC Urine 0-2 /HPF (0-2); WBC Urine 0-5 /HPF (0-5)
[2023-11-13] VITALS (12 sets, daily range): BP systolic 89–104; BP diastolic 53–66; PULSE 88–109; RESP 12–19; TEMP 35.9–36.9; O2SAT 93–99
--- NOTE | 2023-11-13 00:19 | MHC.EDTECH ---
This tech took over care of patient at 2300,hourly rounds and vitals completed,patient is resting comfortably,call mejia in reach
--- NOTE | 2023-11-13 01:52 | MHC.EDTECH ---
Hourly rounds completed,patient is resting comfortably,call mejia in reach
[2023-11-13] MEDS: Morphine Sulfate 4 MG/ML CARTRIDGE 3 MG IVPUSH ×4 (01:57→20:01)
[2023-11-13] MEDS: Metoclopramide HCl 10 MG/2 ML VIAL IVPUSH ×4 (02:00→21:51)
--- NOTE | 2023-11-13 04:42 | MHC.EDTECH ---
Hourly rounds and vitals completed,patient's BP is low 89/53 DARIUS Ivory made aware, POC was due at 0300AM, per hospitalist to wait until 0600am,call mejia in reach
--- NOTE | 2023-11-13 04:44 | PC.NURSE ---
Per MD, POC can be delayed until 0600 so pt can rest.
--- NOTE | 2023-11-13 04:52 | PC.NURSE ---
Tech reported low BP. Informed . stated she is okay with the pressure. Will continue to monitor.
[2023-11-13] MEDS: Lactated Ringers 1,000 ML 125 ML IVCONT ×2 (05:34→19:52)
[2023-11-13 05:38] LABS: Hematocrit 38.1 % (37.0-47.0); Hemoglobin 12.8 g/dl (12.0-16.0); Mean Corpuscular HGB Conc 33.6 g/dl (31.0-35.0); Mean Corpuscular Hemoglobin 30.5 pg (27.0-33.0); Mean Corpuscular Volume 90.7 fL (80.0-98.0); Mean Platelet Volume 9.3 fL (9.4-12.3); Platelet Count 232 X10*3/uL (160-400); Red Cell Distribution Width 12.2 % (11.0-16.0); White Blood Count 6.4 X10*3/uL (4.8-10.8)
[2023-11-13 05:58] LABS: Glucose, Whole Blood 77 mg/dL (60-115)
[2023-11-13 06:02] LABS: Alanine Aminotransferase 17 U/L (0-31); Albumin Level 3.3 g/dL (3.5-5.0); Alkaline Phosphatase 51 U/L (39-117); Anion Gap 12 (12-20); Aspartate Amino Transferase 17 U/L (5-31); Bilirubin Total 0.5 mg/dL (0.0-1.0); Blood Urea Nitrogen 7 mg/dL (9-16); Calcium 8.5 mg/dL (8.4-10.2); Carbon Dioxide 23 mmol/L (22-29); Chloride 112 mmol/L (96-108); Creatinine Clr Calc Pharmacy 70.1; Estimated Glomerular Filt Rate > 60; Glucose Random 78 mg/dL (60-115); Potassium 3.7 mmol/L (3.3-5.1); Sodium 143 mmol/L (135-145); Total Protein 5.4 g/dL (6.5-8.0)
--- NOTE | 2023-11-13 06:03 | MHC.EDTECH ---
Hourly rounds completed,patient is resting comfortably at this time,call mejia in reach
[2023-11-13 07:26] LABS: Glucose, Whole Blood 76 mg/dL (60-115)
--- NOTE | 2023-11-13 11:06 | MHC.CM.PN ---
CM met with Patient at bedside and addressed ECHAVARRIA with her, providing Patient with the original and a copy will be placed on the chart. 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 Home self care is the goal and CM has initiated and will follow for dc planning.Patient declined completing a HCP and her PCP is Dr. Selwyn Flores.
--- NOTE | 2023-11-13 11:23 | MHC.CM.PN ---
CM met with Patient in the ED at bedside and addressed IMM with her, providing Patient with the original and a copy will be placed on the chart. Patient lives alone in an apartment and she required no services nor DME [employer]. Home/self care is the goal and CM has initiated and will follow for dc planning. Patient declined to complete a HCP and her PCP is Dr. Tasha Naranjo.
--- NOTE | 2023-11-13 11:46 | MHC.CM.PN ---
CM met with Patient and several family members at bedside. Patient was able to verbalize that he wishes for his 2 Daughters to be his HCP Agents. HCP form was filled out,original and copies given to family, uploaded into [facility] and placed on the chart.
[2023-11-13 12:46] LABS: Glucose, Whole Blood 201 mg/dL (60-115)
--- NOTE | 2023-11-13 13:14 | PM.EVENT ---
Event Note Date of Service: 11/13/23 Event Note: seen and examined this morning follow up for abdominal pain, N/V feeling better, no vomiting wants to try clear liquids patient resting in bed comfortably. Abdomen soft, nontender, nondistended tachycardia resolved, advance diet to clears, continue reglan the remainder of plan as her admission H&P potassium levels improved Time Spent With Patient Time: Total time managing care of this patient today ____ minutes.
--- NOTE | 2023-11-13 13:20 | PC.NURSE ---
pt IV in AC not working properly, LR not infusing well. BP soft. replaced 20G in R f.a
[2023-11-13] MEDS: Insulin Lispro 100 UNIT/ML 3 ML VIAL SUBCUT (13:30)
--- NOTE | 2023-11-13 17:18 | PC.NURSE ---
Addendum entered by Sindy Alejandro RN 11/13/23 17:29: per Moustapha PA - increase pt to full iquid diet and check manual BP - manual BP 104/64 Original Note: pts BPs soft, pt with no complaints IVF infusing at 125 hr through 20G in R wrist. Lory PUENTES made aware
[2023-11-13 18:16] LABS: Glucose, Whole Blood 118 mg/dL (60-115)
[2023-11-13] MEDS: clonazePAM 1 MG TABLET 2 MG PO (21:50)
[2023-11-13] MEDS: QUEtiapine Fumarate 300 MG TABLET 600 MG PO (21:51)
[2023-11-14] VITALS: BP 86/63; BP 93/56; PULSE 100; PULSE 96; RESP 16; TEMP 36.8; O2SAT 100; O2SAT 96
--- NOTE | 2023-11-14 | ECG_ITS ---
Test Reason : tachy Blood Pressure : / mmHG Vent. Rate : 117 BPM Atrial Rate : 117 BPM P-R Int : 134 ms QRS Dur : 064 ms QT Int : 378 ms P-R-T Axes : 057 047 194 degrees QTc Int : 527 ms Sinus tachycardia Low voltage QRS Cannot rule out Anterior infarct , age undetermined ST & T wave abnormality, consider lateral ischemia Prolonged QT Abnormal ECG When compared with ECG of 24-NOV-2022 08:55, Nonspecific T wave abnormality now evident in Inferior leads T wave inversion now evident in Anterolateral leads Referred By: Lory Gerard Electronically Signed By:NIKIA HOFFMANN
[2023-11-14 01:44] LABS: Glucose, Whole Blood 167 mg/dL (60-115)
[2023-11-14] MEDS: Lactated Ringers 1,000 ML 125 ML IVCONT ×2 (03:57→12:42)
[2023-11-14] MEDS: Metoclopramide HCl 10 MG/2 ML VIAL IVPUSH ×2 (03:57→08:23)
[2023-11-14 04:00] VITALS: BP 134/85; PULSE 108; RESP 16; TEMP 36.3; O2SAT 99
[2023-11-14] MEDS: Morphine Sulfate 4 MG/ML CARTRIDGE 3 MG IVPUSH ×4 (04:59→19:53)
[2023-11-14 07:26] VITALS: BP 137/72; PULSE 120; RESP 20; TEMP 37; O2SAT 95
[2023-11-14 07:34] LABS: Glucose, Whole Blood 168 mg/dL (60-115)
[2023-11-14] MEDS: clonazePAM 1 MG TABLET 2 MG PO ×2 (08:22→21:35)
[2023-11-14] MEDS: 0.9 % Sodium Chloride Flush 3 ML SYRINGE IVFLUSH ×2 (08:23→19:57)
[2023-11-14] MEDS: Insulin Lispro 100 UNIT/ML 3 ML VIAL SUBCUT ×2 (08:38→17:07)
[2023-11-14 11:37] VITALS: BP 143/82; PULSE 115; RESP 20; TEMP 36.6; O2SAT 95
[2023-11-14 12:28] LABS: Glucose, Whole Blood 129 mg/dL (60-115)
[2023-11-14 12:44] LABS: Anion Gap 13 (12-20); Blood Urea Nitrogen 5 mg/dL (9-16); Calcium 9.2 mg/dL (8.4-10.2); Carbon Dioxide 27 mmol/L (22-29); Chloride 107 mmol/L (96-108); Creatinine Clr Calc Pharmacy 75.7; Estimated Glomerular Filt Rate > 60; Glucose Random 128 mg/dL (60-115); Potassium 3.9 mmol/L (3.3-5.1); Sodium 143 mmol/L (135-145)
[2023-11-14 12:51] LABS: Hematocrit 40.6 % (37.0-47.0); Hemoglobin 13.8 g/dl (12.0-16.0); Mean Corpuscular Hemoglobin 30.9 pg (27.0-33.0); Mean Corpuscular Volume 90.8 fL (80.0-98.0); Mean Platelet Volume 9.4 fL (9.4-12.3); Platelet Count 243 X10*3/uL (160-400); Red Blood Count 4.47 X10*6/uL (4.20-5.50); Red Cell Distribution Width 11.9 % (11.0-16.0); White Blood Count 5.5 X10*3/uL (4.8-10.8)
--- NOTE | 2023-11-14 13:37 | P.PNIM_ITS ---
Subjective Subjective Date of Service: 11/14/23 Interval History: seen and examined this morning follow up for N/V no overnight events tachycardic today, but asymtomatic. no abdominal pain, nuasea or vomiting Review of Systems Review of Systems: Yes all other systems are reviewed and are negative Constitutional Constitutional: Denies chills and Denies fever(s) Cardiovascular Cardiovascular: Denies chest pain, Denies palpitations and Denies dyspnea Respiratory Respiratory: Denies cough and Denies dyspnea Endocrine Endocrine: Denies palpitations Physical Exam 2 Vital Signs: Vital Signs: Last Vital Signs Temp 97.8 F 11/14/23 11:37 Pulse 115 H 11/14/23 11:37 Resp 20 11/14/23 11:37 BP 143/82 H 11/14/23 11:37 Pulse Ox 95 11/14/23 11:37 O2 Del Method Room Air 11/14/23 11:37 BMI result Body Mass Index 27.8 Const: General: cooperative, comfortable, no acute distress, alert and awake Nutritional Appearance: average body habitus Orientation/consciousness: p atient oriented x3 Resp: Effort & Inspection: normal respiratory effort, able to speak in complete sentences, no respiratory distress and no use of accessory muscles A uscultation: clear to auscultation bilaterally Cardio: Rate: tachycardic GI: Other: no guarding, no rebound Inspection: No distended Palpation (GI): Soft to palpation and nontender Neuro: General: patient oriented x3, moves all extremities and CN's II-XI intact bilaterally Extrem: General: Yes no pedal edema Objective Data Active Medications Clonazepam (Clonazepam 1 Mg Tablet) 2 mg PO BID [facility] Last Admin: 11/14/23 08:22 Dose: 2 mg Documented By: FREDERICK Dextrose (Dextrose 50 % 25 Gm/50 Ml Syringe) 25 gm IVPUSH Q15M PRN; Protocol PRN Reason: per Hypoglycemia Standing Ord. Glucose (Glucose Gel 15 Gm Gel..Gram.) 15 gm PO Q15M PRN; Protocol PRN Reason: per Hypoglycemia Standing Ord. Lactated Ringer's (Lr) 1,000 mls @ 125 mls/hr IVCONT .Q8H [facility] Last Admin: 11/14/23 12:42 Dose: 125 mls/hr Documented By: FREDERICK Insulin Human Lispro (Insulin Lispro 100 Unit/Ml 3 Ml Vial) 0 unit SUBCUT QIDACHS [facility]; Protocol Last Admin: 11/14/23 12:31 Dose: Not Given Documented By: FREDERICK Non-Admin Reason: No Insulin Coverage Metoclopramide HCl (Metoclopramide Hcl 10 Mg/2 Ml Vial) 10 mg IVPUSH Q6H [facility] Last Admin: 11/14/23 08:23 Dose: 10 mg Documented By: FREDERICK Morphine Sulfate (Morphine Sulfate 4 Mg/Ml Cartridge) 3 mg IVPUSH Q4H PRN; Protocol PRN Reason: Pain, Severe (Pain Scale 7-10) Last Admin: 11/14/23 13:23 Dose: 3 mg Documented By: FREDERICK Quetiapine Fumarate (Quetiapine Fumarate 300 Mg Tablet) 600 mg PO BEDTIME [facility] Last Admin: 11/13/23 21:51 Dose: 600 mg Documented By: BRET Sodium Chloride (0.9 % Sodium Chloride Flush 3 Ml Syringe) 3 ml IVFLUSH QSHIFT [facility] Last Admin: 11/14/23 08:23 Dose: 3 ml Documented By: FREDERICK Labs 11/14/23 12:17 11/14/23 12:17 Labs: Laboratory Results - last 24 hr 11/13/23 11/14/23 11/14/23 18:12 01:40 07:29 MCV MCH MCHC RDW Plt Count MPV Absolute Nucleated RBC Nucleated RBC % (auto) Anion Gap Estim Creat Clear Calc Estimated GFR POC Glucose 118 H 167 H 168 H Random Glucose Calcium 11/14/23 11/14/23 12:17 12:25 MCV 90.8 MCH 30.9 MCHC 34.0 RDW 11.9 Plt Count 243 MPV 9.4 Absolute Nucleated RBC 0.000 Nucleated RBC % (auto) 0.0 Anion Gap 13 Estim Creat Clear Calc 75.7 Estimated GFR > 60 POC Glucose 129 H Random Glucose 128 H Calcium 9.2 D Assessment and Plan (1) Gastroparesis: Status: Acute Plan This is a 53 year old female with history of diabetic gastroparesis who presents with intractable nausea and vomiting Abdominal pain intractable likely secondary to diabetic gastroparesis. improving tolerating clears, will advance to regular diet continue supportive care premeal reglan - stopped due to prolonged QT prolonged QT lytes ok on seroquel at baseline will stop reglan Abnormal EKG EKG with new twave inversions [id number] no chest pain echo cardiology consult Type 2 diabetes mellitus Hba1c 7.9 SSI, POCs advance to ADA diet Trulicity, Jardiance, Lantus at baseline Hypokalemia resolved with replacement Sinus tachycardia afebrile, no anemia, TSH wnl ?due to dehydration afebrile, no Continue IV fluids. HLD resume statin DVT prophylaxis: SCDs, ambulation Code status: Full. Quality Stroke Does the patient have a stroke diagnosis?: No VTE Prior VTE?: No VTE Risk Level:: Medical - low VTE Device Contraindication: N/A - Device Ordered VTE Drug Contraindication: Treatment Not Indicated
[2023-11-14 13:43] LABS: Estimated Average Glucose 180 mg/dL; Hemoglobin A1c % 7.9 % (<6.0)
[2023-11-14 15:11] LABS: Troponin-I High Sensitivity 22.6 ng/L (<3.5-17.0)
[2023-11-14 16:00] VITALS: BP 161/94; PULSE 111; RESP 18; TEMP 36.8; O2SAT 97
[2023-11-14 16:30] LABS: Glucose, Whole Blood 188 mg/dL (60-115)
[2023-11-14 17:35] LABS: Troponin-I High Sensitivity 26.1 ng/L (<3.5-17.0)
[2023-11-14 20:00] VITALS: BP 134/83; PULSE 110; RESP 18; TEMP 35.8; O2SAT 95
[2023-11-14] MEDS: Atorvastatin Calcium 20 MG TABLET PO (21:35)
[2023-11-14] MEDS: QUEtiapine Fumarate 300 MG TABLET 600 MG PO (21:36)
[2023-11-14 21:37] LABS: Glucose, Whole Blood 118 mg/dL (60-115)
[2023-11-15] VITALS (9 sets, daily range): BP systolic 86–120; BP diastolic 42–77; PULSE 94–124; RESP 16–20; TEMP 35.7–37.1; O2SAT 95–99; BMI 32.2
[2023-11-15] MEDS: Morphine Sulfate 4 MG/ML CARTRIDGE 3 MG IVPUSH ×4 (03:21→19:54)
[2023-11-15 07:04] LABS: Cholesterol 144 mg/dL (<200); HDL Cholesterol 43 mg/dL (>40); LDL Cholesterol Calculated 83 mg/dL (<100); Triglycerides 90 mg/dL (<150)
[2023-11-15 07:52] LABS: Glucose, Whole Blood 120 mg/dL (60-115)
[2023-11-15] MEDS: clonazePAM 1 MG TABLET 2 MG PO ×2 (08:05→22:39)
[2023-11-15] MEDS: 0.9 % Sodium Chloride Flush 3 ML SYRINGE IVFLUSH ×2 (08:06→15:38)
--- NOTE | 2023-11-15 09:18 | ECG_ITS ---
Test Reason : tach Blood Pressure : / mmHG Vent. Rate : 097 BPM Atrial Rate : 097 BPM P-R Int : 134 ms QRS Dur : 068 ms QT Int : 412 ms P-R-T Axes : 036 038 186 degrees QTc Int : 523 ms Normal sinus rhythm Low voltage QRS ST & T wave abnormality, consider inferior ischemia ST & T wave abnormality, consider anterolateral ischemia Prolonged QT Abnormal ECG When compared with ECG of 14-NOV-2023 13:45, No significant change was found Referred By: Efrain Garcia Electronically Signed By:Abdoulaye Medrano
[2023-11-15 10:12] LABS: Hematocrit 38.5 % (37.0-47.0); Hemoglobin 12.9 g/dl (12.0-16.0); Mean Corpuscular HGB Conc 33.5 g/dl (31.0-35.0); Mean Corpuscular Hemoglobin 30.4 pg (27.0-33.0); Mean Corpuscular Volume 90.8 fL (80.0-98.0); Mean Platelet Volume 9.8 fL (9.4-12.3); Platelet Count 248 X10*3/uL (160-400); Red Blood Count 4.24 X10*6/uL (4.20-5.50); Red Cell Distribution Width 11.9 % (11.0-16.0); White Blood Count 4.8 X10*3/uL (4.8-10.8)
[2023-11-15 10:19] LABS: Prothrombin Time 12.2 SEC (11.1-13.3)
[2023-11-15 10:21] LABS: PTT Heparin Drip 31.6 SEC (53-77.9)
--- NOTE | 2023-11-15 10:23 | P.PNIM_ITS ---
Subjective Subjective Date of Service: 11/15/23 Interval History: seen and examined this morning follow up for N?V which has improved, now with abnormal EKG concerning for NSTEMI patient reporting low back pain Review of Systems Review of Systems: Yes all other systems are reviewed and are negative Constitutional Constitutional: Denies chills and Denies fever(s) Gastrointestinal Gastrointestinal: Denies abdominal pain, Denies nausea and Denies vomiting Physical Exam 2 Vital Signs: Vital Signs: Last Vital Signs Temp 98.8 F 11/15/23 07:27 Pulse 108 H 11/15/23 07:27 Resp 20 11/15/23 07:27 BP 119/73 11/15/23 07:27 Pulse Ox 97 11/15/23 07:27 O2 Del Method Room Air 11/15/23 07:27 BMI result Body Mass Index 32.2 Const: General: cooperative, comfortable, no acute distress, alert and awake Nutritional Appearance: average body habitus Orientation/consciousness: p atient oriented x3 Resp: Effort & Inspection: normal respiratory effort, able to speak in complete sentences, no respiratory distress and no use of accessory muscles Cardio: Rate: tachycardic GI: Inspection: No distended Palpation (GI): Soft to palpation and nontender Neuro: General: patient oriented x3, moves all extremities and CN's II-XI intact bilaterally Extrem: General: Yes no pedal edema Objective Data Active Medications Aspirin (Aspirin Enteric Coated 81 Mg Tablet.) 81 mg PO DAILY [facility] Atorvastatin Calcium (Atorvastatin Calcium 20 Mg Tablet) 20 mg PO BEDTIME [facility] Last Admin: 11/14/23 21:35 Dose: 20 mg Documented By: BRET Clonazepam (Clonazepam 1 Mg Tablet) 2 mg PO BID [facility] Last Admin: 11/15/23 08:05 Dose: 2 mg Documented By: FREDERICK Dextrose (Dextrose 50 % 25 Gm/50 Ml Syringe) 25 gm IVPUSH Q15M PRN; Protocol PRN Reason: per Hypoglycemia Standing Ord. Glucose (Glucose Gel 15 Gm Gel..Gram.) 15 gm PO Q15M PRN; Protocol PRN Reason: per Hypoglycemia Standing Ord. Heparin Sodium (Porcine) (Heparin Sodium,Porcine 5,000 Unit/Ml Vial) 3,100 unit 40 unit/kg (3100 unit) IVPUSH PROTOCOL BOLUS PRN; Protocol PRN Reason: 40 unit/kg - Heparin Protocol Heparin Sodium (Porcine) (Heparin Sodium,Porcine 5,000 Unit/Ml Vial) 6,200 unit 80 unit/kg (6200 unit) IVPUSH PROTOCOL BOLUS PRN; Protocol PRN Reason: 80 unit/kg - Heparin Protocol Heparin Sodium/Sodium Chloride (Heparin Sodium,Porcine/1/2ns) 25,000 unit in 250 mls @ 0 mls/hr IVCONT .Q0M [facility]; Protocol Insulin Human Lispro (Insulin Lispro 100 Unit/Ml 3 Ml Vial) 0 unit SUBCUT QIDACHS [facility]; Protocol Last Admin: 11/15/23 08:07 Dose: Not Given Documented By: FREDERICK Non-Admin Reason: No Insulin Coverage Metoprolol Tartrate (Metoprolol Tartrate 25 Mg Tablet) 25 mg PO BID [facility]; Protocol Morphine Sulfate (Morphine Sulfate 4 Mg/Ml Cartridge) 3 mg IVPUSH Q4H PRN; Protocol PRN Reason: Pain, Severe (Pain Scale 7-10) Last Admin: 11/15/23 08:05 Dose: 3 mg Documented By: FREDERICK Quetiapine Fumarate (Quetiapine Fumarate 300 Mg Tablet) 600 mg PO BEDTIME [facility] Last Admin: 11/14/23 21:36 Dose: 600 mg Documented By: BRET Sodium Chloride (0.9 % Sodium Chloride Flush 3 Ml Syringe) 3 ml IVFLUSH QSHIFT [facility] Last Admin: 11/15/23 08:06 Dose: 3 ml Documented By: FREDERICK Labs 11/15/23 06:31 11/14/23 12:17 Labs: Laboratory Results - last 24 hr 11/14/23 11/14/23 11/14/23 12:17 12:25 14:31 MCV 90.8 MCH 30.9 MCHC 34.0 RDW 11.9 Plt Count 243 MPV 9.4 Absolute Nucleated RBC 0.000 Nucleated RBC % (auto) 0.0 Hold Purple Top PT INR aPTT Heparin Protocol Anion Gap 13 Estim Creat Clear Calc 75.7 Estimated GFR > 60 POC Glucose 129 H Random Glucose 128 H Estimat Average Glucose 180 Hemoglobin A1c % 7.9 H Calcium 9.2 D Troponin I High Sens 22.6 H D Triglycerides Cholesterol LDL Cholesterol, Calc HDL Cholesterol TSH 1.70 11/14/23 11/14/23 11/14/23 16:08 17:04 21:32 MCV MCH MCHC RDW Plt Count MPV Absolute Nucleated RBC Nucleated RBC % (auto) Hold Purple Top PT INR aPTT Heparin Protocol Anion Gap Estim Creat Clear Calc Estimated GFR POC Glucose 188 H 118 H Random Glucose Estimat Average Glucose Hemoglobin A1c % Calcium Troponin I High Sens 26.1 H Triglycerides Cholesterol LDL Cholesterol, Calc HDL Cholesterol TSH 11/15/23 11/15/23 11/15/23 06:31 07:29 09:58 MCV 90.8 MCH 30.4 MCHC 33.5 RDW 11.9 Plt Count 248 MPV 9.8 Absolute Nucleated RBC 0.000 Nucleated RBC % (auto) 0.0 Hold Purple Top SEE NOTE SEE NOTE PT 12.2 INR 1.0 aPTT Heparin Protocol 31.6 L Anion Gap Estim Creat Clear Calc Estimated GFR POC Glucose 120 H Random Glucose Estimat Average Glucose Hemoglobin A1c % Calcium Troponin I High Sens Triglycerides 90 Cholesterol 144 LDL Cholesterol, Calc 83 HDL Cholesterol 43 TSH Assessment and Plan (1) NSTEMI (non-ST elevated myocardial infarction): Status: Acute Plan This is a 53 year old female with history of diabetic gastroparesis who presented to the ED with intractable nausea and vomiting admitted for the same. Abdominal pain nausea and vomiting improved but EKG with changes concerning for NSTEMI now on heparin drip NSTEMI trop on admission negative, repeat 11/13 22.6,26.1; repeat pending now EKG changes concerning for ischemia, start Heparin drip start ASA, low dose BB increase dose of statin echo pending cardiology following, may need cath depending on ECHO Abdominal pain likely secondary to diabetic gastroparesis. Resolved toelrating diet premeal reglan - stopped due to prolonged QT prolonged QT lytes ok reglan, seroquel stopped for now follow K, Mag follow EKG Type 2 diabetes mellitus Hba1c 7.9 SSI, POCs tolerating diabetic diet BS under adequate control at this time Trulicity, Jardiance, Lantus at baseline - on hold Hypokalemia resolved with replacement HLD statin DVT prophylaxis: heparin drip Code status: Full. attending - dr. ojeda Quality Stroke Does the patient have a stroke diagnosis?: No VTE Prior VTE?: No VTE Risk Level:: Medical - low VTE Device Contraindication: N/A - Device Ordered VTE Drug Contraindication: Treatment Not Indicated
--- NOTE | 2023-11-15 10:33 | PM.CNCAR ---
History of Present Illness History of Present Illness Date of Service: 11/15/23 Chief complaint: abdoinal pain Narrative: This is a cardiology consultation regarding an abnormal EKG. Patient essentially has gastroparesis/type 2 diabetes. She came for abdominal pain. In this context, it seems that she was tachycardic and she had EKGs performed. The EKG from yesterday showed evidence of T inversions and hence we are consulted. Patient denies any history of coronary artery disease or myocardial infarction or cardiomyopathy or in fact any other cardiac issues. When I questioned her about chest pressure or discomfort, she states that she has had off and on chest pressure in the past. Somewhat vague but she states whenever she gets the abdominal discomfort and at the same time she may also feels some chest pressure. Otherwise, prior to admissions, she has again had off and on chest pressure at different times. Sometimes with activity and sometimes otherwise. She describes generalized fatigue with activity. Not clear if these all anginal or not. Review of Systems Review of Systems: Yes all other systems are reviewed and are negative Constitutional: Constitutional: Reports as per HPI and Reports no additional constitutional complaints Eyes: Eyes: Reports as per HPI and Denies no additional eye complaints ENT: Denies system reviewed and no additional complaints, except as documented and Reports as per HPI Cardiovascular: Cardiovascular: Reports as per HPI, Reports no additional cardiovascular complaints, Denies acrocyanosis, Denies cool extremities, Denies chest pain, Denies leg edema, Denies lightheadedness, Denies palpitations and Denies dyspnea Respiratory: Respiratory: Reports as per HPI, Denies no additional respiratory complaints and Denies dyspnea Gastrointestinal: Gastrointestinal: Reports as per HPI and Denies no additional gastrointestinal complaints Genitourinary: Genitourinary: Reports as per HPI Musculoskeletal: Musculoskeletal: Reports no additional musculoskeletal complaints and Reports as per HPI Integumentary/Breasts: Skin/Breast: Reports system reviewed and no additional complaints, except as docu Neurologic: Reports system reviewed and no additional complaints, except as documented and Reports as per HPI Psychiatric: Psychiatric: Reports no additional psychiatric complaints and Reports as per HPI Endocrine: Endocrine: Reports no additional endocrine complaints, Reports as per HPI and Denies palpitations Hematologic/Lymphatic: Hematologic/Lymphatic: Reports no additional hematologic/lymphatic complaints and Reports as per HPI Allergic/Immunologic: Allergic/Immunologic: Reports no additional allergic/immunologic complaints and Reports as per HPI [facility] Past Medical History Medical History Diabetes Gastroparesis Family History Pertinent family history: Brother- stroke Father- [place] Social History Social History Household Members: None Housing: Apartment Do you presently have visiting nurse or other home services: No Alcohol intake: never Patient Tobacco Use Status: Never used Tobacco Smoked in Last 30 Days: No Use of substances other than those prescribed or required for medical reasons: No Currently Displaying Signs/Symptoms of Drug Intoxication Withdrawal: No Any prior treatment program specific to substance use: No Have you been hit, kicked, punched, or otherwise hurt by someone within the past year? If so, by whom?: No Do you feel safe in your current relationship?: No Current Relationship Is there a partner from a previous relationship who is making you feel unsafe now?: No Are you made to feel afraid or neglected: No Advance Directives: No Advance Directives Information Provided: No Do you have thoughts of harming others: None Do you have a plan to hurt others: No Plan Recently lost weight without trying: Yes How much weight loss: 14-23 pounds Eating poorly because of decreased appetite: Yes Nutrition screen score: 5 Nutrition Risks: No Nutritional Risk Patient : No : No Poor oral hygiene: No service: No Meds Allergies Allergy/AdvReac Type Severity Reaction Status Date / Time No Known Allergies Allergy Verified 11/12/23 14:48 [No Known Allergies*] Active Medications: Current Medications Aspirin (Aspirin Enteric Coated 81 Mg Tablet.) 81 mg PO DAILY [facility] Atorvastatin Calcium (Atorvastatin Calcium 20 Mg Tablet) 20 mg PO BEDTIME [facility] Last Admin: 11/14/23 21:35 Dose: 20 mg Clonazepam (Clonazepam 1 Mg Tablet) 2 mg PO BID [facility] Last Admin: 11/15/23 08:05 Dose: 2 mg Dextrose (Dextrose 50 % 25 Gm/50 Ml Syringe) 25 gm IVPUSH Q15M PRN; Protocol PRN Reason: per Hypoglycemia Standing Ord. Glucose (Glucose Gel 15 Gm Gel..Gram.) 15 gm PO Q15M PRN; Protocol PRN Reason: per Hypoglycemia Standing Ord. Heparin Sodium (Porcine) (Heparin Sodium,Porcine 5,000 Unit/Ml Vial) 3,100 unit 40 unit/kg (3100 unit) IVPUSH PROTOCOL BOLUS PRN; Protocol PRN Reason: 40 unit/kg - Heparin Protocol Heparin Sodium (Porcine) (Heparin Sodium,Porcine 5,000 Unit/Ml Vial) 6,200 unit 80 unit/kg (6200 unit) IVPUSH PROTOCOL BOLUS PRN; Protocol PRN Reason: 80 unit/kg - Heparin Protocol Heparin Sodium/Sodium Chloride (Heparin Sodium,Porcine/1/2ns) 25,000 unit in 250 mls @ 0 mls/hr IVCONT .Q0M [facility]; Protocol Insulin Human Lispro (Insulin Lispro 100 Unit/Ml 3 Ml Vial) 0 unit SUBCUT QIDACHS [facility]; Protocol Last Admin: 11/15/23 08:07 Dose: Not Given Metoprolol Tartrate (Metoprolol Tartrate 25 Mg Tablet) 25 mg PO BID [facility]; Protocol Morphine Sulfate (Morphine Sulfate 4 Mg/Ml Cartridge) 3 mg IVPUSH Q4H PRN; Protocol PRN Reason: Pain, Severe (Pain Scale 7-10) Last Admin: 11/15/23 08:05 Dose: 3 mg Quetiapine Fumarate (Quetiapine Fumarate 300 Mg Tablet) 600 mg PO BEDTIME [facility] Last Admin: 11/14/23 21:36 Dose: 600 mg Sodium Chloride (0.9 % Sodium Chloride Flush 3 Ml Syringe) [facility] Last Admin: 11/15/23 08:06 Dose: 3 ml Home Medications Medication Instructions Recorded Confirmed Last Taken Type atorvastatin 20 mg tablet 20 mg PO BEDTIME 11/12/23 11/12/23 11/07/23 History clonazepam 2 mg tablet 2 mg PO BID anxiety 11/12/23 11/12/23 Unknown History dulaglutide 0.75 mg/0.5 mL 0.75 mg subcut MO 11/12/23 11/12/23 11/09/23 History subcutaneous pen injector (Trulicity) empagliflozin 25 mg tablet 25 mg PO QAM 11/12/23 11/12/23 Unknown History (Jardiance) insulin glargine 100 unit/mL 10 unit subcut QPM 11/12/23 11/12/23 11/11/23 History subcutaneous solution (Lantus U-100 Insulin) ondansetron 4 mg disintegrating 4 mg PO Q6H PRN Nausea 11/12/23 11/12/23 Unknown History tablet quetiapine 300 mg tablet 600 mg PO BEDTIME 11/12/23 11/12/23 11/11/23 History Physical Exam Vital Signs: Vital Signs: Last Vital Signs Temp 98.8 F 11/15/23 07:27 Pulse 108 H 11/15/23 07:27 Resp 20 11/15/23 07:27 BP 119/73 11/15/23 07:27 Pulse Ox 97 11/15/23 07:27 O2 Del Method Room Air 11/15/23 07:27 BMI result Body Mass Index 32.2 Const: General: comfortable and no acute distress Orientation/consciousness: patient oriented x3 HEENT: Other: Unremarkable Head: Yes normal to inspection Neck: Neck: Yes normal visual inspection Chest: Chest palpation & inspection: normal inspection of the chest Resp: Auscultation: clear to auscultation bilaterally Cardio: Palpation: normal PMI Heart sounds: S1 normal heart sound present, S2 normal heart sound present, no gallops, no murmurs and no rubs GI: Palpation (GI): Soft to palpation Back/Spine/Pelvis: Other: unremarkable Skin: General skin exam: no rashes or lesions noted Neuro: General: patient oriented x3 Extrem: General: Yes normal to inspection Psych: Mental Status: mental status grossly normal Objective Labs and Meds 11/15/23 06:31 11/14/23 12:17 Lab results: Laboratory Results - last 24 hr 11/14/23 11/14/23 11/14/23 12:17 12:25 14:31 WBC 5.5 RBC 4.47 Hgb 13.8 Hct 40.6 MCV 90.8 MCH 30.9 MCHC 34.0 RDW 11.9 Plt Count 243 MPV 9.4 Absolute Nucleated RBC 0.000 Nucleated RBC % (auto) 0.0 Hold Purple Top PT INR aPTT Heparin Protocol Sodium 143 Potassium 3.9 Chloride 107 Carbon Dioxide 27 Anion Gap 13 BUN 5 L Creatinine 0.75 Estim Creat Clear Calc 75.7 Estimated GFR > 60 POC Glucose 129 H Random Glucose 128 H Estimat Average Glucose 180 Hemoglobin A1c % 7.9 H Calcium 9.2 D Troponin I High Sens 22.6 H D Triglycerides Cholesterol LDL Cholesterol, Calc HDL Cholesterol TSH 1.70 11/14/23 11/14/23 11/14/23 16:08 17:04 21:32 WBC RBC Hgb Hct MCV MCH MCHC RDW Plt Count MPV Absolute Nucleated RBC Nucleated RBC % (auto) Hold Purple Top PT INR aPTT Heparin Protocol Sodium Potassium Chloride Carbon Dioxide Anion Gap BUN Creatinine Estim Creat Clear Calc Estimated GFR POC Glucose 188 H 118 H Random Glucose Estimat Average Glucose Hemoglobin A1c % Calcium Troponin I High Sens 26.1 H Triglycerides Cholesterol LDL Cholesterol, Calc HDL Cholesterol TSH 11/15/23 11/15/23 11/15/23 06:31 07:29 09:58 WBC 4.8 RBC 4.24 Hgb 12.9 Hct 38.5 MCV 90.8 MCH 30.4 MCHC 33.5 RDW 11.9 Plt Count 248 MPV 9.8 Absolute Nucleated RBC 0.000 Nucleated RBC % (auto) 0.0 Hold Purple Top SEE NOTE SEE NOTE PT 12.2 INR 1.0 aPTT Heparin Protocol 31.6 L Sodium Potassium Chloride Carbon Dioxide Anion Gap BUN Creatinine Estim Creat Clear Calc Estimated GFR POC Glucose 120 H Random Glucose Estimat Average Glucose Hemoglobin A1c % Calcium Troponin I High Sens Triglycerides 90 Cholesterol 144 LDL Cholesterol, Calc 83 HDL Cholesterol 43 TSH ECG Interpretation: EKG yesterday shows sinus tachycardia at 01:17/Min with T inversions along the anterior leads as well as lead 1/aVL. In the repeat EKG today, the T inversions are more prominent. Assessment and Plan (1) NSTEMI (non-ST elevated myocardial infarction): Status: Acute Plan EKG is concerning for LAD territory ischemia. She has a diabetic at baseline. And hence there is risk of coronary disease. Troponin levels are less than 2.7 followed by 22.6 followed by 26.1 followed by 13.8. Overall, we can treat this as acute coronary syndrome/NSTEMI. IV heparin drip, aspirin, beta-blockers and statins. Plan to get an echocardiogram tomorrow. Probably needs diagnostic cardiac catheterization. Will sign out to interventional for tomorrow. Discussed with Lory Gerard. Procedures Date of Service Date of Service: 11/15/23
[2023-11-15] MEDS: Aspirin Enteric Coated 81 MG TABLET.DR PO (10:35)
[2023-11-15] MEDS: Metoprolol Tartrate 25 MG TABLET PO ×2 (10:35→22:39)
[2023-11-15 10:36] LABS: Troponin-I High Sensitivity 13.8 ng/L (<3.5-17.0)
[2023-11-15] MEDS: Heparin Sodium,Porcine 5,000 UNIT/ML VIAL 4000 UNIT IVPUSH (10:49)
[2023-11-15 10:53] LABS: Anion Gap 14 (12-20); Blood Urea Nitrogen 4 mg/dL (9-16); Calcium 8.4 mg/dL (8.4-10.2); Carbon Dioxide 24 mmol/L (22-29); Chloride 107 mmol/L (96-108); Creatinine Clr Calc Pharmacy 83.7; Estimated Glomerular Filt Rate > 60; Glucose Random 153 mg/dL (60-115); Magnesium 1.7 mg/dL (1.6-2.6); Potassium 3.2 mmol/L (3.3-5.1); Sodium 142 mmol/L (135-145)
[2023-11-15 11:47] LABS: Glucose, Whole Blood 163 mg/dL (60-115)
[2023-11-15] MEDS: Magnesium Sulfate/H2O 2 GM/50 ML PIGGYBACK IV ×2 (12:25→22:39)
[2023-11-15] MEDS: Insulin Lispro 100 UNIT/ML 3 ML VIAL SUBCUT ×2 (12:25→22:40)
[2023-11-15] MEDS: Potassium Chloride Packet 20 MEQ PACKET 40 MEQ PO (12:25)
--- NOTE | 2023-11-15 15:11 | PC.NURSE ---
Patient alert to person, place, and situation. Deborah area and rectum area checked for output. Dark brown blood on pad and size of a 4 inch long smear. Pad changed and deborah area cleaned. Pt reported 9 out of ten pain. Address with pain medication and repositioning. See medication mar.
[2023-11-15 16:39] LABS: Glucose, Whole Blood 142 mg/dL (60-115)
[2023-11-15 20:35] LABS: Glucose, Whole Blood 213 mg/dL (60-115)
[2023-11-15] MEDS: Heparin Sodium,Porcine/1/2NS 25,000 UNIT/250 ML IV.SOLN 9.26 UNIT IVCONT (21:56)
--- NOTE | 2023-11-15 22:19 | PM.EVENT ---
Event Note Date of Service: 11/23/23 Event Note: note deleted Time Spent With Patient Time: Total time managing care of this patient today ____ minutes.
[2023-11-15 22:37] LABS: Partial Thromboplastin Time 28.4 SEC (26.0-36.8)
[2023-11-15] MEDS: Atorvastatin Calcium 40 MG TABLET PO (22:39)
[2023-11-15] MEDS: Heparin Sodium,Porcine 5,000 UNIT/ML VIAL 6200 UNIT IVPUSH (22:43)
[2023-11-16] VITALS (8 sets, daily range): BP systolic 78–110; BP diastolic 48–75; PULSE 78–88; RESP 18–20; TEMP 36.4–36.7; O2SAT 92–99
--- NOTE | 2023-11-16 03:29 | PC.NURSE ---
Addendum entered by Dawna Harris RN 11/16/23 04:55: BP 78/50 Manually. MD Zayas notified. 1L LR Bolus ordered. Labs ordered. Original Note: MD Zayas notified of SBP in the 80s. Pt asymptomatic, denies dizziness or feeling light headed. A&Ox4, ambulating without difficulty. Per MD to hold Morphine at this time. Pt given hot packs to help with pain. Pt refusing tylenol at this time.
[2023-11-16] MEDS: Lactated Ringers 1,000 ML 999 ML IV (04:58)
[2023-11-16 05:08] LABS: PTT Heparin Drip > 200.0 SEC (53-77.9)
[2023-11-16 05:56] LABS: Hematocrit 33.9 % (37.0-47.0); Hemoglobin 11.5 g/dl (12.0-16.0); Mean Corpuscular HGB Conc 33.9 g/dl (31.0-35.0); Mean Corpuscular Hemoglobin 31.1 pg (27.0-33.0); Mean Corpuscular Volume 91.6 fL (80.0-98.0); Mean Platelet Volume 9.2 fL (9.4-12.3); Platelet Count 204 X10*3/uL (160-400); Red Cell Distribution Width 12.2 % (11.0-16.0); White Blood Count 4.6 X10*3/uL (4.8-10.8)
[2023-11-16 06:01] LABS: Prothrombin Time 12.1 SEC (11.1-13.3)
[2023-11-16 06:14] LABS: Anion Gap 12 (12-20); Blood Urea Nitrogen 7 mg/dL (9-16); Calcium 8.3 mg/dL (8.4-10.2); Carbon Dioxide 25 mmol/L (22-29); Chloride 107 mmol/L (96-108); Creatinine Clr Calc Pharmacy 86.1; Estimated Glomerular Filt Rate > 60; Glucose Random 162 mg/dL (60-115); Magnesium 2.4 mg/dL (1.6-2.6); Potassium 3.7 mmol/L (3.3-5.1); Sodium 140 mmol/L (135-145)
[2023-11-16 06:18] LABS: PTT Heparin Drip > 200.0 SEC (53-77.9)
--- NOTE | 2023-11-16 07:00 | CA_ITS ---
Transthoracic Echocardiogram Patient (Last, First, Middle): Zaina Sharma, Gender: Female Date of : 1970 Age: 53 Procedure Date: 11/16/2023 Procedure Type: Transthoracic [place] [facility] [place]: 154.94 cm Weight: 77.11 kg BSA: 1.76 m2 Heart Rate: 87 bpm BP: 98 / 62 mmHg Transformer Mechanic: RISHABH Referring MD: Lory PUENTES Symptoms: tachycardia Study Quality: Adequate ECG Rhythm: Sinus Conclusions: - Normal left ventricular cavity size. There is normal left ventricular wall thickness. The left ventricular systolic function is mild to moderately decreased. The visually estimated ejection fraction is between 35-40%. - The apical anterior, apical inferior, mid anterior, mid inferior, apical lateral, apical septum, mid anterolateral, mid inferoseptal, mid anteroseptal, and mid inferolateral segments are hypokinetic. - The apex segment is akinetic. - Takotsubo cardiomyopathy vs wrap around LAD ischemia. Findings Left Ventricle Normal left ventricular cavity size. There is normal left ventricular wall thickness. The left ventricular systolic function is mild to moderately decreased. The visually estimated ejection fraction is between 35-40%. There is evidence of regional wall motion abnormalities. Diastolic function is indeterminate on the basis of available data. Wall Motion Rest Echo Findings The apical anterior, apical inferior, mid anterior, mid inferior, apical lateral, apical septum, mid anterolateral, mid inferoseptal, mid anteroseptal, and mid inferolateral segments are hypokinetic. The apex segment is akinetic. Right Ventricle Normal right ventricular cavity size and systolic function. Atria The left atrium is normal in size. Aortic Valve Normal aortic valve structure and function. There is no aortic valve stenosis. There is no aortic valve regurgitation. Mitral Valve The mitral valve appears normal. There is no mitral valve regurgitation. There is no mitral valve stenosis. Pulmonic Valve The pulmonic valve is normal. There is no pulmonic valve regurgitation. Tricuspid Valve Normal tricuspid valve structure. There is no tricuspid valve regurgitation. Normal right atrial pressure. There is no evidence of pulmonary hypertension. Great Vessels All visible segments of the aorta are normal in size. The visualized portions of the pulmonary artery and branches are normal. Venous The inferior vena cava is normal in size and collapses greater than 50% with inspiration. Pericardium/Pleural There is no evidence of pericardial effusion. Prior Study Comparison No prior study available for comparison. Measurements 2D Linear Measurements IVSd: 0.87 0.6-0.9/0.6-1.0 cm LVIDd: 4.28 3.9-5.3/4.2-5.9 cm LVIDd Index: 2.43 2.4-3.2/2.2-3.1 cm/m2 LVIDs: 2.85 2.0-3.6 cm LVPWd: 1.07 0.7-1.1 cm LA Diam: 3.10 2.7-3.8/3.0-4.0 cm LAIDs Index: 1.76 1.5-2.3 cm/m2 LV Mass: 168.85 67-162/88-224 g LV Mass Index: 95.94 43-95/49-115 g/m2 LVOT Diam: 2.00 3.0+(-)1.3 cm 2D Systolic Function EF 4C: 44.50 >55% EF 2C: 38.00 >55% EF BiP: 40.10 >55% Mitral Valve MV Pk E: 0.67 MV PK A: 0.87 MV Decel Time: 170.00 E/A: 0.80 E'Lateral: 6.85 E'Medial: 6.20 E/E' Med: 10.80 E/E' Lat: 9.80 PHT: 50.00 MVA PHT: 4.40 Decel [place]: 3.93 Aortic Valve AoV Pk Dagoberto: 0.89 AoV Mn Dagoberto: 0.67 AoV VTI: 0.19 AoV Pk Grad: 3.00 Aov Mn Grad: 2.00 JOANNA Cont.VTI: 1.98 LVOT LVOT Pk Dagoberto: 0.63 LVOT Mn Dagoberto: 0.47 LVOT VTI: 0.12 LVOT Pk Grad: 2.00 LVOT Mn Grad: 1.00 LVOT Diam: 2.00 LVOT Area: 3.14 Diastolic Function MV Pk E: 0.67 MV Pk A: 0.87 E/A: 0.80 E'Medial: 6.20 E/E' Med: 10.80 E' Laterial: 6.85 E/E' Lat: 9.80 Right Ventricle TAPSE (mm): 20.00 TVS' Dagoberto: 10.40 Tricuspid Valve TR Pk Dagoberto: 1.57 TR Pk Grad: 10.00 RA Press: 8.00 RVSP: 18.00 Great Vessels Aorta Sinus of Valsalva: 2.90 2.0-3.5 cm Ao Asc: 2.50 2.1-3.4 cm Pulmonary Valve PV Pk Dagoberto: 0.77 Peak PV Grad: 2.00 Updated in Other Vendor System with Status of Final Abdoulaye Medrano MD electronically signed on 11/16/2023 3:48:55 PM with status of Final
[2023-11-16 07:29] LABS: Glucose, Whole Blood 152 mg/dL (60-115)
[2023-11-16 09:02] LABS: PTT Heparin Drip 80.2 SEC (53-77.9)
[2023-11-16] MEDS: clonazePAM 1 MG TABLET 2 MG PO ×2 (09:06→21:31)
[2023-11-16] MEDS: 0.9 % Sodium Chloride Flush 3 ML SYRINGE IVFLUSH ×2 (09:06→17:26)
[2023-11-16] MEDS: Insulin Lispro 100 UNIT/ML 3 ML VIAL SUBCUT ×3 (09:06→21:31)
[2023-11-16] MEDS: Aspirin Enteric Coated 81 MG TABLET.DR PO (09:06)
[2023-11-16] MEDS: Metoprolol Tartrate 25 MG TABLET PO ×2 (09:06→21:31)
[2023-11-16 11:34] LABS: Glucose, Whole Blood 243 mg/dL (60-115)
[2023-11-16] MEDS: Morphine Sulfate 4 MG/ML CARTRIDGE 2 MG IVPUSH ×2 (12:29→21:31)
--- NOTE | 2023-11-16 13:10 | PM.PNCARD ---
Subjective Subjective Date of Service: 11/16/23 Interval history: Seen examined at bedside. Complaining of epigastric discomfort. Also has been experiencing some chest discomfort which she describes as a tightness in the chest. EKGs reviewed. Labs reviewed. Physical Exam Vital Signs: Last Vital Signs Temp 97.5 F 11/16/23 11:17 Pulse 84 11/16/23 11:17 Resp 18 11/16/23 11:17 BP 96/55 L 11/16/23 11:17 Pulse Ox 96 11/16/23 11:17 O2 Del Method Room Air 11/16/23 11:17 BMI result Body Mass Index 32.2 GENERAL APPEARANCE: in no acute distress. NECK: no carotid bruit, no jugular venous distention. SKIN: no suspicious lesions, warm and dry. HEART: no murmurs, regular rate and rhythm. LUNGS: clear to auscultation bilaterally. ABDOMEN: soft, epigastric tenderness. EXTREMITIES: no edema. PERIPHERAL PULSES: equal. NEUROLOGIC: No gross deficits, AAO X 3 Objective Labs and Meds 11/16/23 05:46 11/16/23 05:46 Lab results: Laboratory Results - last 24 hr 11/15/23 11/15/23 11/15/23 16:25 20:11 22:10 WBC RBC Hgb Hct MCV MCH MCHC RDW Plt Count MPV Absolute Nucleated RBC Nucleated RBC % (auto) Hold Purple Top PT INR APTT 28.4 aPTT Heparin Protocol Sodium Potassium Chloride Carbon Dioxide Anion Gap BUN Creatinine Estim Creat Clear Calc Estimated GFR POC Glucose 142 H 213 H Random Glucose Calcium Magnesium 11/16/23 11/16/23 11/16/23 04:40 05:46 07:21 WBC 4.6 L RBC 3.70 L Hgb 11.5 L Hct 33.9 L MCV 91.6 MCH 31.1 MCHC 33.9 RDW 12.2 Plt Count 204 MPV 9.2 L Absolute Nucleated RBC 0.000 Nucleated RBC % (auto) 0.0 Hold Purple Top PT 12.1 INR 1.0 APTT aPTT Heparin Protocol > 200.0 H* D > 200.0 H* Sodium 140 Potassium 3.7 Chloride 107 Carbon Dioxide 25 Anion Gap 12 BUN 7 L Creatinine 0.71 Estim Creat Clear Calc 86.1 Estimated GFR > 60 POC Glucose 152 H Random Glucose 162 H Calcium 8.3 L Magnesium 2.4 11/16/23 11/16/23 11/16/23 07:28 08:36 11:26 WBC RBC Hgb Hct MCV MCH MCHC RDW Plt Count MPV Absolute Nucleated RBC Nucleated RBC % (auto) Hold Purple Top SEE NOTE PT INR APTT aPTT Heparin Protocol 157.0 H* D 80.2 H D Sodium Potassium Chloride Carbon Dioxide Anion Gap BUN Creatinine Estim Creat Clear Calc Estimated GFR POC Glucose 243 H Random Glucose Calcium Magnesium Progress Note: A&P Assessment and plan (1) NSTEMI (non-ST elevated myocardial infarction): Status: Acute (2) Anterior T wave inversion: Status: Acute Plan 53-year-old female with gastroparesis and epigastric discomfort who is presenting with chest discomfort with very mild troponin elevation. She has diffuse T-wave inversions on EKG with prolonged QT interval. Differentials are LAD ischemia versus takotsubo cardiomyopathy. We will check echocardiogram to assess for any wall motion abnormality. If echo showed wall motion abnormality then she will need a diagnostic angiogram. We will discuss this with her at that stage. I have discussed with the primary team and it is felt that the epigastric discomfort is due to her chronic gastroparesis. Thank you for allowing me to participate in the care of your patient. Please feel free to contact me if you have any questions. Time Spent With Patient Time: Total time managing care of this patient today ____ minutes. Progress Note: Quality Stroke Does the patient have a stroke diagnosis?: No Procedures Date of Service Date of Service: 11/16/23
--- NOTE | 2023-11-16 13:22 | MHC.CM.PN ---
Patient is not yet medically cleared for dc (needs ECHO); Home is the goal and CM will continue to follow.
--- NOTE | 2023-11-16 14:51 | P.PNIM_ITS ---
Subjective Subjective Date of Service: 11/16/23 Interval History: seen and examined this morning follow up for NV which has improved, abnormal EKG concerning for NSTEMI patient reporting low back pain Review of Systems Review of Systems: Yes all other systems are reviewed and are negative Constitutional Constitutional: Denies chills and Denies fever(s) Gastrointestinal Gastrointestinal: Denies abdominal pain, Denies nausea and Denies vomiting Physical Exam 2 Vital Signs: Vital Signs: Last Vital Signs Temp 97.5 F 11/16/23 11:17 Pulse 84 11/16/23 11:17 Resp 18 11/16/23 11:17 BP 96/55 L 11/16/23 11:17 Pulse Ox 96 11/16/23 11:17 O2 Del Method Room Air 11/16/23 11:17 BMI result Body Mass Index 32.2 Appearing in no acute distress, labile emotions, worried about possible tx to [facility] [place] for cath, crying lung sounds are clear to auscultation heart regular rate rhythm, clear S1, S2 positive bowel sounds, abdomen is soft, nontender neuro patient is alert x3, no focal deficits Objective Data Active Medications Aspirin (Aspirin Enteric Coated 81 Mg Tablet.) 81 mg PO DAILY [facility] Last Admin: 11/16/23 09:06 Dose: 81 mg Documented By: SEAN Atorvastatin Calcium (Atorvastatin Calcium 40 Mg Tablet) 40 mg PO BEDTIME [facility] Last Admin: 11/15/23 22:39 Dose: 40 mg Documented By: STEVE Clonazepam (Clonazepam 1 Mg Tablet) 2 mg PO BID [facility] Last Admin: 11/16/23 09:06 Dose: 2 mg Documented By: SEAN Dextrose (Dextrose 50 % 25 Gm/50 Ml Syringe) 25 gm IVPUSH Q15M PRN; Protocol PRN Reason: per Hypoglycemia Standing Ord. Glucose (Glucose Gel 15 Gm Gel..Gram.) 15 gm PO Q15M PRN; Protocol PRN Reason: per Hypoglycemia Standing Ord. Heparin Sodium (Porcine) (Heparin Sodium,Porcine 5,000 Unit/Ml Vial) 3,100 unit 40 unit/kg (3100 unit) IVPUSH PROTOCOL BOLUS PRN; Protocol PRN Reason: 40 unit/kg - Heparin Protocol Heparin Sodium (Porcine) (Heparin Sodium,Porcine 5,000 Unit/Ml Vial) 6,200 unit 80 unit/kg (6200 unit) IVPUSH PROTOCOL BOLUS PRN; Protocol PRN Reason: 80 unit/kg - Heparin Protocol Last Admin: 11/15/23 22:43 Dose: 6,200 unit Documented By: STEVE Heparin Sodium/Sodium Chloride (Heparin Sodium,Porcine/1/2ns) 25,000 unit in 250 mls @ 0 mls/hr IVCONT .Q0M [facility]; Protocol Last Titration: 11/16/23 10:27 Dose: 8 units/kg/hr, 6.18 mls/hr Documented By: TIEN Co-signed By: SEAN Insulin Human Lispro (Insulin Lispro 100 Unit/Ml 3 Ml Vial) 0 unit SUBCUT QIDACHS [facility]; Protocol Last Admin: 11/16/23 12:19 Dose: 4 unit Documented By: TIEN Metoprolol Tartrate (Metoprolol Tartrate 25 Mg Tablet) 25 mg PO BID [facility]; Protocol Last Admin: 11/16/23 09:06 Dose: 25 mg Documented By: SEAN Morphine Sulfate (Morphine Sulfate 4 Mg/Ml Cartridge) 2 mg IVPUSH Q6H PRN; Protocol PRN Reason: Pain, Severe (Pain Scale 7-10) Last Admin: 11/16/23 12:29 Dose: 2 mg Documented By: TIEN Sodium Chloride (0.9 % Sodium Chloride Flush 3 Ml Syringe) 3 ml [facility] Last Admin: 11/16/23 09:06 Dose: 3 ml Documented By: SEAN Labs 11/16/23 05:46 11/16/23 05:46 Labs: Laboratory Results - last 24 hr 11/15/23 11/15/23 11/15/23 16:25 20:11 22:10 MCV MCH MCHC RDW Plt Count MPV Absolute Nucleated RBC Nucleated RBC % (auto) Hold Purple Top PT INR APTT 28.4 aPTT Heparin Protocol Anion Gap Estim Creat Clear Calc Estimated GFR POC Glucose 142 H 213 H Random Glucose Calcium Magnesium 11/16/23 11/16/23 11/16/23 04:40 05:46 07:21 MCV 91.6 MCH 31.1 MCHC 33.9 RDW 12.2 Plt Count 204 MPV 9.2 L Absolute Nucleated RBC 0.000 Nucleated RBC % (auto) 0.0 Hold Purple Top PT 12.1 INR 1.0 APTT aPTT Heparin Protocol > 200.0 H* D > 200.0 H* Anion Gap 12 Estim Creat Clear Calc 86.1 Estimated GFR > 60 POC Glucose 152 H Random Glucose 162 H Calcium 8.3 L Magnesium 2.4 11/16/23 11/16/23 11/16/23 07:28 08:36 11:26 MCV MCH MCHC RDW Plt Count MPV Absolute Nucleated RBC Nucleated RBC % (auto) Hold Purple Top SEE NOTE PT INR APTT aPTT Heparin Protocol 157.0 H* D 80.2 H D Anion Gap Estim Creat Clear Calc Estimated GFR POC Glucose 243 H Random Glucose Calcium Magnesium Assessment and Plan (1) NSTEMI (non-ST elevated myocardial infarction): Status: Acute Plan 53 year old female with history of diabetic gastroparesis who presented to the ED with intractable nausea and vomiting admitted for the same. Abdominal pain nausea and vomiting improved but EKG with changes concerning for NSTEMI now on heparin drip NSTEMI trop on admission negative, repeat 11/13 22.6,26.1 EKG changes concerning for ischemia, on Heparin drip ASA, low dose BB increase dose of statin echo pending cardiology following, may need cath depending on ECHO Abdominal pain likely secondary to diabetic gastroparesis. Resolved tolerating diet premeal reglan - stopped due to prolonged QT prolonged QT lytes ok reglan, seroquel stopped for now follow K, Mag follow EKG Type 2 diabetes mellitus Hba1c 7.9 SSI, POCs tolerating diabetic diet BS under adequate control at this time Trulicity, Jardiance, Lantus at baseline - on hold Hypokalemia resolved with replacement HLD statin DVT prophylaxis: heparin drip Code status: Full. attending - Dr. Gregorio Continue hospital stay for tx of gastoparesis requiring narcotic pain medication and tx of NSTEMI on IV heparin drip Quality Stroke Does the patient have a stroke diagnosis?: No VTE Prior VTE?: No VTE Risk Level:: Medical - low VTE Device Contraindication: N/A - Device Ordered VTE Drug Contraindication: Treatment Not Indicated
[2023-11-16 16:16] LABS: Glucose, Whole Blood 131 mg/dL (60-115)
[2023-11-16 17:09] LABS: PTT Heparin Drip 62.7 SEC (53-77.9)
[2023-11-16 20:58] LABS: Glucose, Whole Blood 196 mg/dL (60-115)
[2023-11-16] MEDS: Atorvastatin Calcium 40 MG TABLET PO (21:31)
[2023-11-16] MEDS: Heparin Sodium,Porcine/1/2NS 25,000 UNIT/250 ML IV.SOLN 6.18 UNIT IVCONT (21:31)
[2023-11-17] VITALS: BP 92/61; PULSE 62; RESP 18; TEMP 36.6; O2SAT 99
[2023-11-17 04:00] VITALS: BP 111/71; PULSE 90; RESP 18; TEMP 37; O2SAT 99
[2023-11-17] MEDS: Morphine Sulfate 4 MG/ML CARTRIDGE 2 MG IVPUSH ×2 (04:42→10:27)
[2023-11-17 07:12] VITALS: BP 99/64; PULSE 94; RESP 20; TEMP 37.3; O2SAT 100
[2023-11-17 07:23] LABS: Glucose, Whole Blood 147 mg/dL (60-115)
--- NOTE | 2023-11-17 07:31 | PM.DS ---
DS: Providers Provider Date of Service: 11/17/23 Date of admission: 11/13/23 06:30 Primary care physician: DIRK Winters Consults: 11/14/23 14:08 Consult to Cardiology Routine Consulting Provider[place] [facility] [place] [facility] Reason for consultation: abnormal EKG Has provider been notified: No DS: Diagnosis Discharge Diagnosis (1) NSTEMI (non-ST elevated myocardial infarction): Status: Acute DS: Summary Hospital Course Hospital Course: History and physical as per admitting provider. Zaina Sharma is a 53 years old woman with past medical history significant for gastroparesis and type 2 diabetes mellitus presents to the emergency complaining of upper abdominal pain that started yesterday associated with nausea. She denied episodes of vomiting or diarrhea. Denies fever or chills. She is afraid of eating due to severe abdominal pain. She denied any headaches, chest pain, shortness on breath or palpitations. Patient recently visited emergency department with same symptoms. She was found to have UTI and was discharged with a course of cefuroxime Reglan. Urine culture (11/05/2023) showed mixed bacterial edis characteristic of urogenital contamination. In the ED, she was found to have sinus tachycardia. Blood pressure is stable. Her blood workup showed no leukocytosis. Platelets and hemoglobin are normal. There is mild hypokalemia, 3.2. Renal function is adequate. LFTs and lipase are normal. Abdomen pelvis CT scan is remarkable. ED tx: NS 1 L bolus, Pepcid 20 mg IV, morphine 3 mg IV (total), KCl IV. 53-year-old woman presented to the ER with abdominal pain secondary to diabetic gastroparesis. Patient had EKG which was abnormal, showing T-wave inversions in anterior leads, prolonged QT. Seen and evaluated by Cardiology, concern for NSTEMI/takotsubo. Started on IV heparin. No complaints of chest pain, shortness for breath at any point. Troponin peaked at 26.1.Echocardiogram with EF of 35-40%, apical anterior, apical inferior, mid anterior, mid inferior septal and mid anterior septal and mid inferolateral segments are hypokinetic, apex akinetic, there is a question of takotsubo cardiomyopathy versus LAD ischemia. Seen evaluated by Cardiology, plan to transfer to [facility] for cardiac catheterization the patient is in agreement with this plan. We will transfer with heparin IV, aspirin and metoprolol. Prolonged QT. Reglan and Seroquel held, lytes [place], possibly secondary to takotsubo Diabetes mellitus type 2. Hemoglobin A1c 7.9. Blood sugar under adequate control. Continue sliding scale, point of cares, diabetic diet Hyperlipidemia. Continue statin Time Attestation Discharge Coordination Time (in mins): 40 Quality: Safe Use of Opioids Does Pt have an Active Cancer Diagnosis on the Problem List?: No Quality: Stroke Does the patient have a stroke diagnosis?: No Physical Exam Vital Signs: Vital Signs: Last Vital Signs Temp 99.1 F 11/17/23 07:12 Pulse 94 11/17/23 07:12 Resp 20 11/17/23 07:12 BP 99/64 11/17/23 07:12 Pulse Ox 100 11/17/23 07:12 O2 Del Method Room Air 11/17/23 07:12 BMI result Body Mass Index 32.2 Appearing in no acute distress head is normocephalic atraumatic eyes pupils are PERRLA sclera is anicteric mouth throat mucous membranes are intact and moist neck is supple no lymphadenopathy, no JVD noted lung sounds are clear to auscultation heart regular rate rhythm, clear S1, S2 positive bowel sounds, abdomen is soft, nontender neuro patient is alert x3, no focal deficits DS: Data Data Completed and Pending Labs on day of discharge: Laboratory Results - last 24 hr 11/16/23 11/16/23 11/16/23 07:28 08:36 11:26 Hold Purple Top SEE NOTE aPTT Heparin Protocol 157.0 H* D 80.2 H D POC Glucose 243 H 11/16/23 11/16/23 11/16/23 16:13 16:45 20:52 Hold Purple Top aPTT Heparin Protocol 62.7 D POC Glucose 131 H 196 H 11/16/23 11/17/23 23:42 07:15 Hold Purple Top aPTT Heparin Protocol 69.0 POC Glucose 147 H Discharge Plan Discharge Anticipated Discharge Date/Time: 11/17/23 07:29 Patient Disposition: Xfer Acute Care Hospital Discharge Diagnosis: NSTEMI Diabetic gastroparesis Referrals: Tasha Naranjo FNP [Primary Care Provider] - 1 Week Discharge Medications: New aspirin 81 mg Tablet,Delayed Release (Dr/Ec) 81 mg PO DAILY Qty: 30 0RF metoprolol tartrate 25 mg Tablet 25 mg PO BID Qty: 60 0RF Protocol: Hold for SBP/HR < HOLD for SBP < : 90 HOLD for HR < : 60 heparin(porcine) in 0.45% NaCl 25,000 unit/250 mL Parenteral Solution 25,000 unit continuous IV infusion .Q0M Qty: 6000 0RF Continued insulin lispro [Humalog U-100 Insulin] 100 unit/mL solution 1 sliding scale dose subcut USEASDIRECTD Qty: 10 0RF atorvastatin 20 mg tablet 20 mg PO BEDTIME quetiapine 300 mg tablet 600 mg PO BEDTIME clonazepam 2 mg tablet 2 mg PO BID Jardiance 25 mg tablet 25 mg PO QAM Trulicity 0.75 mg/0.5 mL pen injector 0.75 mg subcut MO insulin glargine [Lantus U-100 Insulin] 100 unit/mL solution 10 unit subcut QPM ondansetron 4 mg Tablet,Disintegrating 4 mg PO Q6H PRN (Reason: Nausea) Discontinued cefuroxime axetil 250 mg tablet 250 mg PO BID 7 Days Qty: 14 0RF Discharge Orders: Discharge Order (Routine); Ordered 11/17/23 Ordered By: Justine Roth Diet: Advance to usual diet Activity on Discharge: As tolerated Stand Alone Forms: Patient Portal Discharge page Care Plan Goals: Transfer to tertiary care facility for cardiac catheterization Health Concerns: NSTEMI Diabetic gastroparesis Plan of Treatment: IV heparin Assessment: Discharge summary
[2023-11-17] MEDS: Aspirin Enteric Coated 81 MG TABLET.DR PO (08:11)
[2023-11-17] MEDS: clonazePAM 1 MG TABLET 2 MG PO (08:11)
[2023-11-17] MEDS: Metoprolol Tartrate 25 MG TABLET PO (08:11)
[2023-11-17 11:17] VITALS: BP 103/65; PULSE 77; RESP 20; TEMP 37; O2SAT 96
[2023-11-17 11:22] LABS: Glucose, Whole Blood 247 mg/dL (60-115)
--- NOTE | 2023-11-17 11:29 | PM.PNCARD ---
Subjective Subjective Date of Service: 11/17/23 Interval history: Seen examined at bedside. Clinically stable. Epigastric pain due to known diagnosis of gastroparesis. Echocardiography report discussed with the patient. Physical Exam Vital Signs: Last Vital Signs Temp 98.6 F 11/17/23 11:17 Pulse 77 11/17/23 11:17 Resp 20 11/17/23 11:17 BP 103/65 11/17/23 11:17 Pulse Ox 96 11/17/23 11:17 O2 Del Method Room Air 11/17/23 11:17 BMI result Body Mass Index 32.2 GENERAL APPEARANCE: in no acute distress. NECK: no carotid bruit, no jugular venous distention. SKIN: no suspicious lesions, warm and dry. HEART: no murmurs, regular rate and rhythm. LUNGS: clear to auscultation bilaterally. ABDOMEN: soft, epigastric tenderness. EXTREMITIES: no edema. PERIPHERAL PULSES: equal. NEUROLOGIC: No gross deficits, AAO X 3 Objective Labs and Meds 11/16/23 05:46 11/16/23 05:46 Lab results: Laboratory Results - last 24 hr 11/16/23 11/16/23 11/16/23 11:26 16:13 16:45 aPTT Heparin Protocol 62.7 D POC Glucose 243 H 131 H 11/16/23 11/16/23 11/17/23 20:52 23:42 07:15 aPTT Heparin Protocol 69.0 POC Glucose 196 H 147 H 11/17/23 11:12 aPTT Heparin Protocol POC Glucose 247 H Progress Note: A&P Assessment and plan (1) Anterior T wave inversion: Status: Acute (2) NSTEMI (non-ST elevated myocardial infarction): Status: Acute (3) Cardiomyopathy: Status: Acute Plan 53-year-old female with chest discomfort and mild troponin elevation. She has diffuse T-wave inversions with prolonged QT interval. Echocardiography showing with to distal LV dysfunction more pointing to her takotsubo cardiomyopathy but a wrap-around LAD stenosis can not be ruled out. I had a detailed discussion with the patient and I explained to her that my clinical impression is that she has stress-induced cardiomyopathy but stress-induced cardiomyopathy is a diagnosis of exclusion after showing a normal coronary angiography. I have discussed with her about doing a diagnostic cardiac catheterization and she is agreeable. We will transferred to [facility]. She will continue heparin drip for now. Will do a diagnostic angiogram tomorrow. Keep her NPO after midnight. EF is 35 40%. Beta-courtney should not be titrated further. No Cardizem or verapamil should be given to her. Thank you for allowing me to participate in the care of your patient. Please feel free to contact me if you have any questions. Time Spent With Patient Time: Total time managing care of this patient today ____ minutes. Progress Note: Quality Stroke Does the patient have a stroke diagnosis?: No Procedures Date of Service Date of Service: 11/17/23
--- NOTE | 2023-11-17 11:47 | MHC.CM.PN ---
Pt is being transferred to [facility] for a cardiac cath.
[2023-11-17] MEDS: Insulin Lispro 100 UNIT/ML 3 ML VIAL SUBCUT (12:06)
[2023-11-17 15:56] VITALS: BP 98/57; PULSE 75; RESP 20; TEMP 36.7; O2SAT 98
== END 2023-11-17 16:03 | disposition short-term general hospital (02) | DRG 281 ==
LOC: HO.ED 19:59 → HO.EDOVER 21:07 → HO.IMC 11-13 16:46
PROVIDERS: Physician Assistant Medical; Admitting Provider Internal Medicine; Emergency Provider Emergency Medicine; PCP Nurse Practitioner Family; Visit Provider Nurse Practitioner Acute Care
DX: I21.4 Non-ST elevation (NSTEMI) myocardial infarction (principal); I51.81 Takotsubo syndrome; E11.43 Type 2 diabetes mellitus with diabetic autonomic (poly)neuropathy; K31.84 Gastroparesis; E86.0 Dehydration; R00.0 Tachycardia, unspecified; E78.5 Hyperlipidemia, unspecified; E87.6 Hypokalemia; R94.31 Abnormal electrocardiogram [ECG] [EKG]; Z20.822 Contact with and (suspected) exposure to COVID-19; Z79.4 Long term (current) use of insulin; Z79.84 Long term (current) use of oral hypoglycemic drugs; Z79.85 Long-term (current) use of injectable non-insulin antidiabetic drugs; Z79.899 Other long term (current) drug therapy
CPT/HCPCS: 0241U; 36415; 74176; 80048; 80053; 80061; 80076; 81001; 81025; 82947; 83036; 83690; 83735; 84443; 84484; 85025; 85027; 85610; 85730; 93005; 93306; 99285; J1644; J2270; J2405; J2765; J3475; J3480; J7120; Q9957

== ENCOUNTER → 2023-11-12 20:52 | Outpatient (BNV) | payer OTHER, SELFPAY | PROVIDERS: Admitting Provider Internal Medicine; Emergency Provider Emergency Medicine; PCP Nurse Practitioner Family; Visit Provider Internal Medicine | DX: I21.4 Non-ST elevation (NSTEMI) myocardial infarction (principal) | CPT/HCPCS: 99221; 99231; 99232; 99233; 99239; 99499 ==

== ENCOUNTER 2023-11-13 06:30 | Outpatient (BNV) | payer OTHER, SELFPAY | END 2023-11-14 13:45 | PROVIDERS: Admitting Provider Internal Medicine; Emergency Provider Emergency Medicine; PCP Nurse Practitioner Family; Visit Provider Internal Medicine | DX: R94.31 Abnormal electrocardiogram [ECG] [EKG] (principal) | CPT/HCPCS: 93010 ==

== ENCOUNTER 2023-11-13 06:30 | Outpatient (BNV) | payer OTHER, SELFPAY | END 2023-11-15 09:18 | PROVIDERS: Admitting Provider Internal Medicine; Emergency Provider Emergency Medicine; PCP Nurse Practitioner Family; Visit Provider Internal Medicine Cardiovascular Disease | DX: R94.31 Abnormal electrocardiogram [ECG] [EKG] (principal) | CPT/HCPCS: 93010 ==

== ENCOUNTER 2023-11-13 06:30 | Outpatient (BNV) | payer OTHER, SELFPAY | END 2023-11-16 07:00 | PROVIDERS: Admitting Provider Internal Medicine; Emergency Provider Emergency Medicine; PCP Nurse Practitioner Family; Visit Provider Internal Medicine Cardiovascular Disease | DX: I21.4 Non-ST elevation (NSTEMI) myocardial infarction (principal) | CPT/HCPCS: 93306 ==

== ENCOUNTER → 2023-11-13 06:30 | Outpatient (BNV) | payer OTHER, SELFPAY | PROVIDERS: Admitting Provider Internal Medicine; Emergency Provider Emergency Medicine; PCP Nurse Practitioner Family; Visit Provider Internal Medicine | DX: R94.31 Abnormal electrocardiogram [ECG] [EKG] (principal); I21.4 Non-ST elevation (NSTEMI) myocardial infarction; I42.9 Cardiomyopathy, unspecified | CPT/HCPCS: 99223; 99232; 99233 ==

== ENCOUNTER → 2023-11-18 23:59 | Outpatient (BNV) | payer OTHER, SELFPAY | PROVIDERS: PCP Nurse Practitioner Family; Visit Provider Internal Medicine Cardiovascular Disease | DX: I21.4 Non-ST elevation (NSTEMI) myocardial infarction (principal) | CPT/HCPCS: 93458; 99152 ==

== ENCOUNTER 2023-11-23 14:54 | Emergency (ER) | payer OTHER, SELFPAY ==
--- NOTE | ~2023-11-23 | CT_ITS ---
EXAMINATION: CT CERVICAL SPINE WITHOUT CONTRAST CLINICAL INFORMATION: Neck pain. [facility] 11/21/2023 COMPARISON: None available. TECHNIQUE: Axial images obtained through cervical spine. Coronal and sagittal reformatted images are performed at CT scanner This CT examination was performed using dose optimization techniques as appropriate, variously including the following: *Automated exposure control *Adjustment of mA and/or kV according to patient size (this includes techniques or standardized protocols for targeted exams where dose is matched to indication/reason for exam; i.e. extremities or head) *Use of iterative reconstruction technique DLP: 320 mGy-cm FINDINGS: No fracture or subluxation. Vertebrae have normal height and normal alignment. Cervical disc heights are normal. Facet joints are normal. No paraspinal soft tissue abnormality. Lung apices normally aerated. No soft tissue neck mass or significant lymphadenopathy. CT/CT cervical spine wo IV con IMPRESSION: Unremarkable examination. Fleischner guidelines were followed.
[2023-11-23 15:00] VITALS: BP 119/73; PULSE 103; RESP 16; TEMP 36.4; O2SAT 99; BMI 27.8
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
--- OUTSIDE RECORDS SUMMARY | 2023-11-23 16:01 | XMS_ITS | Continuity of Care Document ---
Author Name Unknown Organization [facility] Adult Address [address] [place] [address]- Care Team Providers Care Well Service Derrick Worker Name Role Phone Tasha Naranjo NP Primary Care Physician [place] [facility] [place]23 - 08/09/23 [facility] Adult [address], [place] [address] Attending Physician: Not on Staff, Attending MD Allergies, Adverse Reactions, Alerts No Known Allergies Immunizations Given and Recorded Vaccine Date Status Refusal Reason influenza virus vaccine, inactivated 08/07/18 Grabiel rded pneumococcal 23-valent vaccine 06/16/17 Recorded Medications clonazePAM 1 mg oral tablet 2 tablet = 2 mg, By Mouth, 2 times a day, PRN Anxiety, 0 Refills, Maintenance, 09/14/18 4:13:20 EST Start Date: 09/14/18 Status: Ordered FreeStyle Sandra 2 Sensor FreeStyle Sandra 2 Sensor, See Instructions, # 6 each, Refills 3, Tot. Refills 3, Maintenance, as asdirected for diabetes control, 06/24/23 16:29:00 EDT, Supply, 154.94, cm, 06/24/23 15:59:00 EDT, Height Start Date: 06/24/23 Status: Ordered Freestyle Sandra Monitor See Instructions, # 1 each, Refills 0, Tot. Refills 0, Maintenance, use as directed for dx type 2 diabetes mellitus (E11.9), 12/31/22 9:51:00 EDT, Supply, 154.94, cm, 12/31/22 9:18:00 EDT, Height Start Date: 12/31/22 Stop Date: 01/30/23 Status: Ordered Freestyle Sandra Sensor See Instructions, # 2 each, Refills 5, Tot. Refills 5, Maintenance, use as directed for dx type 2 diabetes mellitus (E11.9) sandra 2 1 SENSOR EVERY 14 DAYS, 04/03/23 15:12:00 EDT, Supply, 154.94, cm, 03/27/23 14:41:00 EDT, Height Start Date: 04/03/23 Stop Date: 09/30/23 Status: Ordered FREESTYLE LITE TEST STRIP FREESTYLE LITE TEST STRIP, See Instructions, # 300 Unknown, 3 Refills, Maintenance, DMII E11.9 TESTING BLOOD SUGAR 3 TIMES A DAY, 154.94, cm, 01/09/21 10:15:00 EDT, Height, 65.4, kg, 11/26/20 18:45:00 EDT, Dry Weight Start Date: 03/21/21 Status: Ordered Jardiance 10 mg oral tablet 1 tablet = 10 mg, By Mouth, Daily in AM, # 90 tablet, 2 Refills, Maintenance, 03/27/23 13:45:00 EDT, Tablet, [facility]/pharmacy #[id number], Partial fill upon patient request if the prescription is for a schedule II opioid drug., 154.94, cm, 03/27/23 12:56:00 EDT... Start Date: 03/27/23 Status: Ordered Lantus Solostar Pen 100 units/mL subcutaneous solution = 30 units, Subcutaneous Injection, Daily at bedtime, for 90 days, # 15 mL, 3 Refills, Hard Stop 03/21/24 13:43:00 EDT, 03/27/23 13:43:00 EDT, Injection, [id number], Partial fill upon patientrequest if the prescription is for a schedule II op... Start Date: 03/27/23 Stop Date: 03/21/24 Status: Ordered Lantus Solostar Pen 100 units/mL subcutaneous solution = 35 units, Subcutaneous Injection, Daily at bedtime, # 15 mL, 3 Refills, Maintenance, 03/21/24 13:43:00 EDT, Injection, [id number], Partial fill upon patient request if the prescription is for a schedule II opioid drug., 154.94, cm, 06/29/23... Start Date: 03/21/24 Stop Date: 03/16/25 Status: Ordered NovoLOG FlexPen 100 units/mL subcutaneous solution = 10 units, Subcutaneous Injection, 3 times a day with meals, # 3 mL, 4 Refills, Maintenance, 03/27/23 13:44:00 EDT, Solution, [facility]/pharmacy #[id number], Partial fill upon patient request if the prescription is for a schedule II opioid drug., 154.94, cm, .. Start Date: 03/27/23 Status: Ordered NuLYTELY [place] oral powder for reconstitution 4 L, By Mouth, Once, until 4 liters are consumed or the rectal effluent is clear for colonoscopy, #1 each, 0 Refills, Soft Stop, 06/12/23 16:51:00 EDT, [id number], Partial fill upon patient request if the prescription is for a schedule II opi... Start Date: 06/12/23 Status: Ordered OneTouch Verio Glucose Meter See Instructions, # 1 each, Maintenance, use as directed to test glucose for dx diabetes mellitus type 2 (E11.9), 02/16/23 11:21:00 EDT, Supply, 154.94, cm, 12/31/22 9:18:00 EDT, Height Start Date: 02/16/23 Status: Ordered OneTouch Verio Lancets See Instructions, # 600 each, Refills 3, Tot. Refills 3, Maintenance, use to test glucose three times daily for dx diabetes melltius type 2 (E11.9), 02/16/23 11:21:00 EDT, Supply, 154.94, cm, 12/31/22 9:18:00 EDT, Height Start Date: 02/16/23 Status: Ordered OneTouch Verio Test Strips See Instructions, # 600 each, Refills 3, Tot. Refills 3, Maintenance, use to test glucose three times daily for dx diabetes melltius type 2 (E11.9), 02/16/23 11:21:00 EDT, Supply, 154.94, cm, 12/31/22 9:18:00 EDT, Height Start Date: 02/16/23 Status: Ordered pantoprazole 40 mg oral delayed release tablet 1 tablet = 40 mg, By Mouth, 2 times a day, # 60 tablet, 4 Refills, Maintenance, 11/28/20 9:01:00 EDT, EC Tablet, 154.94, cm, 11/28/20 5:18:00 EDT, Height, 65.4, kg, 11/26/20 18:45:00 EDT, Dry Weight Start Date: 11/28/20 Status: Ordered Pen [place], 30 G x 8 mm BD Ultra Fine II See Instructions, # 200 each, Refills 11, Tot. Refills 11, Maintenance, DMII E11.9 Use for insulin injection four times per day, 06/24/23 16:35:00 EDT, 90 day supply, Supply, 154.94, cm, 06/24/23 15:59:00 EDT, Height Start Date: 06/24/23 Stop Date: 06/08/26 Status: Ordered QUEtiapine 300 mg oral tablet 2 tablet = 600 mg, By Mouth, Daily at bedtime, Maintenance, 07/27/20 11:35:00 EST, Tablet, Partial fill upon patient request if the prescription is for a schedule II opioid drug. Start Date: 07/27/20 Status: Ordered Trulicity Pen 0.75 mg/0.5 mL subcutaneous solution = 0.75 mg, Subcutaneous Infusion, Every week, # 2 mL, 11 Refills, Maintenance, 06/25/23 10:58:00 EDT, [facility]/pharmacy #[id number], 154.94, cm, 06/24/23 15:59:00 EDT, Height Start Date: 06/25/23 Status: Ordered Problem List Condition Confirmation Course Effective Dates Status H ealth Status Informant Failure to thrive in adult Confirmed Active Chronic gastritis Confirmed Active Diabetes mellitus type 2 Confirmed Active Diverticulosis Confirmed Active Diabetic gastroparesis Confirmed Active Hypoglycemia Confirmed Active Hypokalemia Confirmed Active Metabolic alkalosis Confirmed Active Anxiety and depression Confirmed Active Nausea and vomiting Confirmed Active OCD (obsessive compulsive disorder) Confirmed Active Poor historian Confirmed Active PTSD (post-traumatic stress disorder) Confirmed Active Hepatic steatosis Confirmed Active Social History Social History Type Response Tobacco Use: 4 or less cigar ettes(less than 1/4 pack)/day in last 30 days. Sex Patient Care team information Care Team Personnel Name: Laurie Castellanos RN Position: [facility] AMB Nurse Member Role: Primary Care Nurse Name: Ave Benedict NP Position: [facility] Associate Professional Member Role: Primary Care Nurse Address: Address: [address] [place] [address] [place] [address]- [place] Name: Thao Preciado RN Position: [facility] AMB Nurse Member Role: Primary Care Nurse Name: Harshil ALVAREZ, Antoinette Wang Position: [facility] PCO Associate Professional Member Role: Primary Care Nurse Address: Address: [address] [place] [address] [facility] [place] [address]- [place] Name: Tasha Naranjo NP Position: [facility] PCO Associate Professional Member Role: PCP Address: Address: [address] [facility] [address]rd [place] [address]- [place] Name: Madeleine Maki RN Position: [facility] RN Member Role: Primary Care Nurse Name: Solange Buchanan RN Position: [facility] Job Training Supervisor Member Role: Primary Care Nurse Care Team Related Persons Name: BATSHEVADEBORAH Address: home [address] [place] [address] Name: GONZALO ANTUNEZ Address: home [address] [address]
--- OUTSIDE RECORDS SUMMARY | 2023-11-23 16:01 | XMS_ITS | Continuity of Care Document ---
Author Name Unknown Organization [facility] Adult Address [address] [place] [address]- Care Team Providers Care Whey Department Operator Name Role Phone Tasha Naranjo NP Primary Care Physician Encounter [facility] [place] Date(s): 01/29/23 - 02/05/23 [facility] Adult [address] [place] [address]- Attending Physician: Not on Staff, Attending MD [...] 4:13:20 EST Start Date: 09/14/18 Status: Ordered Freestyle Lancets See Instructions, # 300 each, Maintenance, DMII E11.9 TESTING TID, 09/13/20 8:45:00 EST, 90 DAY SUPPLY, Supply, 158, cm, 09/05/20 16:40:00 EST, Height, 56.1, kg, 09/04/20 7:21:00 EST, Dry Weight Start Date: 09/13/20 Stop Date: 12/12/20 Status: Ordered Freestyle Sandra Monitor See Instructions, # 1 each, Refills 0, Tot. Refills 0, Maintenance, use as directed for dx type 2 diabetes mellitus (E11.9), 12/31/22 9:51:00 EDT, Supply, 154.94, cm, 12/31/22 9:18:00 EDT, Height Start Date: 12/31/22 Stop Date: 01/30/23 Status: Ordered Freestyle Sandra Sensor See Instructions, # 1 each, Refills 5, Tot. Refills 5, Maintenance, use as directed for dx type 2 diabetes mellitus (E11.9) sandra 2, 12/31/22 9:51:00 EDT, Supply, 154.94, cm, 12/31/22 9:18:00 EDT, Height Start Date: 12/31/22 Stop Date: 06/29/23 Status: Ordered FREESTYLE LITE TEST STRIP FREESTYLE LITE TEST STRIP, See Instructions, # 300 Unknown, 3 Refills, Maintenance, DMII E11.9 TESTING BLOOD SUGAR 3 TIMES A DAY, 154.94, cm, 01/09/21 10:15:00 EDT, Height, 65.4, kg, 11/26/20 18:45:00 EDT, Dry Weight Start Date: 03/21/21 Status: Ordered Freestyle Test Strips See Instructions, # 300 each, Refills 1, Tot. Refills 1, Maintenance, DMII E11.9 TESTING TID, 09/20/20 13:27:00 EST, 90 DAY SUPPLY, Supply, 158, cm, 09/05/20 16:40:00 EST, Height, 56.1, kg, 09/04/20 7:21:00 EST, Dry Weight Start Date: 09/20/20 Stop Date: 03/19/21 Status: Ordered Lantus Solostar Pen 100 units/mL subcutaneous solution = 20 units, Subcutaneous Injection, Daily at bedtime, # 15 mL, 3 Refills, Maintenance, 12/31/22 9:45:00 EDT, Injection, [id number], Partial fill upon patient request if the prescription is for a schedule II opioid drug., 154.94, cm, 12/31/22 9... Start Date: 12/31/22 Status: Ordered NovoLOG FlexPen 100 units/mL subcutaneous solution = 5 units, Subcutaneous Injection, 3 times a day with meals, # 3 mL, 4 Refills, Maintenance, 12/31/22 16:05:00 EDT, Solution, [id number], Partial fill upon patient request if the prescriptionis for a schedule II opioid drug., 154.94, cm, 12/22... Start Date: 12/31/22 Status: Ordered pantoprazole 40 mg oral delayed release tablet 1 tablet = 40 mg, By Mouth, 2 times a day, # 60 tablet, 4 Refills, Maintenance, 11/28/20 9:01:00 EDT, EC Tablet, 154.94, cm, 11/28/20 5:18:00 EDT, Height, 65.4, kg, 11/26/20 18:45:00 EDT, Dry Weight Start Date: 11/28/20 Status: Ordered Pen [place], 30 G x 8 mm BD Ultra Fine II See Instructions, # 300 each, Refills 3, Tot. Refills 3, Maintenance, DMII E11.9 Use for insulin injection TID, 03/07/22 9:48:00 EDT, 90 day supply, Supply, 154.94, cm, 01/09/21 10:15:00 EDT, Height,65.4, kg, 11/26/20 18:45:00 EDT, Dry Weight Start Date: 03/07/22 Stop Date: 03/02/23 Status: Ordered QUEtiapine 300 mg oral tablet 2 tablet = 600 mg, By Mouth, Daily at bedtime, Maintenance, 07/27/20 11:35:00 EST, Tablet, Partial fill upon patient request if the prescription is for a schedule II opioid drug. Start Date: 07/27/20 Status: Ordered Problem List Condition Confirmation Course [...] Team Personnel Name: Laurie Castellanos RN Position: [facility] Nurse Member Role: Primary Care Nurse Name: Ave Benedict NP Position: [facility] Associate Professional Member Role: Primary Care Nurse Address: Address: [address] [place] [address] Name: Thao Preciado RN Position: [facility] Nurse Member Role: Primary Care Nurse Name: Antoinette Chua RN Position: [facility] RN Member Role: Primary Care Nurse Name: Tasha Naranjo NP Position: [facility] PCO Associate Professional Member Role: PCP Address: Address: [address] [place] [address] [address] [place] [address]- Name: Madeleine Maki RN Position: [facility] RN Member Role: Primary Care Nurse Name: Solange Buchanan RN Position: [facility] Rolls Baker Member Role: Primary Care Nurse Care Team Related Persons Name: DEBORAH HERMAN Address: home [address] [place] [address] Name: GONZALO ANTUNEZ Address: home [address] [address]
--- OUTSIDE RECORDS SUMMARY | 2023-11-23 16:01 | XMS_ITS | Continuity of Care Document ---
Author Name Unknown Organization [facility] Adult Address [address] [place] [address]- Care Team Providers Care Biodiesel Plant Manager Name Role Phone Marcella ALVAREZ, Tasha Rutledge Primary Care Physician [place] [facility] [place]23 [facility] [address] [place] [address]- Allergies, Adverse Reactions, Alerts No Known Allergies Immunizations Given and Recorded Vaccine Date Status Refusal Reason influenza virus vaccine, inactivated 08/07/18 Grabiel rded pneumococcal 23-valent vaccine 06/16/17 Recorded Medications clonazePAM 1 mg oral tablet 2 tablet = 2 mg, By Mouth, 2 times a day, PRN Anxiety, 0 Refills, Maintenance, 09/14/18 4:13:20 EST Start Date: 09/14/18 Status: Ordered Freestyle Sandra Monitor See Instructions, [...] Dry Weight Start Date: 03/21/21 Status: Ordered Lantus Solostar Pen 100 units/mL subcutaneous solution = 20 units, Subcutaneous Injection, Daily at bedtime, # 15 mL, 3 Refills, Maintenance, 12/31/22 9:45:00 EDT, Injection, [facility]/pharmacy #[id number], Partial fill upon patient request if [...] cm, 12/22... Start Date: 12/31/22 Status: Ordered OneTouch Verio Glucose Meter See [...] Weight Start Date: 11/28/20 Status: Ordered Pen [place], 30 G x 8 mm BD Ultra [...] Team Personnel Name: Laurie Castellanos RN Position: [facility] AMB Nurse Member Role: Primary Care Nurse Name: Ave Benedict NP Position: [facility] Associate Professional Member Role: Primary Care Nurse Address: Address: [address] [facility] [place] [address]- [place] Name: Thao Preciado RN Position: [facility] Nurse Member Role: Primary Care Nurse Name: Antoinette Chua RN Position: [facility] RN Member Role: Primary Care Nurse Name: Tasha Naranjo NP Position: [facility] PCO Associate Professional Member Role: PCP Address: Address: [address] [place] [address] 3rd floor [facility] [place] [address]- [place] Name: Madeleine Maki RN Position: [facility] RN Member Role: Primary Care Nurse Name: Solange Buchanan RN Position: [facility] Rfid Technician Member Role: Primary Care Nurse Care Team Related Persons Name: DEBORAH HERMAN Address: home [address] [place] [address] Name: GONZALO ANTUNEZ Address: [address] [address]
--- OUTSIDE RECORDS SUMMARY | 2023-11-23 16:01 | XMS_ITS | Continuity of Care Document ---
Author Name Unknown Organization [facility] Medicine Address [address] [place] [address]- Care Team Providers Care Credit Analyst Name Role Phone Marcella ALVAREZ, Tasha Rutledge Primary Care Physician En[place] [facility] [place](s): 07/24/22 - 08/23/22 [facility] [address] [place], [place] [address] Allergies, Adverse Reactions, Alerts No Known Allergies Medications clonazePAM 1 mg oral tablet 2 [...] Date: 09/13/20 Stop Date: 12/12/20 Status: Ordered FREESTYLE LITE TEST STRIP FREESTYLE [...] Date: 09/20/20 Stop Date: 03/19/21 Status: Ordered Humalog 100 u/ml subcutaneous injection See Instructions, acc to sliding scale, 0 Refills, Maintenance, 09/04/20 9:58:00 EST, Partial fill upon patient request if the prescription is for a schedule II opioid drug. Start Date: 09/04/20 Status: Ordered Lantus Solostar Pen 100 units/mL subcutaneous solution = 14 units, Subcutaneous Injection, Daily at bedtime, # 10 mL, 0 Refills, Maintenance, 08/02/20 13:46:00 EST, Solution, Partial fill upon patient request if the prescription is for a schedule II opioid drug. Start Date: 08/02/20 Status: Ordered pantoprazole 40 mg oral delayed release tablet 1 tablet = 40 mg, By Mouth, 2 times a day, # 60 tablet, 4 Refills, Maintenance, 11/28/20 9:01:00 EDT, EC Tablet, 154.94, cm, 11/28/20 5:18:00 EDT, Height, 65.4, kg, 11/26/20 18:45:00 EDT, Dry Weight Start Date: 11/28/20 Status: Ordered Pen [place], 30 G x 8 mm BD [...] opioid drug. Start Date: 07/27/20 Status: Ordered QUEtiapine 50 mg oral tablet 1 tablet = 50 mg, By Mouth, 2 times a day, # 180 tablet, 0 Refills, Maintenance, 09/05/20 15:21:00 EST, Tablet, Partial fill upon patient request if the prescription is for a schedule II opioid drug. Start Date: 09/05/20 Status: Ordered Problem List Condition Confirmation Course Effective Dates Status H ealth Status Informant Failure to thrive in adult Confirmed Active Chronic gastritis Confirmed Active Diabetes mellitus type 2 Confirmed Active Diabetic gastroparesis Confirmed Active Hypoglycemia Confirmed Active Hypokalemia Confirmed Active Metabolic alkalosis Confirmed Active Anxiety and depression Confirmed Active Nausea and vomiting Confirmed Active OCD (obsessive compulsive disorder) Confirmed Active Poor historian Confirmed Active PTSD (post-traumatic stress disorder) Confirmed Active Social History Social History Type Response Tobacco Use: 4 or less cigar ettes(less than 1/4 pack)/day in last 30 days. Sex Patient Care team information Care Team Personnel Name: Laurie Castellanos RN Position: [facility] PCO RN Member Role: Primary Care Nurse Name: Ave Benedict NP Position: [facility] Associate Professional Member Role: Primary Care Nurse Address: Address: [address] [place] [address]- [place] Name: Thao Preciado RN Position: [facility] AMB Nurse Member Role: Primary Care Nurse Name: Antoinette Chua RN Position: [facility] RN Member Role: Primary Care Nurse Name: Tasha Naranjo NP [facility]: [facility] Associate Professional Member Role: PCP Address: Address: [address] [place] [address]- [place] Name: Madeleine Maki RN Position: [facility] RN Member Role: Primary Care Nurse Name: Solange Buchanan RN Position: [facility] [employer]ded [employer] Software Engineer Member Role: Primary Care Nurse Care Team Related Persons Name: DEBORAH HERMAN Address: home [address] [place] [address] Name: GONZALO ANTUNEZ Address: home [address] [address]
--- OUTSIDE RECORDS SUMMARY | 2023-11-23 16:01 | XMS_ITS | Continuity of Care Document ---
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 Name Role Phone Marcella ALVAREZ, Tasha Rutledge Primary Care Physician [phone] Encounter [facility] [place] Date(s): 11/17/23 - 11/18/[address] [address]- Discharge Disposition: A-D/C Home Attending Physician: Thee Gómez MD Admitting Physician: Marlon KILGORE, Whit Referring Physician: Not on Staff, Referring MD Allergies, Adverse Reactions, Alerts No Known [...] Weight Start Date: 03/21/21 Status: Ordered Jardiance 25 mg oral tablet 1 tablet = 25 mg, By Mouth, Daily in AM, # 90 tablet, 3 Refills, Maintenance, 09/30/23 10:10:00 EST, Tablet, [facility]/pharmacy #[id number], Partial fill upon patient request if the prescription is for a schedule II opioid drug., 154.94, cm, 09/30/23 9:53:00 EST,... Start Date: 09/30/23 Status: Ordered Lantus Solostar Pen 100 units/mL subcutaneous solution = 35 units, Subcutaneous Injection, Daily at bedtime, # 15 mL, 3 Refills, Maintenance, 03/21/24 13:43:00 EDT, Injection, [facility]/pharmacy #[id number], Partial fill upon patient request if the prescription is for a schedule II opioid drug., 154.94, cm, 06/29/23... Start Date: 03/21/24 Stop Date: 03/16/25 Status: Ordered metoprolol 50 mg oral tablet, extended release 50 mg, 1, tablet, By Mouth, Daily, # 30 tablet, Refills 0, Tot. Refills 0, Maintenance, 11/18/23 12:47:00 EDT, Route to Pharmacy Electronically, [facility], Partial fill upon patient request if the prescription is for a schedule II opioi... Start Date: 11/18/23 Stop Date: 12/18/23 Status: Ordered MorPHINE Inj 2 mg, Injection, IV Push Slowly, Every 4 hours, PRN for Pain , Severe, Routine, 11/17/23 22:33:00 EDT Start Date: 11/17/23 Stop Date: 11/19/23 Status: Discontinued NovoLOG FlexPen 100 units/mL subcutaneous solution = 10 units, Subcutaneous Injection, 3 times a day with meals, # 3 mL, 4 Refills, Maintenance, 03/27/23 13:44:00 EDT, Solution, [facility]/pharmacy #[id number], Partial fill upon patient request if the prescription is for a schedule II opioid drug., 154.94, cm, ... Start Date: 03/27/23 Status: Ordered NuLYTELY [place] oral powder for reconstitution 4 L, By Mouth, Once, until 4 liters are consumed or the rectal effluent is clear for colonoscopy, #1 each, 0 Refills, Soft Stop, 06/12/23 16:51:00 EDT, [facility]/pharmacy #[id number], Partial fill upon patient request if [...] Weight Start Date: 11/28/20 Status: Ordered Pen [place], 30 G x 8 mm BD Ultra [...] Start Date: 07/27/20 Status: Ordered Trulicity Pen 1.5 mg/0.5 mL subcutaneous solution 0.5 mL = 1.5 mg, Subcutaneous Injection, Every week, rotate injection sites. Call after 1 month fordose increase, # 2 mL, 1 Refills, Maintenance, 09/30/23 10:09:00 EST, Solution, [facility]/pharmacy #[id number],Partial fill upon patient request if the prescripti... Start Date: 09/30/23 Status: Ordered Problem List Condition Confirmation Course Effective Dates Status H ealth Status Informant Failure to thrive in adult Confirmed Active Chronic gastritis Confirmed Active Diabetes mellitus type 2 Confirmed Active Diverticulosis Confirmed Active Dyslipidemia Confirmed Active Diabetic gastroparesis Confirmed Active Anxiety and depression Confirmed Active Nausea and vomiting Confirmed Active OCD (obsessive compulsive disorder) Confirmed Active Poor historian Confirmed Active PTSD (post-traumatic stress disorder) Confirmed Active Hepatic steatosis Confirmed Active Vital Signs Most recent to oldest [Reference Range]: 1 2 3 Height 155 cm (3/27/24 9:26 AM) 155 cm (11/18/23 7:28 AM) 155 cm (11/18/23 5:33 AM) Weight 71.0 kg (11/18/23 6:54 AM) 71 kg (11/17/23 11:03 PM) 71 kg (11/17/23 5:30 PM) Oxygen Saturation [94-100 %] 99 % (11/18/23: AM) 97 % (11/18/23:28 AM) 97 % (11/18/23 3:07 AM) Pulse Rate [55-90 bpm] 92 bpm *H* (11/18/23: AM) 78 bpm (11/18/23 7:28 AM) 79 bpm (11/18/23 3:07 AM) Body Mass Index [18.5-24.99 kg/m2] 29.55 kg/m2 *H* (11/17/23 5:30 PM) Blood Pressure [90-138/55-84 mm Hg] 115/76mm Hg (11/18/23 9: AM) 94/58mm Hg (11/18/23 7:28 AM) 101/63mm Hg (11/18/23 5:33 AM) Respiratory Rate [16-30 br/min] 18 br/min (11/18/23 4:39 PM) 17 br/min (11/18/23 11:28 AM) 18 br/min (11/18/23 9:26 AM) Temperature [96.8-100.4 DegF] 97.9 DegF (11/18/23 9: AM) 97.9 DegF (11/18/23:28 AM) 97.0 DegF (11/18/23 3:07 AM) Mode of Delivery (Oxygen) Room air (11/18/23 9:26 AM) Room air (11/18/23 7:28 AM) Room air (11/18/23 3:07 AM) Blood pressure sites Arm, left (11/18/23 9:26 AM) Arm, right (11/18/23 7:28 AM) Arm, right (11/18/23 5:33 AM) Temperature Route Oral (11/18/23 9:26 AM) Oral (11/18/23 7:28 AM) Temporal (11/18/23 3:07 AM) Dry Weight 66.8 kg (11/17/23 5:30 PM) 66.8 kg (11/17/23 4:00 PM) Weight Obtained Via Bed scale (11/18/23 6:54 AM) Bed scale (11/17/23 5:30 PM) Bed scale (11/17/23 4:00 PM) Dry Weight Obtained Via Patient/family stated (11/17/23 4:00 PM) Social History Social History Type Response Tobacco Use: 4 or less cigar ettes(less than 1/4 pack)/day in last 30 days. Sex Cardiac catheterization study * Event Display: Cardiac Chief Security Officer Report Authored Date: [id number] Cardiac Diagnostic Report Demographics Patient Name CHERI GLASS Gender Female [employer] Room Number M712 Height 61.02 inches Date of 1970 Weight 147.27 pounds Age 53 year(s) BSA 1.66 m2 Accession Number [id number] BMI 27.8 kg/m2 Referring Physician Efrain Date of Study 11/18/2023 Jose KILGORE Performing Physician Abdoulaye Medrano MD Fellow Ke Cronin MD Interventional Physician Procedure Procedure Type Diagnostic procedure:Coronary Angiography with [facility] Diagnostic Catheterization Status:Urgent Indications Indications: NSTEMI. Current Diagnosis:NSTEMI. Clinical History Admission Medications + +------+-------+ + + +---------+ !Medication !Dosage!Times !Last !Last !Administered !Comments ! ! ! !Per Day!Delivery !Delivery ! ! ! ! ! ! !Date !Time ! ! ! + +------+-------+ + + +---------+ !Statin (any) !20 mg ! !11/17/2023 !22:20 ! ! ! + +------+-------+ + + +---------+ !Beta Jonh !25 mg ! !11/17/2023 !22:20 ! ! ! !(any) ! ! ! ! ! ! ! + +------+-------+ + + +---------+ Clinical Evaluation Leading to Procedure - The patient's CAD presentation was assessed as: Non-STEMI. - Anti-anginal medications were prescribed during the past two weeks. The medication is: Beta Blockers. 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 ACC Risk Factors The patient risk factors include:physical activity, hypercholesterolemia, hypertension, diabetes mellitus, last creatinine: 0.9 mg/dl, creatinine clearance: 76.23 ml/min, dyslipidemia and Current - Every day tobacco use. Additional Clinical History:53-year-old female with past medical history significant for insulin-dependent diabetes type 2, diabetic gastroparesis, chronic gastritis, hypertension, dyslipidemia, anxiety, depression, PTSD, and OCD who presented to [facility] on 11/13/2023 complaining of upper abdominal pain associated with significant nausea that started the day prior to presentation. At [facility], the patient remained afebrile and hemodynamically stable. She did not have respiratory distress or hypoxia. EKG was abnormal, showing T wave inversions in the anterior leads, and prolonged QT interval. She did have elevation in high-sensitivity troponin I values, with peak level 26.1. Laboratory workup was significant for hypokalemia (K 3.2) with stable renal function. LFTs and lipase levels were normal. Reglan and Seroquel were held given the prolonged QT interval. CT of the abdomen and pelvis was unremarkable. She underwent echocardiogram on 11/16/2023 which showed EF of 35 to 40%, with hypokinesis of the apical anterior, apical inferior, mid anterior, mid inferior, apical lateral, apical septum, mid anterolateral, mid inferoseptal, mid anteroseptal, and mid inferolateral segments. The patient was seen by cardiology, and started on IV heparin drip and beta-jonh in addition to her aspirin and statin. Procedure Data Procedure Date Date: 11/18/2023Start: 08:50End: 09:11 The procedure was explained in detail to the patient. Risks, complications and alternative treatments were reviewed. Written consent was obtained. Entry Locations - Retrograde Percutaneous access was performed through the Right Radial artery (Primary location). A 6 Fr sheath was inserted. Hemostasis was successfully obtained using TR Band. Closure Comments: 12cc air in balloon. Procedure Medications - Versed (Midazolam) I.V. 0.5 mg. - Fentanyl I.V. 25 mcg. - 0.9NS I.V. bolus 250 ml. - Lidocaine 2% S.C. Right Wrist 2 ml. - Nitroglycerin I.A. 200 mcg. - 0.9NS I.V. bolus 250 ml. - Heparin I.V. 3000 units. Sedation: A separate physician or qualified healthcare provider administered the sedation services. Refer to separate documentation in patient''s record. My intra-service moderate sedation time was: from 08 to 09. Refer to procedural log for detailed chronological information. Contrast Material - Omnipaque 16 ml Diagnostic Catheters - AOptitorque 5F 100 cm Radial TIG 1was used for: Left heart catheterization. - AOptitorque 5F 100 cm Radial TIG 1was used for: Right coronary angiography. - AOptitorque 5F 100 cm Radial TIG 1was used for: Left coronary angiography. - ADxTerity 5F 100 cm JL 3.5was used for: Left coronary angiography. Fluoroscopy Time: Diagnostic: 5:56 minutes. Total: 5:56 minutes. Fluoroscopy Dose: Diagnostic: 83.7 mGy. Total: 83.7 mGy. Dose Area Product:Diagnostic: 983796 mGy/cm2. Total: 995404 mGy/cm2. Procedure Narrative We accessed the right radial artery using a 6 [place] slender sheath. We crossed into LV and recorded LVEDP and perform a pullback gradient. Diagnostic angiography with a 5 [place] and JL 3.5. We could not engage the left main with [place] and used JL 3.5. Hemostasis with a regular TR band. Angiographic Findings Cardiac Arteries and Lesion Findings LMCA: Normal. LAD: Normal. LCx: Normal. RCA: Normal. Hemodynamics Condition: Rest O2 Consumption: Estimated: 225.76Heart Rate: 81 bpm Pressures (mmHg) +-----+ + !Site !Pressure ! +-----+ + !LV !79/7 ,11 ! +-----+ + !AO !81/50 (63)! +-----+ + !LV !79/7 ,11 ! +-----+ + !AO !84/49 (64)! +-----+ + Valve Gradients and Areas +------+----+----+----+-----+----+------+ !Valve !Peak!Mean!Area!Index!Flow!Source! +------+----+----+----+-----+----+------+ !Aortic!0 !0 ! ! ! ! ! +------+----+----+----+-----+----+------+ !Aortic!0 !0 ! ! ! ! ! +------+----+----+----+-----+----+------+ Shunts Oxygen Values O2 Capacity 150.96 O2 Consumption 225.76 Interventional Procedure Conclusions Diagnostic Summary 53-year-old female who is presenting for chest discomfort and precordial deep T wave inversions. Echocardiography has shown mid to distal LV dysfunction with EF 35 to 40%. She has been referred to us for diagnostic cardiac catheterization. Hemodynamics: Low systemic pressures. Normal LVEDP. There is no gradient across aortic valve on pullback. Coronary anatomy: Right dominant circulation. No significant coronary artery disease noted. Presentation is due to Takotsubo cardiomyopathy. Diagnostic Recommendations Stop the heparin drip. Can stop baby aspirin. Continue same dose of beta-jonh. Can be potentially discharged home as she recovers. Follow-up with Dr. Garcia. Signatures VA LV function assessed as:Abnormal. Ejection Fraction - Method: Echocardiography. EF%: 35.Date: 11/16/2023. * Event Display: Cardiac Chief Security Officer Report Authored Date: Note * Event Display: Hemodynamic Procedure Report Authored Date: * Thee Thakur: VERIFY, PERFORM, SIGN Event Display: Cardiac Rehab Note Authored Date: Patient: QUAN ALONZO Age: 53 years Sex: Female : 1970 Associated Diagnoses: None Author: Thee Thakur Diagnosis Cardiac Rehab Diagnosis: S/P NSTEMI, S/P TAKOTSUBO CM. Pre-exercise Vitals Vital Signs: 90 HR, 115/76 BP Supine, 95% RA SaO2. Vital Signs Comment: Reviewed in CIS, RN informed of Vital Sign changes. Pre-exercise Physical Examination Neurologic: alert & oriented. Cardiovascular: heart rate regular. Lungs: Normal I:E, Cough no. Activity Transfers: Pt on bedrest. Patient Education Education: Patient alone, Written material included, Post procedure guidelines. Education topic Teachback comprehension 50% Topic: Pathophysiology, Lipid management, Medication education, Role of exercise, Home activity guidelines/limits. Reinforcement needed: Medication education, Role of exercise, Home activity guidelines/limits. Recommendation and Plan Ambulate: 3 times/day. Outpatient follow up recommended: [facility], in 2 weeks. Cardiac Rehab: Will sign off at this time. Recommendation comment: RN notified of plan. * Gissel Cisneros RN: PERFORM Event Display: Discharge/Transfer Note Hospital Authored Date: [id number] Nursing Discharge Note Entered On: 11/18/2023 16:11 EDT Performed On: 11/18/2023 16:10 EDT by Gissel Cisneros RN Nursing Discharge Note 2 Discharge Time : 11/18/2023 16:00 EDT Discharge Level of Care at Discharge : Home/Detention/Foster Care Patient Left Unit Via : Ambulatory Patient Accompanied Off Unit with : Other: independent DC Instructions Provided & Signed by Pt : Yes Patient Understands D/C Instructions : Yes Patient Instructions Discharge Signed : Yes Did Pt have Specialty Bed or Wound Vac : No Gissel Cisneros RN - 11/18/2023 16:10 EDT * Erna Mota MD: PERFORM Thee Gómez MD: MODIFY Event Display: Discharge/Transfer Note Hospital Authored Date: [id number] Patient: ??CHERI, QUAN ? Age:??53 Years?Sex:??Female?:??1970?? Patient Information Discharge Location: M7 Primary Care Physician: Tasha Naranjo NP Admit Date/Time: 11/17/23 16:43 Discharge Disposition Discharge Disposition: Home: No Services Discharge Diagnosis Epigastric pain (R10.13) Chronic gastritis (K29.50) Diabetic gastroparesis (E11.43) Diabetes mellitus type 2 (E11.9) Anxiety and depression (F41.9) Acute HFrEF (heart failure with reduced ejection fraction) (I50.21) Takotsubo cardiomyopathy (I51.81) ?? _ Discharge Medications Clonazepam (clonazePAM 1 mg oral tablet)?2?tab(s)?2?Milligram?By Mouth?2 times a day?as needed?Anxiety dulaglutide (Trulicity Pen 1.5 mg/0.5 mL subcutaneous solution)?0.5?Milliliter?1.5?Milligram?Subcutaneous Injection?Every week?rotate injection sites. Call after 1 month for dose increase Durable Medical Equipment (Freestyle Sandra Monitor)?See Instructions?for 30?Days?use asdirected for dx type 2 diabetes mellitus (E11.9) Durable Medical Equipment (OneTouch Verio Lancets)?See Instructions?use to test glucose threetimes daily for dx diabetes melltius type 2 (E11.9) Durable Medical Equipment (OneTouch Verio Glucose Meter)?See Instructions?use as directed to test glucose for dx diabetes mellitus type 2 (E11.9) Durable Medical Equipment (OneTouch Verio Test Strips)?See Instructions?use to test glucose three times daily for dx diabetes melltius type 2 (E11.9) Durable Medical Equipment (Freestyle Sandra Sensor)?See Instructions?for 30?Days?use as directed for dx type 2 diabetes mellitus (E11.9) sandra 21 SENSOR EVERY 14 DAYS Durable Medical Equipment (FreeStyle Sandra 2 Sensor)?See Instructions?as as directed for diabetes control Durable Medical Equipment (Pen [place], 30 G x 8 mm BD Ultra Fine II)?See Instructions?for 90?Days?DMII E11.9Use for insulin injection four times per day empagliflozin (Jardiance 25 mg oral tablet)?1?tab(s)?25?Milligram?By Mouth?Daily in AM Insulin Aspart (NovoLOG FlexPen 100 units/mL subcutaneous solution)?10?unit(s)?Subcutaneous Injection?3 times a day with meals Insulin Glargine (Lantus Solostar Pen 100 units/mL subcutaneous solution)?35?unit(s)?Subcutaneous Injection?Daily at bedtime?for 90?Days Metoprolol (metoprolol 50 mg oral tablet, extended release)?50?Milligram?1?tablet?ByMouth?Daily?for 30?Days Miscellaneous Rx (FREESTYLE LITE TEST STRIP)?See Instructions?DMII E11.9 TESTING BLOOD SUGAR 3 TIMES A DAY Pantoprazole (pantoprazole 40 mg oral delayed release tablet)?1?tab(s)?40?Milligram?By Mouth?2 times a day PEG Electrolyte Solution (NuLYTELY [place] oral powder for reconstitution)?4?Liter?By Mouth?Once?until 4 liters are consumed or the rectal effluent is clear for colonoscopy Quetiapine (QUEtiapine 300 mg oral tablet)?2?tab(s)?600?Milligram?By Mouth?Daily at bedtime ? Medications Started Metoprolol XL 50mg daily Medications Discontinued Atorvastatin 20mg Doses Changed None PCP Follow-Up/Heads-Up Please follow up with patient in 1 week. She will need an echo in 3-4 weeks to ensure EF has improved She will need GI follow up outpatient for her gastroparesis Future Appointments Thursday 11:00 AM EDT ?? Where: Diabetic Teaching Status: Pending Thursday 9:00 AM EDT ?? With: Marcella ALVAREZTasha Where: [facility] [address] [place] [address]- Status: Pending Thursday 9:00 AM EDT ?? Where: [facility] [place] [place] [facility] Status: Pending Thursday 7:45 AM EDT ?? With: Stanislaw Casiano MD Where: [facility] [address] [place] [address]- Status: Pending Hospital Course 53-year-old female with past medical history significant for insulin-dependent diabetes type 2, diabetic gastroparesis, chronic gastritis, hypertension, dyslipidemia, anxiety, depression, PTSD, and OCD who presented to [facility] on 11/13/2023 complaining of upper abdominal pain associated with significant nausea that started the day prior to presentation. She was treated for diabetic gastroparesis. EKG was abnormal, showing T wave inversions in the anterior leads, and prolonged QT interval. She did have elevation in high- sensitivity troponin I values, with peak level 26.1. She underwent echocardiogram on 11/16/2023 which showed EF of 35 to 40%, with hypokinesis of the apical anterior, apical inferior, mid anterior, mid inferior, apical lateral, apical septum, mid anterolateral,mid inferoseptal, mid anteroseptal, and mid inferolateral segments. The patient was seen by cardiology, and started on IV heparin drip and beta-jonh in addition to her aspirin and statin. Her clinical picture was felt to be consistent with stress-induced cardiomyopathy versus NSTEMI of the LAD territory. She has been transferred here to [facility] for consideration of cardiac catheterization.??Cath procedure done on 11/17 demonstrated no evidence of CAD??and patient was deemed tohave takotsubo cardiomyopathy. Patient??is??currently hemodynamically stable and feels good about going home. ?? Objective ?? Takotsubo cardiomyopathy ??(I51.81) echocardiogram on 11/16/2023 which showed EF of 35 to 40%, Cath procedure done on 11/17??with no evidence of CAD -Metoprolol xl 50mg daily -F/u for repeat echo in 3-4 weeks -D/C atorvastatin (normal lipid panel) ?? Epigastric pain (R10.13), resolved Chronic gastritis (K29.50) Diabetic gastroparesis (E11.43) The patient continues to complain of epigastric pain.??I suspect this is related to??her chronic gastritis and gastroparesis, as opposed to anginal equivalent.??I cannot fully rule out NSTEMI??as above.?CT abdomen and pelvis unremarkable at [facility]. ??LFTs and lipase normal. ??[place] report that morphine helped at [facility].??Reglan has been discontinued in the setting of prolonged QT interval, and may be helpful if this is corrected. ??Plan: -Continue PPI twice daily -Resume Reglan -GI follow-up??as outpatient ? Vital Signs?? Temperature: 97.9 DegF (11/18/23 09:26:00) Temperature Route: Oral (11/18/23 09:26:00) Pulse Rate:??92 bpm??High (11/18/23 09:26:00) Respiratory Rate: 17 br/min (11/18/23 11:28:00) Systolic Blood Pressure: 115 mm Hg (11/18/23 09:26:00) Diastolic Blood Pressure: 76 mm Hg (11/18/23 09:26:00) Blood pressure sites: Arm, left (11/18/23 09:26:00) Mean Arterial Pressure: 89 mm Hg (11/18/23 09:26:00) Pulse Pressure: 39 mm Hg (11/18/23 09:26:00) Oxygen Saturation: 99 % (11/18/23 09:26:00) Mode of Delivery (Oxygen): Room air (11/18/23 09:26:00) Early Warning Score: 5 (11/18/23 11:29:46) ? . Physical Exam Constitutional: Alert, in no distress. Mental Status: Oriented to person, place and time. Respiratory: Clear to auscultation. No wheezing, rales or rhonchi. Cardiovascular: S1 S2 regular. No murmurs, rubs or gallops. Gastrointestinal: Abdomen soft, non-tender, non-distended Neurologic: Cranial nerves II-XII grossly intact. No focal neurological deficits. Moves all extremities spontaneously. Musculoskeletal: No gross deformities. Normal range of motion. Psychiatric: Normal mood and affect Consultants Interventional cardio- Dr. Medrano Pending Results CBC ordered on 11/17/2023 Patient Education Titles WebMD Ignite Patient Education - Metoprolol Extended Release Oral Tablet?? [employer] Patient Education - Takotsubo Cardiomyopathy (Broken Heart Syndrome)?? Follow-Up Appointments Added Follow Up ?Time Frame ?Comments Marcella ALVAREZ, Tasha Rutledge Patient Instructions You were admitted for concerns of NSTEMI and were found to have stress induced cardiomyopathy, as well as gastroparesis ?? You were started on the following medications: Metoprolol XL 50mg daily We stopped the following??medications: Atorvastatin 20mg?Please follow up with your PCP within 1 week and obtain a cardiac echo in 3-4weeks?? Please follow up with GI outpatient.?? Home Health Face to Face ^HomeHealthFTF Results Discharge Labs ?? BLOOD COUNT & DIFF WBC 3.9 k/mm3 (Low)?? 11/18/2023 01:51 RBC 3.70 m/mm3 (Low)?? 11/18/2023 01:51 Hgb 11.1 Gm/dL (Low)?? 11/18/2023 01:51 Hct 33.8 % (Low)?? 11/18/2023 01:51 MCV 91.4 femtoliters ()?? 11/18/2023 01:51 MCH 30.0 pg ()?? 11/18/2023 01:51 MCHC 32.8 g/dL (Low)?? 11/18/2023 01:51 Platelet Count 221 k/mm3 ()?? 11/18/2023 01:51 RDW-SD 40.9 femtoliters ()?? 11/18/2023 01:51 MPV 9.7 femtoliters ()?? 11/18/2023 01:51 Nucleated RBC (Automated) 0.0 #/100 WBC'S ()?? 11/18/2023 01:51 Abs. NRBC 0.0 k/mm3 ()?? 11/18/2023 01:51 ?? CHEM GENERAL Sodium 141 mmol/L ()?? 11/18/2023 01:51 Potassium 4.0 mmol/L ()?? 11/18/2023 01:51 Chloride 107 mmol/L ()?? 11/18/2023 01:51 Bicarbonate Level 26 mmol/L ()?? 11/18/2023 01:51 Anion Gap 8 ()?? 11/18/2023 01:51 Glucose Level 184 mg/dL (High)?? 11/18/2023 01:51 Glucose, POC 180 mg/dL (High)?? 11/18/2023 10:43 BUN 8 mg/dL ()?? 11/18/2023 01:51 Creatinine-Blood 0.9 mg/dL ()?? 11/18/2023 01:51 Estimated GFR Creatinine 77 ML/MIN/1.73 M2 ()?? 11/18/2023 01:51 Calcium 8.9 mg/dL ()?? 11/18/2023 01:51 Protein, Total 4.9 Gm/dL (Low)?? 11/18/2023 01:51 Albumin 3.5 Gm/dL ()?? 11/18/2023 01:51 AG Ratio 2.5 ()?? 11/18/2023 01:51 Alkaline Phosphatase 58 units/L ()?? 11/18/2023 01:51 AST (SGOT) 14 units/L ()?? 11/18/2023 01:51 ALT (SGPT) 23 units/L ()?? 11/18/2023 01:51 Bilirubin, Total <0.2 mg/dL ()?? 11/18/2023 01:51 ?? COAG APTT 48.9 seconds (High)?? 11/18/2023 01:51 ? LIPID STUDIES Cholesterol 132 mg/dL ()?? 11/18/2023 01:51 Triglycerides 153 mg/dL (High)?? 11/18/2023 01:51 HDL Cholesterol 55 mg/dL ()?? 11/18/2023 01:51 LDL Cholesterol 46 mg/dL ()?? 11/18/2023 01:51 Non HDL Cholesterol 77 mg/dL ()?? 11/18/2023 01:51 ? URINE OTHER Est Creatinine Clearance 54.61 mL/min ()?? 11/18/2023 03:18 ? Procedures(s) ?Cardiac Chief Security Officer Report ?? 11/18/2023 08:50??by Abdoulaye Medrano MD ?Diagnostic Summary ??53-year-old female who is presenting for chest discomfort and precordial ??deep T wave inversions. Echocardiography has shown mid to distal LV ??dysfunction with EF 35 to 40%. She has been referred to us for diagnostic ??cardiac catheterization. ?? Hemodynamics: ??Low systemic pressures. ??Normal LVEDP. ??There is no gradient across aortic valve on pullback. ?? Coronary anatomy: ??Right dominant circulation. ??No significant coronary artery disease noted. ?? Presentation is due to Takotsubo cardiomyopathy. ? 30 minutes spent on discharge ??Patient seen and management discussed with attending, Dr. Gómez ??Erna Mota MD Internal Medicine, PGY1 Pager: [phone] * Rico KILGORE Grafton: PERFORM Event Display: Discharge/Transfer Note Hospital Authored Date: Attending Attestation:??I saw and examined the patient with the resident team and reviewed the chart on the day of service. ??I have discussed the case and its management??with the resident as documented in the resident note on the day of service.??I agree with the resident's note and plan as documented. * Mariaa Michaels RN: PERFORM Event Display: Patient Education/Instruction Authored Date: [id number] Inpatient Adult Discharge Instructions. [address] [address] Name: QUAN ALOZNO : 1970?? Visit: 11/17/2023 16:43?? Current Date: 11/18/2023 13:42 ?? Account: [id number]?? Inpatient Adult Discharge Instructions We would like to thank you for allowing us to assist you with your healthcare needs. The following includes patient education materials and information regarding your injury/illness. Our entire staffstrives to provide an excellent experience for our patients and their families. PLEASE ENSURE YOU FOLLOW-UP PER THE INSTRUCTIONS BELOW! ?? YOUR OPINION IS IMPORTANT TO US! Please complete the survey you may receive by mail or email. Your feedback will be used to make improvements to the healthcare experiences of our patients and their families. Surveys are administered by [employer] ?? If further treatment with your primary care physician or another doctor is recommended, it is important for you to keep the appointment. Call your primary care physician or return to the Emergency Department immediately if your condition worsens, fails to improve, or new symptoms develop. If you need to find a doctor, you can call [facility] for a referral at [phone] or toll free at [phone] or log in to [email or web address].. ?? [facility], in keeping with [facility] guidance, no longer requires face masks for staff, patientsor visitors in most situations. Similiar to time spent indoors at other locations, there is the chance that you were exposed to repiratory viruses during your time with us (such as flu or COVID-19). If you develop symptoms concerning for a viral respiratory infection, please seek testing (and treatment if indicated) from your medical provider or home test kit. ?? You can view and manage your care through the patient portal or by using a health care juliette of your choosing. [employer] is a website that allows you to securely view your medical information including your hospital discharge summary, office visit summaries, medications and follow-up visits. You can also request appointments, renew medications, and request access to your medical information using a health care juliette of your choosing, or just ask a question. You can enroll at [email or web address] or register during your next office visit. You have been discharged from [facility], Patient Care Unit: M7??. If you have any questions regarding these instructions, including results of studies pending, afteryou leave, please call us and we will be happy to assist you 16/03. [facility] Your Care Team Attending Physician Thee Gómez MD?? Consulting Providers Thee Gómez MD?? Discharging Providers Erna Mota MD Reason for Your Visit Transfer from [facility] for possible NSTEMI?? Your Diagnosis Acute systolic congestive heart failure Epigastric pain Chronic gastritis Diabetic gastroparesis Diabetes mellitus type 2 Anxiety and depression Acute HFrEF (heart failure with reduced ejection fraction) Takotsubo cardiomyopathy Tests Performed Below is a partial list of the tests performed during your hospitalization. You may have had other tests and procedures not included in this list. Please discuss all test results with your provider. CBC Comprehensive Metabolic Panel GLUCOSE POC Lipid Panel PTT CBC?? Primary Care Provider Tasha Naranjo NP? Advance Directive Health Care Proxy on File Yes - Health Care Proxy Discharge Vitals Temperature: 97.9 DegF Height: 155 cm Pulse Rate:??92 bpm??High Weight: 71 kg Respiratory Rate: 17 br/min Body Mass Index:??29.55 kg/m2??High Systolic Blood Pressure: 115 mm Hg Body surface area: 1.75 Diastolic Blood Pressure: 76 mm Hg ?? Oxygen Saturation: 99 % ?? Studies Pending All studies ordered during this hospital stay have been completed unless listed below. Please discuss all pending results with your provider listed above in these instructions. ?? CBC?? What to do next Instructions From Your Doctor You were admitted for concerns of NSTEMI and were found to have stress induced cardiomyopathy, as well as gastroparesis ?? You were started on the following medications: Metoprolol XL 50mg daily We stopped the following??medications: Atorvastatin 20mg? Please follow up with your PCP within 1 week and obtain a cardiac echo in 3-4weeks?? Please follow up with GI outpatient.? Orders?? TR band is removed and stable., ??11/18/23 12:59:00 EDT?? Prescriptions??, ??11/18/23 12:59:00 EDT?? Scheduled Follow-Up Appointments Thursday 11:00 AM EDT ?? Where: Diabetic Teaching Status: Pending Thursday 9:00 AM EDT ?? With: Tasha Naranjo NP Where: [facility] [address] [place] [address]- Status: Pending Thursday 9:00 AM EDT ?? Where: [facility] [place] Status: Pending Thursday 7:45 AM EDT ?? With: Stanislaw Casiano MD Where: [facility] [address] [place] [address]- Status: Pending You Need to Schedule the Following Appointments Follow Up with??Marcella ALVAREZ, Tasha Rutledge Where: ?? Discharge Medications QUAN ALONZO :1970 Visit Date:11/17/2023 Medications: Please continue your medications until treatment is completed or stopped by your provider. Medications not listed below should be discontinued. Discuss any questions related to medications with your provider. What How Much When Why Instructions Next Dose New Metoprolol (metoprolol 50 mg oral tablet, extended release) 1 tab(s) Oral Daily Duration: 30 Days Pickup at [facility] tomorrow at 8am Changed Insulin Glargine (Lantus Solostar Pen 100 units/ mL subcutaneous solution) 35 unit(s) Subcutaneous Injection Daily at Bedtime Duration: 90 Days bedtime tonight Unchanged Clonazepam (clonazePAM 1 mg oral tablet) 2 tab(s) Oral Twice a day as needed for Anxiety Twice a day as needed for Anxiety Unchanged dulaglutide (Trulicity Pen 1.5 mg/ 0.5 mL subcutaneous solution) 0.5 Milliliter Subcutaneous Injection Every week rotate injection sites. Call after 1 month for dose increase ?? resume regular schedule Unchanged Durable Medical Equipment (FreeStyle Sandra 2 Sensor) See instructions Diabetes mellitus type 2 as as directed for diabetes control ?? Equipment Unchanged Durable Medical Equipment (Freestyle Sandra Monitor) See instructions Duration: 30 Days use as directed for dx type 2 diabetes mellitus (E11.9) ?? Equipment Unchanged Durable Medical Equipment (Freestyle Sandra Sensor) See instructions Duration: 30 Days use as directed for dx type 2 diabetes mellitus (E11.9) sandra 2 1 SENSOR EVERY 14 DAYS ?? Equipment Unchanged Durable Medical Equipment (OneTouch Verio Glucose Meter) See instructions use as directed to test glucose for dx diabetes mellitus type 2 (E11.9) ?? Equipment Unchanged Durable Medical Equipment (OneTouch Verio Lancets) See instructions use to test glucose three times daily for dx diabetes melltius type 2 (E11.9) ?? Equipment Unchanged Durable Medical Equipment (OneTouch Verio Test Strips) See instructions use to test glucose three times daily for dx diabetes melltius type 2 (E11.9) ?? Equipment Unchanged Durable Medical Equipment (Pen [place], 30 G x 8 mm BD Ultra Fine II) See instructions Duration: 90 Days DMII E11.9 Use for insulin injection four times per day ?? Equipment Unchanged empagliflozin (Jardiance 25 mg oral tablet) 1 tab(s) Oral Daily in the morning tomorrow at 8am Unchanged Insulin Aspart (NovoLOG FlexPen 100 units/ mL subcutaneous solution) 10 unit(s) Subcutaneous Injection 3 times a day with meals 3 times a day with meals Unchanged Miscellaneous Rx (FREESTYLE LITE TEST STRIP) See instructions DMII E11.9 TESTING BLOOD SUGAR 3 TIMES A DAY ?? equipment Unchanged Pantoprazole (pantoprazole 40 mg oral delayed release tablet) 1 tab(s) Oral Twice a day tonight at 8pm Unchanged PEG Electrolyte Solution (NuLYTELY [place] oral powder for reconstitution) 4 Liter Oral Once until 4 liters are consumed or the rectal effluent is clear for colonoscopy ?? Unchanged Quetiapine (QUEtiapine 300 mg oral tablet) 2 tab(s) Oral Daily at Bedtime bedtime tonight [facility] Information [facility]: [address], [place] [id number] [phone] ?? What How Much When Comments Stop Taking Atorvastatin (atorvastatin 20 mg oral tablet) 1 tab(s) Oral Daily at Bedtime stop Prescription Given During Visit Metoprolol (metoprolol 50 mg oral tablet, extended release) - 1 tablet = 50 mg, By Mouth, Daily, # 30 tablet, 0 Refills, [facility], [address] [place] [phone]?? Laboratory Results Below is a partial list of the most recent Laboratory test results done prior to this discharge. You may have had other tests and procedures not included in this list. Please discuss all test resultswith your provider. Est Creatinine Clearance - 54.61 mL/min (11/18/2023) CBC (11/18/2023) ???WBC - 3.9 k/mm3???RBC - 3.70 m/mm3???Hgb - 11.1 Gm/dL???Hct - 33.8 %???MCV - 91.4 femtoliters???MCH - 30.0 pg???MCHC - 32.8 g/dL???Platelet Count - 221 k/mm3???RDW-SD - 40.9 femtoliters???MPV - 9.7 femtoliters???Nucleated RBC (Automated) - 0.0 #/100 WBC'S???Abs. NRBC - 0.0 k/mm3 Comprehensive Metabolic Panel (11/18/2023) ???Sodium - 141 mmol/L???Potassium - 4.0 mmol/L???Chloride - 107 mmol/L???Bicarbonate Level - 26 mmol/L???Anion Gap - 8???Glucose Level - 184 mg/dL???BUN - 8 mg/dL???Creatinine-Blood - 0.9 mg/dL???Estimated GFR Creatinine - 77 ML/MIN/1.73 M2???Calcium - 8.9 mg/dL???Protein, Total - 4.9 Gm/dL???Albumin - 3.5 Gm/dL???AG Ratio - 2.5???Alkaline Phosphatase - 58 units/L???AST (SGOT) - 14 units/L???ALT(SGPT) - 23 units/L? ?Bilirubin, Total - <0.2 mg/dL GLUCOSE POC (11/18/2023) ???Glucose, POC - 180 mg/dL Lipid Panel (11/18/2023) ???Cholesterol - 132 mg/dL???Triglycerides - 153 mg/dL???HDL Cholesterol - 55 mg/dL???LDL Cholesterol - 46 mg/dL???Non HDL Cholesterol - 77 mg/dL PTT (11/18/2023) ???APTT - 48.9 seconds Allergies (NKA means No Known Allergies) NKA Problems Active Problems??(13) Anxiety and depression?? Chronic gastritis?? Diabetes mellitus type 2?? Diabetic gastroparesis?? Diverticulosis?? Dyslipidemia?? Failure to thrive in adult?? Hepatic steatosis?? Nausea and vomiting?? OCD (obsessive compulsive disorder)?? Poor historian?? PTSD (post-traumatic stress disorder)?? s/p tubal ligation?? Education Materials Below is the list of Educational Leaflet Providered with your Discharge Instructions. Web[employer]ite Patient Education - Metoprolol Oral Tablet?? [employer] Patient Education - Quetiapine Oral Tablet?? [employer] Patient Education - Insulin Glargine Injectable Solution?? [employer] Patient Education - Empagliflozin Oral Tablet?? [employer] Patient Education - Clonazepam Oral Tablet?? [employer] Patient Education - Understanding Coronary Artery Disease (CAD)?? [employer] Patient Education - Tracking Symptoms of Heart Failure?? [employer] Patient Education - Taking a Diuretic?? [employer] Patient Education - Heart Failure: Warning Signs of a Flare-Up?? [employer] Patient Education - Heart Failure: Making Changes to Your Diet?? [employer] Patient Education - Heart Failure: Know Your Baselines?? [employer] Ignite Patient Education - Heart Failure Zones?? [employer] Patient Education - Coping with Heart Failure?? [employer] Patient Education - Discharge Instructions for Cardiac Catheterization?? [employer]ite Patient Education - Understanding Transradial Cardiac Catheterization?? [employer] Patient Education - Having Cardiac Catheterization?? [employer] Patient Education - Metoprolol Extended Release Oral Tablet?? Web[employer] Ignite Patient Education - Takotsubo Cardiomyopathy (Broken Heart Syndrome)?? Valuables and Belongings I fully understand and agree that [facility] accepts no responsibility for all my personal property including clothing, toilet articles, radios, jewelry, dentures, hearing aids, rings, money, or any other property that is in my possession or is brought to me after admission. I understand certain valuables may be placed in a hospital safe for a short period of time. I understand that the hospital is not liable for loss or damage due to accident, fire, or other natural occurrence while said property is in the safe. I accept full responsibility for any personal property that I keep with me, and will not hold the hospital responsible in case of loss or disappearance. I acknowledge that i have been encouraged to send valuables and belongings home. ?? Review of Valuable and Belonging List: With patient Date for Pt to Sign Valuables/Belongings: 11/17/23 17:28:00 ?? Other Discharge Information ? Pulmonary Rehab Status?? Pulmonary Rehab Discharge Status?? Respiratory Rate: 17 br/min ? Cardiac Rehab Assessment?? Cardiac Rehab Inpatient Assessment?? Comments-Education: S/P AK, STRESS CM EDUCATION Comments-Smoking Cessation: REINFORCE CESSATION/NRT Comments-Exercise Activity: AMB ANH Comments-Nutrition: DM PER RD Comments-Lipids: PROFILE PENDING Comments-Other plan of care: RECOMMEND PHASE 2 CARDIAC REHAB 2 WEEKS AT Common Emergency Awareness Tips IS IT A STROKE? Act FAST and Check for these signs: FACE Does the face look uneven? ARM Does one arm drift down? SPEECH Does their speech sound strange? TIME Call at any sign of stroke ?? Heart Attack Signs Chest discomfort: Most heart attacks involve discomfort in the center of the chest and lasts more than a few minutes, or goes away and comes back. It can feel like uncomfortable pressure, squeezing, fullness or pain. Discomfort in upper body: Symptoms can include pain or discomfort in one or both arms, back, neck, jaw or stomach. Shortness of breath: With or without discomfort. Other signs: Breaking out in a cold sweat, nausea, or lightheaded. Remember, MINUTES DO MATTER. If you experience any of these heart attack warning signs, call to get immediate medical attention! ?? Smoking can increase your chances of developing chronic health problems and can cause harmful effects to other family members in your house. If you smoke, you are strongly encouraged to quit. Please call [facility] at [phone] or [phone]) or log in to [email or web address] for referrals to smoking cessation programs. ?? 348 Suicide & Crisis Lifeline is available 16/03 if you or someone you know needs to find a reason to keep living. By calling 022 you'll be connected to a skilled, trained counselor at a crisis center in your area. INPATIENT DISCHARGE INSTRUCTIONS SIGNATURE PAGE CHERIOSIRISQUAN Location:[facility] Registration Date and Time:11/17/2023 16:43 EDT Primary Care Physician: Tasha Naranjo NP, Attending Physician: Thee Gómez MD, I QUAN ALONZO, have received the above patient education materials/instructions and have verbalized understanding. If ambulance or transport services are being used I further acknowledge being given a choice of service. ?? If you need to contact me, please call me at this number: . Patient/Pedicab Driver Name: Patient/Pedicab Driver Signature: Relationship to Patient: Witness Name/Signature: Date: * Mariaa Michaels RN: PERFORM Event Display: Patient Education Leaflets Authored Date: [id number] Metoprolol Oral Tablet ?? [address] Metoprolol Oral Tablet Brands: Lopressor Uses This medicine is used for the following purposes: ??? angina ??? heart attack ??? heart disease ???high blood pressure ??? irregular heart beat ??? prevent migraine headaches ??? movement disorder ?? Instructions Take the medicine with food. This medicine will work best if you take it at about the same time every day. Store at room temperature away from heat, light, and moisture. Do not keep in the bathroom. It is important that you keep taking each dose of this medicine on time even if you are feeling well. If you forget to take a dose on time, take it as soon as you remember. If it is almost time for thenext dose, do not take the missed dose. Return to your normal schedule. Do not take 2 doses at one time. Drug interactions can change how medicines work or increase risk for side effects. Tell your healthcare providers about all medicines taken. Include prescription and zxqb-cdp-dcumquo medicines, vitamins, and herbal medicines. Speak with your doctor or pharmacist before starting or stopping any medicine. Tell your doctor if symptoms do not get better or if they get worse. If you have diabetes, this medicine may hide some signs of low blood sugar, such as fast heartbeat.Check your blood sugar regularly and for other signs of low blood sugar. Symptoms of low blood sugar may include nausea, shaking, sweating, cold skin, fast heartbeat, hunger, and irritability. If you need to stop this medicine, your doctor may wish to gradually reduce the dosage before stopping. Keep all appointments for medical exams and tests while on this medicine. ?? Cautions Tell your doctor and pharmacist if you ever had an allergic reaction to a medicine. Some patients with weak hearts may have worsening of symptoms. If you notice difficulty breathing, weight gain, or swelling of your legs or ankles, let your doctor know right away. Do not use the medication any more than instructed. This medicine may cause dizziness or fainting. Do not stand or sit up quickly. Your ability to stay alert or to react quickly may be impaired by this medicine. Do not drive or operate machinery until you know how this medicine will affect you. Please check with your doctor before drinking alcohol while on this medicine. This medicine passes into breast milk. Ask your doctor before . During , this medicine should be used only when clearly needed. Talk to your doctor about the risks and benefits. Do not share this medicine with anyone who has not been prescribed this medicine. ?? Side Effects The following is a list of some common side effects from this medicine. Please speak with your doctor about what you should do if you experience these or other side effects. ??? diarrhea ??? dizziness or drowsiness ??? lack of energy and tiredness ??? slow heartbeat ??? lightheadedness Call your doctor or get medical help right away if you notice any of these more serious side effects: ??? confusion ??? depression or feeling sad ??? swelling of the legs, feet, and hands ??? fainting ??? cold hands or feet ??? mood changes ??? pale or blue skin, lips or fingernails ??? shortness of breath ??? unusual or unexplained tiredness or weakness ??? sudden or unexplained weight gain A few people may have an allergic reaction to this medicine. Symptoms can include difficulty breathing, skin rash, itching, swelling, or severe dizziness. If you notice any of these symptoms, seek medical help quickly. ?? Extra Please speak with your doctor, nurse, or pharmacist if you have any questions about this medicine. ?? [email or web address] IMPORTANT NOTE: This document tells you briefly how to take your medicine, but it does not tell youall there is to know about it. Your doctor or pharmacist may give you other documents about your medicine. Please talk to them if you have any questions. Always follow their advice. There is a more complete description of this medicine available in Turkmen. Scan this code on your smartphone or tablet or use the web address below. You can also ask your pharmacist for a printout. If you have any questions, please ask your pharmacist. The display and use of this drug information is subject to Terms of Use. Copyright(c) 2022 [employer]. ?? The [employer]. All rights reserved. This information is not intended as a substitute for professional medical care. Always follow your healthcare professional's instructions. ?? * Mariaa Michaels RN: PERFORM Event Display: Patient Education Leaflets Authored Date: [id number] Quetiapine Oral Tablet ?? [address] Quetiapine Oral Tablet Brands: in3Depth Uses This medicine is used for the following purposes: ??? anxiety ??? bipolar disorder ??? depression ??? schizophrenia ?? Instructions This medicine may be taken with or without food. This medicine will work best if you take it at about the same time every day. Keep the medicine at room temperature. Avoid heat and direct light. It may take several weeks for this medicine to fully work. It is important that you keep taking each dose of this medicine on time even if you are feeling well. If you forget to take a dose on time, take it as soon as you remember. If it is almost time for thenext dose, do not take the missed dose. Return to your normal schedule. Do not take 2 doses at one time. Tell your doctor and pharmacist about all your medicines. Include prescription and iata-vwg-bxaipcjattmmtebc, vitamins, and herbal medicines. Do not suddenly stop taking this medicine. Check with your doctor before stopping. This medicine may cause higher blood sugar levels or diabetes. Please follow your doctor's instructions and check your blood sugar level regularly while on this medicine. ?? Cautions Tell your doctor and pharmacist if you ever had an allergic reaction to a medicine. Do not use the medication any more than instructed. This medicine may cause dizziness or fainting. Do not stand or sit up quickly. Your ability to stay alert or to react quickly may be impaired by this medicine. Do not operate machinery or drive while on this medicine. Do not drink beverages with alcohol while on this medicine. Avoid becoming overheated during exercise or other activities. Try to stay cool in hot weather. Contact your doctor if you notice a change in the amount or darkening of your urine. Family should check on the patient often. Call the doctor if patient becomes more depressed, has thoughts of suicide, or shows changes in behavior. Tell the doctor or pharmacist if you are , planning to be , or . Do not start or stop any other medicines without first speaking to your doctor or pharmacist. Do not share this medicine with anyone who has not been prescribed this medicine. Some patients have serious side effects from this medicine. Ask your pharmacist to show you the information from the Food and Drug Administration (FDA) and discuss it with you. ?? Side Effects The following is a list of some common side effects from this medicine. Please speak with your doctor about what you should do if you experience these or other side effects. ??? agitated feeling or trouble sleeping ??? constipation ??? dizziness or drowsiness ??? dry mouth??? headaches ??? rapid heartbeat ??? low blood pressure ??? liver problems ??? muscle pain ??? red, burning, or itchy skin ??? weight gain Call your doctor or get medical help right away if you notice any of these more serious side effects: ??? breathing interruption during sleep ??? fever ??? swelling in the neck or throat ??? difficultyor discomfort urinating A few people may have an allergic reaction to this medicine. Symptoms can include difficulty breathing, skin rash, itching, swelling, or severe dizziness. If you notice any of these symptoms, seek medical help quickly. ?? Extra Please speak with your doctor, nurse, or pharmacist if you have any questions about this medicine. ?? [email or web address] IMPORTANT NOTE: This document tells you briefly how to take your medicine, but it does not tell youall there is to know about it. Your doctor or pharmacist may give you other documents about your medicine. Please talk to them if you have any questions. Always follow their advice. There is a more complete description of this medicine available in [place]. Scan this code on your smartphone or tablet or use the web address below. You can also ask your pharmacist for a printout. If you have any questions, please ask your pharmacist. The display and use of this drug information is subject to Terms of Use. Copyright(c) 2022 [employer]. ?? The [employer]. All rights reserved. This information is not intended as a substitute for professional medical care. Always follow your healthcare professional's instructions. ?? * Mariaa Michaels RN: PERFORM Event Display: Patient Education Leaflets Authored Date: [id number] Insulin Glargine Injectable Solution ?? [id number] Insulin Glargine Injectable Solution Brands: Lantus, Semglee Uses For diabetes. ?? Instructions This medicine is used by injecting it into the skin. Please ask your doctor, nurse or pharmacist for the correct places on your body where this medicine can be injected. This insulin should be used once a day. Use at the same time each day. This insulin does not need to be mixed before using. This insulin should be clear and colorless. Do not use if it appears discolored, thickened or contains any particles. Store unused insulin vials in the refrigerator until ready to use. Do not allow it to freeze. Remove the insulin from the refrigerator when you are ready to use it. Do not return the medicine to the refrigerator after you start using it. Discard the vial 28 days after removing from the refrigerator, even if there is insulin left in thevial. Throw away any insulin if it was frozen. Keep the insulin that you are using at room temperature and protected from light and heat. Discard any insulin if it is exposed to temperature greater than 86?? F (30?? C). Never use any insulin that has . Throw it away. This insulin should not be mixed with other insulins. Do not inject into skin that has lumps, pits, or is thickened. Change the location of the injection each time. Choose a location at least 1 inch from the last injection. Do not rub or massage the area where the injection was given. Tell your doctor and pharmacist about all your medicines. Include prescription and [id number], vitamins, and herbal medicines. Before using insulin, you should be taught by your doctor or a certified nurse aide. Follow their instructions carefully. If you have not been trained, speak with your doctor before using thismedicine. Be sure to follow your regular meal plan and exercise as discussed with your doctor. It is very important that you use your medicine every day and that you do not miss any dose of yourinsulin. Have a discussion with your doctor about what you should do in case you miss an insulin dose. ?? Cautions Tell your doctor and pharmacist if you ever had an allergic reaction to a medicine. Monitor your blood sugar as instructed by your doctor. Adjust the amount of insulin only as recommended by your doctor. Your ability to stay alert or to react quickly may be impaired by this medicine. Do not drive or operate machinery until you know how this medicine will affect you. Please check with your doctor before drinking alcohol while on this medicine. Tell the doctor or pharmacist if you are , planning to be , or . This medicine passes into breast milk. Ask your doctor before . Always carry an ID card or wear a medical alert bracelet showing that you are diabetic. Carry glucose tablets or hard candy with you in case you experience low blood sugar from the insulin. Symptoms of low blood sugar may include nausea, shaking, sweating, cold skin, fast heartbeat, hunger, and irritability. Do not start or stop any other medicines without first speaking to your doctor or pharmacist. Ask your pharmacist how to properly throw away used needles or syringes. ?? Side Effects The following is a list of some common side effects from this medicine. Please speak with your doctor about what you should do if you experience these or other side effects. ??? swelling of the legs, feet, and hands ??? pain, redness, swelling near injection ??? weight gain Call your doctor or get medical help right away if you notice any of these more serious side effects: ??? dizziness ??? numbness or tingling in hands and feet ??? low blood sugar ??? muscle cramps or weakness ??? rapid heartbeat ??? shakiness ??? sweating ??? blurring or changes of vision A few people may have an allergic reaction to this medicine. Symptoms can include difficulty breathing, skin rash, itching, swelling, or severe dizziness. If you notice any of these symptoms, seek medical help quickly. ?? Extra Please speak with your doctor, nurse, or pharmacist if you have any questions about this medicine. ?? [email or web address] IMPORTANT NOTE: This document tells you briefly how to take your medicine, but it does not tell youall there is to know about it. Your doctor or pharmacist may give you other documents about your medicine. Please talk to them if you have any questions. Always follow their advice. There is a more complete description of this medicine available in Turkmen. Scan this code on your smartphone or tablet or use the web address below. You can also ask your pharmacist for a printout. If you have any questions, please ask your pharmacist. The display and use of this drug information is subject to Terms of Use. Copyright(c) 2022 [employer]. ?? [employer]. All rights reserved. This information is not intended as a substitute for professional medical care. Always follow your healthcare professional's instructions. ?? History and physical note * Aida KILGORE, Shantanu Juarez: PERFORM Event Display: History and Physical Hospital Authored Date: Patient: ??CHERI, QUAN ? Age:??53 Years?Sex:??Female?:??1970?? Chief Complaint/Reason for Consultation Transfer from [facility] for possible NSTEMI History of Present Illness 53-year-old female with past medical history significant for insulin-dependent diabetes??type 2, diabetic gastroparesis,??chronic gastritis,??hypertension, dyslipidemia,??anxiety, depression, PTSD, and OCD??who presented to??[facility] on??11/13/2023??complaining of upper abdominal pain??associated with significant nausea??that started the day prior??to presentation.?? She denied any vomiting.?? She had not seen any??black or bloody stools. ??No lower abdominal pain.?? No urinary symptoms. ??No fevers or chills.?? She was??afraid of eating due to the severe pain.?? She denied any chest pain, palpitations, or shortness of breath??presently, but??on further questioning by cardiology, did say she had chest pressure off and on in the past..?She had recently been treated for UTI with a course of cefuroxime,??and started on Reglan??for presumed??diabetic gastroparesis.?? She hasbeen referred to gastroenterology??for possible EGD, but does not have an??appointment until March.?She denies any history of PUD. ??She is on twice daily PPI. ?? At [facility],??the patient??remained afebrile and hemodynamically stable. ??She didnot have respiratory distress or hypoxia.?? EKG was abnormal, showing T wave inversions in the anterior leads, and prolonged QT interval.?? She did have elevation in high-sensitivity troponin I values, with peak level 26.1. ??Laboratory workup was significant for hypokalemia (K 3.2)??with stable renal function. ??LFTs and lipase levels were normal.?? Reglan and Seroquel were held given the prolonged QT interval. ??CT of the abdomen and pelvis was unremarkable.?She underwent echocardiogram on11/16/2023??which showed EF of 35 to 40%,??with hypokinesis of the apical anterior, apical inferior,mid anterior, mid inferior, apical lateral, apical septum, mid anterolateral, mid inferoseptal, midanteroseptal, and mid inferolateral segments.?The patient??was seen by cardiology,??and started on IV heparin drip??and beta-jonh in addition to her aspirin and statin.?? Her clinical picture was felt to be consistent with stress-induced cardiomyopathy versus??NSTEMI of the LAD territory. ??She has been transferred here to??[facility] for cardiac catheterization.?? At the time of my evaluation, she continues to complain of epigastric pain, but is otherwise??afebrile and hemodynamically stable??and without hypoxia. Review of Systems Other than those positives as noted in the HPI above, all other systems were reviewed and are negative. Objective Measurements?? Height: 155 cm (11/17/23) Weight: 71 kg (11/17/23) Dry Weight: 66.8 kg (11/17/23) Body Mass Index:??29.55 kg/m2??High (11/17/23) ? Vital Signs?? Temperature: 98.7 DegF (11/17/23 21:07:00) Temperature Route: Temporal (11/17/23 21:07:00) Pulse Rate: 82 bpm (11/17/23 22:20:00) Respiratory Rate: 18 br/min (11/17/23 22:20:00) Systolic Blood Pressure: 129 mm Hg (11/17/23 22:20:00) Diastolic Blood Pressure:??94 mm Hg??High (11/17/23 22:20:00) Blood pressure sites: Arm, right (11/17/23 21:07:00) Mean Arterial Pressure: 81 mm Hg (11/17/23 21:07:00) Pulse Pressure: 30 mm Hg (11/17/23 21:07:00) Oxygen Saturation: 100 % (11/17/23 21:07:00) Mode of Delivery (Oxygen): Room air (11/17/23 21:07:00) Early Warning Score: 0 (11/17/23 22:25:24) ? Pain Scores?? No qualifying data available. ? Physical Exam General Appearance: Alert, no distress, answers questions appropriately HEENT: Normocephalic, atraumatic, PERRL, EOMI, no scleral icterus, no facial droop, moist mucous membranes, no oropharynx lesions?? Neck: Supple, no JVD, no C-Spine tenderness, no LAD Cardiac: RRR, S1 & S2 present, no m / r / g appreciated Chest: Clear to auscultation bilaterally, no wheezing / ronchi / rales, no tenderness to percussion Abdomen: Soft, mild epigastric tenderness, no distention, no rebound or guarding, no masses, normalbowel sounds in all quadrants Extremities: No clubbing, cyanosis, or edema. ??2+ distal pulses. ??Capillary refill < 3 seconds. ??No calf tenderness or cords Skin: Warm, no rash or open wounds Neuro: ??A & O x 3, CN III-XII intact, no focal motor or sensory deficits Psych: ??Stable mood, appropriate affect Assessment/Plan Assessment:??53-year-old female with past medical history significant for insulin-dependent diabetes??type 2, diabetic gastroparesis,??chronic gastritis,??hypertension, dyslipidemia,??anxiety, depression, PTSD, and OCD??who presented to??[facility] on??11/13/2023??complaining of upper abd ominal pain??associated with significant nausea??that started the day prior??to presentation.?She was treated for diabetic gastroparesis. EKG was abnormal, showing T wave inversions in the anterior leads, and prolonged QT interval.??She did have elevation in high-sensitivity troponin I values, with peak level 26.1. She underwent echocardiogram on 11/16/2023??which showed EF of 35 to 40%,??with h ypokinesis of the apical anterior, apical inferior, mid anterior, mid inferior, apical lateral, apical septum, mid anterolateral, mid inferoseptal, mid anteroseptal, and mid inferolateral segments.?The patient??was seen by cardiology,??and started on IV heparin drip??and beta-jonh in additionto her aspirin and statin.??Her clinical picture was felt to be consistent with stress- induced cardiomyopathy versus??NSTEMI of the LAD territory.??She has been transferred here to??[facility] for consideration of cardiac catheterization. ?? Acute systolic congestive heart failure (I50.21):??Differential??diagnoses include??stress-induced cardiomyopathy??versus??NSTEMI??of the LAD territory (ischemic cardiomyopathy).??The patient has nothad any chest pain. ??She is currently euvolemic. ??Troponin I values at [facility] peaked at 26.??She was noted to have T wave inversions??of the anterior leads on EKG.??She was also noted to have prolonged QT interval??which could be in the setting of stress-induced cardiomyopathy. - Admit to the medical floor, continuous EKG monitoring - Continue heparin drip anticoagulation protocol; monitor PTT and daily CBC - Continue aspirin 81 mg daily - Continue atorvastatin 20 mg daily; check lipid panel with goal LDL < 70 -??Continue metoprolol 25 mg twice daily as blood pressure and heart rate tolerate - Nitroglycerin sublingual 0.4 mg as needed for recurrent chest pain - Monitor comprehensive metabolic panel - N.p.o. after midnight for cardiac catheterization tomorrow - Check baseline EKG here??and monitor QT interval - GDMT to be initiated??after cardiac catheterization based on findings ?? Epigastric pain (R10.13) Chronic gastritis (K29.50) Diabetic gastroparesis (E11.43):??The patient continues to complain of epigastric pain.??I suspect this is related to??her chronic gastritis and gastroparesis, as opposed to anginal equivalent.??I cannot fully rule out NSTEMI??as above.?CT abdomen and pelvis unremarkable at [facility]. ??LFTs and lipase normal. ??She does report that morphine helped at [facility].??Reglan has been discontinued in the setting of prolonged QT interval, and may be helpful if this is corrected. -Continue PPI twice daily -Morphine 2 mg IV every 4 hours as needed for severe breakthrough pain -Resume Reglan when QT interval improved -Consider adding sucralfate??3-4 times daily -GI follow-up??as outpatient ?? Diabetes mellitus type 2 (E11.9):??Blood sugar 143 here.??Hemoglobin A1c improved to 7.9 at [facility]. Trulicity is nonformulary here. Resume Jardiance after cardiac catheterization??if renal function stable. Continue Lantus insulin; we will give 15 units (half of her??home dose)??this evening as she will be n.p.o. after midnight. Monitor POC's with insulin lispro sliding scale coverage. ?? Anxiety and depression (F41.9):??She seems depressed. No SI. Continue clonazepam twice daily as needed for anxiety. Resume Seroquel at bedtime if QTc less than 500 ms. ?? VTE Prophylaxis:??On heparin drip. ?VTE Prophylaxis Assessment:??Excluded from VTE prophylaxis measure ?? Code Status:??FULL. ?Order Code Status:??Code Status Ordered ?? Discharge Planning:??Anticipate discharge home; 2 to 4 days hospitalization. ?? I spent a total of??82 minutes today reviewing the chart / medical records, evaluating the patient,evaluating and interpreting laboratory and imaging data, formulating and discussing the treatment plan, and documenting the encounter. ? Histories Allergies Allergies ?(Active and Proposed Allergies Only) NKA? (Severity: Unknown severity, Onset: Unknown) ? Past Medical History/Problem List Active Problems??(12) Anxiety and depression Chronic gastritis Diabetes mellitus type 2 Diabetic gastroparesis Diverticulosis Dyslipidemia Failure to thrive in adult Hepatic steatosis Nausea and vomiting OCD (obsessive compulsive disorder) Poor historian PTSD (post-traumatic stress disorder) ? Past Surgical History Tubal ligation done Cholecystectomy ? Social History Alcohol Details:??Use: Never. Substance Abuse Details:??Use: Current. ??Type: Marijuana. ??Frequency: Daily. Tobacco Details:??Use: 4 or less cigarettes(less than 1/4 pack)/day recently.?? Quit 4 months ago. ? Family History Brother: CAD - Coronary artery disease Brother: Hypertension Brother: Stroke Brother: Metastatic cancer ? Medications Home Medications Atorvastatin (atorvastatin 20 mg oral tablet)?1?tab(s)?20?Milligram?By Mouth?Daily at bedtime Clonazepam (clonazePAM 1 mg oral tablet)?2?tab(s)?2?Milligram?By Mouth?2 times a day?as needed?Anxiety dulaglutide (Trulicity Pen 1.5 mg/0.5 mL subcutaneous solution)?0.5?Milliliter?1.5?Milligram?Subcutaneous Injection?Every week?rotate injection sites. Call after 1 month for dose increase Durable Medical Equipment (Freestyle Sandra Monitor)?See Instructions?for 30?Days?use asdirected for dx type 2 diabetes mellitus (E11.9) Durable Medical Equipment (OneTouch Verio Lancets)?See Instructions?use to test glucose threetimes daily for dx diabetes melltius type 2 (E11.9) Durable Medical Equipment (OneTouch Verio Glucose Meter)?See Instructions?use as directed to test glucose for dx diabetes mellitus type 2 (E11.9) Durable Medical Equipment (OneTouch Verio Test Strips)?See Instructions?use to test glucose three times daily for dx diabetes melltius type 2 (E11.9) Durable Medical Equipment (Freestyle Sandra Sensor)?See Instructions?for 30?Days?use as directed for dx type 2 diabetes mellitus (E11.9) sandra 21 SENSOR EVERY 14 DAYS Durable Medical Equipment (FreeStyle Sandra 2 Sensor)?See Instructions?as as directed for diabetes control Durable Medical Equipment (Pen [place], 30 G x 8 mm BD Ultra Fine II)?See Instructions?for 90?Days?DMII E11.9Use for insulin injection four times per day empagliflozin (Jardiance 25 mg oral tablet)?1?tab(s)?25?Milligram?By Mouth?Daily in AM Insulin Aspart (NovoLOG FlexPen 100 units/mL subcutaneous solution)?10?unit(s)?Subcutaneous Injection?3 times a day with meals Insulin Glargine (Lantus Solostar Pen 100 units/mL subcutaneous solution)?35?unit(s)?Subcutaneous Injection?Daily at bedtime?for 90?Days Miscellaneous Rx (FREESTYLE LITE TEST STRIP)?See Instructions?DMII E11.9 TESTING BLOOD SUGAR 3 TIMES A DAY Pantoprazole (pantoprazole 40 mg oral delayed release tablet)?1?tab(s)?40?Milligram?By Mouth?2 times a day PEG Electrolyte Solution (NuLYTELY [place] oral powder for reconstitution)?4?Liter?By Mouth?Once?until 4 liters are consumed or the rectal effluent is clear for colonoscopy Quetiapine (QUEtiapine 300 mg oral tablet)?2?tab(s)?600?Milligram?By Mouth?Daily at bedtime ? Results Recent Labs CHEM GENERAL Glucose, POC 143 mg/dL (High)?? 11/17/2023 17:37 ? * Event Display: History and Physical Hospital Authored Date: EKG study * Event Display: ECG 12-Lead Authored Date: Please click on pdf link to open report * Event Display: ECG 12-Lead Authored Date: Ventricular Rate: 83 BPM Atrial Rate: 83 BPM P-R Interval: 150 ms QRS Duration: 74 ms Q-T Interval: 404 ms QTC Calculation(Bazett): 474 ms P [place]: 56 degrees R [place]: 47 degrees T [place]: 156 degrees Normal sinus rhythm Low voltage QRS T wave abnormality, consider lateral ischemia Prolonged QT Abnormal ECG When compared with ECG of 04-DEC-2020 11:57, T wave inversion now evident in Lateral leads Confirmed by SHANTANU MORALES MD ([id number]) on 11/18/2023 8:54:00 AM Celina: SHANTANU MORALES MD Cardiology * Event Display: Cardiac Rhythm Strips Authored Date: * Event Display: Cardiac Rhythm Strips Authored Date: Hospital Progress note * Kelsie Marshall RN: PERFORM, SIGN, VERIFY Event Display: Progress Note Hospital Authored Date: Patient: QUAN ALONZO Age: 53 years Sex: Female : 1970 Associated Diagnoses: None Author: Kelsie Marshall RN Findings Narrative/Incidental A&Ox4, VSS, RA, ambulates independently. Patient was transfered to for discharge.. Discharge Information Case Management Discharge Plan : Case Management Discharge Plan Data 11/18/2023 16:10 EDT Discharge Level of Care at Discharge Home/Detention/Foster Care * She Ro LPN: PERFORM, SIGN, VERIFY, MODIFY, SIGN Event Display: Progress Note Hospital Authored Date: Patient: QUAN ALONZO Age: 53 years Sex: Female : 1970 Associated Diagnoses: None Author: She Ro LPN Findings Problem Related to Alteration in Cardiac Function (new) : Alteration in Cardiac Function/new 11/17/2023 21:00 EDT Alteration in Cardiac Status Related to ACS, Cardiac Procedure, Other: NSTEMI, possible cardiac cath Goals & Outcomes, Cardiac Status Pt will resume/maintain adequate cardiac output, Pt will resume/maintain adequate hemodynamic status, Pt will resume/maintain adequate respiratory function, Pt will resume/maintain intact neuro function, Pt will maintain adequate GI/ function appropriate for pt, Pt will maintain adequate nutrition status, Pt/caregiver will state understanding of diagnosis, Pt/caregiver will state strategies to reduce risk factors Cardiac Interventions Implemented Assess/monitor cardiac status, Assess/monitor neuro status, Assess/monitor respiratory status, If no bowel movement in 3 days activate bowel regime, Monitor & document daily weight, Monitor anticoagulation values BH Goals/Interventions, Cardiac Yes Cardiac, Problem Start 11/17/2023 18:16 Reviewed Plan with, Cardiac Status Patient Patient Progression, Cardiac Status Patient progressing according to plan . Nursing Data Cardiac Data. : Cardiac Data. 11/17/2023 21:00 EDT Cardiovascular Symptoms None Heart Rhythm Regular Pacemaker No Cardiac Rhythm Normal sinus rhythm Capillary Refill < 3 seconds playground monitor Yes Cardiovascular WNL except . Respiratory/Pulmonary Data. : Respiratory/Pulmonary Data. 11/17/2023 21:00 EDT Respiratory WNL . Vital Signs : VITAL SIGNS SECTION 11/17/2023 22:20 EDT Pulse Rate 82 bpm Respiratory Rate 18 br/min Systolic Blood Pressure 129 mm Hg Diastolic Blood Pressure 94 mm Hg H 11/17/2023 21:10 EDT Early Warning Score 0.00 11/17/2023 21:07 EDT Temperature 98.7 DegF Temperature Route Temporal Pulse Rate 85 bpm Respiratory Rate 20 br/min Systolic Blood Pressure 101 mm Hg Diastolic Blood Pressure 71 mm Hg Blood pressure sites Arm, right Mean Arterial Pressure 81 mm Hg Pulse Pressure 30 mm Hg Oxygen Saturation 100 % Mode of Delivery (Oxygen) Room air . Evaluation Pt is A&OX3. NPO over night for cardiac cath. Lung sounds clear, on room air. NSR on telemetry.No c/o chest pain, dizziness or sob. Morphine 2mg given for 9/10 stomach pain. Heparin gtt per order. 0300 pt systolic bp was 82 and pt was asymptomatic, provider Reccord made aware, 500ml NS bolus given, bp reassess 101/63. OOB independently. Last BM 11/14. Will continues to monitor. Call mejia is at bedside.. * Tali Franco RN: PERFORM, SIGN, VERIFY Event Display: Progress Note Hospital Authored Date: Patient: QUAN ALONZO Age: 53 years Sex: Female : 1970 Associated Diagnoses: None Author: Tali Franco RN Findings Problem Related to Alteration in Cardiac Function (new) : Alteration in Cardiac Function/new 11/17/2023 18:00 EDT Alteration in Cardiac Status Related to ACS, Cardiac Procedure, Other: NSTEMI, possible cardiac cath Goals & Outcomes, Cardiac Status Pt will resume/maintain adequate cardiac output, Pt will resume/maintain adequate hemodynamic status, Pt will resume/maintain adequate respiratory function, Pt will resume/maintain intact neuro function, Pt will maintain adequate GI/ function appropriate for pt, Pt will maintain adequate nutrition status, Pt/caregiver will state understanding of diagnosis, Pt/caregiver will state strategies to reduce risk factors Cardiac Interventions Implemented Assess/monitor cardiac status, Assess/monitor neuro status, Assess/monitor respiratory status, Assess for tolerance of IV infusions; verify rate & dose, Call/Report variances in ECG to provider, Document & Monitor O2 Sats; Administer O2 as ordered, Ensure adequate caloric intake, If no bowel movement in 3 days activate bowel regime, Monitor & document daily weight, Monitor anticoagulation values, Monitor ECG w/administration of antiarrhythmics (CO 13.420), Obtain 12 Lead ECG and CXR as ordered, Prep pt for treatments & procedures, Teach/encourage deep breath & cough exercises, Teach/encourage use of incentive spirometer, Team conversation regarding appropriate level of care, Turn & reposition Q2 hours per activity restrictions, Useadjunctive therapies per Standards of Practice Goals/Interventions, Cardiac Yes Cardiac, Problem Start 11/17/2023 18:16 Reviewed Plan with, Cardiac Status Patient Patient Progression, Cardiac Status Patient progressing according to plan . Nursing Data Vital Signs : VITAL SIGNS SECTION 11/17/2023 17:30 EDT Temperature 98 DegF Temperature Route Oral Pulse Rate 69 bpm Respiratory Rate 18 br/min Systolic Blood Pressure 90 mm Hg Diastolic Blood Pressure 62 mm Hg Blood pressure sites Arm, right Mean Arterial Pressure 71 mm Hg Pulse Pressure 28 mm Hg Oxygen Saturation 100 % Mode of Delivery (Oxygen) Room air . Narrative/Incidental Admitted this [facility] from [facility] for NSTEMI. Plan for possible cardiac cath, pending MD to bedside. A&Ox4, cooperative with all care. SR on tele HR in the 60's-70's. SBP soft 90/62. Pt denies any chest pain/palp/dizziness. O2 stats WNL on room air stating 100%. Lung sounds clear bilaterally. LBM on Thursday the per pt. Denies any nausea/abdominal pain/vomiting. Blood sugarthis evening 143. Independent OOB no use of ambulatory devices. Skin intact. Heparin gtt initiated @12units/kg/hr, next PTT check @0000 11/17. Safety precautions remain in place. . Patient Care team information Care Team Personnel Name: Laurie Castellanos RN Position: [facility] Nurse Member Role: Primary Care Nurse Name: Ave Benedict NP Position: [facility] Associate Professional Member Role: Primary Care Nurse Address: Address: [address] [place] [id number] Name: Thao Preciado RN Position: [facility] AMB Nurse Member Role: Primary Care Nurse Name: Harshil ALVAREZ, Antoinette Wagn Position: [facility] Associate Professional Member Role: Primary Care Nurse Address: Address: [address] [facility] [place] [address]- [place] Name: Tasha Naranjo NP Position: [facility] Associate Professional Member Role: PCP Address: Address: [address] [facility] 3rd [place] [address]- [place] Name: Madeleine Maki RN Position: [facility] RN Member Role: Primary Care Nurse Name: Solange Buchanan RN Position: [facility] Margarine Maker Member Role: Primary Care Nurse Care Team Related Persons Name: DEBORAH HERMAN Address: home [address] [place] [address] Name: GONZALO ANTUNEZ Address: home [address] [address]
--- OUTSIDE RECORDS SUMMARY | 2023-11-23 16:01 | XMS_ITS | Continuity of Care Document ---
Author Name Unknown Organization [facility] Adult Address [address] [place] [address]- Care Team Providers Care Retail Advertising Sales Manager Name Role Phone Marcella ALVAREZ, Tasha Rutledge Primary Care Physician [place] [facility] [place] 12/22/[place] - 01/21/[address] [facility] Adult [address] [place] [address]- Allergies, Adverse Reactions, Alerts No Known Allergies [...] Weight Start Date: 11/28/20 Status: Ordered Pen [place], 30 G x 8 mm BD Ultra [...] Team Personnel Name: Laurie Castellanos RN Position: [facility] AMB Nurse Member Role: Primary Care Nurse Name: Ave Benedict NP Position: [facility] Associate Professional Member Role: Primary Care Nurse Address: Address: [address] [place] [id number] Name: Thao Preciado RN Position: [facility] AM[facility] Nurse Member Role: Primary Care Nurse Name: Antoinette Chua RN Position: [facility] RN Member Role: Primary Care Nurse Name: Tasha Naranjo NP Position: [facility] PCO Associate Professional Member Role: PCP Address: Address: [address] [facility] 3rd [place] [address]- Name: Madeleine Maki RN Position: [facility] RN Member Role: Primary Care Nurse Name: Solange Buchanan RN Position: [facility] Hospital Music Industry Intern Member Role: Primary Care Nurse Care Team Related Persons Name: DEBORAH HERMAN Address: home [address] [place] [address] Name: GONZALO ANTUNEZ Address: home [address] [address]
--- OUTSIDE RECORDS SUMMARY | 2023-11-23 16:01 | XMS_ITS | Continuity of Care Document ---
Author Name Unknown Organization [facility] Adult Address [address] [place] [address]- Care Team Providers Care Picker Box Operator Name Role Phone Marcella ALVAREZ, Tasha Rutledge Primary Care Physician Encounter [facility] [place] Date(s): 02/19/23 - 03/21/23 [facility] Adult [address] [place] [address]- Attending Physician: Not on Staff, Attending MD [...] 3 Refills, Maintenance, 12/31/22 9:45:00 EDT, Injection, [facility]/pharmacy #[id number], Partial fill upon patient request if the prescription is for a schedule II opioid drug., 154.94, cm, 12/31/22 9... Start Date: 12/31/22 Status: Ordered NovoLOG FlexPen 100 units/mL subcutaneous solution = 5 units, Subcutaneous Injection, 3 times a day with meals, # 3 mL, 4 Refills, Maintenance, 12/31/22 16:05:00 EDT, Solution, [facility]/pharmacy #[id number], Partial fill upon patient request [...] Weight Start Date: 11/28/20 Status: Ordered Pen [place], 30 G x 8 mm BD Ultra [...] Team Personnel Name: Laurie Castellanos RN Position: [facility] AMB Nurse Member Role: Primary Care Nurse Name: Ave Benedict NP Position: [facility] Associate Professional Member Role: Primary Care Nurse Address: Address: [address] [facility] [place] [address]- [place] Name: Thao Preciado RN Position: [facility] AMB Nurse Member Role: Primary Care Nurse Name: Antoinette Chua RN Position: [facility] RN Member Role: Primary Care Nurse Name: Tasha Naranjo NP Position: [facility] PCO Associate Professional Member Role: PCP Address: Address: [address] [facility] 3rd [place] [address]- [place] Name: Madeleine Maki RN Position: [facility] RN Member Role: Primary Care Nurse Name: Solange Buchanan RN Position: [facility] Energy Scheduler Member Role: Primary Care Nurse Care Team Related Persons Name: DEBORAH HERMAN Address: home [address] [place] [address] Name: GONZALO ANTUNEZ Address: [address] [address]
--- OUTSIDE RECORDS SUMMARY | 2023-11-23 16:01 | XMS_ITS | Continuity of Care Document ---
Author Name Unknown Organization [facility] Adult Address [address] [place] [address]- Care Team Providers Care Aligner Name Role Phone Tasha Naranjo NP Primary Care Physician [place] [facility] [place] 03/03/23 - 03/10/23 [facility] Adult [address] [place] [address]- Attending Physician: Not on Staff, Attending MD [...] Weight Start Date: 11/28/20 Status: Ordered Pen [place], 30 G x 8 mm BD Ultra [...] Team Personnel Name: Laurie Castellanos RN Position: [facility] Nurse Member Role: Primary Care Nurse Name: Marichuy ALVAREZ, Ave Felipe Position: [facility] Associate Professional Member Role: Primary Care Nurse Address: Address: [address] [facility] [place] [address]- [place] Name: Thao Preciado RN Position: [facility] RN Member Role: Primary Care Nurse Name: Antoinette Chua RN Position: [facility] RN Member Role: Primary Care Nurse Name: Tasha Naranjo NP Position: [facility] PCO Associate Professional Member Role: PCP Address: Address: [address] [facility] 3rd [place] [address]- [place] Name: Madeleine Maki RN Position: [facility] RN Member Role: Primary Care Nurse Name: Solange Buchanan RN Position: [facility] General Machinist Member Role: Primary Care Nurse Care Team Related Persons Name: DEBORAH HERMAN Address: home [address] [place] [address] Name: GONZALO ANTUNEZ Address: [address] [address]
--- OUTSIDE RECORDS SUMMARY | 2023-11-23 16:02 | XMS_ITS | Continuity of Care Document ---
Author Name Unknown Organization [facility] Adult Address [address] [place] [address]- Care Team Providers Care Envelope Maker Name Role Phone Marcella ALVAREZ, Tasha Rutledge Primary Care Physician [phone] [place] [facility] [place](s): 06/29/23 - 07/06/23 [facility] Adult [address] [place] [address]- Attending Physician: Not on Staff, Attending MD [...] 2 Refills, Maintenance, 03/27/23 13:45:00 EDT, Tablet, [facility]/pharmacy #[id number], Partial fill upon patient request if the prescription is for a schedule II opioid drug., 154.94, cm, 03/27/23 12:56:00 EDT... Start Date: 03/27/23 Status: Ordered Lantus Solostar Pen 100 units/mL subcutaneous solution = 30 units, Subcutaneous Injection, Daily at bedtime, for 90 days, # 15 mL, 3 Refills, Hard Stop 03/21/24 13:43:00 EDT, 03/27/23 13:43:00 EDT, Injection, [facility]/pharmacy #[id number], Partial fill upon patientrequest if the [...] 4 Refills, Maintenance, 03/27/23 13:44:00 EDT, Solution, [facility]/pharmacy #[id number], Partial fill upon patient request if the prescription is for a schedule II opioid drug., 154.94, cm, .. Start Date: 03/27/23 Status: Ordered NuLYTELY Lemon [place] oral powder for reconstitution 4 L, By Mouth, Once, until 4 liters are consumed or the rectal effluent is clear for colonoscopy, #1 each, 0 Refills, Soft Stop, 06/12/23 16:51:00 EDT, [facility]/pharmacy #[id number], Partial fill upon patient request [...] Weight Start Date: 11/28/20 Status: Ordered Pen [place], 30 G x 8 mm BD Ultra [...] mL, 11 Refills, Maintenance, 06/25/23 10:58:00 EDT, [facility]/pharmacy #[id number], 154.94, cm, 06/24/23 15:59:00 EDT, [...] Most recent to oldest [Reference Range]: 1 Height 154.94 cm (06/29/23 9:24 AM) Weight 70.1 kg (06/29/23 9:24 AM) Oxygen Saturation [94-100 %] 100 % (06/29/23 9:24 AM) Pulse Rate [55-90 bpm] 109 bpm *H* (06/29/23 9:24 AM) Body Mass Index [18.5-24.99 kg/m2] 29.2 kg/m2 *H* (06/29/23 9:24 AM) Blood Pressure [90-138/55-84 mm Hg] 114/ 79mm Hg (06/29/23 9:24 AM) Mode of Delivery (Oxygen) Room air (06/29/23 9:24 AM) Blood pressure sites Arm, left (06/29/23 9:24 AM) Weight Obtained Via Standing scale (06/29/23 9:24 AM) Social History Social History Type Response Tobacco Use: 4 or less cigar ettes(less than 1/4 pack)/day in last 30 days. Sex Note * Roxanne Beth: PERFORM, SIGN, VERIFY Event Display: Patient Education/Instruction Authored Date: [id number] [facility] *[facility] Clinical Summary Name QUAN ALONZO Age 53 Years 1970 PCP Tasha Naranjo NP PCP Visit Date 06/29/2023 09:21:00 Additional Instructions: Scheduled Appointments?? Future Appointments ?*[facility] ?[address],??[address] ?Phone:??--?Fax:??-- ?Appt. Date:??07/10/2023?3:50 PM ?Scheduled Provider:??Tasha Naranjo NP ?Diabetic??[facility] ?Phone:??--?Fax:??-- ?Appt. Date:??07/28/2023?10:00 AM ?Scheduled Provider:??Pepper MCCOY, November Follow-Up Instructions ?? With: Address: When: Marcella ALVAREZ, Tasha Aamir 06/29/2023 12:00 AM Comments: 3 months DM f/u Diagnosis Obsessive-compulsive disorder, unspecified; Elevated white blood cell count, unspecified; Anxiety disorder, unspecified; Encounter for screening for lipoid disorders; Type 2 diabetes mellitus withoutcomplications; Post-traumatic stress disorder, unspecified Medications: Please continue your medications until treatment is completed or stopped by your provider. Discuss any questions related to medications with your provider. Medications to Continue Taking That Have Changed [facility]/pharmacy #[id number], [address] [place], [place] [id number], [phone] - Insulin Glargine (Lantus Solostar Pen 100 units/mL subcutaneous solution) 35 unit(s) SubcutaneousInjection Daily at Bedtime for 90 Days. Refills: 3. Next Dose: These medications were not printed or sent to your pharmacy - Insulin Glargine (Lantus Solostar Pen 100 units/mL subcutaneous solution) 30 unit(s) SubcutaneousInjection Daily at Bedtime for 90 Days. Refills: 3. Next Dose: Medications to Continue with No Changes These medications were not printed or sent to your pharmacy Clonazepam (clonazePAM 1 mg oral tablet) 2 tab(s) Oral twice a day as needed Anxiety. Next Dose: dulaglutide (Trulicity Pen 0.75 mg/0.5 mL subcutaneous solution) 0.75 Milligram Subcutaneous Infusion every week. Refills: 11. Next Dose: Durable Medical Equipment (FreeStyle Sandra 2 Sensor) as as directed for diabetes control. Refills: 3. Next Dose: Durable Medical Equipment (Freestyle Sandra Monitor) use as directed for dx type 2 diabetes mellitus(E11.9). Refills: 0. Next Dose: Durable Medical Equipment (Freestyle Sandra Sensor) use as directed for dx type 2 diabetes mellitus (E11.9) sandra 2 1 SENSOR EVERY 14 DAYS. Refills: 5. Next Dose: Durable Medical Equipment (OneTouch Verio Glucose Meter) use as directed to test glucose for dx diabetes mellitus type 2 (E11.9). Refills: 0. Next Dose: Durable Medical Equipment (OneTouch Verio Lancets) use to test glucose three times daily for dx diabetes melltius type 2 (E11.9). Refills: 3. Next Dose: Durable Medical Equipment (OneTouch Verio Test Strips) use to test glucose three times daily for dxdiabetes melltius type 2 (E11.9). Refills: 3. Next Dose: Durable Medical Equipment (Pen [place], 30 G x 8 mm BD Ultra Fine II) DMII E11.9 Use for insulin injection four times per day. Refills: 11. Next Dose: empagliflozin (Jardiance 10 mg oral tablet) 1 tab(s) Oral Daily in the morning. Refills: 2. Next Dose: Insulin Aspart (NovoLOG FlexPen 100 units/mL subcutaneous solution) 10 unit(s) Subcutaneous Injection 3 times a day with meals. Refills: 4. Next Dose: Miscellaneous Rx (FREESTYLE LITE TEST STRIP) DMII E11.9 TESTING BLOOD SUGAR 3 TIMES A DAY. Refills:3. Next Dose: Pantoprazole (pantoprazole 40 mg oral delayed release tablet) 1 tab(s) Oral twice a day. Refills: 4. Next Dose: PEG Electrolyte Solution (NuLYTELY Lemon [place] oral powder for reconstitution) 4 Liter Oral once. until 4 liters are consumed or the rectal effluent is clear for colonoscopy. Refills: 0. Next Dose: Quetiapine (QUEtiapine 300 mg oral tablet) 2 tab(s) Oral Daily at Bedtime. Next Dose: Allergy Info:?? NKA Medications Given This Visit Future Orders ?Renal Panel? Order Date:06/29/23?- Complete on or after?06/29/23 ?Lipid Panel Non Fasting? Order Date:06/29/23?- Complete on or after?06/29/23 ?TSH? Order Date:06/29/23?- Complete on or after?06/29/23 ?CBC? Order Date:06/29/23?- Complete on or after?06/29/23 ?ALT? Order Date:06/29/23?- Complete on or after?06/29/23 Vital Signs Height 154.94 cm Weight 70.1 kg BMI 29.2 kg/m2 Blood Pressure 114 mm Hg/79 mm Hg Temperature Pulse Rate 109 bpm Respiratory Rate 02 Sat Mode of Delivery 100 %/Room air You can now view a summary of your hospital visit from the comfort of your home through a free online portal called [employer]. [employer] is a website that allows you to securely view your medical information including discharge summary, medications and follow-up visits. ??You can alsosend a secure electronic message to your doctor???s office to request appointments, renew medications or just ask a question. You can enroll at [email or web address] or register during your next office visit. Disclaimer:?? The information provided is of a general nature and is intended to be used in conjunction with the recommendations and advice of your health care practitioner. ??Every effort has been made to ensure that the information provided is accurate and complete at the time it is provided to you however, as your needs change, or, as new ??information becomes available, different or additional instructions may be required. If you have questions, please consult with your primary care provider or pharmacist, as appropriate. ??This information is not intended to serve as substitution for assessment and evaluation by a qualified health care provider. If you do not have a primary care provider, you may find a [facility] provider by calling [facility] [employer] at [phone]. [facility], in keeping with [facility] guidance, no longer requires face masks for staff, patientsor visitors in most situations. Similar to time spent indoors at other locations, there is the chance that you were exposed to respiratory viruses during your time with us (such as flu or COVID-19).? If you develop symptoms concerning for a viral respiratory infection, please seek testing (and treatment if indicated) from your medical provider or home test kit. For information about the plan of care including goals and instructions for your diagnosis, please see the patient education orders section of this document. Patient Education Materials?? The content of this educational material or handout may have been modified, supplemented, or adapted from its original content and format to support your individualized medical care. Patient Care team information Care Team Personnel Name: Laurie Castellanos RN Position: [facility] AMB Nurse Member Role: Primary Care Nurse Name: Marichuy ALVAREZ, Ave Felipe Position: [facility] Associate Professional Member Role: Primary Care Nurse Address: Address: [address] [place] [address]- [place] Name: Thao Preciado RN Position: [facility] AM[facility] Nurse Member Role: Primary Care Nurse Name: Antoinette Chua NP Position: [facility]O Associate Professional Member Role: Primary Care Nurse Address: Address: [address] [facility] [place] [address]- [place] Name: Tasha Naranjo NP Position: [facility] Associate Professional Member Role: PCP Address: Address: [address] [facility] 3rd [place] [address]- [place] Name: Madeleine Maki RN Position: [facility] RN Member Role: Primary Care Nurse Name: Solange Buchanan RN Position: [facility] Manager Mental Health Member Role: Primary Care Nurse Care Team Related Persons Name: DEBORAH HERMAN Address: home [address] [place] [address] Name: GONZALO ANTUNEZ Address: home [address] [address]
--- OUTSIDE RECORDS SUMMARY | 2023-11-23 16:02 | XMS_ITS | Continuity of Care Document ---
Author Name Unknown Organization [facility] Adult Address [address] [place] [address]- Care Team Providers Care Preparation Supervisor Canning Name Role Phone Tasha Naranjo NP Primary Care Physician [id number] Date[facility] 12/31/22 - 01/07/23 [facility] Adult [address] [place] [address]- Encounter Diagnosis Anxiety and depression(Discharge Diagnosis) - 12/31/22 OCD (obsessive compulsive disorder)(Discharge Diagnosis) - 12/31/22 Diabetes mellitus type 2(Discharge Diagnosis) - 12/31/22 Diabetic gastroparesis(Discharge Diagnosis) - 12/31/22 PTSD (post-traumatic stress disorder)(Discharge Diagnosis) - 12/31/22 Attending Physician: Not on Staff, Attending MD [...] 3 Refills, Maintenance, 12/31/22 9:45:00 EDT, Injection, [facility] #[id number], Partial fill upon patient request if the [...] Weight Start Date: 11/28/20 Status: Ordered Pen [place], 30 G x 8 mm BD Ultra [...] disorder) Confirmed Active Hepatic steatosis Confirmed Active Diagnosis Diagnosis Type Effective Dates Health Status Clinical Service Informant Anxiety and depression Discharge Diagnosis 12/31/22 OCD (obsessive compulsive disorder) Discharge Diagnosis 12/31/22 Diabetes mellitus type 2 Discharge Diagnosis 12/31/22 Diabetic gastroparesis Discharge Diagnosis 12/31/22 PTSD (post-traumatic stress disorder) Discharge Diagnosis 12/31/22 Vital Signs Most recent to oldest [Reference Range]: 1 Height 154.94 cm (12/31/22 9:18 AM) Weight 68.7 kg (12/31/22 9:18 AM) Oxygen Saturation [94-100 %] 98 % (12/31/22 9:18 AM) Pulse Rate [55-90 bpm] 88 bpm (12/31/22 9:18 AM) Body Mass Index [18.5-24.99 kg/m2] 28.62 kg/m2 *H* (12/31/22 9:18 AM) Blood Pressure [90-138/55-84 mm Hg] 121/ 84mm Hg (12/31/22 9:18 AM) Mode of Delivery (Oxygen) Room air (12/31/22 9:18 AM) Blood pressure sites Arm, right (12/31/22 9:18 AM) Weight Obtained Via Standing scale (12/31/22 9:18 AM) Social History Social History Type Response Tobacco Use: 4 or less cigar ettes(less than 1/4 pack)/day in last 30 days. Sex Note * Moriah Cruz: PERFORM, SIGN, VERIFY Event Display: Patient Education/Instruction Authored Date: [id number] [facility] Clinical Summary Name QUAN ALONZO Age 52 Years 1970 PCP Marcella ALVAREZ, Tasha Rutledge PCP Visit Date 12/31/2022 09:15:00 Additional Instructions: Scheduled Appointments?? Future Appointments ?*[facility] ?[address],??[address] ?Phone:??--?Fax:??-- ?Appt. Date:??03/27/2023?1:30 PM ?Scheduled Provider:??Tasha Naranjo NP Follow-Up Instructions ?? With: Address: When: Tasha Naranjo NP 12/31/2022 12:00 AM Comments: 6 months HUPD Diagnosis Anxiety disorder, unspecified; Unspecified abdominal pain; Fatty (change of) liver, not elsewhere classified; Obsessive-compulsive disorder, unspecified; Diverticulosis of intestine, part unspecified, without perforation or abscess without bleeding; Type 2 diabetes mellitus without complications; Type 2 diabetes mellitus with diabetic autonomic (poly)neuropathy; Post-traumatic stress disorder, unspecified; Encounter for screening mammogram for malignant neoplasm of breast Medications: Please continue your medications until treatment is completed or stopped by your provider. Discuss any questions related to medications with your provider. New Medications [id number], [address] [place] [phone], [phone] Durable Medical Equipment (Freestyle Sandra Monitor) use as directed for dx type 2 diabetes mellitus(E11.9). Refills: 0. Next Dose: Durable Medical Equipment (Freestyle Sandra Sensor) use as directed for dx type 2 diabetes mellitus (E11.9) sandra 2. Refills: 5. Next Dose: Medications to Continue Taking That Have Changed [id number], [address] [place] [phone], [phone] - Insulin Glargine (Lantus Solostar Pen 100 units/mL subcutaneous solution) 20 unit(s) SubcutaneousInjection Daily at Bedtime. Refills: 3. Next Dose: - Insulin Lispro (Humalog 100 u/ml subcutaneous injection) 5 unit(s) Subcutaneous Injection 3 timesa day before meals for 30 Days. Refills: 6. Next Dose: These medications were not printed or sent to your pharmacy - Quetiapine (QUEtiapine 300 mg oral tablet) 2 tab(s) Oral Daily at Bedtime. Next Dose: Medications to Continue with No Changes These medications were not printed or sent to your pharmacy Clonazepam (clonazePAM 1 mg oral tablet) 2 tab(s) Oral twice a day as needed Anxiety. Next Dose: Durable Medical Equipment (Freestyle Lancets) DMII E11.9 TESTING TID. Refills: 0. Next Dose: Durable Medical Equipment (Freestyle Test Strips) DMII E11.9 TESTING TID. Refills: 1. Next Dose: Durable Medical Equipment (Pen [place], 30 G x 8 mm BD Ultra Fine II) DMII E11.9 Use for insulin injection TID. Refills: 3. Next Dose: Miscellaneous Rx (FREESTYLE LITE TEST STRIP) DMII E11.9 TESTING BLOOD SUGAR 3 TIMES A DAY. Refills:3. Next Dose: Pantoprazole (pantoprazole 40 mg oral delayed release tablet) 1 tab(s) Oral twice a day. Refills: 4. Next Dose: Allergy Info:?? NKA Medications Given This Visit Future Orders ?Microalbumin Urine? Order Date:12/31/22?- Complete on or after?12/31/22 ?MM Digital Mammo Screening? Order Date:12/31/22?- Complete on or after?12/31/22 Vital Signs Height 154.94 cm Weight 68.7 kg BMI 28.62 kg/m2 Blood Pressure 121 mm Hg/84 mm Hg Temperature Pulse Rate 88 bpm Respiratory Rate 02 Sat Mode of Delivery 98 %/Room air You can now view a summary of your hospital visit from the comfort of your home through a free online portal called [employer]. [employer] is a website that allows you to securely view your medical information including discharge summary, medications and follow-up visits. ??You can alsosend a secure electronic message to your doctor???s office to request appointments, renew medications or just ask a question. You can enroll at [email or web address] or register during your next office [...] primary care provider, you may find a [facility] provider by calling [facility] Link at [phone]. For information about the plan of care [...] Team Personnel Name: Laurie Castellanos RN Position: [facility] AMB Nurse Member Role: Primary Care Nurse Name: Ave Benedict NP Position: [facility] Associate Professional Member Role: Primary Care Nurse Address: Address: [address] [place] [id number] Name: Thao Preciado RN Position: [facility] RN Member Role: Primary Care Nurse Name: Antoinette Chua RN Position: [facility] RN Member Role: Primary Care Nurse Name: Tasha Naranjo NP Position: [facility] PCO Associate Professional Member Role: PCP Address: Address: [address] [place] [address] [address] [place] [address]- Name: Madeleine Maki RN Position: [facility] RN Member Role: Primary Care Nurse Name: Solange Buchanan RN Position: [facility] Game Attendant Member Role: Primary Care Nurse Care Team Related Persons Name: DEBORAH HERMAN Address: home [address] [place] [address] Name: GONZALO ANTUNEZ Address: home [address] [address]
--- OUTSIDE RECORDS SUMMARY | 2023-11-23 16:02 | XMS_ITS | Continuity of Care Document ---
Author Name Unknown Organization [facility] Adult Address [address] [place] [address]- Care Team Providers Care Remote Sensing Technologist Name Role Phone Marcella ALVAREZ, Tasha Rutledge Primary Care Physician Encounter [facility] Date(s): 03/03/23 - 04/02/23 [facility] Adult [address] [place] [address]- Allergies, Adverse Reactions, Alerts No Known Allergies [...] 2 Refills, Maintenance, 03/27/23 13:45:00 EDT, Tablet, [id number], Partial fill upon patient request if the prescription is for a schedule II opioid drug., 154.94, cm, 03/27/23 12:56:00 EDT... Start Date: 03/27/23 Status: Ordered Lantus Solostar Pen 100 units/mL subcutaneous solution = 30 units, Subcutaneous Injection, Daily at bedtime, # 15 mL, 3 Refills, Maintenance, 03/27/23 13:43:00 EDT, Injection, [id number], Partial fill upon patient request if the prescription is for a schedule II opioid drug., 154.94, cm, 03/27/23... Start Date: 03/27/23 Stop Date: 03/21/24 Status: Ordered NovoLOG FlexPen 100 units/mL subcutaneous solution = 10 units, Subcutaneous Injection, 3 times a day with meals, # 3 mL, 4 Refills, Maintenance, 03/27/23 13:44:00 EDT, Solution, [id number], Partial fill upon patient request if the prescription is for a schedule II opioid drug., 154.94, cm, ... Start Date: 03/27/23 Status: Ordered OneTouch Verio Glucose Meter See [...] Weight Start Date: 11/28/20 Status: Ordered Pen [place], 30 G x 8 mm BD Ultra [...] Team Personnel Name: Laurie Castellanos RN Position: [facility] Nurse Member Role: Primary Care Nurse Name: Ave Benedict NP Position: [facility] Associate Professional Member Role: Primary Care Nurse Address: Address: [address] [place] [address]- [place] Name: Thao Preciado RN Position: [facility] Nurse Member Role: Primary Care Nurse Name: Antoinette Chua RN Position: [facility] RN Member Role: Primary Care Nurse Name: Tasha Naranjo NP Position: [facility] PCO Associate Professional Member Role: PCP Address: Address: [address] [place] [address] 3rd [place] [address]- [place] Name: Madeleine Maki RN Position: [facility] RN Member Role: Primary Care Nurse Name: Solange Buchanan RN Position: [facility] Communications Clerk Member Role: Primary Care Nurse Care Team Related Persons Name: DEBORAH HERMAN Address: home [address] [place] [address] Name: GONZALO ANTUNEZ Address: home [address] [address]
--- OUTSIDE RECORDS SUMMARY | 2023-11-23 16:02 | XMS_ITS | Continuity of Care Document ---
Author Name Unknown Organization [facility] Medicine Address [address] [place] [address]- Care Team Providers Care Instructional Technology Coordinator Name Role Phone Marcella ALVAREZ, Tasha Rutledge Primary Care Physician Encounter [facility] Date(s): 07/23/22 - 08/22/22 [facility] Medicine [address] [place], [place] [address] Allergies, Adverse Reactions, Alerts No [...] Weight Start Date: 11/28/20 Status: Ordered Pen [place], 30 G x 8 mm BD Ultra [...] Team Personnel Name: Laurie Castellanos RN Position: [facility] PCO RN Member Role: Primary Care Nurse Name: Ave Benedict NP Position: [facility] Associate Professional Member Role: Primary Care Nurse Address: Address: [address] [place] [address]- Name: Thao Preciado RN Position: [facility] AMB Nurse Member Role: Primary Care Nurse Name: Antoinette Chua RN Position: [facility] RN Member Role: Primary Care Nurse Name: Tasha Naranjo NP Position: [facility] Associate Professional Member Role: PCP Address: Address: [address] [place] [address]- Name: Madeleine Maki RN Position: [facility] RN Member Role: Primary Care Nurse Name: Solange Buchanan RN Position: [facility] Fork Operator Member Role: Primary Care Nurse Care Team Related Persons Name: DEBORAH HERMAN Address: home [address] [place] [address] Name: GONZALO ANTUNEZ Address: home [address] [address]
--- OUTSIDE RECORDS SUMMARY | 2023-11-23 16:02 | XMS_ITS | Continuity of Care Document ---
Author Name Unknown Organization [facility] Adult Address [address] [place] [address]- Care Team Providers Care Metal Coater Name Role Phone Marcella ALVAREZ, Tasha Rutledge Primary Care Physician [phone] Encounter [facility] Date(s): 02/13/23 - 03/15/23 [facility] Adult [address] [place] [address]- Allergies, Adverse Reactions, Alerts No Known Allergies [...] 3 Refills, Maintenance, 12/31/22 9:45:00 EDT, Injection, [facility]/pharmacy #[id number], Partial fill upon patient request if [...] Weight Start Date: 11/28/20 Status: Ordered Pen [place], 30 G x 8 mm BD Ultra [...] Team Personnel Name: Laurie Castellanos RN Position: [facility] AMB Nurse Member Role: Primary Care Nurse Name: Ave Benedict NP Position: [facility] Associate Professional Member Role: Primary Care Nurse Address: Address: [address] [facility] [place] [address]- [place] Name: Thao Preciado RN Position: [facility] Nurse Member Role: Primary Care Nurse Name: Antoinette Chua RN Position: [facility] RN Member Role: Primary Care Nurse Name: Tasha Naranjo NP Position: [facility] PCO Associate Professional Member Role: PCP Address: Address: [address] [place] [address] 3rd floor [facility] [place] [address]- [place] Name: Madeleine Maki RN Position: [facility] RN Member Role: Primary Care Nurse Name: Solange Buchanan RN Position: [facility] Metal Slitter Member Role: Primary Care Nurse Care Team Related Persons Name: DEBORAH HERMAN Address: home [address] [place] [address] Name: GONZALO ANTUNEZ Address: home [address] [address]
--- OUTSIDE RECORDS SUMMARY | 2023-11-23 16:02 | XMS_ITS | Continuity of Care Document ---
Author Name Unknown Organization [facility] Address [address] [place] [address]- Care Team Providers Care Cattle Broker Name Role Phone Marcella ALVAREZ, Tasha Rutledge Primary Care Physician Encounter [facility] Date(s): 09/18/22 - 10/18/22 [facility] [address] [place], [place] [address] Allergies, Adverse Reactions, Alerts No Known [...] Weight Start Date: 11/28/20 Status: Ordered Pen [place], 30 G x 8 mm BD Ultra [...] Team Personnel Name: Laurie Castellanos RN Position: [facility] Nurse Member Role: Primary Care Nurse Name: Ave Benedict NP Position: [facility] Associate Professional Member Role: Primary Care Nurse Address: Address: [address] [place] [address]- [place] Name: Thao Preciado RN Position: [facility] AMB Nurse Member Role: Primary Care Nurse Name: Antoinette Chua RN Position: [facility] RN Member Role: Primary Care Nurse Name: Tasha Naranjo NP Position: [facility] PCO Associate Professional Member Role: PCP Address: Address: [address] [place] [address]- [place] Name: Madeleine Maki RN Position: [facility] RN Member Role: Primary Care Nurse Name: Solange Buchanan RN Position: [facility] Reporter Member Role: Primary Care Nurse Care Team Related Persons Name: DEBORAH HERMAN Address: home [address] [place] [address] Name: GONZALO ANTUNEZ Address: home [address] [address]
--- OUTSIDE RECORDS SUMMARY | 2023-11-23 16:03 | XMS_ITS | Continuity of Care Document ---
Author Name Unknown Organization [facility] Adult Address [address] [place] [address]- Care Team Providers Care Assistant Plant Manager Name Role Phone Marcella ALVAREZ, Tasha Rutledge Primary Care Physician [phone] En[place] [facility] Date(s): 01/16/23 - 01/23/23 [facility] Adult [address] [place] [address]- Attending Physician: Not on Staff, Attending MD [...] Weight Start Date: 11/28/20 Status: Ordered Pen [place], 30 G x 8 mm BD Ultra [...] Team Personnel Name: Laurie Castellanos RN [facility] Nurse Member Role: Primary Care Nurse Name: Ave Benedict NP Position[facility] Associate Professional Member Role: Primary Care Nurse Address: Address: [address] [place] [address] Name: Thao Preciado RN [facility] Nurse Member Role: Primary Care Nurse Name: Antoinette Chua RN [facility] RN Member Role: Primary Care Nurse Name: Tasha Naranjo NP Position: [facility] PCO Associate Professional Member Role: PCP Address: Address: [address] [place] [address] [address] [place] [address]- Name: Madeleine Maki RN [facility] RN Member Role: Primary Care Nurse Name: Solange Buchanan RN Position: [facility] Child Therapist Member Role: Primary Care Nurse Care Team Related Persons Name: DEBORAH HERMAN Address: home [address] [place] [address] Name: GONZALO ANTUNEZ Address: [address] [address]
--- OUTSIDE RECORDS SUMMARY | 2023-11-23 16:03 | XMS_ITS | Continuity of Care Document ---
Author Name Unknown Organization [facility] ter Address [address] [place] [address]- Care Team Providers Care Field Services Analyst Name Role Phone Tasha Naranjo NP Primary Care Physician [phone] En[place] [facility] Date(s): 07/28/23 - 08/27/[address] [address] Attending Physician: Admtr, Catalina Admitting Physician: Admtr, Ar8 Referring Physician: Admtr, Ar8 Allergies, Adverse Reactions, Alerts No Known Allergies [...] 2 Refills, Maintenance, 03/27/23 13:45:00 EDT, Tablet, [facility]/pharmacy #[id number], Partial fill upon patient request [...] 4 Refills, Maintenance, 03/27/23 13:44:00 EDT, Solution, [facility]/pharmacy #[id number], Partial fill upon patient request if the prescription is for a schedule II opioid drug., 154.94, cm, ... Start Date: 03/27/23 Status: Ordered NuLYTELY [place] oral powder for reconstitution 4 L, By [...] Weight Start Date: 11/28/20 Status: Ordered Pen [place], 30 G x 8 mm BD Ultra [...] mL, 11 Refills, Maintenance, 06/25/23 10:58:00 EDT, [facility]/pharmacy #[id number], 154.94, cm, 06/24/23 15:59:00 EDT, [...] Role: Primary Care Nurse Address: Address: [address] [facility] [place] [address]- [place] Name: Thao Preciado RN Position[facility] Nurse Member Role: Primary Care Nurse Name: Harshil ALVAREZ, Antoinette Wang Position: [facility] PCO Associate Professional Member Role: Primary Care Nurse Address: Address: [address] [place] [address]- [place] Name: Tasha Naranjo NP Position: [facility] Associate Professional Member Role: PCP Address: Address: [address] [facility] 3rd [place] [address]- [place] Name: Madeleine Maki RN Position[facility] RN Member Role: Primary Care Nurse Name: Solange Buchanan RN Position: [facility] Finishing Area Supervisor Member Role: Primary Care Nurse Care Team Related Persons Name: DEBORAH HERMAN Address: home [address] [place] [address] Name: GONZALO ANTUNEZ Address: home [address] [address]
--- OUTSIDE RECORDS SUMMARY | 2023-11-23 16:03 | XMS_ITS | Continuity of Care Document ---
Author Name Unknown Organization [facility] Adult Address [address] [place] [address]- Care Team Providers Care Custodian Blood Bank Name Role Phone Tasha Naranjo NP Primary Care Physician Encounter [facility] Date(s): 02/10/23 - 03/12/23 [facility] Adult [address] [place] [address]- Allergies, Adverse Reactions, Alerts No Known Allergies [...] 4 Refills, Maintenance, 12/31/22 16:05:00 EDT, Solution, [facility]/pharmacy #[id number], Partial fill upon patient request [...] Weight Start Date: 11/28/20 Status: Ordered Pen [place], 30 G x 8 mm BD Ultra [...] Team Personnel Name: Laurie Castellanos RN Position: [facility] AMB Nurse Member Role: Primary Care Nurse Name: Ave Benedict NP Position: [facility] Associate Professional Member Role: Primary Care Nurse Address: Address: [address] [facility] [place] [address]- [place] Name: Thao Preciado RN Position: [facility] RN Member Role: Primary Care Nurse Name: Antoinette Chua RN Position: [facility] RN Member Role: Primary Care Nurse Name: Tasha Naranjo NP Position: [facility] PCO Associate Professional Member Role: PCP Address: Address: [address] [facility] 3rd floor [facility] [place] [address]- [place] Name: Madeleine Maki RN Position: [facility] RN Member Role: Primary Care Nurse Name: Solange Buchanan RN Position: [facility] Cycle Specialist Member Role: Primary Care Nurse Care Team Related Persons Name: DEBORAH HERMAN Address: home [address] [place] [address] Name: GONZALO ANTUNEZ Address: home [address] [address]
--- OUTSIDE RECORDS SUMMARY | 2023-11-23 16:03 | XMS_ITS | Continuity of Care Document ---
Author Name Unknown Organization [facility] Address [address] [place] [address]- Care Team Providers Care Nursing Instructor Name Role Phone Tasha Naranjo NP Primary Care Physician En[place] [facility] Date(s): 06/12/23 - 07/12/23 [facility] [address] [place] [address]- Attending Physician: Catalina Cedeno Admitting Physician: Catalina Cedeno Referring Physician: Catalina Cedeno Allergies, Adverse Reactions, Alerts No Known Allergies [...] 2 Refills, Maintenance, 03/27/23 13:45:00 EDT, Tablet, [facility]/pharmacy #[id number], Partial fill upon patient request if the prescription is for a schedule II opioid drug., 154.94, cm, 03/27/23 12:56:00 EDT... Start Date: 03/27/23 Status: Ordered Lantus Solostar Pen 100 units/mL subcutaneous solution = 30 units, Subcutaneous Injection, Daily at bedtime, for 90 days, # 15 mL, 3 Refills, Hard Stop 03/21/24 13:43:00 EDT, 03/27/23 13:43:00 EDT, Injection, [facility]/pharmacy #[id number], Partial fill upon patientrequest if the [...] 4 Refills, Maintenance, 03/27/23 13:44:00 EDT, Solution, [facility]/pharmacy #[id number], Partial fill upon patient request if the prescription is for a schedule II opioid drug., 154.94, cm, .. Start Date: 03/27/23 Status: Ordered NuLYTELY Lemon [place] oral powder for reconstitution 4 L, By Mouth, Once, until 4 liters are consumed or the rectal effluent is clear for colonoscopy, #1 each, 0 Refills, Soft Stop, 06/12/23 16:51:00 EDT, [facility]/pharmacy #[id number], Partial fill upon patient request if [...] Weight Start Date: 11/28/20 Status: Ordered Pen [place], 30 G x 8 mm BD Ultra [...] mL, 11 Refills, Maintenance, 06/25/23 10:58:00 EDT, [facility]/pharmacy #[id number], 154.94, cm, 06/24/23 15:59:00 EDT, Height [...] Team Personnel Name: Laurie Castellanos RN Position: [facility] AMB Nurse Member Role: Primary Care Nurse Name: Ave Benedict NP Position: [facility] Associate Professional Member Role: Primary Care Nurse Address: Address: [address] [place] [address]- [place] Name: Thao Preciado RN Position: [facility] AMB Nurse Member Role: Primary Care Nurse Name: Antoinette Chua NP Position: [facility] PCO Associate Professional Member Role: Primary Care Nurse Address: Address: [address] [facility] [place] [address]- [place] Name: Tasha Naranjo NP Position: [facility] PCO Associate Professional Member Role: PCP Address: Address: [address] [facility] 3rd [place] [address]- [place] Name: Madeleine Maki RN Position: [facility] RN Member Role: Primary Care Nurse Name: Solange Buchanan RN Position: [facility] Signals Intelligence Analyst Member Role: Primary Care Nurse Care Team Related Persons Name: BATSHEVADEBORAH Address: home [address] [place] [address] Name: GONZALO ANTUNEZ Address: home [address] [address]
--- OUTSIDE RECORDS SUMMARY | 2023-11-23 16:03 | XMS_ITS | Continuity of Care Document ---
Author Name Unknown Organization [facility] Adult Address [address] [place] [address]- Care Team Providers Care Family Physician Name Role Phone Marcella ALVAREZ, Tasha Rutledge Primary Care Physician Encounter [facility] Date(s): 03/27/23 - 04/03/23 [facility] Adult [address] [place] [address]- Encounter Diagnosis Diabetes mellitus type 2(Discharge Diagnosis) - 03/27/23 Anxiety and depression(Discharge Diagnosis) - 03/27/23 OCD (obsessive compulsive disorder)(Discharge Diagnosis) - 03/27/23 PTSD (post-traumatic stress disorder)(Discharge Diagnosis) - 03/27/23 Diabetic gastroparesis(Discharge Diagnosis) - 03/27/23 Attending Physician: Antoni KILGORE, Destini Referring Physician: Tasha Naranjo NP Allergies, Adverse Reactions, Alerts No Known Allergies [...] Weight Start Date: 11/28/20 Status: Ordered Pen Bennett, 30 G x 8 mm BD Ultra [...] Effective Dates Health Status Clinical Service Informant Diabetes mellitus type 2 Discharge Diagnosis 03/27/23 Anxiety and depression Discharge Diagnosis 03/27/23 OCD (obsessive compulsive disorder) Discharge Diagnosis 03/27/23 PTSD (post-traumatic stress disorder) Discharge Diagnosis 03/27/23 Diabetic gastroparesis Discharge Diagnosis 03/27/23 Vital Signs Most recent to oldest [Reference Range]: 1 2 3 Height 154.94 cm (03/27/23 2:41 PM) 154.94 cm (03/27/23 1:50 PM) 154.94 cm (03/27/23 12:56 PM) Oxygen Saturation [94-100 %] 99 % (03/27/23 12:56 PM) Pulse Rate [55-90 bpm] 96 bpm *H* (03/27/23 1:50 PM) 121 bpm *H* (03/27/23 12:56 PM) Blood Pressure [90-138/55-84 mm Hg] 122/76mm Hg (03/27/23 2:41 PM) 122/86mm Hg (03/27/23 12:56 PM) Mode of Delivery (Oxygen) Room air (03/27/23 12:56 PM) Blood pressure sites Arm, left (03/27/23 2:41 PM) Arm, right (03/27/23 12:56 PM) Weight Obtained Via Standing scale (03/27/23 12:56 PM) Social History Social History Type Response Tobacco Use: 4 or less cigar ettes(less than 1/4 pack)/day in last 30 days. Sex Note * Alejandra Santoro: PERFORM, SIGN, VERIFY Event Display: Patient Education/Instruction Authored Date: [id number] [facility] *[facility] Adlt Clinical Summary Name QUAN ALONZO Age 53 Years 1970 PCP Tasha Naranjo NP PCP Visit Date 03/27/2023 12:43:00 Additional Instructions: Scheduled Appointments?? Future Appointments ?*[facility] ?[address],??[place],??[address] ?Phone:??--?Fax:??-- ?Appt. Date:??06/12/2023?4:15 PM ?Scheduled Provider:??Raymond Purvis MD Follow-Up Instructions ?? With: Address: When: Tasha Naranjo NP 03/27/2023 12:00 AM Comments: 3 months diabetes 6 months HUPD Diagnosis Type 2 diabetes mellitus with diabetic autonomic (poly)neuropathy; Type 2 diabetes mellitus withoutcomplications; Post-traumatic stress disorder, unspecified; Anxiety disorder, unspecified; Obsessive-compulsive disorder, unspecified Medications: Please continue your medications until treatment is completed or stopped by your provider. Discuss any questions related to medications with your provider. New Medications [facility]/pharmacy #[id number], [address], [place] [id number], [phone] empagliflozin (Jardiance 10 mg oral tablet) 1 tab(s) Oral Daily in the morning. Refills: 2. Next Dose: Insulin Aspart (NovoLOG FlexPen 100 units/mL subcutaneous solution) 10 unit(s) Subcutaneous Injection 3 times a day with meals. Refills: 4. Next Dose: Insulin Glargine (Lantus Solostar Pen 100 units/mL subcutaneous solution) 30 unit(s) Subcutaneous Injection Daily at Bedtime for 90 Days. Refills: 3. Next Dose: Medications to Continue with No Changes [id number], [address], [place] [id number], [phone] Durable Medical Equipment (OneTouch Verio Glucose Meter) [...] type 2 (E11.9). Refills: 3. Next Dose: These medications were not printed or sent to your pharmacy Clonazepam (clonazePAM 1 mg oral tablet) 2 tab(s) Oral twice a day as needed Anxiety. Next Dose: Durable Medical Equipment (Freestyle Sandra Monitor) use as directed for dx type 2 diabetes mellitus(E11.9). Refills: 0. Next Dose: Durable Medical Equipment (Freestyle Sandra Sensor) use as directed for dx type 2 diabetes mellitus (E11.9) sandra 2. Refills: 5. Next Dose: Durable Medical Equipment (Pen Bennett, 30 G x 8 mm BD Ultra Fine II) DMII E11.9 Use for insulin injection TID. Refills: 3. Next Dose: Miscellaneous Rx (FREESTYLE LITE TEST STRIP) DMII E11.9 TESTING BLOOD SUGAR 3 TIMES A DAY. Refills:3. Next Dose: Pantoprazole (pantoprazole 40 mg oral delayed release tablet) 1 tab(s) Oral twice a day. Refills: 4. Next Dose: Quetiapine (QUEtiapine 300 mg oral tablet) 2 tab(s) Oral Daily at Bedtime. Next Dose: Allergy Info:?? NKA Medications Given This Visit Future Orders ?No future orders Vital Signs Height 154.94 cm Weight BMI Blood Pressure 122 mm Hg/86 mm Hg Temperature Pulse Rate 96 bpm Respiratory Rate 02 Sat Mode of Delivery 99 %/Room air You can now view a summary of your hospital visit from the comfort of your home through a free online portal called [employer]. [employer] is a website that allows you to securely view your medical information including discharge summary, medications and follow-up visits. ??You can alsosend a secure electronic message to your doctor???s office to request appointments, renew medications or just ask a question. You can enroll at [email or web address] or register during your next office [...] primary care provider, you may find a [facility] provider by calling [facility] [employer] at [phone]. For information about the plan of care [...] Team Personnel Name: Laurie Castellanos RN Position: [facility] Nurse Member Role: Primary Care Nurse Name: Marichuy ALVAREZ, Ave Felipe Position: [facility] Associate Professional Member Role: Primary Care Nurse Address: Address: [address] [place] [address]- Name: Thoa Preciado RN Position: [facility] Nurse Member Role: Primary Care Nurse Name: Antoinette Chua RN Position: [facility] RN Member Role: Primary Care Nurse Name: Tasha Naranjo NP Position: [facility] PCO Associate Professional Member Role: PCP Address: Address: [address] [place] [address] 3rd floor [facility] [place] [address]- Name: Madeleine Maki RN Position: [facility] RN Member Role: Primary Care Nurse Name: Solange Buchanan RN Position: [facility] Department Clinician Member Role: Primary Care Nurse Care Team Related Persons Name: DEBORAH HERMAN Address: home [address] [place] [address] Name: GONZALO ANTUNEZ Address: home [address] [address]
--- OUTSIDE RECORDS SUMMARY | 2023-11-23 16:03 | XMS_ITS | Continuity of Care Document ---
Author Name Unknown Organization [facility] Adult Address [address] [place] [address]- Care Team Providers Care Undergraduate Advisor Name Role Phone Tasha Naranjo NP Primary Care Physician Encounter [facility] Date(s): 02/13/23 - 02/20/23 [facility] Adult [address] [place] [address]- Attending Physician: Not on Staff, Attending MD [...] Weight Start Date: 11/28/20 Status: Ordered Pen [place], 30 G x 8 mm BD Ultra [...] Team Personnel Name: Laurie Castellanos RN Position: [facility] Nurse Member Role: Primary Care Nurse Name: Marichuy ALVAREZ, Ave Felipe Position: [facility] Associate Professional Member Role: Primary Care Nurse Address: Address: [address] [facility] [place] [address]- [place] Name: Thao Preciado RN Position: [facility] AMB Nurse Member Role: Primary Care Nurse Name: Antoinette Chua RN Position: [facility] RN Member Role: Primary Care Nurse Name: Tasha Naranjo NP Position: [facility] PCO Associate Professional Member Role: PCP Address: Address: [address] [facility] 3rd floor [facility] [place] [address]- [place] Name: Madeleine Maki RN Position: [facility] RN Member Role: Primary Care Nurse Name: Solange Buchanan RN Position: [facility] Supervisor Cell Maintenance Member Role: Primary Care Nurse Care Team Related Persons Name: DEBORAH HERMAN Address: home [address] [place] [address] Name: GONZALO ANTUNEZ Address: [address] [address]
--- OUTSIDE RECORDS SUMMARY | 2023-11-23 16:03 | XMS_ITS | Continuity of Care Document ---
Author Name Unknown Organization [facility] Adult Address [address] [place] [address]- Care Team Providers Care Rn Allergy Name Role Phone Tasha Naranjo NP Primary Care Physician [place] [facility] [place] 02/12/23 - 02/19/23 [facility] Adult [address] [place] [address]- Attending Physician: Not on Staff, Attending MD [...] Weight Start Date: 11/28/20 Status: Ordered Pen [place], 30 G x 8 mm BD Ultra [...] Team Personnel Name: Laurie Castellanos RN Position: [facility] Nurse Member Role: Primary Care Nurse Name: Marichuy ALVAREZ, Ave Felipe Position: [facility] Associate Professional Member Role: Primary Care Nurse Address: Address: [address] [facility] [place] [address]- [place] Name: Thao Preciado RN Position: [facility] AMB Nurse Member Role: Primary Care Nurse Name: Antoinette Chua RN Position: [facility] RN Member Role: Primary Care Nurse Name: Tasha Naranjo NP Position: [facility] PCO Associate Professional Member Role: PCP Address: Address: [address] [facility] 3rd floor [facility] [place] [address]- [place] Name: Madeleine Maki RN Position: [facility] RN Member Role: Primary Care Nurse Name: Solange Buchanan RN Position: [facility] Sales Floor Team Member Member Role: Primary Care Nurse Care Team Related Persons Name: DEBORAH HERMAN Address: home [address] [place] [address] Name: GONZALO ANTUNEZ Address: home [address] [address]
--- OUTSIDE RECORDS SUMMARY | 2023-11-23 16:03 | XMS_ITS | Continuity of Care Document ---
Author Name Unknown Organization [facility] Adult Address [address] [place] [address]- Care Team Providers Care Welding Tester Name Role Phone Tasha Naranjo NP Primary Care Physician Encounter [facility] Date(s): 01/01/23 - 01/31/23 [facility] Adult [address] [place] [address]- Allergies, Adverse Reactions, Alerts No Known Allergies [...] Weight Start Date: 11/28/20 Status: Ordered Pen [place], 30 G x 8 mm BD Ultra [...] Team Personnel Name: Laurie Castellanos RN Position: [facility] AMB Nurse Member Role: Primary Care Nurse Name: Ave Benedict NP Position: [facility] Associate Professional Member Role: Primary Care Nurse Address: Address: [address] [place] [address] Name: Thao Preciado RN Position: [facility] AMB Nurse Member Role: Primary Care Nurse Name: Antoinette Chua RN Position: [facility] RN Member Role: Primary Care Nurse Name: Tasha Naranjo NP Position: [facility] PCO Associate Professional Member Role: PCP Address: Address: [address] [place] [address] 3[address] [place] [address]- Name: Madeleine Maki RN Position: [facility] RN Member Role: Primary Care Nurse Name: Solange Buchanan RN Position: [facility] Floorworker Distributor Member Role: Primary Care Nurse Care Team Related Persons Name: DEBORAH HERMAN Address: home [address] [place] [address] Name: GONZALO ANTUNEZ Address: home [address] [address]
--- OUTSIDE RECORDS SUMMARY | 2023-11-23 16:04 | XMS_ITS | Continuity of Care Document ---
Author Name Unknown Organization [facility] Adult Address [address] [place] [address]- Care Team Providers Care Wire Drawing Die Maker Name Role Phone Marcella ALVAREZ, Tasha Rutledge Primary Care Physician [phone] [place] [facility] [place](s): 04/01/23 - 05/01/23 [facility] Adult [address] [place] [address]- Allergies, Adverse Reactions, Alerts No Known Allergies Immunizations Given and Recorded Vaccine Date Status Refusal Reason influenza virus vaccine, inactivated 08/07/18 Grabiel rded pneumococcal 23-valent vaccine 06/16/17 Recorded Medications clonazePAM 1 mg oral tablet 2 tablet = 2 mg, By Mouth, 2 times a day, PRN Anxiety, 0 Refills, Maintenance, 09/14/18 4:13:20 EST Start Date: 09/14/18 Status: Ordered FREESTYLE SANDRA 2 SENSOR FREESTYLE SANDRA 2 SENSOR, See Instructions, # 2 kit, 2 Refills, Maintenance, USE DIRECTED FOR DXTYPE 2 DIABETES MELLITUS (E11.9) SANDRA 2, 04/04/23 16:30:00 EDT, 154.94, cm, 03/27/23 14:41:00 EDT,Height Start Date: 04/04/23 Status: Ordered Freestyle Sandra Monitor See Instructions, [...] Weight Start Date: 11/28/20 Status: Ordered Pen [place], 30 G x 8 mm BD Ultra [...] Team Personnel Name: Laurie Castellanos RN Position: [facility] Nurse Member Role: Primary Care Nurse Name: Ave Benedict NP Position: [facility] Associate Professional Member Role: Primary Care Nurse Address: Address: [address] [place] [address]- [place] Name: Thao Preciado RN Position: [facility] Nurse Member Role: Primary Care Nurse Name: Antoinette Chua RN Position: [facility] RN Member Role: Primary Care Nurse Name: Tasha Naranjo NP Position: [facility] PCO Associate Professional Member Role: PCP Address: Address: [address] [place] [address] [address] [place] [address]- [place] Name: Madeleine Maki RN Position: [facility] RN Member Role: Primary Care Nurse Name: Solange Buchanan RN Position: [facility] Truck Driving Member Role: Primary Care Nurse Care Team Related Persons Name: DEBORAH HERMAN Address: home [address] [place] [address] Name: GONZALO ANTUNEZ Address: home [address] [address]
--- OUTSIDE RECORDS SUMMARY | 2023-11-23 16:04 | XMS_ITS | Continuity of Care Document ---
Author Name Unknown Organization [facility] Address [address] [place] [address]- Care Team Providers Care Billing Customer Service Representative Name Role Phone Marcella ALVAREZ, Tasha Rutledge Primary Care Physician [phone] Encounter [facility] Date(s): 03/27/23 - 05/17/23 [facility] [address] [place] [address] Attending Physician: Sindy Zimmerman NP Admitting Physician: Sindy Zimmerman NP Referring Physician: Tasha Naranjo NP Allergies, Adverse [...] Weight Start Date: 11/28/20 Status: Ordered Pen [place], 30 G x 8 mm BD Ultra [...] Name: Laurie Castellanos RN Position: [facility] Nurse Member Role: Primary Care Nurse Name: Ave Benedict NP Position: [facility] Associate Professional Member Role: Primary Care Nurse Address: Address: [address] [place] [address]- [place] Name: Thao Preciado RN Position: [facility] AMB Nurse Member Role: Primary Care Nurse Name: Antoinette Chua RN Position: [facility] RN Member Role: Primary Care Nurse Name: Tasha Naranjo NP Position: [facility] PCO Associate Professional Member Role: PCP Address: Address: [address] [place] [address] 3rd [place] [address]- [place] Name: Madeleine Maki RN Position: [facility] RN Member Role: Primary Care Nurse Name: Solange Buchanan RN Position: [facility] Coat Examiner Member Role: Primary Care Nurse Care Team Related Persons Name: DEBORAH HERMAN Address: home [address] [place] [address] Name: GONZALO ANTUNEZ Address: home [address] [address]
--- OUTSIDE RECORDS SUMMARY | 2023-11-23 16:04 | XMS_ITS | Continuity of Care Document ---
Author Name Unknown Organization [facility] Adult Address [address] [place] [address]- Care Team Providers Care Catalogue And Special Products Manager Name Role Phone Marcella ALVAREZ, Tasha Rutledge Primary Care Physician [phone] [place] [facility] Date(s): 02/19/23 - 03/21/23 [facility] Adult [address] [place] [address]- Allergies, Adverse Reactions, Alerts No Known Allergies [...] Refills, Maintenance, 12/31/22 9:45:00 EDT, Injection, [facility]/pharmacy #[id number], Partial fill upon patient request if [...] Weight Start Date: 11/28/20 Status: Ordered Pen [place], 30 G x 8 mm BD Ultra [...] Team Personnel Name: Laurie Castellanos RN Position: [facility] AMB Nurse Member Role: Primary Care Nurse Name: Ave Benedict NP Position: [facility] Associate Professional Member Role: Primary Care Nurse Address: Address: [address] [facility] [place] [address]- [place] Name: Thao Preciado RN Position: [facility] Nurse Member Role: Primary Care Nurse Name: Antoinette Chua RN Position: [facility] RN Member Role: Primary Care Nurse Name: Tasha Naranjo NP Position: [facility] PCO Associate Professional Member Role: PCP Address: Address: [address] [place] [address] 3rd floor [facility] [place] [address]- [place] Name: Madeleine Maki RN Position: [facility] RN Member Role: Primary Care Nurse Name: Solange Buchanan RN Position: [facility] Hospitality Ambassador Member Role: Primary Care Nurse Care Team Related Persons Name: DEBORAH HERMAN Address: home [address] [place] [address] Name: GONZALO ANTUNEZ Address: home [address] [address]
--- OUTSIDE RECORDS SUMMARY | 2023-11-23 16:04 | XMS_ITS | Continuity of Care Document ---
Author Name Unknown Organization [facility] ter Address [address] [place] [address]- Care Team Providers Care Interior Wirer Name Role Phone Marcella ALVAREZ, Tasha Rutledge Primary Care Physician [place] [facility] [place]/24/23 - 08/27/[address] [address]- Attending Physician: Aye Avendaño MD Admitting Physician: Aye Avendaño MD Allergies, Adverse Reactions, Alerts No Known [...] 4 Refills, Maintenance, 03/27/23 13:44:00 EDT, Solution, [facility]/pharmacy #[id number], Partial fill upon patient request if the prescription is for a schedule II opioid drug., 154.94, cm, ... Start Date: 03/27/23 Status: Ordered NuLYTELY Lemon [place] oral powder for reconstitution 4 L, By [...] Weight Start Date: 11/28/20 Status: Ordered Pen [place], 30 G x 8 mm BD Ultra [...] mL, 11 Refills, Maintenance, 06/25/23 10:58:00 EDT, [facility]/pharmacy #[id number], 154.94, cm, 06/24/23 15:59:00 EDT, Height [...] Team Personnel Name: Laurie Castellanos RN Position: [facility] AMB Nurse Member Role: Primary Care Nurse Name: Ave Benedict NP Position: [facility] Associate Professional Member Role: Primary Care Nurse Address: Address: [address] [facility] [place] [address]- [place] Name: Thao Preciado RN Position: [facility] Nurse Member Role: Primary Care Nurse Name: Antoinette Chua NP Position: [facility] PCO Associate Professional Member Role: Primary Care Nurse Address: Address: [address] [facility] [place] [address]- [place] Name: Tasha Naranjo NP Position: [facility] PCO Associate Professional Member Role: PCP Address: Address: [address] [facility] 3rd [place] [address]- [place] Name: Madeleine Maki RN Position: [facility] RN Member Role: Primary Care Nurse Name: Solange Buchanan RN Position: [facility] Lead Application Architect Member Role: Primary Care Nurse Care Team Related Persons Name: BRISSA HERMANJordana Address: home [address] [place] [address] Name: GONZALO ANTUNEZ Address: home [address] [address]
--- OUTSIDE RECORDS SUMMARY | 2023-11-23 16:04 | XMS_ITS | Continuity of Care Document ---
Author Name Unknown Organization [facility] Adult Address [address] [place] [address]- Care Team Providers Care Instrument Room Technician Name Role Phone Tasha Naranjo NP Primary Care Physician Encounter [facility] Date(s): 09/30/23 - 10/07/23 [facility] Adult [address], [place] [address] Attending Physician: Not on Staff, Attending MD Allergies, Adverse Reactions, Alerts No Known Allergies Immunizations Given and Recorded Vaccine Date Status Refusal Reason influenza virus vaccine, inactivated 08/07/18 Grabiel rded pneumococcal 23-valent vaccine 06/16/17 Recorded Medications atorvastatin 20 mg oral tablet 1 tablet = 20 mg, By Mouth, Daily at bedtime, # 90 tablet, 3 Refills, Maintenance, 09/30/23 10:17:00 EST, Tablet, [facility]/pharmacy #[id number], Partial fill upon patient request if the prescription is for a schedule II opioid drug., 154.94, cm, 09/30/23 9:53:00... Start Date: 09/30/23 Status: Ordered clonazePAM 1 mg oral tablet 2 tablet [...] 3 Refills, Maintenance, 09/30/23 10:10:00 EST, Tablet, [facility]/pharmacy #[id number], Partial fill upon patient request [...] Start Date: 03/27/23 Status: Ordered NuLYTELY [place] oral powder for reconstitution 4 L, By Mouth, Once, until 4 liters are consumed or the rectal effluent is clear for colonoscopy, #1 each, 0 Refills, Soft Stop, 06/12/23 16:51:00 EDT, [facility]/pharmacy #[id number], Partial fill upon patient request [...] Weight Start Date: 11/28/20 Status: Ordered Pen [place], 30 G x 8 mm BD Ultra [...] 1 Refills, Maintenance, 09/30/23 10:09:00 EST, Solution, [id number],Partial fill upon patient request if the prescripti... Start Date: 09/30/23 Status: Ordered Problem List Condition Confirmation Course Effective Dates Status H ealth Status Informant Failure to thrive in adult Confirmed Active Chronic gastritis Confirmed Active Diabetes mellitus type 2 Confirmed Active Diverticulosis Confirmed Active Dyslipidemia Confirmed Active Diabetic gastroparesis Confirmed Active Hypoglycemia Confirmed Active Hypokalemia Confirmed Active Metabolic alkalosis Confirmed Active Anxiety and depression Confirmed Active Nausea and vomiting Confirmed Active OCD (obsessive compulsive disorder) Confirmed Active Poor historian Confirmed Active PTSD (post-traumatic stress disorder) Confirmed Active Hepatic steatosis Confirmed Active Vital Signs Most recent to oldest [Reference Range]: 1 Height 154.94 cm (09/30/23 9:53 AM) Weight 70.6 kg (09/30/23 9:53 AM) Oxygen Saturation [94-100 %] 99 % (09/30/23 9:53 AM) Pulse Rate [55-90 bpm] 112 bpm *H* (09/30/23 9:53 AM) Body Mass Index [18.5-24.99 kg/m2] 29.41 kg/m2 *H* (09/30/23 9:53 AM) Blood Pressure [90-138/55-84 mm Hg] 109/ 77mm Hg (09/30/23 9:53 AM) Mode of Delivery (Oxygen) Room air (09/30/23 9:53 AM) Blood pressure sites Arm, right (09/30/23 9:53 AM) Weight Obtained Via Standing scale (09/30/23 9:53 AM) Social History Social History Type Response Tobacco Use: 4 or less cigar ettes(less than 1/4 pack)/day in last 30 days. Sex Note * Alejandra Echavarria: PERFORM, SIGN, VERIFY Event Display: Patient Education/Instruction Authored Date: [id number] [facility] *[facility] [place] [facility] Clinical Summary Name QUAN ALONZO Age 53 Years 1970 PCP Tasha Naranjo NP PCP Visit Date 09/30/2023 09:51:00 Additional Instructions: Scheduled Appointments?? Future Appointments ?[facility] ?Phone:??--?Fax:??-- ?Appt. Date:??02/02/2024?9:00 AM ?Scheduled Provider:??Raymond Purvis MD Follow-Up Instructions ?? With: Address: When: Marcella ALVAREZTasha Comments: 4 months??diabetes f/u?? 6 months AWV?? Request medical records from [facility]2nd [facility] Diagnosis Hyperlipidemia, unspecified Medications: Please continue your medications until treatment is completed or stopped by your provider. Discuss any questions related to medications with your provider. New Medications [facility]/pharmacy #[id number], [address], [place] [id number], [phone] Atorvastatin (atorvastatin 20 mg oral tablet) 1 tab(s) Oral Daily at Bedtime. Refills: 3. Next Dose: dulaglutide (Trulicity Pen 1.5 mg/0.5 mL subcutaneous solution) 0.5 Milliliter Subcutaneous Injection every week. rotate injection sites. Call after 1 month for dose increase. Refills: 1. Next Dose: empagliflozin (Jardiance 25 mg oral tablet) 1 tab(s) Oral Daily in the morning. Refills: 3. Next Dose: Medications to Continue with No Changes These medications were not printed or sent to your pharmacy Clonazepam (clonazePAM 1 mg oral tablet) 2 tab(s) Oral twice a day as needed Anxiety. Next Dose: Durable Medical Equipment (FreeStyle Sandra [...] 3. Next Dose: Durable Medical Equipment (Pen [place], 30 G x 8 mm BD Ultra Fine II) DMII E11.9 Use for insulin injection four times per day. Refills: 11. Next Dose: Insulin Aspart (NovoLOG FlexPen 100 units/mL subcutaneous solution) 10 unit(s) Subcutaneous Injection 3 times a day with meals. Refills: 4. Next Dose: Insulin Glargine (Lantus Solostar Pen 100 units/mL subcutaneous solution) 30 unit(s) Subcutaneous Injection Daily at Bedtime for 90 Days. Refills: 3. Next Dose: Insulin Glargine (Lantus Solostar Pen 100 units/mL subcutaneous solution) 35 unit(s) Subcutaneous Injection Daily at Bedtime for 90 Days. Refills: 3. Next Dose: Miscellaneous Rx (FREESTYLE LITE TEST STRIP) DMII E11.9 TESTING BLOOD SUGAR 3 TIMES A DAY. Refills:3. Next Dose: Pantoprazole (pantoprazole 40 mg oral delayed release tablet) 1 tab(s) Oral twice a day. Refills: 4. Next Dose: PEG Electrolyte Solution (NuLYTELY [place] oral powder for reconstitution) 4 Liter Oral once. until 4 liters are consumed or the rectal effluent is clear for colonoscopy. Refills: 0. Next Dose: Quetiapine (QUEtiapine 300 mg oral tablet) 2 tab(s) Oral Daily at Bedtime. Next Dose: Allergy Info:?? NKA Medications Given This Visit Future Orders ?No future orders Vital Signs Height 154.94 cm Weight 70.6 kg BMI 29.41 kg/m2 Blood Pressure 109 mm Hg/77 mm Hg Temperature Pulse Rate 112 bpm Respiratory Rate 02 Sat Mode of Delivery 99 %/Room air You can now view a summary of your hospital visit from the comfort of your home through a free online portal called [employer]. [employer] is a website that allows you to securely view your medical information including discharge summary, medications and follow-up visits. ??You can alsosend a secure electronic message to your doctor???s office to request appointments, renew medications or just ask a question. You can enroll at [email or web address] or register during your next office [...] primary care provider, you may find a [facility] provider by calling [facility] Webcollage Link at [phone]. [facility], in keeping with [facility] guidance, no longer requires face masks [...] format to support your individualized medical care. Diabetes: Getting Started with Exercise Getting started is easier than you think. Simple and small movements can get you started on a regular exercise routine. You don???t need to join a gym to start moving. Choose an activity you enjoy. Start slowly and set small goals. Work activity into your daily life. Talk to your health care provider before starting an activity program. You may need to have a checkup before you begin. Start with Movement If you???re not used to being active, start with gentle movements while you watch TV. Raise your arms and legs while seated. Then repeat for 5 to 10 minutes. With time, add some slow walking. Even taking a flight of stairs instead of the elevator can lift you to healthier heights. These types of brief activities are great ways to get started. They??can help lower your blood sugar level, strengthen your heart, and improve your energy. Steps Toward Being More Active Your goal, especially at first, is to keep your activity simple. Slowly work up to??30 minutes of activity a day. But you don???t need to do it all at once. You can be active in??3, 10-minute sessions a day. You can also combine being active with the other things you need to do. For instance, standup from your desk and walk around often when at work. Or, go for a walk around the mall before you s hop. Keep Your Activity Simple Why make activity hard on yourself? Choose things that you like to do and that fit into your schedule. Here are some tips: ??? Get off the bus a stop or??2 early and walk the rest of the way. ??? Run small shopping errands on your bike. ??? Go for a??10-minute walk after each meal. ??? Park your car in the space farthest from where you???re going. ??? Get a pedometer that records the number of steps you take. Make a goal for the number of steps you take each day. Increase your goal a little each week. Keep Your Activity Safe ??? Be sure to warm up before you start and cool down when you???re done. ??? Carry or wear identification that says that you have diabetes. ??? Eat 1 to 2 hours before you exercise, if instructed. ??? Check your blood sugar before and after you exercise, if instructed. Check your blood sugar if you feel symptoms. ??? Carry fast-acting sugar with you in case you have low blood sugar. ??? Wear socks and well-fitting shoes. ??? Think about the weather in your area. At times, you may need to choose indoor rather than outdoor activities. Make Your Activity Fun Mix fitness with fun. The more fun you have, the more likely you are to stick to your plan. You canhave a better blood sugar level along with an active, fun day. Try these hints: ??? Choose an exercise that you enjoy and can do easily. ??? Join a social club that goes for walks or does other physical activities. ??? Go bird watching or do something else that gets you outdoors. ??? Put on some music and dance. ??? Involve your family or friends in your physical activity. ?? 3971-7466 [employer]. [address] [place] [address], [place] [address]. All rights reserved. This information is not intended as a substitute for professional medical care. Always follow your healthcare professional's instructions. Diabetes (General Information) Diabetes is a long-term health problem that means your body does not make enough insulin. Or it maymean that your body cannot use the insulin it makes. Insulin is a hormone in your body. It lets blood sugar (glucose) reach the cells in your body. All of your cells need glucose for fuel. When you have diabetes the glucose in your blood builds up because it cannot get into the cells. This buildup is called high blood sugar (hyperglycemia). Your blood sugar level depends on several things. It depends on what kind of food you eat and how much of it you eat. It also depends on how much exercise you get, and how much insulin you have in your body. Eating too much of the wrong kinds of food or not taking diabetes medicine on time can cause high blood sugar. Infections can cause high blood sugar even if you are taking medicines correctly. These things can also cause low blood sugar: ??? Missing meals ??? Not eating enough food ??? Taking too much diabetes medicine Diabetes can cause serious problems over time if you do not get treated. These problems include heart disease, stroke, kidney failure, and blindness. They also include nerve pain or loss of feeling in your legs and feet, and gangrene of the feet. By keeping your blood sugar under control you can prevent or delay these problems. Normal blood sugar levels are 80 to 130??before a meal and less than 180??in the 1 to 2 hours aftera meal. Home care Follow these guidelines when caring for yourself at home: ??? Follow the diet your healthcare provider gives you. Take insulin or other diabetes medicine exactly as told to. ??? Watch your blood sugar as you are told to. Keep a log of your results. This will help your provider change your medicines to keep your blood sugar under control. ??? Try to reach your ideal weight. You may be able to cut back on or not have to take diabetes medicine if you eat the right foods and get exercise. ??? Do not smoke. Smoking makes the effects of diabetes worse on your circulation. You are much more likely to have a heart attack if you have diabetes and you smoke. ??? Take good care of your feet. If you have lost feeling in your feet, you may not see an injury or infection. Check your feet and between your toes at least once a week. ??? Wear a medical alert bracelet or carry a card in your wallet that says you have diabetes. This will help healthcare providers give you the right care if you get very ill and cannot tell them thatyou have diabetes. Sick day plan If you get a cold, the flu, or a bacterial or viral infection, take these steps: ??? Look at your diabetes sick plan and call your healthcare provider as you were told to. You may need to call your provider right away if: ??? Your blood sugar is above 240 while taking your diabetes medicine ??? Your urine ketone levels are above normal or high ??? You have been vomiting more than 6 hours ??? You have trouble breathing ??? You have a high fever ??? You have a fever for several days and you are not getting better ??? You get light-headed and are sleepier than usual ??? Keep taking your diabetes pills (oral medicine) even if you have been vomiting and are feeling sick. Call your provider right away because you may need insulin to lower your blood sugar until yourecover from your illness. ??? Keep taking your insulin even if you have been vomiting and are feeling sick. Call your provider right away to ask if you need to change your insulin dose. This will depend on your blood sugar results. ??? Check your blood sugar every 2 to 4 hours, or at least 4 times a day. ??? Check your ketones often. If you are vomiting and having diarrhea, watch them more often. ??? Do not skip meals. Try to eat small meals on a regular schedule. Do this even if you do not feel like eating. ??? Drink water or other liquids that do not have caffeine or calories. This will keep you from getting dehydrated. If you are nauseated or vomiting, takes small sips every 5 minutes. To prevent dehydration try to drink a cup (8 ounces) of fluids every hour while you are awake. General care Always bring a source of fast-acting sugar with you in case you have symptoms of low blood sugar (below 70). At the first sign of low blood sugar, eat or drink 15 to 20 grams of fast-acting sugar to raise your blood sugar. Examples are: ??? 3 to 4 glucose tablets. You can buy these at most drugstores. ??? 4 ounces (1/2 cup) of regular (not diet) soft??drinks ??? 4 ounces (1/2 cup) of any fruit juice ??? 8 ounces (1 cup) of milk ??? 5 to 6 pieces of hard candy ??? 1 tablespoon of honey Check your blood sugar 15 minutes after treating yourself. If it is still below 70, take 15 to 20 more grams of fast-acting sugar. Test again in 15 minutes. If it returns to normal (70 or above), eata snack or meal to keep your blood sugar in a safe range. If it stays low, call your doctor or go to an emergency room. Follow-up care Follow-up with your healthcare provider, or as advised. For more information about diabetes, visit the [place] [employer] website at www.diabetes.org or call 818-025-4187. When to seek medical advice Call your healthcare provider right away if you have any of these symptoms of high blood sugar: ??? Frequent urination ??? Dizziness ??? Drowsiness ??? Thirst ??? Headache ??? Nausea or vomiting ??? Abdominal pain ??? Eyesight changes ??? Fast breathing ??? Confusion or loss of consciousness Also call your provider right away if you have any of these signs of low blood sugar: ??? Fatigue ??? Headache ??? Shakes ??? Excess sweating ??? Hunger ??? Feeling anxious or restless ??? Eyesight changes ??? Drowsiness ??? Weakness ??? Confusion or loss of consciousness Call your provider right away if any of these occur: ??? Chest pain or shortness of breath ??? Dizziness or fainting ??? Weakness of an arm or leg or one side of the face ??? Trouble speaking or seeing ?? [id number] [employer]. [address] [place] [address]. All rights reserved. This information is not intended as a substitute for professional medical care. Always follow your healthcare professional's instructions. Patient Care team information Care Team Personnel Name: Laurie Castellanos RN Position: [facility] AMB Nurse Member Role: Primary Care Nurse Name: Ave Benedict NP Position: [facility] Associate Professional Member Role: Primary Care Nurse Address: Address: [address] [place] [address] Name: Thao Preciado RN Position: [facility] AMB Nurse Member Role: Primary Care Nurse Name: Antoinette Chua NP Position: [facility] PCO Associate Professional Member Role: Primary Care Nurse Address: Address: [address] [facility] [place] [address]- [place] Name: Tasha Naranjo NP Position: [facility] Associate Professional Member Role: PCP Address: Address: [address] [facility] 3rd [place] [address]- [place] Name: Madeleine Maki RN Position: [facility] RN Member Role: Primary Care Nurse Name: Solange Buchanan RN Position: [facility] Web Content Editor Member Role: Primary Care Nurse Care Team Related Persons Name: DEBORAH HERMAN Address: home [address] [place] [address] Name: GONZALO ANTUNEZ Address: home [address] [address]
--- OUTSIDE RECORDS SUMMARY | 2023-11-23 16:04 | XMS_ITS | Continuity of Care Document ---
Author Name Unknown Organization [facility] Adult Address [address] [place] [address]- Care Team Providers Care Planning Feeder Name Role Phone Marcella ALVAREZ, Tasha Rutledge Primary Care Physician Encounter [facility] Date(s): 04/03/23 - 05/03/23 [facility] Adult [address] [place] [address]- Allergies, Adverse Reactions, Alerts No Known Allergies [...] Weight Start Date: 11/28/20 Status: Ordered Pen [place], 30 G x 8 mm BD Ultra [...] Team Personnel Name: Laurie Castellanos RN Position: [facility] Nurse Member Role: Primary Care Nurse Name: Ave Benedict NP Position: [facility] Associate Professional Member Role: Primary Care Nurse Address: Address: [address] [place] [address]- [place] Name: Thao Preciado RN Position: [facility] Nurse Member Role: Primary Care Nurse Name: Antoinette Chua RN Position: [facility] RN Member Role: Primary Care Nurse Name: Tasha Naranjo NP Position: [facility] PCO Associate Professional Member Role: PCP Address: Address: [address] [place] [address] [address] [place] [address]- [place] Name: Madeleine Maki RN Position: [facility] RN Member Role: Primary Care Nurse Name: Solange Buchanan RN Position: [facility] [employer] Supervisor Member Role: Primary Care Nurse Care Team Related Persons Name: DEBORAH HERMAN Address: home [address] [place] [address] Name: GONZALO ANTUNEZ Address: home [address] [address]
--- OUTSIDE RECORDS SUMMARY | 2023-11-23 16:04 | XMS_ITS | Continuity of Care Document ---
Author Name Unknown Organization [facility] Adult Address [address] [place] [address]- Care Team Providers Care Tow Bar Driver Name Role Phone Tasha Naranjo NP Primary Care Physician Encounter [facility] Date(s): 01/20/23 - 02/19/23 [facility] Adult [address] [place] [address]- Allergies, Adverse Reactions, Alerts No Known Allergies [...] 4 Refills, Maintenance, 12/31/22 16:05:00 EDT, Solution, [facility]/pharmacy #[id number], Partial fill upon patient request [...] Weight Start Date: 11/28/20 Status: Ordered Pen [place], 30 G x 8 mm BD Ultra [...] Team Personnel Name: Laurie Castellanos RN Position: [facility] AMB Nurse Member Role: Primary Care Nurse Name: Ave Benedict NP Position: [facility] Associate Professional Member Role: Primary Care Nurse Address: Address: [address] [facility] [place] [address]- [place] Name: Thao Preciado RN Position: [facility] AMB Nurse Member Role: Primary Care Nurse Name: Antoinette Chua RN Position: [facility] RN Member Role: Primary Care Nurse Name: Tasha Naranjo NP Position: [facility] PCO Associate Professional Member Role: PCP Address: Address: [address] [facility] 3rd floor [facility] [place] [address]- [place] Name: Madeleine Maki RN Position: [facility] RN Member Role: Primary Care Nurse Name: Solange Buchanan RN Position: [facility] Sales Producer Member Role: Primary Care Nurse Care Team Related Persons Name: DEBORAH HERMAN Address: home [address] [place] [address] Name: GONZALO ANTUNEZ Address: [address] [address]
[2023-11-23 16:59] VITALS: BP 140/84; PULSE 90; RESP 18; TEMP 36.6; O2SAT 98
[2023-11-23] MEDS: Cyclobenzaprine HCl 5 MG TABLET PO (17:07)
[2023-11-23 17:19] VITALS: BP 114/72; PULSE 98; RESP 18; TEMP 36.7; O2SAT 97
== END 2023-11-23 17:21 | disposition home or self-care (01) ==
PROVIDERS: Emergency Provider Student in an Organized Health Care Education/Training Program; PCP Nurse Practitioner Family
DX: S16.1XXA Strain of muscle, fascia and tendon at neck level, initial encounter (principal); M54.2 Cervicalgia; V43.52XA Car driver injured in collision with other type car in traffic accident, initial encounter; Y93.9 Activity, unspecified; Y92.410 Unspecified street and highway as the place of occurrence of the external cause; Y99.8 Other external cause status
CPT/HCPCS: 72125; 99284

== ENCOUNTER → 2023-12-16 12:10 | Outpatient (REF) | payer OTHER, SELFPAY ==
--- NOTE | 2023-12-16 12:13 | CA_ITS ---
Transthoracic Echocardiogram Patient (Last, First, Middle): Zaina Sharma, Gender: Female Date of : 1970 Age: 53 Procedure Date: 12/16/2023 Procedure Type: Transthoracic Echocardiogram Location: OP Height: 154.94 cm Weight: 62.14 kg BSA: 1.61 m2 Heart Rate: bpm BP: 102 / 66 mmHg Medical Billing Instructor: KIMMIE Referring MD: Efrain Garcia MD Child Protection Specialist: Mart Josue MD Symptoms: I51.81 - Takotsubo syndrome Study Quality: Adequate ECG Rhythm: Sinus Conclusions: - 1. [id number] LV systolic dysfunction with grade 1 diastolic dysfunction with LVEF of 40-45% 2. Normal cardiac valvular Doppler 3. Normal RV systolic pressure Findings Left Ventricle Normal left ventricular cavity size. There is normal left ventricular wall thickness. The left ventricular systolic function is mild to moderately decreased. The visually estimated ejection fraction is between 40-45%. Spectral Doppler is indicative of an impaired relaxation filling pattern. E/E prime ratio is <8, consistent with normal filling pressures. Evidence suggests grade I (mild) diastolic dysfunction. Wall Motion Rest Echo Findings The entire apex is hypokinetic. All other scored wall segments showed normal motion. Right Ventricle Normal right ventricular cavity size and systolic function. Atria Both atria are normal in size. Interatrial shunt cannot be excluded. Aortic Valve The aortic valve structure and function is likely normal. There is no aortic valve stenosis. There is no aortic valve regurgitation. Mitral Valve Normal mitral valve structure and function. There is trace mitral valve regurgitation. There is no mitral valve stenosis. Pulmonic Valve The pulmonic valve was not well visualized. Tricuspid Valve Likely normal tricuspid valve structure and function. There is trace tricuspid valve regurgitation. The right ventricular systolic pressure is normal. The right ventricular systolic pressure is 10 mmHg. Normal right atrial pressure. There is no evidence of pulmonary hypertension. Great Vessels The pulmonary artery was not well visualized. There is no dilatation of the ascending aorta measuring 2.60 cm. Venous The inferior vena cava is normal in size and collapses greater than 50% with inspiration. Pericardium/Pleural There is no evidence of pericardial effusion. Prior Study Comparison Changes noted compared to prior study dated: 11/16/2023. LV systolic function is marginally improved Measurements 2D Linear Measurements IVSd: 0.86 0.6-0.9/0.6-1.0 cm LVIDd: 4.05 3.9-5.3/4.2-5.9 cm LVIDd Index: 2.52 2.4-3.2/2.2-3.1 cm/m2 LVIDs: 2.77 2.0-3.6 cm LVPWd: 0.92 0.7-1.1 cm LA Diam: 2.80 2.7-3.8/3.0-4.0 cm LAIDs Index: 1.74 1.5-2.3 cm/m2 LV Mass: 136.99 67-162/88-224 g LV Mass Index: 85.09 43-95/49-115 g/m2 LVOT Diam: 2.00 3.0+(-)1.3 cm 2D Systolic Function EF 4C: 44.40 >55% EF 2C: 44.80 >55% EF BiP: 42.40 >55% Mitral Valve MV Pk E: 0.48 MV PK A: 0.81 MV Decel Time: 160.00 E/A: 0.60 E'Lateral: 6.09 E'Medial: 4.46 E/E' Med: 10.90 E/E' Lat: 7.90 PHT: 47.00 MVA PHT: 4.68 Decel [place]: 3.03 Aortic Valve AoV Pk Dagoberto: 0.89 AoV Mn Dagoberto: 0.70 AoV VTI: 0.18 AoV Pk Grad: 3.00 Aov Mn Grad: 2.00 JOANNA Cont.VTI: 2.41 LVOT LVOT Pk Dagoberto: 0.61 LVOT Mn Dagoberto: 0.45 LVOT VTI: 0.14 LVOT Pk Grad: 2.00 LVOT Mn Grad: 1.00 LVOT Diam: 2.00 LVOT Area: 3.14 Diastolic Function MV Pk E: 0.48 MV Pk A: 0.81 E/A: 0.60 E'Medial: 4.46 E/E' Med: 10.90 E' Laterial: 6.09 E/E' Lat: 7.90 Right Ventricle TAPSE (mm): 18.60 TVS' Dagoberto: 9.57 Tricuspid Valve TR Pk Dagoberto: 1.29 TR Pk Grad: 7.00 RA Press: 3.00 RVSP: 10.00 Great Vessels Aorta Sinus of Valsalva: 2.86 2.0-3.[address] [place]: 2.25 1.7-3.4 cm Ao Asc: 2.60 2.1-3.4 cm Updated in Other Vendor System with Status of Final Mart Josue MD electronically signed on 12/16/2023 3:54:18 PM with status of Final
== END ==
LOC: HO.CARD 12:10
PROVIDERS: PCP Nurse Practitioner Family; Visit Provider Internal Medicine
DX: I51.81 Takotsubo syndrome (principal)
CPT/HCPCS: 93306

== ENCOUNTER → 2023-12-16 12:13 | Outpatient (BNV) | payer OTHER, SELFPAY | PROVIDERS: PCP Nurse Practitioner Family; Visit Provider Internal Medicine Cardiovascular Disease | DX: I51.81 Takotsubo syndrome (principal) | CPT/HCPCS: 93306 ==

== ENCOUNTER 2023-12-24 14:56 | Outpatient (AMB) | payer OTHER, SELFPAY ==
[2023-12-24 15:00] VITALS: BP 120/64; PULSE 117; O2SAT 97; BMI 28.1
--- NOTE | 2023-12-24 15:00 | MHC.OFFVIS ---
Vital Signs 12/24/23 15:00 Height 5 ft 1 in Weight 148 lb 9.465 oz BMI 28.1 BP 120/64 Blood Pressure Location Lt brachial Position Sitting Pulse 117 H Pulse Source Pulse Oximeter Pulse Oximetry (%) 97 Intake Visit Reasons: f/up echo HS Floor Layer Helper Required: No Accompanied by: Self / Same As Patient Allergies No Known Allergies [No Known Allergies*] Allergy (Verified 11/12/23 14:48) Medication List - Last Reconciled 12/24/23 by Efrain Garcia MD aspirin 81 mg PO DAILY atorvastatin 20 mg PO BEDTIME clonazepam 2 mg PO BID cyclobenzaprine 5 mg PO TID PRN 7 days dulaglutide (Trulicity) 0.75 mg subcut MO empagliflozin (Jardiance) 25 mg PO QAM heparin(porcine) in 0.45% NaCl 25,000 unit/250 mL 25,000 units (250 mL) continuous IV infusion .Q0M insulin glargine (Lantus U-100 Insulin) 10 units subcut QPM insulin lispro (Humalog U-100 Insulin) 1 sliding scale dose subcut USEASDIRECTD metoprolol succinate ER 50 mg PO DAILY ondansetron 4 mg PO Q6H PRN quetiapine 600 mg PO BEDTIME HPI Comments Details: Zaina returns for follow-up after recent hospitalization. She was seen in consultation for an abnormal EKG. Patient has a history of gastroparesis and type 2 diabetes. She actually came for abdominal pain. In that context, she was tachycardic and she had EKGs performed for that reason. That showed T inversions. She was also having some vague chest pressure type symptoms. Borderline troponin elevation. This led to an echocardiogram that showed evidence of cardiomyopathy with wall motion abnormalities. Subsequently, transferred to [facility] and then underwent a diagnostic cardiac catheterization but no there was no significant disease. Thought to be stress-induced cardiomyopathy. Currently, she states she feels okay. No specific cardiac symptoms. Heart rate is still high but she states she is very anxious. [facility], LAT[facility] Medical History Diabetes Gastroparesis Family History Father No problems noted. Social History Household Members: None Housing: Apartment Do you presently have visiting nurse or other home services: No Alcohol intake: never Patient Tobacco Use Status: Never used Tobacco service: No Review of Systems Const Denies chills, Denies fatigue, Denies fever(s), Denies frequent falls, Denies weakness, Denies weight gain and Denies weight loss ENT Denies dizziness Card Denies chest pain, Denies leg edema, Denies lightheadedness, Denies palpitations, Denies dyspnea and Denies dyspnea on exertion Resp Denies cough, Denies dyspnea and Denies dyspnea on exertion GI Denies hematochezia Musc Denies abnormal gait, Denies muscle weakness, Denies numbness, Denies radiating pain into limb and Denies tingling Neuro Denies abnormal gait, Denies dizziness, Denies frequent falls, Denies numbness, Denies tingling and Denies weakness Endo Denies fatigue and Denies palpitations Physical Exam Vital Signs: Last Vital Signs Pulse 117 H 12/24/23 15:00 BP 120/64 12/24/23 15:00 Pulse Ox 97 12/24/23 15:00 BMI result Body Mass Index 28.1 Const General: comfortable and no acute distress Orientation/consciousness: patient oriented x3 HEENT Other: Unremarkable Head: Yes normal to inspection Neck Neck: Yes normal visual inspection Chest Chest palpation & inspection: normal inspection of the chest Resp Auscultation: clear to auscultation bilaterally Cardio Palpation: normal PMI Heart sounds: S1 normal heart sound present, S2 normal heart sound present, no gallops, no murmurs and no rubs GI Palpation (GI): Soft to palpation Back/Spine/Pelvis Other: unremarkable Skin General skin exam: no rashes or lesions noted Neuro General: patient oriented x3 Extrem General: Yes normal to inspection Psych Mental Status: mental status grossly normal Assessment & Plan Assessment & Plan (1) Stress-induced cardiomyopathy: Code(s): I51.81 - Takotsubo syndrome Category: Medical Plan Cardiac studies reviewed. In the initial echocardiogram, LVEF is 35-40% with wall motion abnormalities. Apical akinesis. In the repeat study, LVEF is 40-45% with hypokinetic apex. Cardiac catheterization shows normal coronary arteries. Overall, thought to be stress-induced cardiomyopathy. Per [facility] discharge summary, listed to be on metoprolol but she is not sure. We will send another script for the same. Will repeat another echocardiogram in about 3 months to see if there is recovery of LV function back to normal. Follow-up at that time. Total time spent including review of [facility] documentation, counseling, documentation, coordination of care-32 minutes. Orders: Orders CA echo limited 3 Months I51.81 - Takotsubo syndrome Medications: New metoprolol succinate ER 50 mg PO DAILY 90 tabs 3RF I51.81 - Takotsubo syndrome Coding Level of Care Code Est Pt Level 4 (82472) Diagnoses Stress-induced cardiomyopathy I51.81
== END 2023-12-24 15:10 | disposition home or self-care (01) ==
PROVIDERS: PCP Nurse Practitioner Family; Visit Provider Internal Medicine
DX: I51.81 Takotsubo syndrome (principal)
CPT/HCPCS: 99214

== ENCOUNTER → 2023-12-24 14:56 | Outpatient (BNVA) | payer OTHER, SELFPAY | PROVIDERS: PCP Nurse Practitioner Family; Visit Provider Internal Medicine | DX: I51.81 Takotsubo syndrome (principal) | CPT/HCPCS: 99212 ==

== ENCOUNTER 2024-03-01 08:31 | Emergency (ER) | payer OTHER, SELFPAY ==
[2024-03-01 08:43] VITALS: BP 111/92; PULSE 118; RESP 16; TEMP 36.6; O2SAT 98; BMI 27.4
[2024-03-01 08:55] LABS: Glucose, Whole Blood 258 mg/dL (60-115)
--- OUTSIDE RECORDS SUMMARY | 2024-03-01 08:59 | XMS_ITS | Continuity of Care Document ---
Author Organization [facility] Adult Address [address] [place] [address]- Care Team Providers Care Slipper Maker Name Role Phone Marcella ALVAREZ, Tasha Rutledge Primary Care Physician [phone] Encounter [facility] Date(s): 11/26/23 - 12/03/23 [facility] [address] [place] [address]- Encounter Diagnosis Diabetic gastroparesis(Discharge Diagnosis) - 11/26/23 Takotsubo cardiomyopathy(Discharge Diagnosis) - 11/26/23 Heart failure(Discharge Diagnosis) - 11/26/23 Diabetes mellitus type 2(Discharge Diagnosis) - 11/26/23 Chronic gastritis(Discharge Diagnosis) - 11/26/23 Due for screening(Discharge Diagnosis) - 11/26/23 Former cigarette smoker(Discharge Diagnosis) - 11/26/23 Back pain(Discharge Diagnosis) - 11/26/23 Neck pain(Discharge Diagnosis) - 11/26/23 Attending Physician: Irais Terrell NP Allergies, Adverse Reactions, Alerts No Known [...] 3 Refills, Maintenance, 09/30/23 10:10:00 EST, Tablet, [facility]/pharmacy #[id number], Partial fill upon [...] mg, 1, tablet, By Mouth, Daily, # 90 tablet, Refills 0, Tot. Refills 0, Maintenance, 11/26/23 14:19:00 EDT, Route to Pharmacy Electronically, [facility]/pharmacy #[id number], Partial fill upon patient request if the prescription is for a schedule II opioid drug... Start Date: 11/26/23 Stop Date: 02/24/24 Status: Ordered NovoLOG FlexPen 100 units/mL subcutaneous solution = 10 units, Subcutaneous Injection, 3 times a day with meals, # 3 mL, 4 Refills, Maintenance, 03/27/23 13:44:00 EDT, Solution, [facility]/pharmacy #[id number], Partial fill upon patient request if the prescription is for a schedule II opioid drug., 154.94, cm, .. Start Date: 03/27/23 Status: Ordered NuLYTELY Lemon [place] oral powder for reconstitution 4 L, By Mouth, Once, until 4 liters are consumed or the rectal effluent is clear for colonoscopy, #1 each, 0 Refills, Soft Stop, 06/12/23 16:51:00 EDT, [facility]/pharmacy #[id number], Partial fill upon [...] Weight Start Date: 11/28/20 Status: Ordered Pen [place], 30 G x 8 mm BD Ultra [...] Pen 0.75 mg/0.5 mL subcutaneous solution = 1.5 mg, Subcutaneous Infusion, Every week, take 2 dose at a time to make it 1.5mg per week. 90 days supplies., # 12 mL, 3 Refills, Maintenance, 11/21/23 4:13:00 EDT, [facility]/pharmacy #[id number], Partial fill upon patient request if the prescription is for a... Start Date: 11/21/23 Stop Date: 11/15/24 Status: Ordered Problem List Condition Confirmation Course Effective Dates Status H ealth Status Informant Failure to thrive in adult Confirmed Active Chronic gastritis Confirmed Active Diabetes mellitus type 2 Confirmed Active Diverticulosis Confirmed Active Dyslipidemia Confirmed Active Former cigarette smoker Confirmed Active Diabetic gastroparesis Confirmed Active Heart failure Confirmed Active Anxiety and depression Confirmed Active Nausea and vomiting Confirmed Active OCD (obsessive compulsive disorder) Confirmed Active Poor historian Confirmed Active PTSD (post-traumatic stress disorder) Confirmed Active Hepatic steatosis Confirmed Active Takotsubo cardiomyopathy Confirmed Active Diagnosis Diagnosis Type Effective Dates Health Status Clinical Service Informant Diabetic gastroparesis Discharge Diagnosis 11/26/23 Takotsubo cardiomyopathy Discharge Diagnosis 11/26/23 Heart failure Discharge Diagnosis 11/26/23 Diabetes mellitus type 2 Discharge Diagnosis 11/26/23 Chronic gastritis Discharge Diagnosis 11/26/23 Due for screening Discharge Diagnosis 11/26/23 Former cigarette smoker Discharge Diagnosis 11/26/23 Back pain Discharge Diagnosis 11/26/23 Neck pain Discharge Diagnosis 11/26/23 Vital Signs Most recent to oldest [Reference Range]: 1 Height 155 cm (11/26/23 12:44 PM) Social History Social History Type Response Tobacco Use: 4 or less cigar ettes(less than 1/4 pack)/day in last 30 days. Sex Patient Care team information Care Team Personnel Name: Laurie Castellanos RN Position: [facility] Nurse Member Role: Primary Care Nurse Name: Marichuy ALVAREZ, Ave Felipe Position: [facility] Associate Professional Member Role: Primary Care Nurse Address: Address: [address] [place] [address]- [place] Name: Thao Preciado RN Position: [facility] Nurse Member Role: Primary Care Nurse Name: Antoinette Chua NP Position: [facility] PCO Associate Professional Member Role: Primary Care Nurse Address: Address: [address] [place] [address]- [place] Name: Tasha Naranjo NP [facility] Associate Professional Member Role: PCP Address: Address: [address] [facility] 3rd [place] [address]- [place] Name: Madeleine Maki RN Position: [facility] RN Member Role: Primary Care Nurse Name: Solange Buchanan RN Position: [facility] Deli Department Manager Member Role: Primary Care Nurse Care Team Related Persons Name: BRISSA HERMANJordana Address: home [address] [place] [address] Name: GONZALO ANTUNEZ Address: home [address] [address]
--- OUTSIDE RECORDS SUMMARY | 2024-03-01 08:59 | XMS_ITS | Continuity of Care Document ---
Author Organization [facility] Adult Address [address] [place] [address]- Care Team Providers Care Rawhide Bone Roller Name Role Phone Marcella ALVAREZ, Tasha Rutledge Primary Care Physician Encounter [facility] Date(s): 12/10/23 - 12/17/23 [facility] [address] [place] [address]- Encounter Diagnosis Neck pain(Discharge Diagnosis) - 12/10/23 Attending Physician: Irais Terrell NP Allergies, Adverse Reactions, Alerts No Known Allergies Immunizations Given and Recorded Vaccine Date Status Refusal Reason influenza virus vaccine, inactivated 08/07/18 Grabiel rded pneumococcal 23-valent vaccine 06/16/17 Recorded Medications clonazePAM 1 mg oral tablet 2 tablet = 2 mg, By Mouth, 2 times a day, PRN Anxiety, 0 Refills, Maintenance, 09/14/18 4:13:20 EST Start Date: 09/14/18 Status: Ordered empagliflozin 25 mg oral tablet 1 tablet = 25 mg, By Mouth, Daily in AM, # 90 tablet, 2 Refills, Maintenance, 12/09/23 17:07:00 EDT, Tablet, [facility]/pharmacy #[id number], Partial fill upon patient request if the prescription is for a schedule II opioid drug., 155, cm, 11/26/23 12:44:00 EDT, H... Start Date: 12/09/23 Status: Ordered FreeStyle Sandra 2 Sensor FreeStyle [...] sandra 2 1 SENSOR EVERY 14 DAYS, 12/17/23 9:46:00 EDT, Supply, 155, cm, 12/10/23 14:21:00 EDT, Height, 66.8, kg, 11/17/23 17:36... Start Date: 12/17/23 Stop Date: 06/14/24 Status: Ordered FREESTYLE LITE TEST STRIP FREESTYLE [...] 3 Refills, Maintenance, 03/21/24 13:43:00 EDT, Injection, [facility]/pharmacy #[id number], Partial fill upon patient request if the prescription is for a schedule II opioid drug., 154.94, cm, 06/29/23... Start Date: 03/21/24 Stop Date: 03/16/25 Status: Ordered metoprolol 50 mg oral tablet, extended release 50 mg, 1, tablet, By Mouth, Daily, # 90 tablet, Refills 0, Tot. Refills 0, Maintenance, 11/26/23 14:19:00 EDT, Route to Pharmacy Electronically, [facility]/pharmacy #[id number], Partial fill upon patient request if the prescription is for a schedule II opioid drug... Start Date: 11/26/23 Stop Date: 02/24/24 Status: Ordered NovoLOG FlexPen 100 units/mL subcutaneous solution = 10 units, Subcutaneous Injection, 3 times a day with meals, # 3 mL, 4 Refills, Maintenance, 03/27/23 13:44:00 EDT, Solution, [facility]/pharmacy #[id number], Partial fill upon patient request if the prescription is for a schedule II opioid drug., 154.94, cm, ... Start Date: 03/27/23 Status: Ordered NuLYTELY Lemon [place] oral powder for reconstitution 4 L, By Mouth, Once, until 4 liters are consumed or the rectal effluent is clear for colonoscopy, #1 each, 0 Refills, Soft Stop, 06/12/23 16:51:00 EDT, [facility]/pharmacy #[id number], Partial fill upon patient [...] Weight Start Date: 11/28/20 Status: Ordered Pen [place], 30 G x 8 mm BD Ultra [...] mL, 3 Refills, Maintenance, 11/21/23 4:13:00 EDT, [facility]/pharmacy #[id number], Partial fill upon patient [...] Diagnosis Diagnosis Type Effective Dates Health Status Clini david Service Informant Neck pain Discharge Diagnosis 12/10/23 Vital Signs Most recent to oldest [Reference Range]: 1 2 Height 155 cm (12/10/23 2:21 PM) 155 cm (12/10/23 2:08 PM) Weight 66.8 kg (12/10/23 2:08 PM) Oxygen Saturation [94-100 %] 98 % (12/10/23 2:08 PM) Pulse Rate [55-90 bpm] 99 bpm *H* (12/10/23 2:08 PM) Body Mass Index [18.5-24.99 kg/m2] 27.8 kg/m2 *H* (12/10/23 2:08 PM) Blood Pressure [90-138/55-84 mm Hg] 100/ 68mm Hg (12/10/23 2:21 PM) 101/69mm Hg (12/10/23 2:08 PM) Temperature [96.8-100.4 DegF] 97.9 DegF (12/10/23 2:08 PM) Mode of Delivery (Oxygen) Room air (12/10/23 2:08 PM) Blood pressure sites Arm, left (12/10/23 2:21 PM) Arm, left (12/10/23 2:08 PM) Temperature Route Oral (12/10/23 2:08 PM) Weight Obtained Via Standing scale (12/10/23 2:08 PM) Social History Social History Type Response Tobacco Use: 4 or less cigar ettes(less than 1/4 pack)/day in last 30 days. Sex Note * Moriah Cruz: PERFORM, SIGN, VERIFY Event Display: Patient Education/Instruction Authored Date: [id number] [facility] *[facility] Clinical Summary Name QUAN ALONZO Age 53 Years 1970 [facility]CP [facility]aran[id number] Visit Date 12/10/2023 13:18:00 Additional Instructions: Scheduled Appointments?? Future Appointments ?Diabetic??[facility] ?Phone:??--?Fax:??-- ?Appt. Date:??12/16/2023?11:00 AM ?Scheduled Provider:??Bernie , Stephanie ?*[facility] ?[address],??[address] ?Phone:??[phone]?Fax:??-- ?Appt. Date:??01/29/2024?9:00 AM ?Scheduled Provider:??Marcella ALVAREZ, Tasha Rutledge ?[facility] ?Phone:??--?Fax:??-- ?Appt. Date:??02/02/2024?9:00 AM ?Scheduled Provider:??Yaniv KILGORE, Raymond ?*[facility] ?[address]??[place],??[place],??[address] ?Phone:??--?Fax:??-- ?Appt. Date:??02/12/2024?7:45 AM ?Scheduled Provider:??Oh KILGORE, Stanislaw ?*[facility] ?[address]??[place],??[place],??[address] ?Phone:??--?Fax:??-- ?Appt. Date:??02/24/2024?4:15 PM ?Scheduled Provider:??Raymond Purvis MD Follow-Up Instructions ?? Diagnosis Cervicalgia Medications: Please continue your medications until treatment is completed or stopped by your provider. Discuss any questions related to medications with your provider. Medications to Continue with No Changes These medications were not printed or sent to your pharmacy Clonazepam (clonazePAM 1 mg oral tablet) 2 tab(s) Oral twice a day as needed Anxiety. Next Dose: dulaglutide (Trulicity Pen 0.75 mg/0.5 mL subcutaneous solution) 1.5 Milligram Subcutaneous Infusion every week for 90 Days. take 2 dose at a time to make it 1.5mg per week. 90 days supplies.. Refills: 3. Next Dose: Durable Medical Equipment (FreeStyle Sandra [...] 3. Next Dose: Durable Medical Equipment (Pen [place], 30 G x 8 mm [place] Ultra Fine II) DMII E11.9 Use for insulin injection four times per day. Refills: 11. Next Dose: empagliflozin (empagliflozin 25 mg oral tablet) 1 tab(s) Oral Daily in the morning. Refills: 2. Next Dose: Insulin Aspart (NovoLOG FlexPen 100 units/mL subcutaneous solution) 10 unit(s) Subcutaneous Injection 3 times a day with meals. Refills: 4. Next Dose: Insulin Glargine (Lantus Solostar Pen 100 units/mL subcutaneous solution) 35 unit(s) Subcutaneous Injection Daily at Bedtime for 90 Days. Refills: 3. Next Dose: Metoprolol (metoprolol 50 mg oral tablet, extended release) 1 tab(s) Oral Daily for 90 Days. Refills: 0. Next Dose: Miscellaneous Rx (FREESTYLE LITE TEST STRIP) DMII E11.9 TESTING BLOOD SUGAR 3 TIMES A DAY. Refills:3. Next Dose: Pantoprazole (pantoprazole 40 mg oral delayed release tablet) 1 tab(s) Oral twice a day. Refills: 4. Next Dose: PEG Electrolyte Solution (NuLYTELY Lemon [place] oral powder for reconstitution) 4 Liter Oral once. until 4 liters are consumed or the rectal effluent is clear for colonoscopy. Refills: 0. Next Dose: Quetiapine (QUEtiapine 300 mg oral tablet) 2 tab(s) Oral Daily at Bedtime. Next Dose: Allergy Info:?? NKA Medications Given This Visit Future Orders ?No future orders Future Orders ?No future orders Vital Signs Height 155 cm Weight 66.8 kg BMI 27.8 kg/m2 Blood Pressure 100 mm Hg/68 mm Hg Temperature 97.9 DegF Pulse Rate 99 bpm Respiratory Rate 02 Sat Mode of Delivery 98 %/Room air You can now view a summary of your hospital visit from the comfort of your home through a free online portal called [email or web address]. [email or web address] is a website that allows you to securely view your medical information including discharge summary, medications and follow-up visits. ??You can alsosend a secure electronic message to your doctor???s office to request appointments, renew medications or just ask a question. You can enroll at [email or web address] or register during your next office visit. [...] primary care provider, you may find a [facility] provider by calling [facility] at [phone]. [facility], in keeping with [facility] guidance, no longer requires face masks [...] Team Personnel Name: Laurie Castellanos RN Position: [facility] Nurse Member Role: Primary Care Nurse Name: Ave Benedict NP Position: [facility] Associate Professional Member Role: Primary Care Nurse Address: Address: [address] [place] [address]- [place] Name: Thao Preciado RN Position: [facility] Nurse Member Role: Primary Care Nurse Name: Antoinette Chua [facility] Associate Professional Member Role: Primary Care Nurse Address: Address: [address] [place] [address]- [place] Name: Tasha Naranjo NP [facility] Associate Professional Member Role: PCP Address: Address: [address] [facility] 3rd [place] [address]- [place] Name: Madeleine Maki RN Position: [facility] RN Member Role: Primary Care Nurse Name: Solange Buchanan RN Position: [facility] Test Evaluator Member Role: Primary Care Nurse Care Team Related Persons Name: BATSHEVAMARCELADENA Address: home [address] [place] [address] Name: ANTUNEZ, GONZALO Address: home [address] [place] [address] [place] [address]
--- OUTSIDE RECORDS SUMMARY | 2024-03-01 08:59 | XMS_ITS | Continuity of Care Document ---
Author Organization [facility] Adult Address [address] [place] [address]- Care Team Providers Care Application Support Name Role Phone Marcella ALVAREZ, Tasha Rutledge Primary Care Physician Encounter [facility] [place] Date(s): 11/23/23 - 12/23/23 [facility] Adult [address] [place] [address]- Allergies, Adverse Reactions, Alerts No Known Allergies [...] 2 Refills, Maintenance, 12/09/23 17:07:00 EDT, Tablet, [id number], Partial fill upon [...] 3 Refills, Maintenance, 03/21/24 13:43:00 EDT, Injection, [facility]/pharmacy #[id number], Partial fill upon patient request if the prescription is for a schedule II opioid drug., 154.94, cm, 06/29/23... Start Date: 03/21/24 Stop Date: 03/16/25 Status: Ordered metoprolol 50 mg oral tablet, extended release 50 mg, 1, tablet, By Mouth, Daily, for 90 days, # 90 tablet, Refills 0, Tot. Refills 0, Hard Stop 02/24/24 14:19:00 EDT, 11/26/23 14:19:00 EDT, Route to Pharmacy Electronically, [facility]/pharmacy #[id number], Partial fill upon patient request if the prescription... Start Date: 11/26/23 Stop Date: 02/24/24 Status: Ordered metoprolol 50 mg oral tablet, extended release 50 mg, 1, tablet, By Mouth, Daily, # 90 tablet, Refills 0, Tot. Refills 0, Maintenance, 02/24/24 14:19:00 EDT, Route to Pharmacy Electronically, [facility]/pharmacy #[id number], Partial fill upon patient request if the prescription is for a schedule II opioid drug... Start Date: 02/24/24 Stop Date: 05/24/24 Status: Ordered Metoprolol Succinate ER 50 mg oral tablet, extended release TAKE 1 TABLET BY MOUTH EVERY DAY Start Date: 12/21/23 Status: Ordered NovoLOG FlexPen 100 units/mL subcutaneous solution = 10 units, Subcutaneous Injection, 3 times a day with meals, # 3 mL, 4 Refills, Maintenance, 03/27/23 13:44:00 EDT, Solution, [facility]/pharmacy #[id number], Partial fill upon patient request if the prescription is for a schedule II opioid drug., 154.94, cm, .. Start Date: 03/27/23 Status: Ordered NuLYTELY [place] oral powder for reconstitution 4 L, By Mouth, Once, until 4 liters are consumed or the rectal effluent is clear for colonoscopy, #1 each, 0 Refills, Soft Stop, 06/12/23 16:51:00 EDT, [facility]/pharmacy #[id number], Partial fill upon [...] Weight Start Date: 11/28/20 Status: Ordered Pen [place], 30 G x 8 mm BD Ultra [...] mL, 3 Refills, Maintenance, 11/21/23 4:13:00 EDT, [facility]/pharmacy #[id number], Partial fill upon [...] steatosis Confirmed Active Takotsubo cardiomyopathy Confirmed Active Social History Social History Type Response Tobacco Use: 4 or less cigar ettes(less than 1/4 pack)/day in last 30 days. Sex Patient Care team information Care Team Personnel Name: Laurie Castellanos RN Position: [facility] Nurse Member Role: Primary Care Nurse Name: Marichuy ALVAREZ, Ave Felipe Position: [facility] Associate Professional Member Role: Primary Care Nurse Address: Address: [address] [place] [address]- [place] Name: Thao Preciado RN Position: [facility] Nurse Member Role: Primary Care Nurse Name: Harshil ALVAREZ, Antoinette Wang Position: [facility] Associate Professional Member Role: Primary Care Nurse Address: Address: [address] [place] [address]- [place] Name: Tasha Naranjo NP Position: [facility] Associate Professional Member Role: PCP Address: Address: [address] [facility] [address] [place] [address]- [place] Name: Madeleine Maki RN Position: [facility] RN Member Role: Primary Care Nurse Name: Solange Buchanan RN Position: [facility] Utility Locate Technician Member Role: Primary Care Nurse Care Team Related Persons Name: DEBORAH HERMAN Address: home [address] [place] [address] Name: GONZALO ANTUNEZ Address: [address] [address]
--- OUTSIDE RECORDS SUMMARY | 2024-03-01 08:59 | XMS_ITS | Continuity of Care Document ---
Author Organization [facility] ter Address [address] [place] [address]- Care Team Providers Care Sales Representative Consultant Name Role Phone Tasha Naranjo NP Primary Care Physician [place] [facility] [place] - 02/26/[address] [address]- Encounter Diagnosis Abdominal pain(Final) - 02/26/24 Chest pressure(Final) - 02/26/24 Vomiting(Final) - 02/26/24 Gastroparesis(Final) - 02/26/24 Discharge Disposition: A-D/C Home Attending Physician: Quintin Guerrero MD Admitting Physician: Quintin Guerrero MD Referring Physician: Not on Staff, Referring MD [...] Refills, Maintenance, 12/09/23 17:07:00 EDT, Tablet, [id number], Partial fill upon patient request if the prescription is for a schedule II opioid drug., 155, cm, 11/26/23 12:44:00 EDT, H... Start Date: 12/09/23 Status: Ordered Freestyle Sandra 3 [place] Freestyle Sandra 3 [place], See Instructions, # 1 each, Refills 0, Tot. Refills 0, Maintenance, Use as directed for Diabetes Control, 01/12/24 11:46:00 EDT, Supply, 155, cm, 12/10/23 14:21:00 EDT, Height, 66.8, kg, 11/17/23 17:36:00 EDT, Dry Weight Start Date: 01/12/24 Status: Ordered Freestyle Sandra 3 sensors Freestyle Sandra 3 sensors, See Instructions, # 6 each, Refills 3, Tot. Refills 3, Maintenance, Place new sensor every 14 days to monitor glucose. E11.65, 01/06/24 12:34:00 EDT, Supply, 155, cm, 12/10/23 14:21:00 EDT, Height, 66.8, kg, 11/17/23 17:36:0... Start Date: 01/06/24 Status: Ordered Freestyle Sandra Monitor See Instructions, # 1 each, Refills 0, Tot. Refills 0, Maintenance, use as directed for dx type 2 diabetes mellitus (E11.9), 12/31/22 9:51:00 EDT, Supply, 154.94, cm, 12/31/22 9:18:00 EDT, Height Start Date: 12/31/22 Stop Date: 01/30/23 Status: Ordered Imitrex 50 mg oral tablet 1 tablet = 50 mg, By Mouth, Daily, PRN for migraine headache, for 30 days, may repeat dose after 2 hours up to a maximum of 2, # 9 tablet, 6 Refills, Acute 09/08/24 10:29:00 EST, 02/11/24 10:29:00 EDT, Tablet, [facility]/pharmacy #[id number], Partial fill upon pat... Start Date: 02/11/24 Stop Date: 09/08/24 Status: Ordered Lantus Solostar Pen 100 units/mL subcutaneous solution = 35 units, Subcutaneous Injection, Daily at bedtime, # 15 mL, 3 Refills, Maintenance, 03/21/24 13:43:00 EDT, Injection, [facility]/pharmacy #[id number], Partial fill upon patient request if the prescription is for a schedule II opioid drug., 154.94, cm, 06/29/23... Start Date: 03/21/24 Stop Date: 03/16/25 Status: Ordered NovoLOG FlexPen 100 units/mL subcutaneous solution = 10 units, Subcutaneous Injection, 3 times a day with meals, # 3 mL, 4 Refills, Maintenance, 03/27/23 13:44:00 EDT, Solution, [facility]/pharmacy #[id number], Partial fill upon patient request if the [...] Weight Start Date: 11/28/20 Status: Ordered Pen [place], 30 G x 8 mm BD Ultra Fine II See Instructions, # 200 each, Refills 11, Tot. Refills 11, Maintenance, DMII E11.9 Use for insulin injection four times per day, 06/24/23 16:35:00 EDT, 90 day supply, Supply, 154.94, cm, 06/24/23 15:59:00 EDT, Height Start Date: 06/24/23 Stop Date: 06/08/26 Status: Ordered QUEtiapine 100 mg oral tablet 100 mg, 1, tablet, By Mouth, 2 times a day, # 180 tablet, Refills 0, Maintenance, 02/11/24 9:58:00 EDT, Partial fill upon patient request if the prescription is for a schedule II opioid drug. Start Date: 02/11/24 Status: Ordered QUEtiapine 300 mg oral tablet [...] mL, 3 Refills, Maintenance, 11/21/23 4:13:00 EDT, [id number], Partial fill upon patient [...] gastroparesis Confirmed Active Heart failure Confirmed Active Migraine headache Confirmed Active Anxiety and depression Confirmed Active Nausea and vomiting Confirmed Active OCD (obsessive compulsive disorder) Confirmed Active Poor historian Confirmed Active PTSD (post-traumatic stress disorder) Confirmed Active Hepatic steatosis Confirmed Active Takotsubo cardiomyopathy Confirmed Active Results Radiology Reports * Exam Date Time Procedure Performing Provider Status 02/26/24 4:02 AM Chest 2 Views Frontal and Lat Richie Willingham; Kimberly (Verified) Notes: (Chest 2 Views Frontal and Lat) Reason For Exam: Shortness of Breath, Fever;Other: RESULT: Chest 2 Views Frontal and Lat Chest 2 Views Frontal and Lat Hx of Present Illness: chest pain sob epigastric pain since evening. hx gastroporesis. vomiting at home. asa given by ems; Reason: Other:; Shortness of Breath, Fever; Clinical Question(s): Pneumonia COMPARISON: 10/31/2019 FINDINGS: LINES AND TUBES: None. LUNGS AND PLEURA: Clear lungs. Normal pulmonary vascularity. No pleural effusion. No pneumothorax. HEART, MEDIASTINUM AND KARYN: Heart is normal in size. Normal mediastinal and hilar contour. BONES AND SOFT TISSUES: No acute abnormality. IMPRESSION: No acute abnormality. WSN: [id number] Ordering Physician: Mert Sloan Dictated By: Thee Sykes MD Dictated Date/Time: 02/26/24 7:51 am Reviewed By: Thee Sykes MD Signed By: Thee Sykes MD Signed Date/Time: 02/26/24 7:51 am Transcribed By: ROSIE Transcribed Date/Time: 02/26/24 7:51 am Vital Signs Most recent to oldest [Reference Range]: 1 2 3 Oxygen Saturation [94-100 %] 98 % (02/26/24 7:58 AM) 99 % (02/26/24 6:58 AM) 99 % (02/26/24 5:07 AM) Pulse Rate [55-90 bpm] 87 bpm (02/26/24 7:58 AM) 88 bpm (02/26/24 6:58 AM) 92 bpm *H* (02/26/24 5:07 AM) Blood Pressure [90-138/55-84 mm Hg] 118/77mm Hg (02/26/24 7:58 AM) 115/86mm Hg (02/26/24 6:58 AM) 105/71mm Hg (02/26/24 5:07 AM) Respiratory Rate [16-30 br/min] 14 br/min *L* (02/26/24 7:58 AM) 14 br/min *L* (02/26/24 6:58 AM) 16 br/min (02/26/24 5:07 AM) Temperature [96.8-100.4 DegF] 97.9 DegF (02/26/24 3:32 AM) Mode of Delivery (Oxygen) Room air (02/26/24 7:58 AM) Room air (02/26/24 6:58 AM) Room air (02/26/24 5:07 AM) Blood pressure sites Arm, left (02/26/24 7:58 AM) Arm, right (02/26/24 6:58 AM) Arm, left (02/26/24 5:07 AM) Temperature Route Oral (02/26/24 3:32 AM) Social History Social History Type Response Tobacco Use: 4 or less cigar ettes(less than 1/4 pack)/day in last 30 days. Sex EKG study * Event Display: ECG 12-Lead Authored Date: [id number] Please click on pdf link to open report * Event Display: ECG 12-Lead Authored Date: [id number] Ventricular Rate: 105 BPM Atrial Rate: 105 BPM P-R Interval: 160 ms QRS Duration: 66 ms Q-T Interval: 382 ms QTC Calculation(Bazett): 504 ms P [place]: 58 degrees R [place]: 38 degrees T [place]: 53 degrees Sinus tachycardia Otherwise normal ECG When compared with ECG of 21-FEB-2024 21:17, No significant change was found Confirmed by [place] ([id number]) on 02/26/2024 7:03:00 AM [place]: [place] * Event Display: EKG Authored Date: [id number] Note * Mert Sloan DO: PERFORM Event Display: Patient Education Leaflets Authored Date: [id number] Diabetic Gastroparesis ?? [id number] Diabetic Gastroparesis Gastroparesis,??or??delayed gastric emptying,??is when food moves through the stomach more slowly than normal. In someone with diabetes, it???s caused by damage to the vagus nerve because of chronic high blood sugar. (Other chronic diseases may also cause gastroparesis.) The vagus nerve helps control how food moves through the digestive system. When this nerve is damaged, the movement of food is slowed down or stopped. Food that stays in the stomach for too long can cause problems. Food can ferment in the stomach, causing bacteria to grow. Undigested food can also harden into masses called bezoars. These can cause nausea and vomiting. In some cases, they may block food from passing from the stomach to the small intestine. Gastroparesis can make it hard to manage blood sugar levels. That's because it is hard to predict when a meal will actually leave the stomach to be digested. It can also cause problems with vitamins and minerals being absorbed into the body as well as maintaining a healthy weight. Symptoms of diabetic gastroparesis are: ??? Nausea ??? Vomiting ??? Feeling full after eating a small amount of food ??? Stomach??pain or cramps ??? Heartburn ??? Stomach??bloating ??? Weight loss ??? Loss of appetite ??? High or low bloodsugar levels There are several different tests and studies that can??help diagnose gastroparesis. For many people, gastroparesis is a lifelong health problem. Managing it will likely include changes in how you eat. You may be prescribed medicine to help with blood sugar levels,??help your symptoms like nausea and vomiting, or act on muscles in the digestive system. Certain medicines??that are otherwise very effective for diabetes can make gastroparesis worse and shouldn't be taken.??In severecases, surgery to put in??a feeding tube may be needed. Or a special device may be implanted to encourage the stomach muscles to contract. Home care These changes may help ease??your symptoms: ??? Take prescribed medicines exactly as directed. ??? Eat a liquid or soft diet if advised. ??? Eat frequent small meals instead of less frequent large meals. ??? Stay away from??foods that are high in fat??(such as whole milk, cheese, and fried foods)??or fiber??(such as beans, and many fruits and vegetables). These can slow digestion. ??? Always control your blood sugar levels as well as possible as directed by your healthcare provider. ?? Follow-up care Follow up with your healthcare provider as advised. Regular visits may be needed to manage gastroparesis. ?? When to get medical advice Call your healthcare provider right away if any of these occur: ??? Severe pain in your belly (abdomen) ??? Inability to keep down food or liquids ??? Weight loss ??? Other symptoms as directed by your healthcare provider ?? Last Reviewed Date: 2022 ?? [id number] [employer]. All rights reserved. This information is not intended as a substitute for professional medical care. Always follow your healthcare professional's instructions. ?? Patient Care team information Care Team Personnel Name: Laurie Castellanos RN Position: [facility] Nurse Member Role: Primary Care Nurse Name: Ave Benedict NP Position: [facility] Associate Professional Member Role: Primary Care Nurse Name: Thao Preciado RN Position: [facility] Nurse Member Role: Primary Care Nurse Name: Antoinette Chua NP Position: [facility] Associate Professional Member Role: Primary Care Nurse Address: Address: [address] [place] [address]- Name: Tasha Naranjo NP Position: [facility] Associate Professional Member Role: PCP Address: Address: [address] [place] [address] [address]rd [place] [address]- [place] Name: Madeleine Maki RN Position: [facility] RN Member Role: Primary Care Nurse Name: Solange Buchanan RN Position: [facility] Assistant Manager Quality Management Member Role: Primary Care Nurse Care Team Related Persons Name: DEBORAH HERMAN Address: [address] [place] [address] Name: GONZALO ANTUNEZ Address: home [address] [address]
--- OUTSIDE RECORDS SUMMARY | 2024-03-01 09:00 | XMS_ITS | Continuity of Care Document ---
Author Organization [facility] Adult Address [address] [place] [address]- Care Team Providers Care Plastic Surgeon Name Role Phone Marcella ALVAREZ, Tasha Rutledge Primary Care Physician Encounter [facility] [place] Date(s): 12/22/23 - 01/21/24 [facility] Adult [address] [place] [address]- Allergies, Adverse Reactions, Alerts No Known Allergies [...] Date: 12/09/23 Status: Ordered Freestyle Sandra 3 [place] Freestyle Sandra 3 [place], See Instructions, # 1 each, Refills 0, [...] Date: 12/31/22 Stop Date: 01/30/23 Status: Ordered Lantus Solostar Pen 100 units/mL subcutaneous solution = 35 units, Subcutaneous Injection, Daily at bedtime, # 15 mL, 3 Refills, Maintenance, 03/21/24 13:43:00 EDT, Injection, [facility]/pharmacy #[id number], Partial fill upon patient request [...] 11/26/23 14:19:00 EDT, Route to Pharmacy Electronically, [facility]/pharmacy #[id number], Partial fill upon patient request if the prescription... Start Date: 11/26/23 Stop Date: 02/24/24 Status: Ordered metoprolol 50 mg oral tablet, extended release 50 mg, 1, tablet, By Mouth, Daily, # 90 tablet, Refills 0, Tot. Refills 0, Maintenance, 02/24/24 14:19:00 EDT, Route to Pharmacy Electronically, [facility]/pharmacy #[id number], Partial fill upon patient request [...] Refills, Maintenance, 03/27/23 13:44:00 EDT, Solution, [facility]/pharmacy #[id number], Partial fill upon patient request if the prescription is for a schedule II opioid drug., 154.94, cm, .. Start Date: 03/27/23 Status: Ordered NuLYTELY Lemon [place] oral powder for reconstitution 4 L, By [...] Weight Start Date: 11/28/20 Status: Ordered Pen [place], 30 G x 8 mm BD Ultra [...] mL, 3 Refills, Maintenance, 11/21/23 4:13:00 EDT, [facility]/pharmacy #[id number], Partial fill upon patient request [...] Personnel Name: Laurie Castellanos RN Position: [facility] Nurse Member Role: Primary Care Nurse Name: Marichuy ALVAREZ, Ave Felipe Position: [facility] Associate Professional Member Role: Primary Care Nurse Name: Thao Preciado RN Position: [facility] Nurse Member Role: Primary Care Nurse Name: Harshil ALVAREZ, Antoinette Wang Position: [facility] Associate Professional Member Role: Primary Care Nurse Address: Address: [address] [place] [address]- Name: Tasha Naranjo NP Position: [facility] Associate Professional Member Role: PCP Address: Address: [address] [place] [address] [address] [place] [address]- Name: Madeleine Maki RN Position: [facility] RN Member Role: Primary Care Nurse Name: Solange Buchanan RN Position: [facility] Passenger Coach Driver Member Role: Primary Care Nurse Care Team Related Persons Name: DEBORAH HERMAN Address: home [address] [place] [address] Name: GONZALO ANTUNEZ Address: [address] [address]
--- OUTSIDE RECORDS SUMMARY | 2024-03-01 09:00 | XMS_ITS | Continuity of Care Document ---
Author Organization [facility] Adult Address [address] [place] [address]- Care Team Providers Care Milk Route Deliverer Name Role Phone Marcella ALVAREZ, Tasha Rutledge Primary Care Physician [phone] Encounter [facility] [place] Date(s): 12/04/23 - 01/03/24 [facility] Adult [address] [place] [address]- Allergies, Adverse Reactions, Alerts No Known Allergies [...] Refills, Maintenance, 12/09/23 17:07:00 EDT, Tablet, [id number], Partial fill upon patient request if the [...] Start Date: 06/24/23 Status: Ordered Freestyle Sandra 3 sensors Freestyle Sandra 3 sensors, See Instructions, # 6 each, Refills 3, Tot. Refills 3, Maintenance, Place new sensor every 14 days to monitor glucose. E11.65, 01/01/24 10:32:00 EDT, Supply, 155, cm, 12/10/23 14:21:00 EDT, Height, 66.8, kg, 11/17/23 17:36:0... Start Date: 01/01/24 Status: Ordered Freestyle [place] Monitor See Instructions, [...] 3 Refills, Maintenance, 03/21/24 13:43:00 EDT, Injection, [facility]/pharmacy #[id number], Partial fill upon patient request if the prescription is for a schedule II opioid drug., 154.94, cm, 06/29/23... Start Date: 03/21/24 Stop Date: 03/16/25 Status: Ordered metoprolol 50 mg oral tablet, extended release 50 mg, 1, tablet, By Mouth, Daily, for 90 days, # 90 tablet, Refills 0, Tot. Refills 0, Hard Stop 02/24/24 14:19:00 EDT, 11/26/23 14:19:00 EDT, Route to Pharmacy Electronically, [facility]/pharmacy #[id number], Partial fill upon patient request if the prescription... Start Date: 11/26/23 Stop Date: 02/24/24 Status: Ordered metoprolol 50 mg oral tablet, extended release 50 mg, 1, tablet, By Mouth, Daily, # 90 tablet, Refills 0, Tot. Refills 0, Maintenance, 02/24/24 14:19:00 EDT, Route to Pharmacy Electronically, [facility]/pharmacy #[id number], Partial fill upon patient request if [...] Refills, Maintenance, 03/27/23 13:44:00 EDT, Solution, [facility]/pharmacy #[id number], Partial fill upon patient request if the prescription is for a schedule II opioid drug., 154.94, cm, ... Start Date: 03/27/23 Status: Ordered NuLYTELY Lemon [place] oral powder for reconstitution 4 L, By [...] Weight Start Date: 11/28/20 Status: Ordered Pen [place], 30 G x 8 mm BD Ultra [...] mL, 3 Refills, Maintenance, 11/21/23 4:13:00 EDT, [facility]/pharmacy #[id number], Partial fill upon patient request if [...] Team Personnel Name: Laurie Castellanos RN Position: [facility] Nurse Member Role: Primary Care Nurse Name: Ave Benedict NP Position: [facility] Associate Professional Member Role: Primary Care Nurse Name: Thao Preciado RN Position: [facility] Nurse Member Role: Primary Care Nurse Name: Antoinette Chua NP Position: [facility] Associate Professional Member Role: Primary Care Nurse Address: Address: [address] [place] [address]- Name: Tasha Naranjo NP Position: [facility] Associate Professional Member Role: PCP Address: Address: [address] [place] [address] 3rd [place] [address]- [place] Name: Madeleine Maki RN Position: [facility] RN Member Role: Primary Care Nurse Name: Solange Buchanan RN Position: [facility] Hospital Inset Cutter Member Role: Primary Care Nurse Care Team Related Persons Name: DEBORAH HERMAN Address: [address] [place] [address] Name: GONZALO ANTUNEZ Address: home [address] [address]
--- OUTSIDE RECORDS SUMMARY | 2024-03-01 09:01 | XMS_ITS | Continuity of Care Document ---
Author Organization [facility] Adult Address [address] [place] [address]- Care Team Providers Care Rod Hanger Name Role Phone Marcella ALVAREZ, Tasha Rutledge Primary Care Physician [phone] Encounter [facility] [place] Date(s): 12/03/23 - 01/02/24 [facility] Adult [address] [place] [address]- Allergies, Adverse Reactions, Alerts No Known Allergies [...] Refills, Maintenance, 12/09/23 17:07:00 EDT, Tablet, [id number], Partial fill upon patient request if the [...] 3 Refills, Maintenance, 03/21/24 13:43:00 EDT, Injection, [facility]/pharmacy #[id number], Partial fill upon patient request if the prescription is for a schedule II opioid drug., 154.94, cm, 06/29/23... Start Date: 03/21/24 Stop Date: 03/16/25 Status: Ordered metoprolol 50 mg oral tablet, extended release 50 mg, 1, tablet, By Mouth, Daily, for 90 days, # 90 tablet, Refills 0, Tot. Refills 0, Hard Stop 02/24/24 14:19:00 EDT, 11/26/23 14:19:00 EDT, Route to Pharmacy Electronically, [facility]/pharmacy #0957, Partial fill upon patient request if the prescription... Start Date: 11/26/23 Stop Date: 02/24/24 Status: Ordered metoprolol 50 mg oral tablet, extended release 50 mg, 1, tablet, By Mouth, Daily, # 90 tablet, Refills 0, Tot. Refills 0, Maintenance, 02/24/24 14:19:00 EDT, Route to Pharmacy Electronically, [facility]/pharmacy #0957, Partial fill upon patient [...] 4 Refills, Maintenance, 03/27/23 13:44:00 EDT, Solution, [facility]/pharmacy #0957, Partial fill upon patient request if the prescription is for a schedule II opioid drug., 154.94, cm, ... Start Date: 03/27/23 Status: Ordered NuLYTELY Lemon [place] oral powder for reconstitution 4 L, By [...] Weight Start Date: 11/28/20 Status: Ordered Pen [place], 30 G x 8 mm BD Ultra [...] mL, 3 Refills, Maintenance, 11/21/23 4:13:00 EDT, [facility]/pharmacy #0957, Partial fill upon patient [...] Care Nurse Name: Ave Benedict NP Position: [facility] Associate Professional Member Role: Primary Care Nurse Name: Thao Preciado RN Position: [facility] Nurse Member Role: Primary Care Nurse Name: Antoinette Chua NP Position: [facility] Associate Professional Member Role: Primary Care Nurse Address: Address: [address] [place] [address]- Name: Tasha Naranjo NP Position: [facility] Associate Professional Member Role: PCP Address: Address: [address] [place] [address] 3rd [place] [address]- [place] Name: Madeleine Maki RN Position: [facility] RN Member Role: Primary Care Nurse Name: Solange Buchanan RN Position: [facility] Hospital Special Inspector Member Role: Primary Care Nurse Care Team Related Persons Name: DEBORAH HERMAN Address: home [address] [place] [address] Name: GONZALO ANTUNEZ Address: home [address] [address]
--- OUTSIDE RECORDS SUMMARY | 2024-03-01 09:01 | XMS_ITS | Continuity of Care Document ---
Author Organization [facility] ter Address [address] [place] [address]- Care Team Providers Care Paper Gluing Operator Name Role Phone Tasha Naranjo NP Primary Care Physician Encounter [facility] [place] Date(s): 02/21/24 - 02/21/[address] [address]- Encounter Diagnosis Abdominal pain(Final) - 02/21/24 Nausea(Final) - 02/21/24 Vomiting(Final) - 02/21/24 Diarrhea(Final) - 02/21/24 Discharge Disposition: A-D/C Home Attending Physician: Nahum Montgomery MD Admitting Physician: Nahum Montgomery MD Referring Physician: Not on Staff, Referring [...] Refills, Maintenance, 12/09/23 17:07:00 EDT, Tablet, [id number], Partial fill upon patient request if the prescription is for a schedule II opioid drug., 155, cm, 11/26/23 12:44:00 EDT, H... Start Date: 12/09/23 Status: Ordered Freestyle Sandra 3 [place] Freestyle Sandra 3 [place], See Instructions, # 1 each, Refills 0, [...] 09/08/24 10:29:00 EST, 02/11/24 10:29:00 EDT, Tablet, [facility]/pharmacy #[id number], Partial fill upon pat... Start Date: 02/11/24 Stop Date: 09/08/24 Status: Ordered Lantus Solostar Pen 100 units/mL subcutaneous solution = 35 units, Subcutaneous Injection, Daily at bedtime, # 15 mL, 3 Refills, Maintenance, 03/21/24 13:43:00 EDT, Injection, [facility]/pharmacy #0962, Partial fill upon patient request if the prescription is for a schedule II opioid drug., 154.94, cm, 06/29/23... Start Date: 03/21/24 Stop Date: 03/16/25 Status: Ordered MorPHINE Inj 4 mg, Injection, IV Push Slowly, Every 5 minutes for 3 doses/times, PRN for Pain , Moderate, and SBP greater than 100, Routine, 02/21/24 17:34:00 EDT, Stop date Limited # of times Start Date: 02/21/24 Status: Ordered NovoLOG FlexPen 100 units/mL subcutaneous solution = 10 units, Subcutaneous Injection, 3 times a day with meals, # 3 mL, 4 Refills, Maintenance, 03/27/23 13:44:00 EDT, Solution, [facility]/pharmacy #0977, Partial fill upon patient request if the [...] Weight Start Date: 11/28/20 Status: Ordered Pen [place], 30 G x 8 mm BD Ultra [...] Exam Date Time Procedure Performing Provider Status 02/21/24 7:[address] Abd/Pelvis W/ IV Contrast Only Jalb ert , Vera; Auth (Verified) Notes: (CT Abd/Pelvis W/ IV Contrast Only) Reason For Exam: epigastric abdominal pain, recent colonoscopy,?perf;Other: RESULT: CT Abd/Pelvis W/ IV Contrast Only CT Abd/Pelvis W/ IV Contrast Only REASON: epigastric abdominal pain, vomiting, diarrhea; recent colonoscopy, ?perf; Clinical Question(s): Bowel Perforation; TECHNIQUE: Spiral CT through the abdomen and pelvis with IV contrast formatted in 3 planes. 100 cc of Omnipaque 300 was administered intravenously. This study was performed without oral contrast. Weight-based protocol using automatic tube modulation was used to optimize exposure parameters. CTDIvol Body: 10.70 mGy, DLP Body: 607 mGy*cm. COMPARISON: CT abdomen/pelvis-07/26/2020. FINDINGS: Cryptographer View Findings, Lines and Tubes: None. Visualized Chest: Bibasilar dependent atelectasis. No pleural effusion. The visualized portion of the heart is unremarkable. No pericardial effusion. Diaphragm: Intact. Liver: Diffuse low-attenuation throughout the liver parenchyma consistent with hepatic steatosis. Hypodense focus adjacent to the falciform ligament likely represents focal fatty infiltration. No evidence of mass. Gallbladder: Absent consistent with prior cholecystectomy. Bile ducts: No biliary ductal dilation. Spleen: Normal. Pancreas: Normal. Adrenal glands: Unchanged 1.1 cm left adrenal nodule (601:30). Normal right adrenal gland. Kidneys and ureters: No hydronephrosis, stones, or suspicious masses. Bladder: Normal. Reproductive organs: Unremarkable. Stomach, small bowel, and large bowel: The stomach is unremarkable. Small bowel loops are diffuselydecompressed. Mild stool retention in the ascending and sigmoid colon. Mild colonic diverticulosis without evidence of acute diverticulitis. Appendix: Normal. Peritoneum and retroperitoneum: No ascites or pneumoperitoneum. No omental or mesenteric lesions. Lymph nodes: No enlarged lymph nodes. Blood vessels: Mild vascular calcifications but no aneurysm. No evidence of venous thrombosis. Abdominal and pelvic wall: Tiny fat-containing umbilical hernia. Metallic density in the region of the labia, likely a piercing. Bones: No acute abnormality. IMPRESSION: 1. No acute abnormality within the abdomen or pelvis to explain patient's pain. 2. Left adrenal nodule is unchanged in size from more than 3 years and therefore presumably benign,likely an adenoma. No imaging follow-up is recommended. I have personally reviewed the images and I agree with this report. WSN: [id number] Ordering Physician: Raina Rodriguez Dictated By: Chase Castillo MD Dictated Date/Time: 02/21/24 7:48 pm Reviewed By: Thee Marie MD Signed By: Thee Marie MD Signed Date/Time: 02/21/24 7:53 pm Transcribed By: ROSIE Transcribed Date/Time: 02/21/24 7:36 pm Vital Signs Most recent to oldest [Reference Range]: 1 2 3 Oxygen Saturation [94-100 %] 99 % (02/21/24 8:12 PM) 100 % (02/21/24 6:35 PM) 100 % (02/21/24 4:53 PM) Pulse Rate [55-90 bpm] 102 bpm *H* (02/21/24 8:12 PM) 98 bpm *H* (02/21/24 6:35 PM) 105 bpm *H* (02/21/24 4:53 PM) Blood Pressure [90-138/55-84 mm Hg] 137/97mm Hg (02/21/24 8:12 PM) 105/72mm Hg (02/21/24 6:35 PM) 97/69mm Hg (02/21/24 4:53 PM) Respiratory Rate [16-30 br/min] 19 br/min (02/21/24 8:12 PM) 18 br/min (02/21/24 8:09 PM) 20 br/min (02/21/24 6:38 PM) Temperature [96.8-100.4 DegF] 98.7 DegF (02/21/24 8:12 PM) 98.6 DegF (02/21/24 4:53 PM) Mode of Delivery (Oxygen) Room air (02/21/24 8:12 PM) Room air (02/21/24 6:35 PM) Room air (02/21/24 4:53 PM) Temperature Route Oral (02/21/24 8:12 PM) Oral (02/21/24 4:53 PM) Social History Social History Type Response Tobacco Use: 4 or less cigar ettes(less than 1/4 pack)/day in last 30 days. Sex Note * Rodriguez MD, Raina: PERFORM Event Display: Patient Education Leaflets Authored Date: [id number] Diabetic Gastroparesis ?? [id number] Diabetic Gastroparesis Gastroparesis,??or??delayed gastric emptying,??is when food [...] provider ?? Last Reviewed Date: 2022 ?? [id number] [employer]. All rights reserved. This information is not intended as a substitute for professional medical care. Always follow your healthcare professional's instructions. ?? Patient Care team information Care Team Personnel Name: Laurie Castellanos RN Position: [facility] Nurse Member Role: Primary Care Nurse Name: Marichuy ALVAREZ, Ave Felipe Position: [facility] Associate Professional Member Role: Primary Care Nurse Name: Thao Preciado RN Position: [facility] Nurse Member Role: Primary Care Nurse Name: Antoinette Chua NP Position: [facility] Associate Professional Member Role: Primary Care Nurse Address: Address: [address] [place] [address]- Name: Tasha Naranjo NP Position: [facility] Associate Professional Member Role: PCP Address: Address: [address] [place] [address] 3rd [place] [address]- [place] Name: Madeleine Maki RN Position: [facility] RN Member Role: Primary Care Nurse Name: Solange Buchanan RN Position: [facility] Pest Control Service Sales Agent Member Role: Primary Care Nurse Care Team Related Persons Name: DEBORAH HERMAN Address: home [address] [place] [address] Name: GONZALO ANTUNEZ Address: [address] [address]
--- OUTSIDE RECORDS SUMMARY | 2024-03-01 09:01 | XMS_ITS | Continuity of Care Document ---
Author Organization [facility] Adult Address [address] [place] [address]- Care Team Providers Care Loan Services Professional Name Role Phone Marcella ALVAREZ, Tasha Rutledge Primary Care Physician Encounter [facility] Date(s): 12/21/23 - 01/20/24 [facility] Adult [address] [place] [address]- Allergies, Adverse Reactions, Alerts No Known Allergies [...] Date: 12/09/23 Status: Ordered Freestyle Sandra 3 [place] Freestyle Sandra 3 [place], See Instructions, # 1 each, Refills 0, [...] 3 Refills, Maintenance, 03/21/24 13:43:00 EDT, Injection, [facility]/pharmacy #[id number], Partial fill upon [...] 11/26/23 14:19:00 EDT, Route to Pharmacy Electronically, [facility]/pharmacy #[id number], Partial fill upon patient request if the prescription... Start Date: 11/26/23 Stop Date: 02/24/24 Status: Ordered metoprolol 50 mg oral tablet, extended release 50 mg, 1, tablet, By Mouth, Daily, # 90 tablet, Refills 0, Tot. Refills 0, Maintenance, 02/24/24 14:19:00 EDT, Route to Pharmacy Electronically, [facility]/pharmacy #0957, Partial fill upon [...] 4 Refills, Maintenance, 03/27/23 13:44:00 EDT, Solution, [facility]/pharmacy #0957, Partial fill upon patient request if the prescription is for a schedule II opioid drug., 154.94, cm, .. Start Date: 03/27/23 Status: Ordered NuLYTELY Lemon [place] oral powder for reconstitution 4 L, By [...] Weight Start Date: 11/28/20 Status: Ordered Pen [place], 30 G x 8 mm BD Ultra [...] mL, 3 Refills, Maintenance, 11/21/23 4:13:00 EDT, [facility]/pharmacy #0957, Partial fill [...] Team Personnel Name: Laurie Castellanos RN Position: [facility] Nurse Member Role: Primary Care Nurse Name: Marichuy ALVAREZ, Ave Felipe Position: [facility] Associate Professional Member Role: Primary Care Nurse Name: Thao Preciado RN Position: [facility] Nurse Member Role: Primary Care Nurse Name: Harshil ALVAREZ, Antoinette Wang Position: [facility] Associate Professional Member Role: Primary Care Nurse Address: Address: [address] [place] [address]- Name: Tasha Naranjo NP Position: [facility] Associate Professional Member Role: PCP Address: Address: [address] [place] [address] [address] [place] [address]- [place] Name: Madeleine Maki RN Position: [facility] RN Member Role: Primary Care Nurse Name: Solange Buchanan RN Position: [facility] [employer] Para Professional Member Role: Primary Care Nurse Care Team Related Persons Name: DEBORAH HERMAN Address: home [address] [place] [address] Name: GONZALO ANTUNEZ Address: home [address] [address]
--- OUTSIDE RECORDS SUMMARY | 2024-03-01 09:01 | XMS_ITS | Continuity of Care Document ---
Author Organization [facility] ter Address [address] [place] [address]- Care Team Providers Care Meat Slicer Name Role Phone Tasha Naranjo NP Primary Care Physician Encounter [facility] Date(s): 10/02/23 - 01/15/[address] [address] Attending Physician: Aye Avendaño MD Admitting Physician: Aye Avendaño MD Referring Physician: Tasha Naranjo NP Allergies, Adverse [...] 2 Refills, Maintenance, 12/09/23 17:07:00 EDT, Tablet, [facility]/pharmacy #[id number], Partial fill upon patient request if the prescription is for a schedule II opioid drug., 155, cm, 11/26/23 12:44:00 EDT, H... Start Date: 12/09/23 Status: Ordered Freestyle Sandra 3 [place] Freestyle Sandra 3 [place], See Instructions, # 1 each, Refills 0, [...] 3 Refills, Maintenance, 03/21/24 13:43:00 EDT, Injection, [facility]/pharmacy #0957, Partial fill upon patient [...] 11/26/23 14:19:00 EDT, Route to Pharmacy Electronically, [facility]/pharmacy #[id number], Partial fill upon patient request if the prescription... Start Date: 11/26/23 Stop Date: 02/24/24 Status: Ordered metoprolol 50 mg oral tablet, extended release 50 mg, 1, tablet, By Mouth, Daily, # 90 tablet, Refills 0, Tot. Refills 0, Maintenance, 02/24/24 14:19:00 EDT, Route to Pharmacy Electronically, [facility]/pharmacy #0957, Partial fill upon patient [...] 4 Refills, Maintenance, 03/27/23 13:44:00 EDT, Solution, [facility]/pharmacy #0957, Partial fill upon patient request if the prescription is for a schedule II opioid drug., 154.94, cm, .. Start Date: 03/27/23 Status: Ordered NuLYTELY Lemon [place] oral powder for reconstitution 4 L, By Mouth, Once, until 4 liters are consumed or the rectal effluent is clear for colonoscopy, #1 each, 0 Refills, Soft Stop, 06/12/23 16:51:00 EDT, [facility]/pharmacy #0957, Partial fill upon patient [...] Weight Start Date: 11/28/20 Status: Ordered Pen [place], 30 G x 8 mm BD Ultra [...] mL, 3 Refills, Maintenance, 11/21/23 4:13:00 EDT, [facility]/pharmacy #0957, Partial fill upon patient [...] Member Role: Primary Care Nurse Name: Marichuy INSULATION CUTTER, Ave Felipe Position: [facility] Associate Professional Member Role: Primary Care Nurse Name: Thao Preciado RN Position: [facility] Nurse Member Role: Primary Care Nurse Name: Harshil ALVAREZ, Antoinette Wang Position: [facility] Associate Professional Member Role: Primary Care Nurse Address: Address: [address] [place] [address]- Name: Tasha Naranjo NP Position: [facility] Associate Professional Member Role: PCP Address: Address: [address] [place] [address]- [place] Name: Madeleine Maki RN Position: [facility] RN Member Role: Primary Care Nurse Name: Solange Buchanan RN Position: [facility] Newsagent Member Role: Primary Care Nurse Care Team Related Persons Name: DEBORAH HERMAN Address: home [address] [place] [address] Name: GONZALO ANTUNEZ Address: [address] [address]
--- OUTSIDE RECORDS SUMMARY | 2024-03-01 09:01 | XMS_ITS | Continuity of Care Document ---
Author Organization [facility] Address [address] [place] [address]- Care Team Providers Care Director Of Corporate Strategy Name Role Phone Marcella ALVAREZ, Tasha Rutledge Primary Care Physician [phone] [place] [facility] Date(s): 01/06/24 - 02/05/24 [facility]ocr[facility]ology and Diabetes [address] [place] [address] Allergies, Adverse Reactions, Alerts No Known Allergies [...] 2 Refills, Maintenance, 12/09/23 17:07:00 EDT, Tablet, [facility]/pharmacy #0948, Partial fill upon patient request if the prescription is for a schedule II opioid drug., 155, cm, 11/26/23 12:44:00 EDT, H... Start Date: 12/09/23 Status: Ordered Freestyle Sandra 3 [place] Freestyle Sandra 3 [place], See Instructions, # 1 each, Refills 0, [...] 3 Refills, Maintenance, 03/21/24 13:43:00 EDT, Injection, [facility]/pharmacy #0957, Partial fill upon patient [...] 11/26/23 14:19:00 EDT, Route to Pharmacy Electronically, [facility]/pharmacy #0957, Partial fill upon patient request if the prescription... Start Date: 11/26/23 Stop Date: 02/24/24 Status: Ordered metoprolol 50 mg oral tablet, extended release 50 mg, 1, tablet, By Mouth, Daily, # 90 tablet, Refills 0, Tot. Refills 0, Maintenance, 02/24/24 14:19:00 EDT, Route to Pharmacy Electronically, [facility]/pharmacy #0957, Partial fill upon patient [...] 4 Refills, Maintenance, 03/27/23 13:44:00 EDT, Solution, [facility]/pharmacy #0957, Partial fill upon patient request if the prescription is for a schedule II opioid drug., 154.94, cm, .. Start Date: 03/27/23 Status: Ordered NuLYTELY Lemon [place] oral powder for reconstitution 4 L, By [...] Weight Start Date: 11/28/20 Status: Ordered Pen [place], 30 G x 8 mm BD Ultra [...] mL, 3 Refills, Maintenance, 11/21/23 4:13:00 EDT, [facility]/pharmacy #[id number], Partial fill upon patient [...] Personnel Name: Laurie Castellanos RN Position: [facility] Nurse Member Role: Primary Care Nurse Name: Marichuy ALVAREZ, Ave Felipe Position: [facility] Associate Professional Member Role: Primary Care Nurse Name: Thao Preciado RN Position: [facility] Nurse Member Role: Primary Care Nurse Name: Harshil ALVAREZ, Antoinette Wang Position: [facility] Associate Professional Member Role: Primary Care Nurse Address: Address: [address] [place] [address]- Name: Tasha Naranjo NP Position: [facility] Associate Professional Member Role: PCP Address: Address: [address] [place] [address] [address]rd [place] [address]- [place] Name: Madeleine Maki RN Position: [facility] RN Member Role: Primary Care Nurse Name: Solange Buchanan RN Position: [facility] Residential Leasing Manager Member Role: Primary Care Nurse Care Team Related Persons Name: DEBORAH HERMAN Address: [address] [place] [address] Name: GONZALO ANTUNEZ Address: [address] [address]
--- OUTSIDE RECORDS SUMMARY | 2024-03-01 09:01 | XMS_ITS | Continuity of Care Document ---
Author Organization [facility] Adult Address [address] [place] [address]- Care Team Providers Care Sewage Treatment Plant Operator Name Role Phone Marcella ALVAREZ, Tasha Rutledge Primary Care Physician Encounter [facility] Date(s): 12/09/23 - 01/08/24 [facility] Adult [address] [place] [address]- Allergies, Adverse Reactions, Alerts No Known Allergies [...] Refills, Maintenance, 12/09/23 17:07:00 EDT, Tablet, [id number], Partial fill upon patient request if the prescription is for a schedule II opioid drug., 155, cm, 11/26/23 12:44:00 EDT, H... Start Date: 12/09/23 Status: Ordered Freestyle Sandra 3 sensors Freestyle [...] 11/26/23 14:19:00 EDT, Route to Pharmacy Electronically, [id number], Partial fill upon patient request if the prescription... Start Date: 11/26/23 Stop Date: 02/24/24 Status: Ordered metoprolol 50 mg oral tablet, extended release 50 mg, 1, tablet, By Mouth, Daily, # 90 tablet, Refills 0, Tot. Refills 0, Maintenance, 02/24/24 14:19:00 EDT, Route to Pharmacy Electronically, [facility], Partial fill upon patient request [...] Start Date: 03/27/23 Status: Ordered NuLYTELY Lemon [place] oral powder for reconstitution 4 L, By Mouth, Once, until 4 liters are consumed or the rectal effluent is clear for colonoscopy, #1 each, 0 Refills, Soft Stop, 06/12/23 16:51:00 EDT, [facility]/pharmacy #0957, Partial fill upon patient [...] Weight Start Date: 11/28/20 Status: Ordered Pen [place], 30 G x 8 mm BD Ultra [...] mL, 3 Refills, Maintenance, 11/21/23 4:13:00 EDT, [facility]/pharmacy #0957, Partial fill upon patient [...] Team Personnel Name: Laurie Castellanos RN Position: [facility] Nurse Member Role: Primary Care Nurse Name: Marichuy ALVAREZ, Ave Felipe Position: [facility] Associate Professional Member Role: Primary Care Nurse Name: Thao Preciado RN Position: [facility] Nurse Member Role: Primary Care Nurse Name: Antoinette Chua NP Position: [facility] Associate Professional Member Role: Primary Care Nurse Address: Address: [address] [facility] [place] [address]- [place] Name: Tasha Naranjo NP Position: [facility] Associate Professional Member Role: PCP Address: Address: [address] [facility] 3rd [place] [address]- [place] Name: Madeleine Maki RN Position: [facility] RN Member Role: Primary Care Nurse Name: Solange Buchanan RN Position: [facility] Auxiliary Equipment Operator Member Role: Primary Care Nurse Care Team Related Persons Name: DEBORAH HERMAN Address: home [address] [place] [address] Name: GONZALO ANTUNEZ Address: home [address] [address]
--- OUTSIDE RECORDS SUMMARY | 2024-03-01 09:01 | XMS_ITS | Continuity of Care Document ---
Author Organization [facility] Address [address] [place] [address]- Care Team Providers Care Concrete Products Machine Operator Name Role Phone Marcella ALVAREZ, Tasha Rutledge Primary Care Physician Encounter [facility] Date(s): 01/11/24 - 02/10/24 [facility] [address] [place] [id number] Allergies, Adverse Reactions, Alerts No [...] Date: 12/09/23 Status: Ordered Freestyle Sandra 3 [place] Freestyle Sandra 3 [place], See Instructions, # 1 each, Refills 0, [...] 3 Refills, Maintenance, 03/21/24 13:43:00 EDT, Injection, [facility]/pharmacy #[id number], Partial fill upon [...] 11/26/23 14:19:00 EDT, Route to Pharmacy Electronically, [facility]/pharmacy #[id number], Partial fill upon patient request if the prescription... Start Date: 11/26/23 Stop Date: 02/24/24 Status: Ordered metoprolol 50 mg oral tablet, extended release 50 mg, 1, tablet, By Mouth, Daily, # 90 tablet, Refills 0, Tot. Refills 0, Maintenance, 02/24/24 14:19:00 EDT, Route to Pharmacy Electronically, [facility]/pharmacy #[id number], Partial fill upon [...] 4 Refills, Maintenance, 03/27/23 13:44:00 EDT, Solution, [facility]/pharmacy #[id number], Partial fill upon patient request if the prescription is for a schedule II opioid drug., 154.94, cm, .. Start Date: 03/27/23 Status: Ordered NuLYTELY Lemon [place] oral powder for reconstitution 4 L, By [...] Weight Start Date: 11/28/20 Status: Ordered Pen [place], 30 G x 8 mm BD Ultra [...] mL, 3 Refills, Maintenance, 11/21/23 4:13:00 EDT, [facility]/pharmacy #[id number], Partial fill upon [...] Team Personnel Name: Laurie Castellanos RN Position: [facility] Nurse Member Role: Primary Care Nurse Name: Marichuy ALVAREZ, Ave Felipe Position: [facility] Associate Professional Member Role: Primary Care Nurse Name: Thao Preciado RN Position: [facility] Nurse Member Role: Primary Care Nurse Name: Harshil ALVAREZ, Antoinette Wang Position: [facility] Associate Professional Member Role: Primary Care Nurse Address: Address: [address] [place] [address]- Name: Tasha Naranjo NP Position: [facility] Associate Professional Member Role: PCP Address: Address: [address] [place] [address] [address]rd [place] [address]- [place] Name: Madeleine Maki RN Position: [facility] RN Member Role: Primary Care Nurse Name: Solange Buchanan RN Position: [facility] Director Of Oncology Member Role: Primary Care Nurse Care Team Related Persons Name: DEBORAH HERMAN Address: home [address] [place] [address] Name: GONZALO ANTUNEZ Address: [address] [address]
--- OUTSIDE RECORDS SUMMARY | 2024-03-01 09:01 | XMS_ITS | Continuity of Care Document ---
Author Organization [facility] Address [address] [place] [address]- Care Team Providers Care Sterile Tech Name Role Phone Marcella ALVAREZ, Tasha Rutledge Primary Care Physician Encounter [facility] Date(s): 12/17/23 - 01/16/24 [facility] [address] [place] [address]- Allergies, Adverse Reactions, Alerts No Known Allergies [...] Refills, Maintenance, 12/09/23 17:07:00 EDT, Tablet, [id number], Partial fill upon patient request if the prescription is for a schedule II opioid drug., 155, cm, 11/26/23 12:44:00 EDT, H... Start Date: 12/09/23 Status: Ordered Freestyle Sandra 3 [place] Freestyle Sandra 3 [place], See Instructions, # 1 each, Refills 0, [...] 3 Refills, Maintenance, 03/21/24 13:43:00 EDT, Injection, [facility]/pharmacy #[id number], Partial fill upon patient [...] 11/26/23 14:19:00 EDT, Route to Pharmacy Electronically, [facility]/pharmacy #[id number], Partial fill upon patient request if the prescription... Start Date: 11/26/23 Stop Date: 02/24/24 Status: Ordered metoprolol 50 mg oral tablet, extended release 50 mg, 1, tablet, By Mouth, Daily, # 90 tablet, Refills 0, Tot. Refills 0, Maintenance, 02/24/24 14:19:00 EDT, Route to Pharmacy Electronically, [facility]/pharmacy #[id number], Partial fill upon patient [...] Start Date: 03/27/23 Status: Ordered NuLYTELY Lemon [place] oral powder for reconstitution 4 L, By [...] Weight Start Date: 11/28/20 Status: Ordered Pen [place], 30 G x 8 mm BD Ultra [...] mL, 3 Refills, Maintenance, 11/21/23 4:13:00 EDT, [facility]/pharmacy #[id number], Partial fill upon patient [...] Name: Laurie Castellanos RN Position: [facility] Nurse Member Role: Primary Care Nurse Name: Ave Benedict NP Position: [facility] Associate Professional Member Role: Primary Care Nurse Name: Thao Preciado RN Position: [facility] Nurse Member Role: Primary Care Nurse Name: Antoinette Chua NP Position: [facility] Associate Professional Member Role: Primary Care Nurse Address: Address: [address] [place] [address]- Name: Tasha Naranjo NP Position: [facility] Associate Professional Member Role: PCP Address: Address: [address] [place] [address] [address] [place] [address]- Name: Madeleine Maki RN Position: [facility] RN Member Role: Primary Care Nurse Name: Solange Buchanan RN Position: [facility] Feeder Operator Member Role: Primary Care Nurse Care Team Related Persons Name: DEBORAH HERMAN Address: home [address] [place] [address] Name: GONZALO ANTUNEZ Address: home [address] [address]
--- OUTSIDE RECORDS SUMMARY | 2024-03-01 09:01 | XMS_ITS | Continuity of Care Document ---
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 Start Date: 12/09/23 Status: Ordered Freestyle Sandra 3 [place] Freestyle Sandra 3 [place], See Instructions, # 1 each, Refills 0, [...] 09/08/24 10:29:00 EST, 02/11/24 10:29:00 EDT, Tablet, [id number], Partial fill upon pat... Start Date: [...] Weight Start Date: 11/28/20 Status: Ordered Pen [place], 30 G x 8 mm BD Ultra [...] 3 Refills, Maintenance, 11/21/23 4:13:00 EDT, [facility]/pharmacy #[id number], Partial fill upon patient request if [...] Team Personnel Name: Laurie Castellanos RN Position: [facility] Nurse Member Role: Primary Care Nurse Name: Ave Benedict NP Position: [facility] Associate Professional Member Role: Primary Care Nurse Name: Thao Preciado RN Position: [facility] AMB Nurse Member Role: Primary Care Nurse Name: Antoinette Chua NP Position: [facility] Associate Professional Member Role: Primary Care Nurse Address: Address: [address] [place] [address] [place] [address]- [place] Name: Tasha Naranjo NP Position: [facility] Associate Professional Member Role: PCP Address: Address: [address] [place] [address] 3rd floor [facility] [place] [address]- [place] Name: Madeleine Maki RN Position: [facility] RN Member Role: Primary Care Nurse Name: Solange Buchanan RN Position: [facility] Hydrogenation Operator Member Role: Primary Care Nurse Care Team Related Persons Name: BRISSA HERMANJordana Address: home [address] [place] [address] Name: GONZALO ANTUNEZ Address: home [address] [address]
--- OUTSIDE RECORDS SUMMARY | 2024-03-01 09:02 | XMS_ITS | Continuity of Care Document ---
Author Organization [facility] Adult Address [address] [place] [address]- Care Team Providers Care Study Lead Name Role Phone Marcella ALVAREZ, Tasha Rutledge Primary Care Physician [phone] Encounter [facility] Date(s): 12/21/23 - 01/20/24 [facility] [address] [place] [address]- Allergies, Adverse Reactions, Alerts No Known Allergies [...] Date: 12/09/23 Status: Ordered Freestyle Sandra 3 [place] Freestyle Sandra 3 [place], See Instructions, # 1 each, Refills 0, [...] Refills, Maintenance, 03/21/24 13:43:00 EDT, Injection, [facility]/pharmacy #[id number], Partial fill upon patient request if [...] 14:19:00 EDT, Route to Pharmacy Electronically, [facility]/pharmacy #[id number], Partial fill upon patient request if the prescription... Start Date: 11/26/23 Stop Date: 02/24/24 Status: Ordered metoprolol 50 mg oral tablet, extended release 50 mg, 1, tablet, By Mouth, Daily, # 90 tablet, Refills 0, Tot. Refills 0, Maintenance, 02/24/24 14:19:00 EDT, Route to Pharmacy Electronically, [facility]/pharmacy #[id number], Partial fill upon patient request if [...] Refills, Maintenance, 03/27/23 13:44:00 EDT, Solution, [facility]/pharmacy #0957, Partial fill upon patient request if the prescription is for a schedule II opioid drug., 154.94, cm, .. Start Date: 03/27/23 Status: Ordered NuLYTELY Lemon [place] oral powder for reconstitution 4 L, By [...] Weight Start Date: 11/28/20 Status: Ordered Pen [place], 30 G x 8 mm BD Ultra [...] 3 Refills, Maintenance, 11/21/23 4:13:00 EDT, [facility]/pharmacy #0957, Partial fill upon patient request if [...] Name: Laurie Castellanos RN Position: [facility] Nurse Member Role: Primary Care Nurse Name: Marichuy ALVAREZ, Ave Felipe Position: [facility] Associate Professional Member Role: Primary Care Nurse Name: Thao Preciado RN Position: [facility] Nurse Member Role: Primary Care Nurse Name: Harshil ALVAREZ, Antoinette Wang Position: [facility] Associate Professional Member Role: Primary Care Nurse Address: Address: [address] [place] [address]- Name: Tasha Naranjo NP Position: [facility] Associate Professional Member Role: PCP Address: Address: [address] [place] [address] [address] [place] [address]- Name: Madeleine Maki RN Position: [facility] RN Member Role: Primary Care Nurse Name: Solange Buchanan RN Position: [facility] Electroencephalogram Technologist Member Role: Primary Care Nurse Care Team Related Persons Name: DEBORAH HERMAN Address: home [address] [place] [address] Name: GONZALO ANTUNEZ Address: home [address] [address]
--- OUTSIDE RECORDS SUMMARY | 2024-03-01 09:02 | XMS_ITS | Continuity of Care Document ---
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 Name Role Phone Marcella ALVAREZ, Tasha Rutledge Primary Care Physician [phone] Encounter [facility] [place] [place] Date(s): 02/27/24 - 02/28/[address] [address]- Encounter Diagnosis Gastroparesis(Final) - 02/28/24 Discharge Disposition: A-D/C Home Attending Physician: Breana Reed MD Admitting Physician: Breana Reed MD Referring Physician: Not on Staff, Referring [...] 2 Refills, Maintenance, 12/09/23 17:07:00 EDT, Tablet, [facility]/pharmacy #[id number], Partial fill upon patient request if the prescription is for a schedule II opioid drug., 155, cm, 11/26/23 12:44:00 EDT, H... Start Date: 12/09/23 Status: Ordered Freestyle Sandra 3 [place] Freestyle Sandra 3 [place], See Instructions, # 1 each, Refills 0, [...] 09/08/24 10:29:00 EST, 02/11/24 10:29:00 EDT, Tablet, [facility]/pharmacy #1130, Partial fill upon pat... Start Date: 02/11/24 Stop Date: 09/08/24 Status: Ordered Lantus Solostar Pen 100 units/mL subcutaneous solution = 35 units, Subcutaneous Injection, Daily at bedtime, # 15 mL, 3 Refills, Maintenance, 03/21/24 13:43:00 EDT, Injection, [facility], Partial fill upon patient request if the prescription is for a schedule II opioid drug., 154.94, cm, 06/29/23... Start Date: 03/21/24 Stop Date: 03/16/25 Status: Ordered NovoLOG FlexPen 100 units/mL subcutaneous solution = 10 units, Subcutaneous Injection, 3 times a day with meals, # 3 mL, 4 Refills, Maintenance, 03/27/23 13:44:00 EDT, Solution, [facility]/pharmacy #0957, Partial fill upon patient request if the prescription is for a schedule II opioid drug., 154.94, cm, 08... Start Date: 03/27/23 Status: Ordered ondansetron 4 mg oral tablet, disintegrating 1 tablet = 4 mg, By Mouth, Every 8 hours, PRN as needed for nausea/vomiting, # 9 tablet, 0 Refills,Maintenance, 02/28/24 2:51:00 EDT, DIS Tablet, [facility]/pharmacy #1130, Partial fill upon patient request, 155, cm, 02/28/24 2:47:00 EDT, Height, 61, kg, 07... Start Date: 02/28/24 Stop Date: 03/02/24 Status: Ordered OneTouch Verio Glucose Meter See [...] Weight Start Date: 11/28/20 Status: Ordered Pen [place], 30 G x 8 mm BD Ultra [...] mL, 3 Refills, Maintenance, 11/21/23 4:13:00 EDT, [facility]/pharmacy #0957, Partial fill upon patient request if [...] steatosis Confirmed Active Takotsubo cardiomyopathy Confirmed Active Vital Signs Most recent to oldest [Reference Range]: 1 2 Height 155 cm (02/28/24 2:47 AM) 155 cm (02/27/24 9:18 PM) Weight 61 kg (02/28/24 2:47 AM) 61 kg (02/27/24 9:18 PM) Oxygen Saturation [94-100 %] 99 % (02/28/24 2:47 AM) 100 % (02/27/24 9:18 PM) Pulse Rate [55-90 bpm] 130 bpm *H* (02/28/24 2:47 AM) 118 bpm *H* (02/27/24 9:18 PM) Body Mass Index [18.5-24.99 kg/m2] 25.39 kg/m2 *H* (02/28/24:47 AM) 25.39 kg/m2 *H* (02/27/24 9:18 PM) Blood Pressure [90-138/55-84 mm Hg] 187/ 115mm Hg 1 *H* (02/28/24 2:47 AM) 108/78mm Hg (02/27/24 9:18 PM) Respiratory Rate [16-30 br/min] 19 br/mi n (02/28/24 2:47 AM) 18 br/min (02/27/24 9:18 PM) Temperature [96.8-100.4 DegF] 99.3 DegF (02/28/24 2:47 AM) 97.8 DegF (02/27/24 9:18 PM) Mode of Delivery (Oxygen) Room air (02/28/24 2:47 AM) Room air (02/27/24 9:18 PM) Blood pressure sites Arm, right (02/28/24 2:47 AM) Arm, left (02/27/24 9:18 PM) Temperature Route Oral (02/28/24 2:47 AM) Oral (02/27/24 9:18 PM) Dry Weight 61 kg (02/28/24 2:47 AM) 61 kg (02/27/24 9:18 PM) Weight Obtained Via Standing scale (02/27/24 9:18 PM) Dry Weight Obtained Via Standing scale (02/27/24 9:18 PM) 1Result Comment: reported to Thomas Meza RN Social History Social History Type Response Tobacco Use: 4 or less cigar ettes(less than 1/4 pack)/day in last 30 days. Sex EKG study * Event Display: EKG Authored Date: * Event Display: EKG Authored Date: * Event Display: ECG 12-Lead Authored Date: Please click on pdf link to open report * Event Display: ECG 12-Lead Authored Date: Ventricular Rate: 123 BPM Atrial Rate: 123 BPM P-R Interval: 144 ms QRS Duration: 62 ms Q-T Interval: 328 ms QTC Calculation(Bazett): 469 ms P [place]: 64 degrees R [place]: 43 degrees T [place]: 61 degrees Poor data quality, interpretation may be adversely affected Sinus tachycardia Right atrial enlargement Anterior infarct , age undetermined Abnormal ECG When compared with ECG of 26-FEB-2024 02:53, Anterior infarct is now Present Confirmed by JAMIE JAIME MD ([id number]) on 02/28/2024 5:44:10 PM [place]: JAMEI JAIME MD Note * Breana Reed MD: PERFORM, SIGN, VERIFY Event Display: Patient Education Handout Authored Date: * Breana Reed MD: PERFORM Event Display: Patient Education Leaflets Authored Date: Diabetic Gastroparesis ?? [id number] Diabetic Gastroparesis Gastroparesis,??or??delayed gastric emptying,??is when food [...] provider ?? Last Reviewed Date: 2022 ?? [id number] [employer] All rights reserved. This information is not intended as a substitute for professional medical care. Always follow your healthcare professional's instructions. ?? Patient Care team information Care Team Personnel Name: Laurie Castellanos RN Position: [facility] Nurse Member Role: Primary Care Nurse Name: Marichuy ALVAREZ, Ave Felipe Position: [facility] Associate Professional Member Role: Primary Care Nurse Name: Thao Preciado RN Position: [facility] Nurse Member Role: Primary Care Nurse Name: Antoinette Chua NP Position: [facility] Associate Professional Member Role: Primary Care Nurse Address: Address: [address] [place] [address]- [place] Name: Tasha Naranjo NP Position: [facility] Associate Professional Member Role: PCP Address: Address: [address] [place] [address] [address] [place] [address]- [place] Name: Madeleine Maki RN Position: [facility] RN Member Role: Primary Care Nurse Name: Solange Buchanan RN Position: [facility] Physiologist Member Role: Primary Care Nurse Care Team Related Persons Name: DEBORAH HERMAN Address: [address] [place] [address] Name: GONZALO ANTUNEZ Address: home [address] [address]
--- OUTSIDE RECORDS SUMMARY | 2024-03-01 09:02 | XMS_ITS | Continuity of Care Document ---
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/pharmacy #[id number], Partial fill upon patient request if the prescription is for a schedule II opioid drug., 155, cm, 11/26/23 12:44:00 EDT, H... Start Date: 12/09/23 Status: Ordered Freestyle Sandra 3 [place] Freestyle Sandra 3 [place], See Instructions, # 1 each, Refills 0, [...] 3 Refills, Maintenance, 03/21/24 13:43:00 EDT, Injection, [facility]/pharmacy #[id number], Partial fill upon patient request if [...] 11/26/23 14:19:00 EDT, Route to Pharmacy Electronically, [facility]/pharmacy #[id number], Partial fill upon patient request if the prescription... Start Date: 11/26/23 Stop Date: 02/24/24 Status: Ordered metoprolol 50 mg oral tablet, extended release 50 mg, 1, tablet, By Mouth, Daily, # 90 tablet, Refills 0, Tot. Refills 0, Maintenance, 02/24/24 14:19:00 EDT, Route to Pharmacy Electronically, [facility]/pharmacy #[id number], Partial fill upon patient request if [...] 4 Refills, Maintenance, 03/27/23 13:44:00 EDT, Solution, [facility]/pharmacy #[id number], Partial fill upon patient request if the prescription is for a schedule II opioid drug., 154.94, cm, ... Start Date: 03/27/23 Status: Ordered NuLYTELY Lemon Soboba oral powder for reconstitution 4 L, By Mouth, Once, until 4 liters are consumed or the rectal effluent is clear for colonoscopy, #1 each, 0 Refills, Soft Stop, 06/12/23 16:51:00 EDT, [facility]/pharmacy #[id number], Partial fill upon patient request if [...] Weight Start Date: 11/28/20 Status: Ordered Pen Fairmount, 30 G x 8 mm BD Ultra [...] mL, 3 Refills, Maintenance, 11/21/23 4:13:00 EDT, [facility]/pharmacy #[id number], Partial fill upon patient request if [...] steatosis Confirmed Active Takotsubo cardiomyopathy Confirmed Active Procedures Procedure Date Related Diagnosis Body Site Status Colonoscopy, flexible; diagn ostic, including collection of specimen(s) by brushing or washing, when performed (separate procedure) 02/02/24 Completed Vital Signs Most recent to oldest [Reference Range]: 1 2 3 Height 155 cm (02/02/24 8:21 AM) Weight 60 kg (02/02/24 8:21 AM) Oxygen Saturation [94-100 %] 100 % (02/02/24 10:10 AM) 100 % (02/02/24 9:55 AM) 99 % (02/02/24 8:21 AM) Pulse Rate [55-90 bpm] 99 bpm *H* (02/02/24 10:10 AM) 100 bpm *H* (02/02/24 9:55 AM) 101 bpm *H* (02/02/24 8:21 AM) Body Mass Index [18.5-24.99 kg/m2] 24.97 kg/m2 (02/02/24 8:21 AM) Blood Pressure [90-138/55-84 mm Hg] 133/94mm Hg (02/02/24 10:10 AM) 137/85mm Hg (02/02/24 9:55 AM) 120/83mm Hg (02/02/24 8:21 AM) Respiratory Rate [16-30 br/min] 17 br/min (02/02/24 10:10 AM) 17 br/min (02/02/24 9:55 AM) 18 br/min (02/02/24 8:21 AM) Temperature [96.8-100.4 DegF] 98.6 DegF (02/02/24 8:21 AM) Mode of Delivery (Oxygen) Room air (02/02/24 10:10 AM) Room air (02/02/24 9:55 AM) Room air (02/02/24 8:21 AM) Blood pressure sites Arm, left (02/02/24 10:10 AM) Arm, left (02/02/24 9:55 AM) Arm, left (02/02/24 8:21 AM) Temperature Route Temporal (02/02/24 8:21 AM) Dry Weight 60 kg (02/02/24 8:21 AM) Social History Social History Type Response Tobacco Use: 4 or less cigar ettes(less than 1/4 pack)/day in last 30 days. Sex Note * Anna Whelan RN: PERFORM Event Display: Discharge/Transfer Note Hospital Authored Date: [id number] Nursing Discharge Note Entered On: 02/02/2024 9:58 EDT Performed On: 02/02/2024 9:58 EDT by Anna Whelan RN Nursing Discharge Note 2 Discharge Time : 02/02/2024 10:22 EDT Anna Whelan RN - 02/02/2024 10:22 EDT Discharge Level of Care at Discharge : Home/Halfway/Foster Care Patient Left Unit Via : Wheelchair Patient Accompanied Off Unit with : Responsible adult DC Instructions Provided & Signed by Pt : Yes Patient Understands D/C Instructions : Yes Patient Instructions Discharge Signed : Yes Did Pt have Specialty Bed or Wound Vac : No Anna Whelan RN - 02/02/2024 9:58 EDT * Anna Whelan RN: PERFORM Event Display: Patient Education/Instruction Authored Date: [id number] Surgery Adult Discharge Instructions [place] [id number] Name: QUAN ALONZO : 1970?? Visit: 02/02/2024 06:39?? Current Date: 02/02/2024 09:58 ?? Account: [id number]?? Surgery Discharge Instructions We would like to thank [...] and their families. Surveys are administered by [employer] ?? If further treatment with your primary care physician or another doctor is recommended, it is important for you to keep the appointment. Call your primary care physician or return to the Emergency Department immediately if your condition worsens, fails to improve, or new symptoms develop. If you need to find a doctor, you can call [facility] Link for a referral at [phone] or toll free at [phone] or log in to [email or web address].. ?? [facility], in keeping with [facility] guidance, no longer requires face masks [...] a health care juliette of your choosing. [employer] is a website that allows you to securely view your medical information including your hospital discharge summary, office visit summaries, medications and follow-up visits. You can also request appointments, renew medications, and request access to your medical information using a health care juliette of your choosing, or just ask a question. You are entitled to know the individuals who participated in your treatment. This information is available within your medical record and will be provided upon your request. You can enroll at [email or web address] or register d uring your next office visit. You have been discharged from [facility], Patient Care Unit: ENDO??. If you have any questions regarding these instructions after you leave, please call us and we will be happy to assist you. [facility] Your Care Team Attending Physician Raymond Purvis MD?? Discharging Providers Raymond Purvis MD Reason for Admission SCREENING Primary Care Provider Tasha Naranjo NP? Advance Directive Health Care Proxy on File Yes - Health Care Proxy What to do next Instructions From Your Doctor ?? Orders? /07/17 8:33:00 EDT, ??Per Daystay Protocol?? Scheduled Follow-Up Appointments 2023 10:20 AM EDT ?? With: Tasha Naranjo NP Where: [address] [address]- Status: Pending Thursday 7:45 AM EDT ?? With: Stanislaw Casiano MD Where: [facility] [address] [place] [address]- Status: Pending Thursday 4:15 PM EDT ?? With: Raymond Purvis MD Where: [facility] [address] [place] [id number]- Status: Pending Thursday 12:50 PM EDT ?? With: Tasha Naranjo NP Where: [address] [address]- Status: Pending You Need to Schedule the Following Appointments Follow Up with??follow up with primary care as needed Follow Up with??Tasha Naranjo When:??In 0 days Discharge Medications QUAN ALONZO :1970 Visit Date:02/02/2024 Medications: Please continue your medications until treatment is completed or stopped by your provider. You may resume your daily prescription medications. Discuss any questions related to medications with your provider. What How Much When Why Instructions Next Dose Unchanged Clonazepam (clonazePAM 1 mg oral tablet) 2 tab(s) Oral Twice a day as needed for Anxiety Unchanged dulaglutide (Trulicity Pen 0.75 mg/ 0.5 mL subcutaneous solution) 1.5 Milligram Subcutaneous Infusion Every week Diabetes mellitus type 2 Duration: 90 Days take 2 dose at a time to make it 1.5mg per week. 90 days supplies. ?? Unchanged Durable Medical Equipment (Freestyle Sandra 3 [place]) See instructions Diabetes mellitus type 2 Use as directed for Diabetes Control ?? Unchanged Durable Medical Equipment (Freestyle Sandra 3 sensors) See instructions Place new sensor every 14 days to monitor glucose. E11.65 ?? Unchanged Durable Medical Equipment (Freestyle Sandra Monitor) See instructions Duration: 30 Days use as directed for dx type 2 diabetes mellitus (E11.9) ?? Unchanged Durable Medical Equipment (OneTouch Verio Glucose Meter) See instructions use as directed to test glucose for dx diabetes mellitus type 2 (E11.9) ?? Unchanged Durable Medical Equipment (OneTouch Verio Lancets) See instructions use to test glucose three times daily for dx diabetes melltius type 2 (E11.9) ?? Unchanged Durable Medical Equipment (OneTouch Verio Test Strips) See instructions use to test glucose three times daily for dx diabetes melltius type 2 (E11.9) ?? Unchanged Durable Medical Equipment (Pen [place], 30 G x 8 mm BD Ultra Fine II) See instructions Duration: 90 Days DMII E11.9 Use for insulin injection four times per day ?? Unchanged empagliflozin (empagliflozin 25 mg oral tablet) 1 tab(s) Oral Daily in the morning Unchanged Insulin Aspart (NovoLOG FlexPen 100 units/ mL subcutaneous solution) 10 unit(s) Subcutaneous Injection 3 times a day with meals Unchanged Insulin Glargine (Lantus Solostar Pen 100 units/ mL subcutaneous solution) 35 unit(s) Subcutaneous Injection Daily at Bedtime Duration: 90 Days Unchanged Metoprolol (metoprolol 50 mg oral tablet, extended release) 1 tab(s) Oral Daily Duration: 90 Days Unchanged Metoprolol (metoprolol 50 mg oral tablet, extended release) 1 tab(s) Oral Daily Duration: 90 Days Unchanged Metoprolol (Metoprolol Succinate ER 50 mg oral tablet, extended release) TAKE 1 TABLET BY MOUTH EVERY DAY ?? Unchanged Pantoprazole (pantoprazole 40 mg oral delayed release tablet) 1 tab(s) Oral Twice a day Unchanged PEG Electrolyte Solution (NuLYTELY Lemon Soboba oral powder for reconstitution) 4 Liter Oral Once until 4 liters are consumed or the rectal effluent is clear for colonoscopy ?? Unchanged Quetiapine (QUEtiapine 300 mg oral tablet) 2 tab(s) Oral Daily at Bedtime Allergies (NKA means No Known Allergies) NKA Education Materials Below is the list of Educational Leaflet Providered with your Discharge Instructions. Web[employer] Ignite Patient Education - Hemorrhoids Discharge Instructions?? [employer] Patient Education - Diverticulosis Discharge Instructions?? [employer] Patient Education - Surgery Medical Daystay Surgical Overnight Discharge Instructions?? Valuables and Belongings I fully understand and agree that [facility] accepts no responsibility for all my personal [...] encouraged to send valuables and belongings home. ? Other Discharge Information ? Case Management Discharge Plan?? Discharge Plan?? Discharge Level of Care at Discharge: Home/Halfway/Foster Care ?? Pulmonary Rehab Status?? Pulmonary Rehab Discharge Status?? Respiratory Rate: 17 br/min ? Common Emergency Awareness Tips IS IT A [...] are strongly encouraged to quit. Please call [facility] Link at [phone] or [phone] ([phone]) or log in to [email or web address] for referrals to smoking cessation programs. ?? The National Suicide Prevention Hotline is available 16/03 if you or someone you know needs to find a reason to keep living. By calling 8-436-987-Opara (7260) you'll be connected to a skilled, trained counselor at a crisis center in your area. SURGERY DISCHARGE INSTRUCTIONS SIGNATURE QUAN COX Location:[facility] Registration Date and Time:02/02/2024 06:39 EDT Primary Care Physician: Tasha Naranjo NP, Attending Physician: Raymond Purvis MD, QUAN DANIEL, have received the above patient education materials/instructions and have verbalized understanding. If ambulance or transport services are being used I further acknowledge being given a choice of service. ?? If you need to contact me, please call me at this number: . Patient/Demand Generator Manager Name: Patient/Demand Generator Manager Signature: Relationship to Patient: Witness Name/Signature: Date: * Anna Whelan RN: PERFORM, SIGN, VERIFY Event Display: Patient Education Handout Authored Date: [id number] * Anna Whelan RN: PERFORM Event Display: Patient Education Leaflets Authored Date: [id number] Hemorrhoids Discharge Instructions ?? 672 ??Hemorrhoids Discharge Instructions ??You must carefully read the Consumer Information Use and Disclaimer below in order to understand and correctly use this information?? About this topic Hemorrhoids are swollen veins in the rectum. Your rectum is where stool leaves your body. You may be able to see or feel your hemorrhoids outside of your body, but some hemorrhoids are inside of yourrectum and cannot be seen. Hemorrhoids can cause itching, pain, and bleeding. Being constipated or having hard stools can make your hemorrhoids worse.?? What care is needed at home? Ask your doctor what you need to do when you go home. Make sure??you ask questions if you do not understand what the doctor says. This??way you will know what you need to do. ??? Soak your bottomin a few inches of warm water for 10 to 15 minutes??at a time. You can do this 2 to 3 times each day. Do not add soap,??bubble bath, or anything to the water. ??? Use tbkj-umy-xxqpxpg medicines to treat your hemorrhoids. These??include ointments and creams to help with pain and swelling. You can??also use a product like witch michelle to help dry out the skin in the area. ??? To help with constipation: ??? Use stool softeners when needed. ??? Eat high-fiber foods. These include whole grains, fruits, and??vegetables. ??? Drink plenty of water and other fluids each day. This helps to??keep your stools soft. ??? Set a regular schedule to try and have a bowel movement. Do??not ignore the urge to go to the bathroom. Don???t hold it in. ??? Give yourself plenty of time to have a bowel movement, but do not linger on the toilet either, by sitting and reading for a long time. ??? Do mild exercise each day like taking a walk. ??? Avoid heavy lifting or straining while the hemorrhoid is healing. ?? What follow-up care is needed? If your problem does not get better, other care may be needed. Your doctor may ask you to make visits to the office to check on your progress. Be sure to keep these visits.?? What drugs may be needed? The doctor may order drugs to: ??? Help with pain and swelling ??? Ease itching ??? Soften stools ?? Will physical activity be limited? Working out can help with digestion. It might help keep you from having hard stools. Ask your doctor about the best kind of exercise for you. ?? What problems could happen? You may have very bad bleeding. ??? Sometimes, treatments do not work. Some hemorrhoids are very??large. You might need surgery for either of these. ?? When do I need to call the doctor? You have a lot of bleeding from your rectum. ??? Your bowel movement looks like tar. ??? You are not able to pass stool because of pain from your??hemorrhoids. ??? Your pain gets worse and is nothelped by mzpu-fqj-wlgtwwk??medicines, warm water, or your home care. ??? You have a fever of 100.4??F (38??C) or higher. ?? Teach Back: Helping You Understand The Teach Back Method helps you understand the information we are giving you. After you talk with the staff, tell them in your own words what you learned. This helps to make sure the staff has described each thing clearly. It also helps to explain things that may have been confusing. Before going home, make sure you can do these: ??? I can tell you about my condition. ??? I can tell you what may help ease my pain. ??? I can tell you what I will do if I have blood in my rectum. Where can I learn more?[employer]https://familydoctor.or g/condition/hemorrhoids/National Digestive Disease Information Clearinghousehttps://www.niddk.nih.go v/health-information/digestive-diseases/hemorrhoids/definition-factsLast Reviewed Gjmt4835-54-87Jneuddzf Information Use and Disclaimer:This generalized information is a limited summary of diagnosis,treatment, and/or medication information. It is not meant to be comprehensive and should be used asa tool to help the user understand and/or assess potential diagnostic and treatment options. It does NOT include all information about conditions, treatments, medications, side effects, or risks thatmay apply to a specific patient. It is not intended to be medical advice or a substitute for the medical advice, diagnosis, or treatment of a health care provider based on the health care provider's examination and assessment of a patient???s specific and unique circumstances. Patients must speak with a health care provider for complete information about their health, medical questions, and treatment options, including any risks or benefits regarding use of medications. This information does not endorse any treatments or medications as safe, effective, or approved for treating a specific patient. [employer] and its affiliates disclaim any warranty or liability relating to this information or the use thereof. The use of this information is governed by the Terms of Use, available at??htt ps://www.[employer]/en/know/adymmglr-lnycryvazzxxs-enzwfZzne Updated 10/16/21? * Anna Whelan RN: PERFORM Event Display: Patient Education Leaflets Authored Date: [id number] Diverticulosis Discharge Instructions ?? 680 Diverticulosis Discharge Instructions ??You must carefully read the Consumer Information Use and Disclaimer below in order to understand and correctly use this information?About this topicDiverticulosis is a problem of the large bowel or colon. The wall of the bowel becomes weak and pushes outward. They form balloon-like pouches called diverticula or tics. When you have hard stool, you strain to have a bowel movement. This raises the pressure in the bowel and causes pouches or bulges to form. Most often, they do not cause a problem. If they become infected, you have diverticulitis. If you have both bleeding and infection, it is diverticular disease.??What care is needed at home? Ask your doctor what you need to do when you go home. Make sure??you ask questions if you do not understand what the doctor says. ??? Eat more whole grains, vegetables, and fruits. ??? Do not wait to have a bowel movement. Go as soon as you have the??urge. ??? Drink 8 to 10 glasses of water each day. Talk to your doctor if you are??drinking less fluids due to a health problem. ??? Be active. Walk,garden, or do something active for 30 minutes or more on most days of the week. ??What follow-up care is needed?Your doctor may ask you to make visits to the office to check on your progress. Be sure to keep these visits.??What drugs may be needed?Most often with diverticulosis you will not need to take any drugs.??Will physical activity be limited?When you are in pain, you may need to rest in bed. To ease the pain, use a heat compress on your belly. This should last only for a few days.??What changes to diet are needed?Talk to your doctor about any changes you need to make to your diet.? You do not need to avoid seeds, nuts, corn, or other similar foods. ??? You will need to eat food rich in fiber and drink more water. o Eat 5 or more servings of fresh fruits and vegetables every day. o Eat 6 or more servings of whole-wheat grain breads and??cereals. ??? Try toget 25 to 30 grams of fiber every day. Read the labels to??learn how much fiber is in foods. ??? Donot drink coffee, tea, or beer, wine, and mixed drinks (alcohol). ??What problems could happen?You may develop diverticulitis, which may cause:? Pockets or pouches in your bowel may be infected or filled with pus. ??? Hole or tear in your bowel ??? Part of your bowel to become narrow ??? You to need surgery ??What can be done to prevent this health problem?The best way to keep from having diverticulosis is to keep your bowel movements soft and normal. To keep more pouches from forming:? Talk with your doctor about adding an lumg-lfc-tutmoyq (OTC) fiber??product to keep your stools soft. ??? [place] much pain drugs you take. Overuse of some pain drugs can??cause hard stools; talk with your doctor. ??? When do I need to call the doctor? Signs of infection. These include a fever of 100.4??F (38??C) or higher,??chills. ??? Mild pain or cramping in the lower part of the belly ??? A feelingof bloating in the belly ??? Belly pain that gets worse ??? Blood in your stool ??? Upset stomach or throwing up ??? Stools get too loose or too hard ??? Long-term hard stools ??Teach Back: Helping You UnderstandThe Teach Back Method helps you understand the information we are giving you. After you talk with the staff, tell them in your own words what you learned. This helps to make sure the staff has described each thing clearly. It also helps to explain things that mayhave been confusing. Before going home, make sure you are able to do these:? I can tell you abo ut my condition. ??? I can tell you what changes I need to make with my diet or drugs. ??? I can tell you what I will do if I have pain or cramping in my lower belly??or I have more belly pain. ??Where can I learn more???FamilyDoctor.orghttp://familydoctor.org/familydoctor/en/diseases-conditio ns/div erticular-disease.htmlNHShttps://www.nhs.uk/conditions/jnljjoddxwxf-oxaluqp-lpq- diverticulitis/LastReviewed Ccgf8027-37-45Kdgkepjn Information Use and Disclaimer:This generalized information is a limited summary of diagnosis, treatment, and/or medication information. It is not meant to be comprehensive and should be used as a tool to help the user understand and/or assess potential diagnostic and treatment options. It does NOT include all information about conditions, treatments, medications, side effects, or risks that may apply to a specific patient. It is not intended to be medical adviceor a substitute for the medical advice, diagnosis, or treatment of a health care provider based on the health care provider's examination and assessment of a patient???s specific and unique circumstances. Patients must speak with a health care provider for complete information about their health, medical questions, and treatment options, including any risks or benefits regarding use of medications. This information does not endorse any treatments or medications as safe, effective, or approved for treating a specific patient. [employer]. and its affiliates disclaim any warranty or liabilityrelating to this information or the use thereof. The use of this information is governed by the Terms of Use, available at??https://www.Edfolio.com/en/know/ddrmsrtu-syxfffnaafffo-nyybpZere Upd ed 10/16/21? * Anna Whelan RN: PERFORM Event Display: Patient Education Leaflets Authored Date: [id number] Surgery Medical Daystay Surgical Overnight Discharge Instructions ?? 295 Medical Daystay/Surgical Overnight Discharge Instructions ? Since your coordination and judgment may be altered by medication and/or anesthesia, a responsible adult must drive you home from the hospital. ? If you have received medication for pain or sedation while under our care, you should not drive, operate machinery, drink alcohol, or sign any legal documents for 24 hours.?? You should have someone with you at home tonight. ? Remain at home the day of discharge.?? You may be up and about unless otherwise instructed by your physician. ? You may resume your daily prescription medication schedule.?? Any depressant medication should be avoided for 24 hours unless otherwise instructed by your surgeon or anesthesiologist. ? Call your physician for a follow-up appointment.? If you experience unusual or severe pain not relied by your pain medication, excessive bleedingor drainage, persistent nausea and vomiting, excessive swelling or redness, foul odor from incisionsite or fever over 100.6F, you need to call your physician. ? A follow-up phone call by a nurse will be made the day after your procedure.?? If you have stayed with us over night, you will not be receiving a follow-up phone call. ? Nausea and vomiting are a common side effect of prescription pain medication.?? We recommend that pills are not taken on an empty stomach.?? While taking any prescription pain medication you should not drive or drink alcohol. ? Patient Care team information Care Team Personnel Name: Laurie Castellanos RN Position: [facility] Nurse Member Role: Primary Care Nurse Name: Marichuy ALVAREZ, Ave Felipe Position: [facility] Associate Professional Member Role: Primary Care Nurse Name: Thao Preciado RN Position: [facility] Nurse Member Role: Primary Care Nurse Name: Harshil ALVAREZ, Antoinette Wang Position: [facility] Associate Professional Member Role: Primary Care Nurse Address: Address: [address] [place] [address]- Name: Tasha Naranjo NP [facility] Associate Professional Member Role: PCP Address: Address: [address] [place] [address] 3rd [place] [address]- [place] Name: Madeleine Maki RN Position: [facility] RN Member Role: Primary Care Nurse Name: Solange Buchanan RN Position: [facility] Carpenter Refrigerator Member Role: Primary Care Nurse Care Team Related Persons Name: DEBORAH HERMAN Address: home [address] [place] [address] Name: GONZALO ANTUNEZ Address: [address] [address]
--- OUTSIDE RECORDS SUMMARY | 2024-03-01 09:02 | XMS_ITS | Continuity of Care Document ---
Author Organization [facility] Adult Address [address] [place] [address]- Care Team Providers Care Senior Software Qa Engineer Name Role Phone Marcella ALVAREZ, Tasha Rutledge Primary Care Physician [phone] Encounter [facility] Date(s): 11/19/23 - 12/19/23 [facility] Adult [address] [place] [address]- Allergies, Adverse Reactions, Alerts No Known Allergies [...] 3 Refills, Maintenance, 03/21/24 13:43:00 EDT, Injection, [facility]/pharmacy #[id number], Partial fill upon patient request if the prescription is for a schedule II opioid drug., 154.94, cm, 06/29/23... Start Date: 03/21/24 Stop Date: 03/16/25 Status: Ordered metoprolol 50 mg oral tablet, extended release 50 mg, 1, tablet, By Mouth, Daily, # 90 tablet, Refills 0, Tot. Refills 0, Maintenance, 11/26/23 14:19:00 EDT, Route to Pharmacy Electronically, [facility]/pharmacy #[id number], Partial fill upon patient request if the prescription is for a schedule II opioid drug... Start Date: 11/26/23 Stop Date: 02/24/24 Status: Ordered NovoLOG FlexPen 100 units/mL subcutaneous solution = 10 units, Subcutaneous Injection, 3 times a day with meals, # 3 mL, 4 Refills, Maintenance, 03/27/23 13:44:00 EDT, Solution, [facility]/pharmacy #[id number], Partial fill upon patient request if the prescription is for a schedule II opioid drug., 154.94, cm, .. Start Date: 03/27/23 Status: Ordered NuLYTELY Lemon [place] oral powder for reconstitution 4 L, By [...] Weight Start Date: 11/28/20 Status: Ordered Pen [place], 30 G x 8 mm BD Ultra [...] mL, 3 Refills, Maintenance, 11/21/23 4:13:00 EDT, [facility]/pharmacy #[id number], Partial fill upon [...] Team Personnel Name: Laurie Castellanos RN Position: [facility] Nurse Member Role: Primary Care Nurse Name: Ave Benedict NP Position: [facility] Associate Professional Member Role: Primary Care Nurse Address: Address: [address] [facility] [place] [address]- [place] Name: Thao Preciado RN Position: [facility] Nurse Member Role: Primary Care Nurse Name: Harshil ALVAREZ, Antoinette Wang Position: [facility] Associate Professional Member Role: Primary Care Nurse Address: Address: [address] [facility] [place] [address]- [place] Name: Tasha Naranjo NP Position: [facility] Associate Professional Member Role: PCP Address: Address: [address] [facility] 3rd [place] [address]- [place] Name: Madeleine Maki RN Position: [facility] RN Member Role: Primary Care Nurse Name: Solange Buchanan RN Position: [facility] Assemblyman Or Woman Member Role: Primary Care Nurse Care Team Related Persons Name: DEBORAH HERMAN Address: home [address] [place] [address] Name: GONZALO ANTUNEZ Address: [address] [address]
--- OUTSIDE RECORDS SUMMARY | 2024-03-01 09:02 | XMS_ITS | Continuity of Care Document ---
Author Organization [facility] Adult Address [address] [place] [address]- Care Team Providers Care Cart Driver Name Role Phone Marcella ALVAREZ, Tasha Rutledge Primary Care Physician Encounter [facility] Date(s): 12/17/23 - 01/16/24 [facility] Adult [address] [place] [address]- Allergies, Adverse Reactions, Alerts No Known Allergies [...] Refills, Maintenance, 12/09/23 17:07:00 EDT, Tablet, [id number], Partial fill upon patient request if the prescription is for a schedule II opioid drug., 155, cm, 11/26/23 12:44:00 EDT, H... Start Date: 12/09/23 Status: Ordered Freestyle Sandra 3 [place] Freestyle Sandra 3 [place], See Instructions, # 1 each, Refills 0, [...] Start Date: 03/27/23 Status: Ordered NuLYTELY Lemon [place] oral powder for reconstitution 4 L, [...] Weight Start Date: 11/28/20 Status: Ordered Pen [place], 30 G x 8 mm BD Ultra [...] Team Personnel Name: Laurie Castellanos RN Position: [facility] Nurse Member Role: Primary Care Nurse Name: Ave Benedict NP Position: [facility] Associate Professional Member Role: Primary Care Nurse Name: Thao Preciado RN Position: [facility] Nurse Member Role: Primary Care Nurse Name: Antoinette Chua NP Position: [facility] Associate Professional Member Role: Primary Care Nurse Address: Address: [address] [place] [address]- Name: Tasha Naranjo NP Position: [facility] Associate Professional Member Role: PCP Address: Address: [address] [place] [address] [address] [place] [address]- Name: Madeleine Maki RN Position: [facility] RN Member Role: Primary Care Nurse Name: Solange Buchanan RN Position: [facility] Construction Equipment Overhauler Member Role: Primary Care Nurse Care Team Related Persons Name: DEBORAH HERMAN Address: home [address] [place] [address] Name: GONZALO ANTUNEZ Address: home [address] [address]
--- OUTSIDE RECORDS SUMMARY | 2024-03-01 09:02 | XMS_ITS | Continuity of Care Document ---
Author Organization [facility] Adult Address [address] [place] [address]- Care Team Providers Care Certified Emergency Vehicle Technician Name Role Phone Tasha Naranjo NP Primary Care Physician [id number] - [facility]18[facility] Adult [address] [place] [address]- Encounter Diagnosis Diabetes mellitus type 2(Discharge Diagnosis) - 02/11/24 Anxiety and depression(Discharge Diagnosis) - 02/11/24 OCD (obsessive compulsive disorder)(Discharge Diagnosis) - 02/11/24 Heart failure(Discharge Diagnosis) - 02/11/24 Migraine headache(Discharge Diagnosis) - 02/11/24 Attending Physician: Not on Staff, Attending MD Referring Physician: Tasha Naranjo NP Allergies, [...] 2 Refills, Maintenance, 12/09/23 17:07:00 EDT, Tablet, [facility]/pharmacy #[id number], Partial fill upon patient request if the prescription is for a schedule II opioid drug., 155, cm, 11/26/23 12:44:00 EDT, H... Start Date: 12/09/23 Status: Ordered Freestyle Sandra 3 [place] Freestyle Sandra 3 [place], See Instructions, # 1 each, Refills 0, [...] 17:36:0... Start Date: 01/06/24 Status: Ordered Freestyle [place] Monitor See Instructions, # 1 each, Refills [...] 09/08/24 10:29:00 EST, 02/11/24 10:29:00 EDT, Tablet, [facility]/pharmacy #[id number], Partial fill upon pat... Start Date: 02/11/24 Stop Date: 09/08/24 Status: Ordered Lantus Solostar Pen 100 units/mL subcutaneous solution = 35 units, Subcutaneous Injection, Daily at bedtime, # 15 mL, 3 Refills, Maintenance, 03/21/24 13:43:00 EDT, Injection, [facility]/pharmacy #[id number], Partial fill upon patient request if the prescription is for a schedule II opioid drug., 154.94, cm, 06/29/23... Start Date: 03/21/24 Stop Date: 03/16/25 Status: Ordered NovoLOG FlexPen 100 units/mL subcutaneous solution = 10 units, Subcutaneous Injection, 3 times a day with meals, # 3 mL, 4 Refills, Maintenance, 03/27/23 13:44:00 EDT, Solution, [facility]/pharmacy #[id number], Partial fill upon patient request if the [...] Weight Start Date: 11/28/20 Status: Ordered Pen [place], 30 G x 8 mm BD Ultra [...] mL, 3 Refills, Maintenance, 11/21/23 4:13:00 EDT, [facility]/pharmacy #[id number], Partial fill upon patient request if the prescription is for a... Start Date: 11/21/23 Stop Date: 11/15/24 Status: Ordered Problem List Condition Confirmation Course Effective Dates Status H ealt Status Informant Failure to thrive in adult [...] Informant Diabetes mellitus type 2 Discharge Diagnosis 02/11/24 Anxiety and depression Discharge Diagnosis 02/11/24 OCD (obsessive compulsive disorder) Discharge Diagnosis 02/11/24 Heart failure Discharge Diagnosis 02/11/24 Migraine headache Discharge Diagnosis 02/11/24 Vital Signs Most recent to oldest [Reference Range]: 1 2 Height 155 cm (02/11/24 10:33 AM) 155 cm (02/11/24 9:54 AM) Weight 67.6 kg (02/11/24 9:54 AM) Oxygen Saturation [94-100 %] 99 % (02/11/24 9:54 AM) Pulse Rate [55-90 bpm] 90 bpm (02/11/24 10:33 AM) 116 bpm *H* (02/11/24 9:54 AM) Body Mass Index [18.5-24.99 kg/m2] 28.14 kg/m2 *H* (02/11/24 9:54 AM) Blood Pressure [90-138/55-84 mm Hg] 109/ 77mm Hg (02/11/24 9:54 AM) Mode of Delivery (Oxygen) Room air (02/11/24 9:54 AM) Blood pressure sites Arm, right (02/11/24 9:54 AM) Weight Obtained Via Standing scale (02/11/24 9:54 AM) Social History Social History Type Response Tobacco Use: 4 or less cigar ettes(less than 1/4 pack)/day in last 30 days. Sex Note * Alejandra Echavarria: PERFORM Event Display: Patient Education/Instruction Authored Date: [id number] [facility] [place] [id number] Name: QUAN ALONZO : 1970?? Visit: 02/11/2024 09:39?? Ambulatory Visit Instructions ?? Your Care Team Primary Care Provider Tasha Naranjo NP? This Visit Provider Tasha Naranjo NP Your Diagnosis Type 2 diabetes mellitus Diabetes mellitus type 2 Anxiety and depression OCD (obsessive compulsive disorder) Heart failure Migraine headache Stress due to family tension Vitals Signs Pulse Rate: 90 bpm Height: 155 cm Systolic Blood Pressure: 109 mm Hg Weight: 67.6 kg Diastolic Blood Pressure: 77 mm Hg Body Mass Index:??28.14 kg/m2??High Oxygen Saturation: 99 % Body surface area: 1.71 What to do next Scheduled Follow-Up Appointments Thursday 7:45 AM EDT ?? With: Stanislaw Casiano MD Where: [facility] Endocrine [address] [place] [address]- Status: Pending Thursday 4:15 PM EDT ?? With: Raymond Purvis MD Where: [facility] Gastroenterology [address] [place] [address]- Status: Pending Thursday 12:50 PM EDT ?? With: Tasha Naranjo NP Where: [address] [address]- Status: Pending Future Orders Microalbumin Urine - Routine, Once, Collected by Tish Cyr MA, 02/11/24 10:13:28 EDT, [facility], Urine?? Medications The list below reflects the information in our records and provided by you today along with any changes made during this visit. Please continue your medications until treatment is completed or stopped by your provider. If this is different from the information you have or there are other questions,please contact the prescribing provider. What How Much When Why Instructions New Sumatriptan (Imitrex 50 mg oral tablet) 1 tab(s) Oral Daily as needed for for migraine headache Duration: 30 Days Refills: 6 may repeat dose after 2 hours up to a maximum of 2 ?? Pickup at [facility]/pharmacy #[id number] Unchanged Clonazepam (clonazePAM 1 mg oral tablet) 2 tab(s) Oral Twice a day as needed for Anxiety Unchanged dulaglutide (Trulicity Pen 0.75 mg/ 0.5 mL subcutaneous solution) 1.5 Milligram Subcutaneous Infusion Every week Diabetes mellitus type 2 Duration: 90 Days take 2 dose at a time to make it 1.5mg per week. 90 days supplies. ?? Unchanged Durable Medical Equipment (Freestyle Sandra 3 [place]) See instructions Diabetes mellitus type 2 Use [...] (E11.9) ?? Unchanged Durable Medical Equipment (Pen [place], 30 G x 8 mm BD Ultra [...] Daily at Bedtime Duration: 90 Days Unchanged Pantoprazole (pantoprazole 40 mg oral delayed release tablet) 1 tab(s) Oral Twice a day Unchanged Quetiapine (QUEtiapine 100 mg oral tablet) 1 tab(s) Oral Twice a day Unchanged Quetiapine (QUEtiapine 300 mg oral tablet) 2 tab(s) Oral Daily at Bedtime Pharmacy Information [facility]/pharmacy #[id number]: [address] [facility] [address] [place], [place] [id number] [phone] Test Performed Below is a partial list of the tests performed during your Visit. You may have had other tests and procedures not included in this list. Please discuss all test results with your provider. Microalbumin Urine?-- Results Pending -- POC HBA[facility]C ([facility]) You will be contacted within 72 hours with your results. Lab Test Results Below is a partial list of the most recent Laboratory test results done during your Visit. You may have had other tests and procedures not included in this list. Please discuss all test results with your provider. Test Name Test Result Date/Time POC HBA1C ([facility]) 8.2 % 02/11/2024 10:07 EDT Point of Care Results POC HgA1C Results: 8.2 % (02/11/24) Medications and Immunizations Administered Medications Given During Visit No medications given during this visit.?? Allergies (NKA means No Known Allergies) NKA Common Emergency Awareness Tips IS IT A [...] are strongly encouraged to quit. Please call [employer] at [phone] or 1-503-[employer]86[employer] ([phone]) or log in to [email or web address] for referrals to smoking cessation programs. ?? The National Suicide Prevention Hotline is available 16/03 if you or someone you know needs to find a reason to keep living. By calling 2-586-690-EKK [employer] (9618) you'll be connected to a skilled, trained counselor at a crisis center in your area. [facility] [employer] Portal You can view and manage your care through the patient portal or by using a health care juliette of your choosing. [employer] is a website that allows you to securely view your medical information including your hospital discharge summary, office visit summaries, medications and follow-up visits. You can also request appointments, renew medications, and request access to your medical information using a health care juliette of your choosing, or just ask a question. You can enroll at [email or web address] or register during your next office visit. [facility], in keeping with [facility] guidance, no longer requires face masks [...] medical provider or home test kit. ?? Disclaimer: The information provided is of a general nature and is intended to be used in conjunction with the recommendations and advice of your health care practitioner. Every effort has been made to ensure that the information provided is accurate and complete at the time it is provided to you however, as your needs change, or, as new information becomes available, different or additional instructions may be required. ?? If you have questions, please consult with your primary care provider or pharmacist, as appropriate. This information is not intended to serve as substitution for assessment and evaluation by a qualified health care provider. If you do not have a primary care provider, you may find a [facility] provider by calling [facility] at [phone]. Patient Care team information Care Team Personnel Name: Laurie Castellanos RN Position: [facility] Nurse Member Role: Primary Care Nurse Name: Ave Benedict NP Position: [facility] Associate Professional Member Role: Primary Care Nurse Name: Thao Preciado RN Position: [facility] Nurse Member Role: Primary Care Nurse Name: Antoinette Chua NP Position: [facility] Associate Professional Member Role: Primary Care Nurse Address: Address: [address] [place] [address]- Name: Tasha Naranjo [facility] Associate Professional Member Role: PCP Address: Address: [address] [place] [address] 3rd [place] [address]- [place] Name: Madeleine Maki RN Position: [facility] RN Member Role: Primary Care Nurse Name: Solange Buchanan RN Position: [facility] Hospital Supervisor Aircraft Cleaning Member Role: Primary Care Nurse Care Team Related Persons Name: DEBORAH HERMAN Address: home [address] [place] [address] Name: GONZALO ANTUNEZ Address: home [address] [address]
[2024-03-01 09:06] LABS: MANUAL DIFF FLAG NO
[2024-03-01 09:07] LABS: Basophils Percent Auto 0.2 % (0-2); Eosinophils Percent Auto 0.1 % (0-4); Hematocrit 43.7 % (37.0-47.0); Hemoglobin 15.1 g/dl (12.0-16.0); Imm Gran Abs Auto 0.03 X10*3/uL (0.00-0.03); Imm Gran Pct Auto 0.3 % (0.0-0.4); Lymphocytes Absolute Auto 1.4 X10*3/uL (1.2-4.9); Lymphocytes Percent Auto 12.1 % (20-40); Mean Corpuscular HGB Conc 34.6 g/dl (31.0-35.0); Mean Corpuscular Hemoglobin 30.4 pg (27.0-33.0); Mean Corpuscular Volume 88.1 fL (80.0-98.0); Mean Platelet Volume 8.7 fL (9.4-12.3); Monocytes Absolute Auto 0.6 X10*3/uL (0.1-1.2); Monocytes Percent Auto 5.1 % (2-11); Neutrophils Absolute Auto 9.4 x10*3/uL (2.0-8.3); Neutrophils Percent Auto 82.2 % (45-73); Platelet Count 360 X10*3/uL (160-400); Red Blood Count 4.96 X10*6/uL (4.20-5.50); Red Cell Distribution Width 12.4 % (11.0-16.0); White Blood Count 11.5 X10*3/uL (4.8-10.8)
[2024-03-01 09:08] LABS: Appearance Urine Clear; Color Urine Yellow; Glucose Urine UA >=1000 mg/dL (Negative); Leukocyte Esterase Urine Negative (Negative); Nitrite Urine Negative (Negative); Specific Gravity - Urine >= 1.030 (1.005-1.025); UMIC TRIGGER UACC YES; Urine Blood Negative (Negative); Urine Ketones Trace mg/dL (Negative); Urine Protein Trace mg/dL (Neg-Trace)
[2024-03-01 09:17] LABS: Bacteria Urine 1+ (None Seen); Hyaline Casts Urine 0-2 /LPF (0-2); RBC Urine 0-2 /HPF (0-2); WBC Urine 0-5 /HPF (0-5)
[2024-03-01 09:23] LABS: Alanine Aminotransferase 15 U/L (0-31); Albumin Level 4.6 g/dL (3.5-5.0); Alkaline Phosphatase 82 U/L (39-117); Anion Gap 17 (12-20); Aspartate Amino Transferase 14 U/L (5-31); Bilirubin Direct 0.1 mg/dL (0.0-0.5); Bilirubin Total 0.6 mg/dL (0.0-1.0); Blood Urea Nitrogen 19 mg/dL (9-16); Carbon Dioxide 28 mmol/L (22-29); Chloride 102 mmol/L (96-108); Creatinine Clr Calc Pharmacy 44.3; Estimated Glomerular Filt Rate 44; Glucose Random 268 mg/dL (60-115); Lipase 17 U/L (8-78); Potassium 3.6 mmol/L (3.3-5.1); Sodium 143 mmol/L (135-145); Total Protein 7.8 g/dL (6.5-8.0)
--- NOTE | 2024-03-01 11:26 | ED.ABDPAIN ---
HPI - Abdominal Pain General Chief Complaint: Abdominal Pain Stated Complaint: abd pain Time Seen by Provider: 03/01/24 11:24 Source: patient Mode of arrival: ambulatory Limitations: no limitations History of Present Illness ED Provider: Dr. Arenas HPI narrative: Patient with known gastroparesis, presents with one week of vomiting MD elicited complaint: abdominal pain Onset (ago): week(s) Pain Consistency: constant Location: epigastric Severity: moderate Related Data Home Medications ?Medication ?Instructions ?Recorded ?Confirmed atorvastatin 20 mg tablet 20 mg PO BEDTIME 11/12/23 12/24/23 clonazepam 2 mg tablet 2 mg PO BID anxiety 11/12/23 12/24/23 dulaglutide 0.75 mg/0.5 mL 0.75 mg subcut MO 11/12/23 12/24/23 subcutaneous pen injector (Trulicity) empagliflozin 25 mg tablet 25 mg PO QAM 11/12/23 12/24/23 (Jardiance) insulin glargine 100 unit/mL 10 unit subcut QPM 11/12/23 12/24/23 subcutaneous solution (Lantus U-100 Insulin) ondansetron 4 mg disintegrating 4 mg PO Q6H PRN Nausea 11/12/23 12/24/23 tablet quetiapine 300 mg tablet 600 mg PO BEDTIME 11/12/23 12/24/23 Previous Rx's ?Medication ?Instructions ?Recorded insulin lispro 100 unit/mL 1 sliding scale dose subcut 03/01/22 subcutaneous solution (Humalog USEASDIRECTD #10 mL U-100 Insulin) aspirin 81 mg tablet,delayed 81 mg PO DAILY #30 tabs 11/17/23 release heparin (porcine) 25,000 unit/250 25,000 unit (250 mL) continuous IV 11/17/23 mL in 0.45 % sodium chloride IV infusion .Q0M #6,000 mL soln cyclobenzaprine 5 mg tablet 5 mg PO TID PRN muscle spasm 7 11/23/23 days #21 tabs metoprolol succinate 50 mg 50 mg PO DAILY #90 tabs 12/24/23 tablet,extended release 24 hr metoclopramide HCl 10 mg tablet 10 mg PO Q6H PRN nausea and 03/01/24 (Reglan) vomiting #10 tabs Allergies Allergy/AdvReac Type Severity Reaction Status Date / Time No Known Allergies Allergy Verified 03/01/24 08:47 [No Known Allergies*] Review of Systems Review of Systems Yes all other systems are reviewed and are negative Denies Sensory deficit (Neuro) [facility] Past Medical History Medical History Diabetes Gastroparesis Family History Family History Father No problems noted. Social History Social History Household Members: None Housing: Apartment Do you presently have visiting nurse or other home services: No Alcohol intake: never Patient Tobacco Use Status: Never used Tobacco Smoked in Last 30 Days: Yes Use of substances other than those prescribed or required for medical reasons: No Advance Directives: No Advance Directives Information Provided: No service: No Physical Exam ED Vital Signs: Vital Signs - 24 hr 03/01/24 08:43 03/01/24 12:05 03/01/24 14:00 Temperature 97.8 F 98.7 F 98.3 F Pulse Rate 118 H 103 H 97 Respiratory Rate 16 18 19 Blood Pressure 111/92 H 114/76 Pulse Oximetry 98 107 H Oxygen Delivery Method Room Air Room Air 03/01/24 16:57 Temperature Pulse Rate 85 Respiratory Rate 17 Blood Pressure 113/75 Pulse Oximetry Oxygen Delivery Method BMI result Body Mass Index 27.4 Const Other: female crying looking older than stated age Nutritional Appearance: average body habitus Orientation/consciousness: oriented to person and patient oriented x3 Limitations: no limitations HENMT Head: Yes normal to inspection Ears: external ears normal General nose exam: Normal external nose present Mouth: Normal oral and palatal mucosa present and oropharynx normal Throat: Yes posterior oropharynx normal Eyes General: appearance normal, both eyes and all related structures Neck Neck: Yes normal visual inspection Chest Chest palpation & inspection: normal inspection of the chest Resp Auscultation: clear to auscultation bilaterally Cardio Jugular venous distension: no JVD Rate: regular rate Rhythm: regular rhythm Heart sounds: S1 normal heart sound present and S2 normal heart sound present GI Inspection: Yes normal to inspection Palpation (GI): Soft to palpation, nontender and No hepatosplenomegaly present Auscultation: normal bowel sounds General: Yes no CVA tenderness Back/Spine/Pelvis Back: no CVA tenderness Skin General skin exam: no rashes or lesions noted Neuro General: oriented to person and patient oriented x3 Cranial nerves: Yes CN's II-XII intact bilaterally Motor exam (neuro): 5/5 motor strength present throughout Sensory Exam: No Sensory deficit (Neuro) Extrem General: Yes normal to inspection Psych Appearance: grossly normal Course Reevaluation(s) Reevaluation #1: Patient improved toleratin po will dc home on reglan Time: 17:11 Medical Decision Making Differential Diagnosis Differential Diagnoses: The differential diagnosis associated with the presentation includes (gastroparesis, cyclical vomiting, pancreatitis, DM) Admission/Observation Consideration of admission/observation: Escalation of care including admission/observation considered (upon arrival patient considered for admission) Lab Data 03/01/24 09:00 03/01/24 09:00 Labs: Lab Results 03/01/24 03/01/24 Range/Units 08:50 09:00 WBC 11.5 H (4.8-10.8) X10*3/uL RBC 4.96 D (4.20-5.50) X10*6/uL Hgb 15.1 D (12.0-16.0) g/dl Hct 43.7 D (37.0-47.0) % MCV 88.1 (80.0-98.0) fL MCH 30.4 (27.0-33.0) pg MCHC 34.6 (31.0-35.0) g/dl RDW 12.4 (11.0-16.0) % Plt Count 360 D (160-400) X10*3/uL MPV 8.7 L (9.4-12.3) fL Immature Gran % (Auto) 0.3 (0.0-0.4) % Neut % (Auto) 82.2 H (45-73) % Lymph % (Auto) 12.1 L (20-40) % [place] % (Auto) 5.1 (2-11) % Eos % (Auto) 0.1 (0-4) % Baso % (Auto) 0.2 (0-2) % Lymph # (Auto) 1.4 (1.2-4.9) X10*3/uL [place] # (Auto) 0.6 (0.1-1.2) X10*3/uL Eos # (Auto) 0.0 (0.0-0.4) X10*3/uL Baso # (Auto) 0.0 (0.0-0.2) X10*3/uL Abs Immat Gran (auto) 0.03 (0.00-0.03) X10*3/uL Absolute Neuts (auto) 9.4 H (2.0-8.3) x10*3/uL Absolute Nucleated RBC 0.000 (0.0-0.012) X10*3/uL Nucleated RBC % (auto) 0.0 (0.0-0.2) /100WBC Sodium 143 (135-145) mmol/L Potassium 3.6 (3.3-5.1) mmol/L Chloride 102 (96-108) mmol/L Carbon Dioxide 28 (22-29) mmol/L Anion Gap 17 (12-20) BUN 19 H (9-16) mg/dL Creatinine 1.26 (0.5-1.4) mg/dL Estim Creat Clear Calc 44.3 Estimated GFR 44 POC Glucose 258 H (60-115) mg/dL Random Glucose 268 H (60-115) mg/dL Calcium 10.0 D (8.4-10.2) mg/dL Total Bilirubin 0.6 (0.0-1.0) mg/dL Direct Bilirubin 0.1 (0.0-0.5) mg/dL AST 14 (5-31) U/L ALT 15 (0-31) U/L Alkaline Phosphatase 82 (39-117) U/L Total Protein 7.8 (6.5-8.0) g/dL Albumin 4.6 (3.5-5.0) g/dL Lipase 17 (8-78) U/L Urine Color Yellow Urine Appearance Clear Urine pH 6.0 (5.0-9.0) Ur Specific [place] >= 1.030 H (1.005-1.025) Urine Protein Trace (Neg-Trace) mg/dL Urine Glucose (UA) >=1000 H (Negative) mg/dL Urine Ketones Trace (Negative) mg/dL Urine Blood Negative (Negative) Urine Nitrite Negative (Negative) Ur Leukocyte Esterase Negative (Negative) Urine RBC 0-2 (0-2) /HPF Urine WBC 0-5 (0-5) /HPF Ur Squamous Epith Cells 3-5 (0-2) /HPF Urine Bacteria 1+ (None Seen) Hyaline Casts 0-2 (0-2) /LPF Tests considered The following testing was considered but not selected: CT of abdomen considered but patient with soft abdomen and long history of gastroparesis Prescription Management I considered prescription management with: Antibiotic (no evidence of bacterial infection) Chronic Conditions Patient?s care impacted by: Diabetes Social Determinants Patient?s care significantly limited by Social Determinants of Health including: Low income Medications Administered Discontinued Medications Generic Name Dose Route Start Last Admin Trade Name Freq PRN Reason Stop Dose Admin Diphenhydramine HCl 25 mg 03/01/24 11:33 03/01/24 11:57 Diphenhydramine Hcl 50 Mg/Ml Vial IVPUSH 03/01/24 11:34 25 mg ONCE ONE Administration Haloperidol Lactate 5 mg 03/01/24 11:33 03/01/24 11:58 Haloperidol Lactate 5 Mg/Ml Vial IVPUSH 03/01/24 11:34 5 mg ONCE ONE Administration Sodium Chloride 1,000 mls @ 500 mls/hr 03/01/24 11:45 03/01/24 13:40 Ns IVCONT 03/01/24 13:44 Infused .Q2H BASHIR Infusion Discharge Plan Discharge Clinical Impression: Diabetic gastroparesis, Diabetes Patient Disposition: Home, Self-Care Instructions: Gastroparesis (ED), Diabetes and Nutrition (ED) Prescriptions: New metoclopramide HCl [Reglan] 10 mg tablet 10 mg PO Q6H PRN (Reason: nausea and vomiting) Qty: 10 0RF No Action insulin lispro [Humalog U-100 Insulin] 100 unit/mL solution 1 sliding scale dose subcut USEASDIRECTD Qty: 10 0RF cyclobenzaprine 5 mg tablet 5 mg PO TID PRN (Reason: muscle spasm) 7 Days Qty: 21 0RF atorvastatin 20 mg tablet 20 mg PO BEDTIME quetiapine 300 mg tablet 600 mg PO BEDTIME clonazepam 2 mg tablet 2 mg PO BID Jardiance 25 mg tablet 25 mg PO QAM Trulicity 0.75 mg/0.5 mL pen injector 0.75 mg subcut MO insulin glargine [Lantus U-100 Insulin] 100 unit/mL solution 10 unit subcut QPM ondansetron 4 mg Tablet,Disintegrating 4 mg PO Q6H PRN (Reason: Nausea) aspirin 81 mg Tablet,Delayed Release (Dr/Ec) 81 mg PO DAILY Qty: 30 0RF heparin(porcine) in 0.45% NaCl 25,000 unit/250 mL Parenteral Solution 25,000 unit continuous IV infusion .Q0M Qty: 6000 0RF metoprolol succinate 50 mg tablet extended release 24 hr 50 mg PO DAILY Qty: 90 3RF Referrals: Tasha Naranjo FNP [Primary Care Provider] - 3 days Print Language: Icelandic
[2024-03-01] MEDS: diphenhydrAMINE HCL 50 MG/ML VIAL 25 MG IVPUSH (11:57)
[2024-03-01] MEDS: 0.9 % Sodium Chloride 1,000 ML 500 ML IVCONT (11:57)
[2024-03-01] MEDS: Haloperidol Lactate 5 MG/ML VIAL IVPUSH (11:58)
[2024-03-01 12:05] VITALS: BP 114/76; PULSE 103; RESP 18; TEMP 37.1
[2024-03-01 14:00] VITALS: PULSE 97; RESP 19; TEMP 36.8; O2SAT 107
[2024-03-01 16:57] VITALS: BP 113/75; PULSE 85; RESP 17
[2024-03-01 17:33] VITALS: BP 99/60; PULSE 91; RESP 20; TEMP 36.8; O2SAT 98
[2024-03-01 17:34] LABS: Glucose, Whole Blood 151 mg/dL (60-115)
[2024-03-01 17:47] VITALS: BP 99/60; PULSE 91; RESP 20; TEMP 36.8; O2SAT 98
== END 2024-03-01 17:48 | disposition home or self-care (01) ==
PROVIDERS: Emergency Provider Emergency Medicine; PCP Nurse Practitioner Family
DX: E11.43 Type 2 diabetes mellitus with diabetic autonomic (poly)neuropathy (principal); K31.84 Gastroparesis; R11.10 Vomiting, unspecified; R10.9 Unspecified abdominal pain; Z79.899 Other long term (current) drug therapy
CPT/HCPCS: 36415; 80048; 80076; 81001; 82947; 83690; 85025; 96361; 96374; 96375; 99284; 99285; J1200; J1630

== ENCOUNTER 2024-03-23 22:03 | Emergency (ER) | payer OTHER, SELFPAY ==
[2024-03-23 22:07] VITALS: BP 137/84; BP 144/90; PULSE 106; RESP 20; TEMP 36.7; O2SAT 100; BMI 26.8
[2024-03-23 22:09] VITALS: BP 137/84; PULSE 107; RESP 18; TEMP 36.7; O2SAT 100
--- NOTE | 2024-03-23 22:33 | ECG_ITS ---
Test Reason : ABD PAIN Blood Pressure : / mmHG Vent. Rate : 107 BPM Atrial Rate : 107 BPM P-R Int : 154 ms QRS Dur : 070 ms QT Int : 364 ms P-R-T Axes : 068 056 066 degrees QTc Int : 485 ms Sinus tachycardia Low voltage QRS Cannot rule out Anterior infarct , age undetermined Abnormal ECG When compared with ECG of 15-NOV-2023 09:19, ST no longer depressed in Anterior leads T wave inversion no longer evident in Inferior leads T wave inversion no longer evident in Anterolateral leads Referred By: Thao Hutchinson Electronically Signed By:Abdoulaye Medrano
--- OUTSIDE RECORDS SUMMARY | 2024-03-23 22:40 | XMS_ITS | Continuity of Care Document ---
Author Organization [facility] Address [address] [place] [address]- Care Team Providers Care Lean Manufacturing Specialist Name Role Phone Marcella ALVAREZ, Tasha Rutledge Primary Care Physician [place] [facility] [place]24 [facility] [address] [place] [id number] Attending Physician: Stanislaw Casiano MD Admitting Physician: Stanislaw Casiano MD Referring Physician: Tasha Naranjo NP Allergies, [...] 2 Refills, Maintenance, 12/09/23 17:07:00 EDT, Tablet, [facility]/pharmacy #[id number], Partial fill upon patient request if the prescription is for a schedule II opioid drug., 155, cm, 11/26/23 12:44:00 EDT, H... Start Date: 12/09/23 Status: Ordered Freestyle Sandra 3 [place] Freestyle Sandra 3 [place], See Instructions, # 1 each, Refills 0, [...] Solostar Pen 100 units/mL subcutaneous solution = 40 units, Subcutaneous Injection, Daily at bedtime, # 15 mL, 3 Refills, Maintenance, 03/16/25 13:43:00 EDT, Injection, [id number], Partial fill upon patient request if the prescription is for a schedule II opioid drug., 155, cm, 02/29/24 12:... Start Date: 03/16/25 Stop Date: 03/11/26 Status: Ordered NovoLOG FlexPen 100 units/mL subcutaneous [...] 0 Refills,Maintenance, 02/28/24 2:51:00 EDT, DIS Tablet, [facility]/pharmacy #[id number], Partial fill upon patient request, [...] 2 times a day, # 180 tablet, 1 Refills, Maintenance, 02/29/24 13:32:00 EDT, EC Tablet, 155, cm, 02/29/24 12:43:00 EDT, Height, 61, kg, 02/28/24 2:47:00 EDT, Dry Weight Start Date: 02/29/24 Status: Ordered Pen [place], 30 G x 8 mm BD Ultra [...] Team Personnel Name: Laurie Castellanos RN Position: [facility] Nurse Member Role: Primary Care Nurse Name: Marichuy ALVAREZ, Ave Felipe Position: [facility] Associate Professional Member Role: Primary Care Nurse Name: Thao Preciado RN Position: [facility] Nurse Member Role: Primary Care Nurse Name: Harshil ALVAREZ, Antoinette Wang Position: [facility] PCO Associate Professional Member Role: Primary Care Nurse Address: Address: [address] [place] [address]- Name: Tasha Naranjo NP Position: [facility]O Associate Professional Member Role: PCP Address: Address: [address] [place] [address] 3rd [place] [address]- [place] Name: Madeleine Maki RN Position: [facility] RN Member Role: Primary Care Nurse Name: Solange Buchanan RN Position: [facility] Glass Smoother Member Role: Primary Care Nurse Care Team Related Persons Name: DEBORAH HERMAN Address: home [address] [place] [address] Name: GONZALO ANTUNEZ Address: home [address] [address]
--- NOTE | 2024-03-23 22:41 | PC.NURSE ---
pt biba from home, a&ox4, respirations even and unlabored.pt reporting onset of 10/10 lower abdominal pain starting this am, pt reports 10 episodes of vomiting today. pt reports hx of the same and reports having a GI doctor. pt abdomen tender to touch and pt tearful at this time. 20G placed in right AC, labs obtained and sent.
--- OUTSIDE RECORDS SUMMARY | 2024-03-23 22:41 | XMS_ITS | Continuity of Care Document ---
Author Organization [facility] ter Address [address] [place] [address]- Care Team Providers Care Airplane Gas Tank Liner Assembler Name Role Phone Marcella ALVAREZ, Tasha Rutledge Primary Care Physician Encounter [facility] [place] R [id number] Date(s): 01/01/24 - 03/03/[address] [address] Attending Physician: Aye Avendaño MD Admitting Physician: [...] 2 Refills, Maintenance, 12/09/23 17:07:00 EDT, Tablet, [facility]/pharmacy #[id number], Partial fill upon patient request if the prescription is for a schedule II opioid drug., 155, cm, 11/26/23 12:44:00 EDT, H... Start Date: 12/09/23 Status: Ordered Freestyle Sandra 3 [place] Freestyle Sandra 3 [place], See Instructions, # 1 each, Refills 0, [...] cm, ... Start Date: 03/27/23 Status: Ordered ondansetron 4 mg oral tablet, disintegrating 1 tablet = 4 mg, By Mouth, Every 8 hours, PRN as needed for nausea/vomiting, # 9 tablet, 0 Refills,Maintenance, 02/28/24 2:51:00 EDT, DIS Tablet, [facility]/pharmacy #[id number], Partial fill upon patient request, 155, [...] Weight Start Date: 02/29/24 Status: Ordered Pen [place], 30 G x 8 mm BD Ultra [...] Team Personnel Name: Laurie Castellanos RN Position: [facility] Nurse Member Role: Primary Care Nurse Name: Ave Benedict NP Position: [facility] Associate Professional Member Role: Primary Care Nurse Name: Thao Preciado RN Position: [facility] AMB Nurse Member Role: Primary Care Nurse Name: Antoinette Chua NP Position: [facility] PCO Associate Professional Member Role: Primary Care Nurse Address: Address: [address] [place] [address]- Name: Tasha Naranjo NP Position: [facility] Associate Professional Member Role: PCP Address: Address: [address] [place] [address] 3rd [place] [address]- Name: Madeleine Maki RN Position: [facility] RN Member Role: Primary Care Nurse Name: Solange Buchanan RN Position: [facility] Mission Manager Member Role: Primary Care Nurse Care Team Related Persons Name: DEBORAH HERMAN Address: home [address] [place] [address] Name: GONZALO ANTUNEZ Address: [address] [address]
--- OUTSIDE RECORDS SUMMARY | 2024-03-23 22:41 | XMS_ITS | Continuity of Care Document ---
Author Organization [facility] Address [address] [place] [address]- Care Team Providers Care Generator Technician Name Role Phone Tasha Naranjo NP [id number] 03/07/[address] [facility] [address] [place] [address]- Encounter Diagnosis Chronic epigastric pain(Discharge Diagnosis) - 02/29/24 Anxiety and depression(Discharge Diagnosis) - 02/29/24 Diabetes mellitus type 2(Discharge Diagnosis) - 02/29/24 Attending Physician: Tasha Naranjo NP Allergies, Adverse Reactions, [...] Refills, Maintenance, 12/09/23 17:07:00 EDT, Tablet, [id number], Partial fill upon patient request if the prescription is for a schedule II opioid drug., 155, cm, 11/26/23 12:44:00 EDT, H... Start Date: 12/09/23 Status: Ordered Freestyle Sandra 3 [place] Freestyle Sandra 3 [place], See Instructions, # 1 each, Refills 0, [...] 09/08/24 10:29:00 EST, 02/11/24 10:29:00 EDT, Tablet, [facility]/pharmacy #[id number], Partial fill upon pat... Start [...] 4 Refills, Maintenance, 03/27/23 13:44:00 EDT, Solution, [facility]/pharmacy #[id number], Partial fill upon patient request if the prescription is for a schedule II opioid drug., 154.94, cm, ... Start Date: 03/27/23 Status: Ordered ondansetron 4 mg oral tablet, disintegrating 1 tablet = 4 mg, By Mouth, Every 8 hours, PRN as needed for nausea/vomiting, # 9 tablet, 0 Refills,Maintenance, 02/28/24 2:51:00 EDT, DIS Tablet, [facility]/pharmacy #[id number], Partial fill upon patient request, [...] Weight Start Date: 02/29/24 Status: Ordered Pen [place], 30 G x 8 mm BD Ultra [...] mL, 3 Refills, Maintenance, 11/21/23 4:13:00 EDT, [facility]/pharmacy #[id number], Partial fill upon [...] Effective Dates Health Status Clinical Service Informant Chronic epigastric pain Discharge Diagnosis 02/29/24 Anxiety and depression Discharge Diagnosis 02/29/24 Diabetes mellitus type 2 Discharge Diagnosis 02/29/24 Vital Signs Most recent to oldest [Reference Range]: 1 Height 155 cm (02/29/24 12:43 PM) Weight 66.7 kg (02/29/24 12:43 PM) Oxygen Saturation [94-100 %] 97 % (02/29/24 12:43 PM) Pulse Rate [55-90 bpm] 77 bpm (02/29/24 12:43 PM) Body Mass Index [18.5-24.99 kg/m2] 27.76 kg/m2 *H* (02/29/24 12:43 PM) Blood Pressure [90-138/55-84 mm Hg] 102/ 72mm Hg (02/29/24 12:43 PM) Mode of Delivery (Oxygen) Room air (02/29/24 12:43 PM) Blood pressure sites Arm, left (02/29/24 12:43 PM) Weight Obtained Via Standing scale (02/29/24 12:43 PM) Social History Social History Type Response Tobacco Use: 4 or less cigar ettes(less than 1/4 pack)/day in last 30 days. Sex Note * Roxanne Beth: PERFORM Event Display: Patient Education/Instruction Authored Date: Ambulatory [place] [address] Name: QUAN ALONZO : 1970?? Visit: 02/29/2024 12:17?? Ambulatory Visit Instructions ?? Your Care Team Primary Care Provider Tasha Naranjo NP? This Visit Provider Tasha Naranjo NP Your Diagnosis Diabetic gastroparesis Chronic epigastric pain Anxiety and depression Vitals Signs Pulse Rate: 77 bpm Height: 155 cm Systolic Blood Pressure: 102 mm Hg Weight: 66.7 kg Diastolic Blood Pressure: 72 mm Hg Body Mass Index:??27.76 kg/m2??High Oxygen Saturation: 97 % Body surface area: 1.69 What to do next Instructions From Your Provider Start Pantoprazole for stomach pain?? Hold Trulicity?? I have increased Lantus to 40 units? Call GI if pain is not better? Scheduled Follow-Up Appointments Thursday 2:15 PM EDT ?? With: Raymond Purvis MD Where: [facility] [address] [place] [address]- Status: Pending Medications The list below reflects the information in our records and provided by you today along with any changes made during this visit. Please continue your medications until treatment is completed or stopped by your provider. If this is different from the information you have or there are other questions,please contact the prescribing provider. What How Much When Why Instructions New Pantoprazole (pantoprazole 40 mg oral delayed release tablet) 1 tab(s) Oral Twice a day Refills: 1 Pickup at [facility]/pharmacy #[id number] Changed Insulin Glargine (Lantus Solostar Pen 100 units/ mL subcutaneous solution) 40 unit(s) Subcutaneous Injection Daily at Bedtime Duration: 90 Days Pickup at [facility]/pharmacy #[id number] Changed Insulin Glargine (Lantus Solostar Pen 100 units/ mL subcutaneous solution) 35 unit(s) Subcutaneous Injection Daily at Bedtime Duration: 90 Days Unchanged Clonazepam (clonazePAM 1 mg oral tablet) 2 tab(s) Oral Twice a day as needed for Anxiety Unchanged dulaglutide (Trulicity Pen 0.75 mg/ 0.5 mL subcutaneous solution) 1.5 Milligram Subcutaneous Infusion Every week Diabetes mellitus type 2 Duration: 90 Days take 2 dose at a time to make it 1.5mg per week. 90 days supplies. ?? Unchanged Durable Medical Equipment (Freestyle Sandra 3 [place]) See instructions Diabetes mellitus type 2 Use [...] (E11.9) ?? Unchanged Durable Medical Equipment (Pen [place], 30 G x 8 mm BD Ultra Fine II) See instructions Duration: 90 Days DMII E11.9 Use for insulin injection four times per day ?? Unchanged empagliflozin (empagliflozin 25 mg oral tablet) 1 tab(s) Oral Daily in the morning Unchanged Insulin Aspart (NovoLOG FlexPen 100 units/ mL subcutaneous solution) 10 unit(s) Subcutaneous Injection 3 times a day with meals Unchanged Ondansetron (ondansetron 4 mg oral tablet, disintegrating) 1 tab(s) Oral Every 8 hours as needed for as needed for nausea/vomiting Duration: 3 Days Unchanged Quetiapine (QUEtiapine 100 mg oral tablet) 1 tab(s) Oral Twice a day Unchanged Quetiapine (QUEtiapine 300 mg oral tablet) 2 tab(s) Oral Daily at Bedtime Unchanged Sumatriptan (Imitrex 50 mg oral tablet) 1 tab(s) Oral Daily as needed for for migraine headache Duration: 30 Days may repeat dose after 2 hours up to a maximum of 2 ?? Pharmacy Information [facility]/pharmacy #[id number]: [address] [facility] [address] [place], [place] [id number] [phone] Medications and Immunizations Administered Medications Given During [...] are strongly encouraged to quit. Please call [facility] [employer] Link at [phone] or [phone] ([phone]) or log in to [email or web address] for referrals to smoking cessation programs. ?? The National Suicide Prevention Hotline is available 16/03 if you or someone you know needs to find a reason to keep living. By calling 1-594-155-TrakTek 3D (4558) you'll be connected to a skilled, trained counselor at a crisis center in your area. [facility] [employer] Portal You can view and manage your care through the patient portal or by using a health care juliette of your choosing. [employer] is a website that allows you to securely view your medical information including your hospital discharge summary, office visit summaries, medications and follow-up visits. You can also request appointments, renew medications, and request access to your medical information using a health care juliette of your choosing, or just ask a question. You can enroll at [email or web address] or register during your next office visit. [facility], in keeping with [facility] guidance, [...] primary care provider, you may find a [facility] provider by calling [facility] Link at [phone]. Patient Care team information Care Team Personnel Name: Laurie Castellanos RN Position: [facility] AMB Nurse Member Role: Primary Care Nurse Name: Marichuy ALVAREZ, Ave Felipe Position: [facility] Associate Professional Member Role: Primary Care Nurse Name: Thao Preciado RN Position: [facility] AM[facility] Nurse Member Role: Primary Care Nurse Name: Harshil ALVAREZ, Antoinette Wang Position: [facility]O Associate Professional Member Role: Primary Care Nurse Address: Address: [address] [place] [address]- Name: Tasha Naranjo NP Position: [facility] Associate Professional Member Role: PCP Address: Address: [address] [place] [address] [address]rd [place] [address]- [place] Name: Madeleine Maki RN Position: [facility] RN Member Role: Primary Care Nurse Name: Solange Buchanan RN Position: [facility] Print Press Operator Member Role: Primary Care Nurse Care Team Related Persons Name: DEBORAH HERMAN Address: [address] [place] [address] Name: GONZALO ANTUNEZ Address: home [address] [address]
--- OUTSIDE RECORDS SUMMARY | 2024-03-23 22:42 | XMS_ITS | Continuity of Care Document ---
Author Organization [facility] ter Address [address] [place] [id number]- Care Team Providers Care Family Member Caretaker Name Role Phone Marcella ALVAREZ, Tasha Rutledge Primary Care Physician [phone] [facility] [id number] Date(s): 02/02/24 - 03/03/[address] [address]- Attending Physician: Catalina Cedeno Admitting Physician: AdmtrCatalina Referring Physician: Admtr, Ar8 Allergies, Adverse Reactions, [...] 2 Refills, Maintenance, 12/09/23 17:07:00 EDT, Tablet, [facility]/pharmacy #[id number], Partial fill upon patient request if the prescription is for a schedule II opioid drug., 155, cm, 11/26/23 12:44:00 EDT, H... Start Date: 12/09/23 Status: Ordered Freestyle Sandra 3 [place] Freestyle Sandra 3 [place], See Instructions, # 1 each, Refills 0, [...] 0 Refills,Maintenance, 02/28/24 2:51:00 EDT, DIS Tablet, [id number], Partial fill upon patient request, 155, [...] Weight Start Date: 02/29/24 Status: Ordered Pen [place], 30 G x 8 mm BD Ultra [...] Nurse Name: Marichuy ALVAREZ, Ave Felipe Position: [facility] Associate Professional Member Role: Primary Care Nurse Name: Thao Preciado RN Position: [facility] AMB Nurse Member Role: Primary Care Nurse Name: Harshil ALVAREZ, Antoinette Wang Position: [facility] PCO Associate Professional Member Role: Primary Care Nurse Address: Address: [address] [place] [id number]- Name: Tasha Naranjo NP Position: [facility] PCO Associate Professional Member Role: PCP Address: Address: [address] [place] [address] [address] [place] [address]- Name: Madeleine Maki RN Position: [facility] RN Member Role: Primary Care Nurse Name: Solange Buchanan RN Position: [facility] Belt Tender Member Role: Primary Care Nurse Care Team Related Persons Name: DEBORAH HERMAN Address: home [address] [place] [address] Name: GONZALO ANTUNEZ Address: home [address] [address]
[2024-03-23 22:43] LABS: MANUAL DIFF FLAG NO
[2024-03-23 22:45] LABS: Basophils Percent Auto 0.6 % (0-2); Eosinophils Absolute Auto 0.1 X10*3/uL (0.0-0.4); Eosinophils Percent Auto 1.2 % (0-4); Hemoglobin 14.7 g/dl (12.0-16.0); Imm Gran Abs Auto 0.03 X10*3/uL (0.00-0.03); Imm Gran Pct Auto 0.5 % (0.0-0.4); Lymphocytes Absolute Auto 1.9 X10*3/uL (1.2-4.9); Lymphocytes Percent Auto 29.4 % (20-40); Mean Corpuscular HGB Conc 34.2 g/dl (31.0-35.0); Mean Corpuscular Hemoglobin 30.3 pg (27.0-33.0); Mean Corpuscular Volume 88.7 fL (80.0-98.0); Mean Platelet Volume 8.9 fL (9.4-12.3); Monocytes Absolute Auto 0.4 X10*3/uL (0.1-1.2); Monocytes Percent Auto 6.5 % (2-11); Neutrophils Percent Auto 61.8 % (45-73); Platelet Count 317 X10*3/uL (160-400); Red Blood Count 4.85 X10*6/uL (4.20-5.50); Red Cell Distribution Width 12.4 % (11.0-16.0); White Blood Count 6.4 X10*3/uL (4.8-10.8)
--- NOTE | 2024-03-23 23:05 | ED_ITS ---
HPI - Abdominal Pain General Chief Complaint: Abdominal Pain Stated Complaint: abd pain n/v Time Seen by Provider: 03/23/24 22:32 Source: patient and EMS Mode of arrival: EMS Limitations: no limitations History of Present Illness HPI narrative: Patient is a 54-year-old female who presents emergency department via EMS for evaluation. She reports that she has been having mid ABD/epigastric pain since 08:00 this morning and has had 10 episodes of bilious and watery emesis since then. She trialed Zofran without improvement. She admits to a history of gastroparesis and states that her current symptoms feel consistent with that. She reports over the past few days she has been drinking only clear liquids, however she does admit to having a slice pizza yesterday. She denies fevers, chills, chest pain, shortness of breath, lower abdominal pain, hematochezia, melena, constipation, diarrhea, genitourinary symptoms. She states that she has followed with Gastroenterology through [facility], has had an unremarkable workup including a colonoscopy. Related Data Home Medications ?Medication ?Instructions ?Recorded ?Confirmed atorvastatin 20 mg tablet 20 mg PO BEDTIME 11/12/23 12/24/23 clonazepam 2 mg tablet 2 mg PO BID anxiety 11/12/23 12/24/23 dulaglutide 0.75 mg/0.5 mL 0.75 mg subcut MO 11/12/23 12/24/23 subcutaneous pen injector (Trulicity) empagliflozin 25 mg tablet 25 mg PO QAM 11/12/23 12/24/23 (Jardiance) insulin glargine 100 unit/mL 10 unit subcut QPM 11/12/23 12/24/23 subcutaneous solution (Lantus U-100 Insulin) ondansetron 4 mg disintegrating 4 mg PO Q6H PRN Nausea 11/12/23 12/24/23 tablet quetiapine 300 mg tablet 600 mg PO BEDTIME 11/12/23 12/24/23 Previous Rx's ?Medication ?Instructions ?Recorded insulin lispro 100 unit/mL 1 sliding scale dose subcut 03/01/22 subcutaneous solution (Humalog USEASDIRECTD #10 mL U-100 Insulin) aspirin 81 mg tablet,delayed 81 mg PO DAILY #30 tabs 11/17/23 release heparin (porcine) 25,000 unit/250 25,000 unit (250 mL) continuous IV 11/17/23 mL in 0.45 % sodium chloride IV infusion .Q0M #6,000 mL soln cyclobenzaprine 5 mg tablet 5 mg PO TID PRN muscle spasm 7 11/23/23 days #21 tabs metoprolol succinate 50 mg 50 mg PO DAILY #90 tabs 12/24/23 tablet,extended release 24 hr metoclopramide HCl 10 mg tablet 10 mg PO Q6H PRN nausea and 03/01/24 (Reglan) vomiting #10 tabs metoclopramide HCl 10 mg tablet 10 mg PO Q6H PRN nausea and 03/24/24 (Reglan) vomiting #7 tabs Allergies Allergy/AdvReac Type Severity Reaction Status Date / Time No Known Allergies Allergy Verified 03/23/24 22:10 [No Known Allergies*] Review of Systems Review of Systems Yes all other systems are reviewed and are negative PMFSH Past Medical History Attestation statement: The following information was validated with the patient. Source: old records reviewed Medical History Diabetes Gastroparesis Family History Family History Father No problems noted. Social History Social History Household Members: None Housing: Apartment Do you presently have visiting nurse or other home services: No Alcohol intake: never Patient Tobacco Use Status: Never used Tobacco Smoked in Last 30 Days: Yes Use of substances other than those prescribed or required for medical reasons: No Advance Directives: No Advance Directives Information Provided: No Do you have a plan to hurt others: No Plan Patient : No service: No Physical Exam ED Vital Signs: Vital Signs - 24 hr 03/23/24 22:07 03/23/24 22:09 03/24/24 00:00 Temperature 98.1 F 98.1 F 98.1 F Pulse Rate 106 H 107 H 106 H Respiratory Rate 20 18 16 Blood Pressure 137/84 137/84 132/71 Pulse Oximetry 100 100 96 Oxygen Delivery Method Room Air Room Air Room Air 03/24/24 00:43 Temperature Pulse Rate Respiratory Rate 18 Blood Pressure Pulse Oximetry Oxygen Delivery Method BMI result Body Mass Index 26.8 Appearance: Alert.?Oriented to person, place and time. No acute distress.?Normal affect. Eyes: Pupils equal, round and reactive to light.? ENT: Pharynx normal.?? Neck: Normal inspection.? Neck supple.?? CVS: Heart sounds normal. Normal heart rate and rhythm.? Pulses normal.?? Respiratory: No respiratory distress.? Lung sounds clear to auscultation bilaterally?? Abdomen: Soft with epigastric tenderness upon palpation. No rigidity. No guarding. No rebound tenderness. Negative Chua sign. No CVA tenderness. Normoactive bowel sounds. No pulsatile mass.?? Skin: Skin warm and dry.? Normal skin color. Extremities: No lower extremity edema.? Neuro: Moves all extremities spontaneously. Sensation intact bilaterally. Ambulates with normal steady gait. Course Reevaluation(s) Reevaluation #1: On re-evaluation she is resting quietly with her eyes closed. She awakens to verbal stimuli. She states that her abdominal pain is unchanged but her nausea has somewhat improved. Will trial a single dose of morphine. Time: 00:33 Reevaluation #2: Improvement in pain. Was ambulatory with steady gait to the bathroom. Tolerating oral intake. Urinalysis without evidence of infection. At this time feel that she is stable for discharge home, outpatient follow-up with her doctors. Has sent prescription for Reglan to pharmacy. Reviewed strict return precautions. Clear liquid diet over the next few days. Time: 01:52 Medical Decision Making Medical Decision Making MDM Narrative: Patient is a 54 old female with past medical history of diabetes, gastroparesis, stress-induced cardiomyopathy presenting to emergency department for evaluation of epigastric pain and vomiting the patient feels is consistent with her gastroparesis. She appears uncomfortable, she is tachycardic on arrival though this appears chronic in nature she is afebrile, no hypoxia or tachypnea. Will obtain CBC to evaluate for leukocytosis/ anemia, CMP and lipase to evaluate for abnormal electrolytes /abnormal renal function/ abnormal hepatic/biliary function, EKG and troponin to evaluate for ischemia/ACS and Urinalysis. We will try management with normal saline IV fluid, Reglan and Benadryl I have be. At this time would defer CT imaging, appears consistent with her prior evaluations and she has had numerous CT scans within the past few years without acute identifiable pathology. If her pain is unable to be managed, will consider CT imaging at that time. Differential Diagnosis Differential Diagnoses: The differential diagnosis associated with the presentation includes (Gastroparesis, gastroenteritis, pancreatitis cyclical vomiting) Admission/Observation Consideration of admission/observation: Escalation of care including admission/observation considered Lab Data MDM Lab Attestation statement: I reviewed the patient's lab results. CBC is without leukocytosis anemia or thrombocytopenia. CMP is overall unremarkable, BUN slightly increased from baseline, creatinine normal. Non- anion gap hyperglycemia 329. LFTs within normal range, lipase normal.. High sensitive troponin below detectable limits. 03/23/24 22:39 03/23/24 23:00 Labs: Lab Results 03/23/24 03/23/24 03/24/24 Range/Units 22:39 23:00 01:41 WBC 6.4 (4.8-10.8) X10*3/uL RBC 4.85 (4.20-5.50) X10*6/uL Hgb 14.7 (12.0-16.0) g/dl Hct 43.0 (37.0-47.0) % MCV 88.7 (80.0-98.0) fL MCH 30.3 (27.0-33.0) pg MCHC 34.2 (31.0-35.0) g/dl RDW 12.4 (11.0-16.0) % Plt Count 317 (160-400) X10*3/uL MPV 8.9 L (9.4-12.3) fL Immature Gran % (Auto) 0.5 H (0.0-0.4) % Neut % (Auto) 61.8 (45-73) % Lymph % (Auto) 29.4 (20-40) % Cochran % (Auto) 6.5 (2-11) % Eos % (Auto) 1.2 (0-4) % Baso % (Auto) 0.6 (0-2) % Lymph # (Auto) 1.9 (1.2-4.9) X10*3/uL Cochran # (Auto) 0.4 (0.1-1.2) X10*3/uL Eos # (Auto) 0.1 (0.0-0.4) X10*3/uL Baso # (Auto) 0.0 (0.0-0.2) X10*3/uL Abs Immat Gran (auto) 0.03 (0.00-0.03) X10*3/uL Absolute Neuts (auto) 4.0 (2.0-8.3) x10*3/uL Absolute Nucleated RBC 0.000 (0.0-0.012) X10*3/uL Nucleated RBC % (auto) 0.0 (0.0-0.2) /100WBC Sodium 136 (135-145) mmol/L Potassium 4.0 (3.3-5.1) mmol/L Chloride 102 (96-108) mmol/L Carbon Dioxide 23 (22-29) mmol/L Anion Gap 15 (12-20) BUN 24 H (9-16) mg/dL Creatinine 1.12 (0.5-1.4) mg/dL Estim Creat Clear Calc 49.3 Estimated GFR 51 Random Glucose 329 H (60-115) mg/dL Calcium 10.0 (8.4-10.2) mg/dL Magnesium 2.4 (1.6-2.6) mg/dL Total Bilirubin 0.4 (0.0-1.0) mg/dL AST 14 (5-31) U/L ALT 14 (0-31) U/L Alkaline Phosphatase 82 (39-117) U/L Troponin I High Sens < 2.7 D (<3.5-17.0) ng/L Total Protein 7.5 (6.5-8.0) g/dL Albumin 4.3 (3.5-5.0) g/dL Lipase 23 (8-78) U/L Urine Color Yellow Urine Appearance Clear Urine pH 5.5 (5.0-9.0) Ur Specific Bolton >= 1.030 H (1.005-1.025) Urine Protein Negative (Neg-Trace) mg/dL Urine Glucose (UA) >=1000 H (Negative) mg/dL Urine Ketones Negative (Negative) mg/dL Urine Blood Negative (Negative) Urine Nitrite Negative (Negative) Ur Leukocyte Esterase Negative (Negative) Independent Interpretation I performed an independent interpretation of an: EKG Interpretation: Rate: 107 Rhythm:? Sinus tachycardia Normal P waves.? Normal CAMRYN.?? Normal QRS complex.?? ST T wave :??No ST elevation, no ST depression, no T-wave inversions qTC: 485 prior studies:?October of 2023 The study has been interpreted contemporaneously by me. Independent Historian Clinical information obtained from an independent historian. History obtained from or confirmed by: EMS External Record Review External record reviewed: Outpatient record Medications Administered Discontinued Medications Generic Name Dose Route Start Last Admin Trade Name Freq PRN Reason Stop Dose Admin Diphenhydramine HCl 25 mg 03/23/24 23:20 03/23/24 23:35 Diphenhydramine Hcl 50 Mg/Ml Vial IVPUSH 03/23/24 23:21 25 mg ONCE ONE Administration Sodium Chloride 1,000 mls @ 999 mls/hr 03/23/24 23:30 03/24/24 00:42 Ns IV 03/24/24 00:30 Infused .Q1H1M BASHIR Infusion Metoclopramide HCl 10 mg 03/23/24 23:20 03/23/24 23:35 Metoclopramide Hcl 10 Mg/2 Ml Vial IVPUSH 03/23/24 23:21 10 mg ONCE ONE Administration Morphine Sulfate 4 mg 03/24/24 00:35 03/24/24 00:43 Morphine Sulfate 4 Mg/Ml Cartridge IVPUSH 03/24/24 00:36 4 mg ONCE ONE Administration Protocol Discharge Plan Discharge Clinical Impression: Diabetic gastroparesis Patient Disposition: Still a Patient Instructions: Diabetic Gastroparesis (DC) Additional Instructions: Please follow-up with your doctors as scheduled. Continue taking your medications as prescribed. Prescription for Reglan was sent to your pharmacy to help with nausea/vomiting. Prescriptions: New metoclopramide HCl [Reglan] 10 mg tablet 10 mg PO Q6H PRN (Reason: nausea and vomiting) Qty: 7 0RF No Action insulin lispro [Humalog U-100 Insulin] 100 unit/mL solution 1 sliding scale dose subcut USEASDIRECTD Qty: 10 0RF cyclobenzaprine 5 mg tablet 5 mg PO TID PRN (Reason: muscle spasm) 7 Days Qty: 21 0RF atorvastatin 20 mg tablet 20 mg PO BEDTIME quetiapine 300 mg tablet 600 mg PO BEDTIME clonazepam 2 mg tablet 2 mg PO BID Jardiance 25 mg tablet 25 mg PO QAM Trulicity 0.75 mg/0.5 mL pen injector 0.75 mg subcut MO insulin glargine [Lantus U-100 Insulin] 100 unit/mL solution 10 unit subcut QPM ondansetron 4 mg Tablet,Disintegrating 4 mg PO Q6H PRN (Reason: Nausea) aspirin 81 mg Tablet,Delayed Release (Dr/Ec) 81 mg PO DAILY Qty: 30 0RF heparin(porcine) in 0.45% NaCl 25,000 unit/250 mL Parenteral Solution 25,000 unit continuous IV infusion .Q0M Qty: 6000 0RF metoclopramide HCl [Reglan] 10 mg tablet 10 mg PO Q6H PRN (Reason: nausea and vomiting) Qty: 10 0RF metoprolol succinate 50 mg tablet extended release 24 hr 50 mg PO DAILY Qty: 90 3RF Print Language: Czech
[2024-03-23 23:23] LABS: Magnesium 2.4 mg/dL (1.6-2.6)
[2024-03-23 23:25] LABS: Alanine Aminotransferase 14 U/L (0-31); Albumin Level 4.3 g/dL (3.5-5.0); Alkaline Phosphatase 82 U/L (39-117); Anion Gap 15 (12-20); Aspartate Amino Transferase 14 U/L (5-31); Bilirubin Total 0.4 mg/dL (0.0-1.0); Blood Urea Nitrogen 24 mg/dL (9-16); Carbon Dioxide 23 mmol/L (22-29); Chloride 102 mmol/L (96-108); Creatinine Clr Calc Pharmacy 49.3; Estimated Glomerular Filt Rate 51; Glucose Random 329 mg/dL (60-115); Lipase 23 U/L (8-78); Sodium 136 mmol/L (135-145); Total Protein 7.5 g/dL (6.5-8.0)
[2024-03-23 23:29] LABS: Troponin-I High Sensitivity < 2.7 ng/L (<3.5-17.0)
[2024-03-23] MEDS: Metoclopramide HCl 10 MG/2 ML VIAL IVPUSH (23:35)
[2024-03-23] MEDS: diphenhydrAMINE HCL 50 MG/ML VIAL 25 MG IVPUSH (23:35)
[2024-03-23] MEDS: 0.9 % Sodium Chloride 1,000 ML 999 ML IV (23:35)
[2024-03-24] VITALS: BP 132/71; PULSE 106; RESP 16; TEMP 36.7; O2SAT 96
[2024-03-24 00:43] VITALS: RESP 18
[2024-03-24] MEDS: Morphine Sulfate 4 MG/ML CARTRIDGE IVPUSH (00:43)
--- NOTE | 2024-03-24 00:44 | PC.NURSE ---
pt reporting 10/10 abdominal pain, pt medicated per oct.
[2024-03-24 01:47] LABS: Appearance Urine Clear; Color Urine Yellow; Glucose Urine UA >=1000 mg/dL (Negative); Leukocyte Esterase Urine Negative (Negative); Nitrite Urine Negative (Negative); PH 5.5 (5.0-9.0); Specific Gravity - Urine >= 1.030 (1.005-1.025); UMIC TRIGGER UACC YES; Urine Blood Negative (Negative); Urine Ketones Negative (Negative); Urine Protein Negative (Neg-Trace)
[2024-03-24 01:51] LABS: Bacteria Urine None Seen (None Seen); Hyaline Casts Urine 0-2 /LPF (0-2); RBC Urine 0-2 /HPF (0-2); Squamous Epithelial Cell Urine 0-2 /HPF (0-2); WBC Urine 0-5 /HPF (0-5)
[2024-03-24 02:00] VITALS: BP 118/58; PULSE 101; RESP 18; TEMP 37.1; O2SAT 97
[2024-03-24 02:18] VITALS: BP 118/58; PULSE 101; RESP 18; TEMP 37.1; O2SAT 97
== END 2024-03-24 02:18 | disposition still patient (30) ==
PROVIDERS: Nurse Practitioner Family; Emergency Provider Emergency Medicine
DX: E11.43 Type 2 diabetes mellitus with diabetic autonomic (poly)neuropathy (principal); K31.84 Gastroparesis; R10.13 Epigastric pain; R11.2 Nausea with vomiting, unspecified; R00.0 Tachycardia, unspecified; Z79.899 Other long term (current) drug therapy
CPT/HCPCS: 36415; 80053; 81001; 83690; 83735; 84484; 85025; 93005; 96361; 96374; 96375; 99284; 99285; J1200; J2270; J2765

== ENCOUNTER → 2024-03-23 22:33 | Outpatient (BNV) | payer OTHER, SELFPAY | PROVIDERS: Emergency Provider Emergency Medicine; Visit Provider Internal Medicine Cardiovascular Disease | DX: R94.31 Abnormal electrocardiogram [ECG] [EKG] (principal) | CPT/HCPCS: 93010 ==

== ENCOUNTER → 2024-03-28 10:29 | Outpatient (REF) | payer OTHER, SELFPAY ==
--- NOTE | 2024-03-28 10:33 | CA_ITS ---
Transthoracic Echocardiogram Patient (Last, First, Middle): Zaina Sharma, Gender: Female Date of : 1970 Age: 54 Procedure Date: 03/28/2024 Procedure Type: Transthoracic Echocardiogram Location: OP Height: 154.94 cm Weight: 67.13 kg BSA: 1.66 m2 Heart Rate: 112 bpm BP: 132 / 70 mmHg Aerologist: SB Referring MD: Efrain Garcia MD Personal Care Aide: Mart Josue MD Symptoms: I51.81 - Takotsubo syndrome Study Quality: Adequate ECG Rhythm: Tachycardia Conclusions: - Mildly reduced LV EF of 45-50% Findings Left Ventricle Normal left ventricular cavity size. There is normal left ventricular wall thickness. The left ventricular systolic function is mildly decreased. The visually estimated ejection fraction is between 45-50%. Spectral Doppler is indicative of an impaired relaxation filling pattern. Prior Study Comparison Changes noted compared to prior study dated: 12/16/2023. Marginal improvement in LV ejection fraction at 45-50% Measurements 2D Linear Measurements IVSd: 1.39 0.6-0.9/0.6-1.0 cm LVIDd: 3.77 3.9-5.3/4.2-5.9 cm LVIDd Index: 2.27 2.4-3.2/2.2-3.1 cm/m2 LVIDs: 2.92 2.0-3.6 cm LVPWd: 0.67 0.7-1.1 cm LV Mass: 149.93 67-162/88-224 g LV Mass Index: 90.32 43-95/49-115 g/m2 LVOT Diam: 2.00 3.0+(-)1.3 cm 2D Systolic Function EF 4C: 47.20 >55% EF 2C: 51.70 >55% EF BiP: 47.50 >55% Mitral Valve E'Lateral: 4.57 LVOT LVOT Pk Dagoberto: 0.52 LVOT Mn Dagoberto: 0.38 LVOT VTI: 0.08 LVOT Pk Grad: 1.00 LVOT Mn Grad: 1.00 LVOT Diam: 2.00 LVOT Area: 3.14 Diastolic Function E' Laterial: 4.57 Updated in Other Vendor System with Status of Final Mart Josue MD electronically signed on 03/28/2024 12:56:58 PM with status of Final
== END ==
LOC: HO.CARD 10:29
PROVIDERS: Visit Provider Internal Medicine
DX: I51.81 Takotsubo syndrome (principal)
CPT/HCPCS: 93308

== ENCOUNTER → 2024-03-28 10:33 | Outpatient (BNV) | payer OTHER, SELFPAY | PROVIDERS: Visit Provider Internal Medicine Cardiovascular Disease | DX: I51.81 Takotsubo syndrome (principal) | CPT/HCPCS: 93308; 93321; 93325 ==